=== PATIENT | male | born 1940 | race Hispanic/Latino ===

== ENCOUNTER 2016-11-26 18:20 | Inpatient (IN) | payer MEDICARE, OTHER ==
[2016-11-26 18:24] VITALS: BMI 24.0
--- NOTE | 2016-11-26 18:58 | ED PDOC ---
Arrival/HPI - General Chief Complaint: Weakness/Neurological Deficit Time Seen by Provider: 11/26/16 18:40 Historian: Patient, Other (RN who spoke with the patient's daughter) EM Caveat: Altered Mental Status - History of Present Illness Narrative History of Present Illness (Text): 11/26/16 18:56 Patient is confused with altered mental status and unable to give an accurate history. Triage nurse reports that the patient's sister dropped him off and reports an altered mental status for an unknown time frame. The patient is confused and unable to give an accurate history. He is foul-smelling and unkempt. There is some superficial abrasions on his left knee. He has an excoriated fungal infection in his left groin. It is unclear if he is possibly septic or has had a CVA. Time/Duration: Prior to Arrival Symptom Onset: Sudden Symptom Course: Worsening Activities at Onset: Rest Context: Home Past Medical History - Provider Review Nursing Documentation Reviewed: Yes - Infectious Disease Hx of Infectious Diseases: None - Tetanus Immunization Tetanus Immunization: Unknown - Cardiac Hx Cardiac Disorders: Yes (CAD) Hx Angina: Yes Hx Cardiac Arrhythmia: No Hx Circulatory Problems: No Hx Congestive Heart Failure: No Hx Heart Murmur: No Hx Heart Transplant: No Hx Hypertension: Yes Hx Internal Defibrillator: No Hx Mitral Valve Prolapse: No Hx Pacemaker: No Hx Peripheral Edema: No Hx Peripheral Vascular Disease: Yes Other/Comment: Open Heart Surgery 2012 - Pulmonary Hx Respiratory Disorders: Yes Hx Asthma: No Hx Bronchitis: No Hx Chronic Obstructive Pulmonary Disease (COPD): Yes Hx Emphysema: No Hx Pneumonia: No Hx Respiratory Aspiration: No Hx Respiratory Tract Infection: No Hx Sleep Apnea: No Hx Tuberculosis: No - Neurological Hx Neurological Disorder: Yes Hx Alzheimer's Disease: No HX Cerebrovascular Accident: No Hx Dementia: No Hx Dizziness: No Hx Meningitis: No Hx Migraine: No Hx Parkinson's Disease: Yes Hx Seizures: No Hx Transient Ischemic Attacks (TIA): No - HEENT Hx HEENT Disorder: No Hx Blind: No Hx Cataracts: No Hx Deafness: No Hx Difficulty Chewing: No Hx Epistaxis: No Hx Glaucoma: No Hx Macular Degeneration: No - Renal Hx Renal Disorder: No Hx Dialysis: No Hx Kidney Stones: No Hx Neurogenic Bladder: No Hx Pyelonephritis: No Hx Renal Cancer: No Hx Renal Failure: No - Endocrine/Metabolic Hx Endocrine Disorders: No Hx Adrenal Cancer: No Hx Diabetes Insipidus: No Hx Diabetes Mellitus Type 1: No Hx Diabetes Mellitus Type 2: No Hx Hyperthyroidism: No Hx Hypothyroidism: No Hx Systemic Lupus Erythematosus: No - Hematological/Oncological Hx Blood Disorders: No Hx AIDS: No Hx Anemia: No Hx Cancer: No Hx Chemotherapy: No Hx Cirrhosis: No Hx Hemophilia: No Hx Hepatitis A: No Hx Hepatitis B: No Hx Hepatitis C: No Hx Metastasis: No Hx Shingles: No Hx Sickle Cell Disease: No Hx Unexplained Bleeding: No - Integumentary Hx Dermatological Disorder: No Hx Basal Cell Carcinoma: No Hx Eczema: No Hx Melanoma: No Hx Psoriasis: No Hx Squamous Cell Carcinoma: No - Musculoskeletal/Rheumatological Hx Falls: Yes (Frequent falls) - Gastrointestinal Hx Gastrointestinal Disorders: No - Genitourinary/Gynecological Hx Genitourinary Disorders: No Hx Hematuria: No Hx Incontinence: No Hx Prostate Problems: No Hx Sexually Transmitted Diseases: No Hx Urinary Tract Infection: No - Psychiatric Hx Psychophysiologic Disorder: Yes Hx Anxiety: Yes Hx Substance Use: No - Surgical History Hx Cardiac Catheterization: Yes Hx Coronary Stent: No Hx Open Heart Surgery: Yes (2011) - Anesthesia Hx Anesthesia: Yes Hx Anesthesia Reactions: No Family/Social History - Physician Review Nursing Documentation Reviewed: Yes Family/Social History: No Known Family HX, Unknown Family HX Smoking Status: Light Smoker < 10 Cigarettes Daily Hx Alcohol Use: No Hx Substance Use: No Allergies/Home Meds Allergies/Adverse Reactions: Allergies No Known Allergies Allergy (Verified 11/26/16 18:24) Home Medications: Home Meds Medication Instructions Recorded Confirmed Alprazolam [Xanax] 1 mg PO DAILY 04/14/14 11/26/16 Carbidopa/Levodopa 1 tab PO TID 11/26/16 11/26/16 [Carbidopa-Levodopa 25-100 Tab] Metoprolol Succinate [Toprol XL] 25 mg PO DAILY 11/26/16 11/26/16 Review of Systems - Physician Review All systems were reviewed & negative as marked: Yes - Review of Systems Systems not reviewed;Unavailable: Altered Mental Status Physical Exam Vital Signs Reviewed: Yes Vital Signs Temp Pulse Resp BP Pulse Ox 11/26/16 20:58 99.3 F 65 20 177/95 H 98 11/26/16 18:30 97.4 F L 135 H 19 135/74 98 Temperature: Afebrile Blood Pressure: Normal Pulse: Tachycardic Respiratory Rate: Normal Appearance: Positive for: Comfortable, Ill-Appearing Pain Distress: None Mental Status: Positive for: Lethargic. No: other (oriented x2 only) - Systems Exam Head: Present: Atraumatic, Normocephalic Pupils: Present: PERRL Extroacular Muscles: Present: EOMI Conjunctiva: Present: Normal Ears: Present: NORMAL TM, Normal Canal. No: Erythema Mouth: Present: Dry, Other (poor dentition) Pharnyx: No: ERYTHEMA, EXUDATE, TONSILS ENLARGED Neck: Present: Normal Range of Motion Respiratory/Chest: Present: Clear to Auscultation, Good Air Exchange, Decreased Breath Sounds. No: Respiratory Distress, Accessory Muscle Use Cardiovascular: Present: Irregular Rhythm, Tachycardic Abdomen: Present: Normal Bowel Sounds. No: Tenderness, Distention, Peritoneal Signs, Rebound, Guarding Back: Present: Normal Inspection. No: CVA Tenderness, Midline Tenderness, Paraspinal Tenderness Upper Extremity: Present: Normal Inspection. No: Cyanosis, Edema Lower Extremity: Present: NORMAL PULSES, Other (left knee abrasion). No: Normal Inspection, Edema, CALF TENDERNESS, Tenderness, Swelling Neurological: Present: GCS=15, CN II-XII Intact, Speech Normal, Motor Func Grossly Intact Skin: Present: Warm, Dry, Rashes (left groin excoriated fungal rash, left knee abrasion), Normal Color Psychiatric: Present: Agitated Medical Decision Making ED Course and Treatment: 11/26/16 18:59 Impression: A 76 year old male with Altered Mental Status. Plan: -- EKG -- CT head -- chest xray -- Urinalysis -- labs -- Reassess and disposition Prior Visits: Notes and results from previous visits were reviewed. Patient last reported to the emergency department on 04/16/14 for evaluation of frequent falls with some bruising on face. Patient admitted to [facility] for elevated troponin and near syncope. Progress Notes: EKG: EKG shows normal sinus rhythm with a sinus arrhythmia rate approximately 90 and with an intraventricular conduction delay and no acute ST or T-wave changes CT head: FINDINGS: Brain: Moderate volume loss is seen in keeping with age. Moderate decrease in attenuation of the periventricular white matter likely related to small vessel ischemic change. The brain is otherwise unremarkable. Normal epperson-white matter differentiation is present, without acute hemorrhage, or mass. Ventricles: Unremarkable. No ventriculomegaly. Bones/joints: Unremarkable. No acute fracture. Soft tissues: Unremarkable. Sinuses: Unremarkable as visualized. No acute sinusitis. Mastoid air cells: Unremarkable as visualized. No mastoid effusion. IMPRESSION: Age-related atrophy and chronic white matter ischemic changes, with no evidence of an acute intracranial abnormality. Dictated and Authenticated by: Wai Pardo MD 11/26/2016 7:33 PM Eastern Time ([place] & [place]) 11/26/16 21:58 Discussed in detail with , who knows the patient well. - Lab Interpretations Lab Results: 11/26/16 19:00 11/26/16 19:00 Lab Results 11/26/16 20:45: Ammonia 13 11/26/16 20:25: Urine Opiates Screen Negative, Urine Methadone Screen Negative, Ur Barbiturates Screen Negative, Ur Phencyclidine Scrn Negative, Ur Amphetamines Screen Negative, U Benzodiazepines Scrn Positive H, U Oth Cocaine Metabols Negative, U Cannabinoids Screen Negative 11/26/16 20:25: Urine Color Yellow, Urine Appearance Sl cloudy, Urine pH 6.0, Ur Specific Vandiver 1.020, Urine Protein Trace H, Urine Glucose (UA) Negative, Urine Ketones Negative, Urine Blood Negative, Urine Nitrate Negative, Urine Bilirubin Negative, Urine Urobilinogen 1.0 H, Ur Leukocyte Esterase Negative, Urine RBC 0 - 2, Urine WBC 0 - 2, Ur Epithelial Cells 0 - 2, Urine Bacteria Many 11/26/16 19:13: pO2 42, VBG pH 7.35, VBG pCO2 58.0, VBG HCO3 32.0 H, VBG Total CO2 33.8 H, VBG O2 Sat (Calc) 82.5 H, VBG Base Excess 4.7 H, VBG Potassium 4.0, Glucose 118 H, Lactate 1.6, FiO2 21.0, Sodium 140.0, Chloride 106.0, Venous Blood Potassium 4.0 11/26/16 19:00: Salicylates < 1 L, Acetaminophen < 10.0 L 11/26/16 19:00: TSH 3rd Generation 1.82, Alcohol, Quantitative < 10 11/26/16 19:00: Sodium 140, Potassium 4.2, Chloride 101, Carbon Dioxide 28, Anion Gap 15, BUN 35 H, Creatinine 1.1, Est GFR ( Amer) > 60, Est GFR ( Non-Af Amer) > 60, Random Glucose 115 H, Calcium 9.8, Phosphorus 3.5, Magnesium 2.0, Total Bilirubin 2.3 H, AST 59, ALT 22, Alkaline Phosphatase 79, Lactate Dehydrogenase 724 H, Total Creatine Kinase 680 H, CK-MB (CK-2) 4.7 H, CK-MB (CK- 2) % Cancelled, Troponin I 0.02, Total Protein 7.9, Albumin 4.5, Globulin 3.4, Albumin/Globulin Ratio 1.3 11/26/16 19:00: PT 12.4 H, INR 1.15 H, APTT 29.9 11/26/16 19:00: WBC 9.8, RBC 5.53, Hgb 16.9, Hct 48.4, MCV 87.5, MCH 30.6, MCHC 34.9, RDW 13.9, Plt Count 126, MPV 11.9 H, Gran % 64.4, Lymph % (Auto) 20.7 L, Hamlin % (Auto) 10.7 H, Eos % (Auto) 3.9, Baso % (Auto) 0.3, Gran # 6.32, Lymph # 2.0, Hamlin # 1.1 H, Eos # 0.4, Baso # 0.03 I have reviewed the lab results: Yes - RAD Interpretation Radiology Orders: 11/26/16 18:50 HEAD W/O CONTRAST [CT] Stat 11/26/16 18:51 CHEST PORTABLE [RAD] Stat 11/26/16 21:51 BRAIN WITH CONTRAST [MRI] Stat - EKG Interpretation Interpreted by ED Physician: Yes Type: 12 lead EKG - Medication Orders Current Medication Orders: Carbidopa/Levodopa (Sinemet) 1 tab PO TID YARON Sodium Chloride (Sodium Chloride 0.9%) 500 mls @ 500 mls/hr IV ONCE ONE Stop: 11/26/16 22:08 Last Admin: 11/26/16 21:20 Dose: 500 mls/hr Metoprolol Succinate (Toprol Xl) 25 mg PO DAILY YARON - Scribe Statement The provider has reviewed the documentation as recorded by the Raffi Hernandez Provider Scribe Attestation: All medical record entries made by the Scribe were at my direction and personally dictated by me. I have reviewed the chart and agree that the record accurately reflects my personal performance of the history, physical exam, medical decision making, and the department course for this patient. I have also personally directed, reviewed, and agree with the discharge instructions and disposition. Disposition/Present on Arrival - Present on Arrival Any Indicators Present on Arrival: No History of DVT/PE: No History of Uncontrolled Diabetes: No Urinary Catheter: No History of Decub. Ulcer: No History Surgical Site Infection Following: None - Disposition Have Diagnosis and Disposition been Completed?: Yes Diagnosis: Altered mental status, Dehydration, Weakness, Rhabdomyolysis Disposition: HOSPITALIZED Disposition Time: 21:10 Patient Plan: Observation, Telemetry Patient Problems: Current Active Problems Problem Status Onset Altered mental status Acute Dehydration Acute Rhabdomyolysis Acute Weakness Acute Condition: FAIR Discharge Instructions (ExitCare): Weakness (ED) Referrals: Ted Jacob MD [Primary Care Provider] - Follow up with primary
[2016-11-26 19:17] LABS: ADD MANUAL DIFF? NO
[2016-11-26 19:19] LABS: VENOUS BLOOD GAS BASE EXCESS 4.7 mmol/L (0.0-2.0); VENOUS BLOOD PH 7.35 (7.32-7.43)
[2016-11-26 19:31] LABS: BASO # 0.03 K/mm3 (0.0-2.0); BASO % 0.3 % (0.0-3.0); EOS # 0.4 (0.0-0.7); EOS % 3.9 % (1.5-5.0); GRAN # 6.32 (1.4-6.5); GRAN % 64.4 % (50.0-68.0); HEMATOCRIT 48.4 % (42.0-52.0); LYMPH % 20.7 % (22.0-35.0); MEAN CELL VOLUME 87.5 fL (80.0-105.0); MEAN CORPUSCULAR HEMOGLOBIN 30.6 pg (25.0-35.0); MEAN CORPUSCULAR HGB CONC 34.9 g/dl (31.0-37.0); MEAN PLATELET VOLUME 11.9 fl (7.0-11.0); MONO # 1.1 (0.1-0.6); MONO % 10.7 % (1.0-6.0); PLATELET COUNT 126 10^3/uL (120.0-450.0); RED CELL DISTRIBUTION WIDTH 13.9 % (11.5-14.5); WHITE BLOOD COUNT 9.8 10^3/ul (4.5-11.0)
[2016-11-26 19:32] LABS: ALCOHOL SERUM < 10 mg/dL (0-10)
[2016-11-26 19:36] LABS: ALB/GLOB RATIO 1.3 (1.1-1.8); ALKALINE PHOSPHATASE 79 U/L (38-133); ALT/SGPT 22 U/L (7-56); AST/SGOT 59 U/L (15-59); BILIRUBIN,TOTAL 2.3 mg/dL (0.2-1.3); BLOOD UREA NITROGEN 35 mg/dL (7-21); CALCIUM 9.8 mg/dL (8.4-10.5); CARBON DIOXIDE 28 mmol/L (21-33); CHLORIDE 101 mmol/L (98-107); GFR AFRICAN-AMERICAN > 60; GLUCOSE,RANDOM 115 mg/dL (70-110); PHOSPHOROUS 3.5 mg/dL (2.5-4.5); POTASSIUM 4.2 mmol/L (3.6-5.0); SODIUM 140 mmol/L (132-148); TOTAL PROTEIN 7.9 g/dL (5.8-8.3)
[2016-11-26 19:47] LABS: TROPONIN I 0.02 ng/mL
[2016-11-26 19:53] LABS: INR 1.15 (0.93-1.08); PARTIAL THROMBOPLASTIN TIME 29.9 Seconds (23.7-30.8)
[2016-11-26 20:18] LABS: THYROID STIMULATING HORMONE 1.82 mIU/mL (0.46-4.68)
[2016-11-26 20:40] LABS: URINE BILIRUBIN NEGATIVE (NEGATIVE); URINE BLOOD NEGATIVE (NEGATIVE); URINE GLUCOSE (UA) NEGATIVE (NEGATIVE); URINE KETONE NEGATIVE (NEGATIVE); URINE LEUKOCYTE ESTERASE NEGATIVE Leu/uL (NEGATIVE); URINE PROTEIN TRACE mg/dL (<30 mg/dL)
[2016-11-26 20:49] LABS: URINE APPEARANCE SL CLOUDY (CLEAR); URINE COLOR YELLOW (YELLOW)
[2016-11-26 20:55] LABS: URINE BACTERIA MANY (NEG); URINE EPITHELIAL CELLS 0 - 2 /hpf (0-5); URINE RBC 0 - 2 /hpf (0-2); URINE WBC 0 - 2 /hpf (0-6)
[2016-11-26] MEDS ORDERED: Sodium Chloride 0.9% 500 ML IV ONE (21:09)
[2016-11-26 23:22] LABS: TROPONIN I 0.02 ng/mL
[2016-11-26] MEDS ORDERED: Metoprolol Succinate 50 mg XL Tab PO STA ×2 (23:47)
--- NOTE | 2016-11-27 05:21 | CP.PCM.PN ---
Subjective - Date & Time of Evaluation Date of Evaluation: 11/27/16 Time of Evaluation: 05:20 - Subjective Subjective: Patient was seen at bedside. Nurse called because patient was trying to get out of bed , was confused. BP was 190/94 , Little anxious. Takes xanax at home. Patient has no complaints. Medical record was reviewed. This 76 year old white male was admitted after falls, confusion. Has PMH of CAD,COPD,tobacco abuse, Parkinson's disease, multiple falls. Objective - Vital Signs/Intake and Output Vital Signs (last 24 hours): Temp Pulse Resp BP Pulse Ox 97.5 F L 61 20 160/92 H 95 11/27/16 01:52 11/27/16 01:52 11/27/16 01:52 11/27/16 01:52 11/27/16 01:52 - Medications Medications: Current Medications Carbidopa/Levodopa (Sinemet) 1 tab PO TID YARON Metoprolol Succinate (Toprol Xl) 25 mg PO DAILY YARON - Labs Labs: PT 12.4 Seconds (9.9-11.8) H 11/26/16 19:00 INR 1.15 (0.93-1.08) H 11/26/16 19:00 APTT 29.9 Seconds (23.7-30.8) 11/26/16 19:00 - Constitutional Appears: Well, No Acute Distress - Head Exam Head Exam: ATRAUMATIC, NORMAL INSPECTION, NORMOCEPHALIC - Eye Exam Eye Exam: Normal appearance - ENT Exam ENT Exam: Normal External Ear Exam - Neck Exam Neck Exam: Normal Inspection - Respiratory Exam Respiratory Exam: NORMAL BREATHING PATTERN - Cardiovascular Exam Cardiovascular Exam: absent: JVD - GI/Abdominal Exam GI & Abdominal Exam: absent: Distended - Rectal Exam Rectal Exam: Deferred - Extremities Exam Extremities Exam: Normal Inspection - Back Exam Back Exam: NORMAL INSPECTION - Neurological Exam Neurological Exam: Altered - Psychiatric Exam Psychiatric exam: Agitated - Skin Skin Exam: Normal Color Assessment and Plan - Assessment and Plan (Free Text) Assessment: A/P:Confusion. Elevated blood pressure reading. Dementia. Parkinson's disease. CAD COPD. Continue present management. Hydralzine 10 mg IV x 1.
--- NOTE | 2016-11-27 07:35 | CT ---
PROCEDURE: CT HEAD WITHOUT CONTRAST. HISTORY: ams COMPARISON: 04/14/2014 TECHNIQUE: Axial computed tomography images were obtained through the head/brain without intravenous contrast. Radiation dose: Total exam DLP = 677.45 mGy-cm. This CT exam was performed using one or more of the following dose reduction techniques: Automated exposure control, adjustment of the mA and/or kV according to patient size, and/or use of iterative reconstruction technique. FINDINGS: HEMORRHAGE: No intracranial hemorrhage. BRAIN: No mass effect or edema. Old right thalamic lacunar infarct new since prior examination. No evidence of acute infarct. Chronic white matter ischemic change involving the periventricular white matter as well as deep and subcortical white matter. VENTRICLES: Unremarkable. No hydrocephalus. CALVARIUM: Unremarkable. PARANASAL SINUSES: Mild chronic ethmoid sinusitis MASTOID AIR CELLS: Unremarkable as visualized. No inflammatory changes. OTHER FINDINGS: None. IMPRESSION: No intracranial mass, hemorrhage or evidence of acute infarct. Old right thalamic lacunar infarct. Chronic white matter ischemic change. Preliminary interpretation of this examination was reported by [facility] at 7:33 p.m. on 11/26/2016. There is concurrence of this report with the preliminary interpretation.
[2016-11-27 08:20] LABS: ALB/GLOB RATIO 1.3 (1.1-1.8); ALKALINE PHOSPHATASE 94 U/L (38-133); ALT/SGPT 46 U/L (7-56); AST/SGOT 51 U/L (15-59); BILIRUBIN,TOTAL 1.6 mg/dL (0.2-1.3); BLOOD UREA NITROGEN 30 mg/dL (7-21); CALCIUM 9.2 mg/dL (8.4-10.5); CARBON DIOXIDE 24 mmol/L (21-33); CHLORIDE 103 mmol/L (95-110); GFR AFRICAN-AMERICAN > 60; GLUCOSE,RANDOM 113 mg/dL (70-110); SODIUM 139 mmol/L (132-148); TOTAL PROTEIN 7.4 g/dL (5.8-8.3)
[2016-11-27] MEDS ORDERED: Sodium Chloride 0.9% 1,000 ML IV SCH (08:45)
--- NOTE | 2016-11-27 09:18 | RAD ---
HISTORY: ams COMPARISON: 04/14/2014 FINDINGS: LUNGS: No active pulmonary disease. PLEURA: No significant pleural effusion identified, no pneumothorax apparent. CARDIOVASCULAR: Normal. OSSEOUS STRUCTURES: Sternal wires VISUALIZED UPPER ABDOMEN: Normal. OTHER FINDINGS: None. IMPRESSION: No active disease.
[2016-11-27] MEDS: Sodium Chloride 0.9% 1,000 ML IV SCH (09:43)
[2016-11-27] MEDS: Metoprolol Succinate 50 mg XL Tab PO SCH (09:50)
[2016-11-27] MEDS ORDERED: Metoprolol Succinate 25 mg XL Tab PO SCH ×2 (10:00)
--- NOTE | 2016-11-27 16:02 | CP.PCM.PN ---
Subjective - Date & Time of Evaluation Date of Evaluation: 11/27/16 Time of Evaluation: 15:58 - Subjective Subjective: called by nurse pt is aggitated . pt is admitted for fall and confusion and is aggitated wants to get out of bed ,pt is abusive to the the staff. Objective - Vital Signs/Intake and Output Vital Signs (last 24 hours): Temp Pulse Resp BP Pulse Ox 97.7 F 89 20 125/72 98 11/27/16 11:44 11/27/16 11:44 11/27/16 11:44 11/27/16 11:44 11/27/16 05:32 Intake and Output: 11/27/16 11/27/16 06:59 18:59 Intake Total 120 Output Total 400 Balance -280 - Medications Medications: Current Medications Amlodipine Besylate (Norvasc) 5 mg PO DAILY [facility] Last Admin: 11/27/16 09:42 Dose: 5 mg Carbidopa/Levodopa (Sinemet) 1 tab PO TID [facility] Last Admin: 11/27/16 15:34 Dose: 1 tab Sodium Chloride (Sodium Chloride 0.9%) 1,000 mls @ 100 mls/hr IV .Q10H [facility] Last Admin: 11/27/16 09:43 Dose: 100 mls/hr Metoprolol Succinate (Toprol Xl) 50 mg PO BRK [facility] Last Admin: 11/27/16 09:50 Dose: 50 mg - Labs Labs: 11/27/16 00:38 PT 12.4 Seconds (9.9-11.8) H 11/26/16 19:00 INR 1.15 (0.93-1.08) H 11/26/16 19:00 APTT 29.9 Seconds (23.7-30.8) 11/26/16 19:00 - Constitutional Appears: No Acute Distress - Head Exam Head Exam: NORMOCEPHALIC - Eye Exam Eye Exam: PERRL Pupil Exam: PERRL - ENT Exam ENT Exam: Mucous Membranes Moist - Neck Exam Neck Exam: Full ROM - Respiratory Exam Respiratory Exam: NORMAL BREATHING PATTERN - Cardiovascular Exam Cardiovascular Exam: RRR, +S1, +S2 - Rectal Exam Rectal Exam: Deferred - Extremities Exam Extremities Exam: Full ROM - Neurological Exam Neurological Exam: Awake, CN II-XII Intact - Psychiatric Exam Psychiatric exam: Agitated - Skin Skin Exam: Dry, Warm Assessment and Plan - Assessment and Plan (Free Text) Assessment: aggitation .s/p fall. ct head negative. hx of parkinsonism. Plan: wrist and vest restrain.
--- NOTE | 2016-11-27 19:12 | CON ---
DATE: 11/27/2016 CHIEF COMPLAINT: Confusion. HISTORY OF HISTORY OF PRESENT ILLNESS: A 76-year-old man brought in for worsening confusion with pas t history of coronary artery disease, status post coronary bypass, hypertension, parkinsonism, on Sin emet 1 tab p.o. 25/100 one tab t.i.d., and has been reported by sister who dropped him off at the ER had intermittent episodes of confusion, unable to take care of himself, foul-smelling, unkept. He elliott s excoriations of fungal infection of the left groin. Currently, he is tremulous, he is agitated. H e is on 1:1 and under [place] vest and is agitated and confused. His CT head showed no acute intracran ial abnormality. He was taking Xanax at home, but unknown dose currently, did not bring in Xanax whi le he is in the hospital. He has elevated blood pressure, likely secondary to agitation and having u nderlying hypertensive urgency. Currently, he is on Sinemet. He is following simple commands, he is alert, oriented to person and place, not much of month or year. Recall after 5 minutes is 0/3. Poo r attention span, slow thought process. REVIEW OF SYSTEMS: A 14-point review of systems is negative except the HPI. ALLERGIES: No known drug allergies. PAST MEDICAL HISTORY: Coronary artery disease, status post stent, dyslipidemia, hypertension, mohinder sonism, and COPD. SOCIAL HISTORY: Smokes half pack of cigarettes a day. A smoker for the past 40 years. FAMILY HISTORY: Mother at 90. Father at 52, unaware of the causes. CURRENT MEDICATIONS: Reviewed via nurse's reconciliation sheet. PHYSICAL EXAMINATION: VITAL SIGNS: Temperature 98.1, pulse rate of 89, blood pressure is 125/72, respiratory rate 20, oxyg en saturation 98% on room air. GENERAL: The patient is sitting up in bed, confused, in no acute distress. HEENT: Atraumatic, normocephalic. PERRLA. Extraocular muscles intact. NECK: Supple, no JVD, no adenopathy noted. LUNGS: Clear to auscultation. No adventitious sounds. HEART: S1, S2, normal rate and rhythm. No murmurs, rubs, or gallops. ABDOMEN: Soft, nontender, nondistended. Bowel sounds are present. EXTREMITIES: No clubbing, no cyanosis. Peripheral pulses 2+ felt bilaterally. NEUROLOGIC: The patient is alert, oriented to person and place, not much of month or year. Recall af ter 5 minutes is 0/3. Slow attention span, slow thought process. Cranial nerves II through XII are i ntact. MOTOR: Moves all extremities equally. Slight increased tone throughout. Has some mild cogwheel rig idity at the wrists. Strength is 5/5 in both upper and lower extremities, moving all extremities equ ally. DTRs 2+ throughout. SENSORY: Light touch, proprioception, vibration is intact. COORDINATION: Idwmii-tj-iand intact. GAIT: Deferred for now. LABORATORY DATA: Sodium is 139, potassium 4, chloride 103, carbon dioxide 24, BUN of 30, creatinine 1.1, random glucose 113. ASSESSMENT AND PLAN: This is a 76-year-old man with history of parkinsonism, on Sinemet 1 tab p.o. t .i.d., history of coronary artery disease, status post coronary bypass, hypertension, dyslipidemia wh o has had multiple falls, his fall is secondary to poor gait secondary to parkinsonism and is on Xana x 1 mg p.o. daily for underlying anxiety, presents to the hospital with more confusion and multiple f alls. His multiple falls are likely secondary to poor coordination and gait from underlying parkinso nism and confusion, likely secondary to delirium from underlying dehydration and worsening parkinsoni sm at this time, as well as superimposed underlying worsening anxiety leading to hypertensive urgency . At this time, recommend: 1. PT, OT and likely subacute rehabilitation. 2. Hydrate the patient and monitor his electrolytes and correct accordingly. 3. Get an MRI of the brain without contrast to assess for any acute intracranial abnormality. 4. Seroquel 12.5 mg at bedtime for agitation. 5. Will give 0.5 mg Xanax p.o. b.i.d. for anxiety. At this time, continue with current present medical management. Avoid nighttime interruptions, frequ ently orient him through the day and avoid sedative medications. Thank you for this consult. Gene Ferraro MD cc: [phone] TT: 11/27/2016 19:11:16 Confirmation # [id number] Dictation # [id number] rn
--- NOTE | 2016-11-27 19:54 | HP ---
HISTORY OF PRESENT ILLNESS: A 76-year-old white male with history of CAD, history of chronic obstruc tive pulmonary disease, tobacco abuse, recent history of Parkinson disease, recent confusion and diso rientation, found by the family to be falling multiple times in the last several weeks. Also with ch krishna in mental status and confusion. The patient was brought to Emergency Room by the sister. He wa s found with disheveled face, smelling of urine, contusion and swelling of the left knee. The patien t is not oriented to place or time, but oriented to person only. He has a mild tremor of the hands. Also complaining of pain of the left wrist. PHYSICAL EXAMINATION: GENERAL: He is awake and alert. Seen with his son. HEART: Regular sinus rhythm. CHEST: Shows decreased breath sounds, but mild rhonchi bilaterally. Clear to auscultation and percus valentina. ABDOMEN: Benign. EXTREMITIES: Without cyanosis, clubbing or edema. There is definitely erythema and swelling and a c ontusion of the left knee. NEUROLOGIC: Grossly intact except for some resting tremor and some disorientation. IMPRESSION: Parkinson's disease, multiple falls, possible early dementia, rule out cerebrovascular a ccident, rule out infection, exacerbation of chronic obstructive pulmonary disease. Ted Jacob MD cc: [phone] TT: 11/27/2016 19:54:00 marci
[2016-11-27] MEDS ORDERED: Vancomycin 500mg in NS 500 MG/100 ML BAG IVPB SCH (22:00)
--- NOTE | 2016-11-27 23:09 | CARD ---
APPROVED REPORT EKG Measurement Heart [id number] CT [id number] <Conclusion> Sinus rhythm with frequent and consecutive premature ventricular complexes and fusion complexes Right bundle branch block Inferior infarct, age undetermined Abnormal ECG
[2016-11-28] MEDS: Sodium Chloride 0.9% 1,000 ML IV SCH ×2 (04:45→14:20)
[2016-11-28 06:25] LABS: ADD MANUAL DIFF? NO
[2016-11-28 06:35] LABS: BASO # 0.03 K/mm3 (0.0-2.0); BASO % 0.3 % (0.0-3.0); EOS # 0.4 (0.0-0.7); GRAN # 5.83 (1.4-6.5); GRAN % 59.1 % (50.0-68.0); HEMATOCRIT 42.8 % (42.0-52.0); LYMPH # 2.5 (1.2-3.4); LYMPH % 25.7 % (22.0-35.0); MEAN CELL VOLUME 87.3 fL (80.0-105.0); MEAN CORPUSCULAR HEMOGLOBIN 30.4 pg (25.0-35.0); MEAN CORPUSCULAR HGB CONC 34.8 g/dl (31.0-37.0); MONO # 1.1 (0.1-0.6); MONO % 10.9 % (1.0-6.0); PLATELET COUNT 109 10^3/uL (120.0-450.0); RED CELL DISTRIBUTION WIDTH 13.7 % (11.5-14.5); WHITE BLOOD COUNT 9.9 10^3/ul (4.5-11.0)
[2016-11-28 06:56] LABS: ALB/GLOB RATIO 1.3 (1.1-1.8); ALKALINE PHOSPHATASE 68 U/L (38-133); ALT/SGPT 29 U/L (7-56); AST/SGOT 45 U/L (15-59); BILIRUBIN,TOTAL 2.1 mg/dL (0.2-1.3); BLOOD UREA NITROGEN 24 mg/dL (7-21); CALCIUM 9.1 mg/dL (8.4-10.5); CARBON DIOXIDE 27 mmol/L (21-33); CHLORIDE 105 mmol/L (98-107); GFR AFRICAN-AMERICAN > 60; GLUCOSE,RANDOM 82 mg/dL (70-110); POTASSIUM 4.1 mmol/L (3.6-5.0); SODIUM 141 mmol/L (132-148); TOTAL PROTEIN 6.8 g/dL (5.8-8.3)
[2016-11-28] MEDS ORDERED: Vancomycin 1gm in NS 250ml 1 GM/250 ML BAG IVPB STA (08:12)
[2016-11-28] MEDS: Metoprolol Succinate 50 mg XL Tab PO SCH (10:36)
[2016-11-28] MEDS: Nystatin-Triamcinolone Cream(30 gm) TOP SCH ×2 (10:40→17:05)
--- NOTE | 2016-11-28 12:48 | CP.PCM.PN ---
Subjective - Date & Time of Evaluation Date of Evaluation: 01/28/17 Time of Evaluation: 11:00 - Subjective Subjective: [id number] [id number] : 1940 Loc: NO Room/Bed: 263-01 Age/Sex: 76 / M ADM Status: ADM IN ADM Date: DIS Date: Progress note: DATE: 11/28/2016 CHIEF COMPLAINT: F/U for Confusion. SUBJECTIVE: He has elevated blood pressure, likely secondary to agitation and having underlying hypertensive urgency. Currently, he is on Sinemet. He is following simple commands, he is alert, oriented to person and place, not much of month or year. Recall after 5 minutes is 0/3. Poor attention span, slow thought process. He got seroquel which helped him a little. I placed him on Xanax 0.5 mg po bid. REVIEW OF SYSTEMS: A 14-point review of systems is negative except the HPI. ALLERGIES: No known drug allergies. PAST MEDICAL HISTORY: Coronary artery disease, status post stent, dyslipidemia , hypertension, parkinsonism, and COPD. SOCIAL HISTORY: Smokes half pack of cigarettes a day. A smoker for the past 40 years. FAMILY HISTORY: Mother at 90. Father at 52, unaware of the causes. CURRENT MEDICATIONS: Reviewed via nurse's reconciliation sheet. PHYSICAL EXAMINATION: VITAL SIGNS: Reviewed. GENERAL: The patient is sitting up in bed, confused, in no acute distress. HEENT: Atraumatic, normocephalic. PERRLA. Extraocular muscles intact. NECK: Supple, no JVD, no adenopathy noted. LUNGS: Clear to auscultation. No adventitious sounds. HEART: S1, S2, normal rate and rhythm. No murmurs, rubs, or gallops. ABDOMEN: Soft, nontender, nondistended. Bowel sounds are present. EXTREMITIES: No clubbing, no cyanosis. Peripheral pulses 2+ felt bilaterally. NEUROLOGIC: The patient is alert, oriented to person and place, not much of month or year. Recall after 5 minutes is 0/3. Slow attention span, slow thought process. Cranial nerves II through XII are intact. MOTOR: Moves all extremities equally. Slight increased tone throughout. Has some mild cogwheel rigidity at the wrists. Strength is 5/5 in both upper and lower extremities, moving all extremities equally. DTRs 2+ throughout. SENSORY: Light touch, proprioception, vibration is intact. COORDINATION: [id number] intact. GAIT: Deferred for now. LABORATORY DATA: Reviewed. ASSESSMENT AND PLAN: This is a 76-year-old man with history of parkinsonism, on Sinemet 1 tab p.o. t.i.d., history of coronary artery disease, status post coronary bypass, hypertension, dyslipidemia who has had multiple falls, his fall is secondary to poor gait secondary to parkinsonism and is on Xanax 1 mg p.o. daily for underlying anxiety, presents to the hospital with more confusion and multiple falls. His multiple falls are likely secondary to poor coordination and gait from underlying parkinsonism and confusion, likely secondary to delirium from underlying dehydration and worsening parkinsonism at this time, as well as superimposed underlying worsening anxiety leading to hypertensive urgency. At this time, recommend: 1. PT, OT and likely subacute rehabilitation. 2. Hydrate the patient and monitor his electrolytes and correct accordingly. 3. Get an MRI of the brain without contrast to assess for any acute intracranial abnormality. 4. Seroquel 12.5 mg at bedtime for agitation. Could consider to increase to 25mg po qhs 5. Will give 0.5 mg Xanax p.o. b.i.d. for anxiety. At this time, continue with current present medical management. Avoid nighttime interruptions, frequently orient him through the day and avoid sedative medications. Thank you Gene Ferraro MD Objective - Vital Signs/Intake and Output Vital Signs (last 24 hours): Temp Pulse Resp BP Pulse Ox 98 F 107 H 20 138/84 96 11/28/16 12:00 11/28/16 12:00 11/28/16 12:00 11/28/16 12:00 11/28/16 06:00 Intake and Output: 11/28/16 11/28/16 06:59 18:59 Intake Total 120 Output Total 0 Balance 120 - Medications Medications: Current Medications Alprazolam (Xanax) 0.5 mg PO BID PRN; Protocol PRN Reason: Anxiety Amlodipine Besylate (Norvasc) 5 mg PO DAILY [facility] Last Admin: 11/28/16 10:36 Dose: 5 mg Carbidopa/Levodopa (Sinemet) 1 tab PO TID [facility] Last Admin: 11/28/16 10:37 Dose: 1 tab Sodium Chloride (Sodium Chloride 0.9%) 1,000 mls @ 100 mls/hr IV .Q10H [facility] Last Admin: 11/28/16 04:45 Dose: 100 mls/hr Lorazepam (Ativan) 1 mg IVP ONCE ONE PRN Reason: Protocol Stop: 11/28/16 14:01 Metoprolol Succinate (Toprol Xl) 50 mg PO BRK [facility] Last Admin: 11/28/16 10:36 Dose: 50 mg Nystatin/Triamcinolone Acetonide (Nystatin/Triamcinolone Cream) 0 ea TOP BID [facility] Last Admin: 11/28/16 10:40 Dose: 1 tcp Quetiapine Fumarate (Seroquel) 12.5 mg PO HS [facility] PRN Reason: Protocol Last Admin: 11/27/16 22:56 Dose: 12.5 mg - Labs Labs: 11/28/16 05:15 11/28/16 05:15 PT 12.4 Seconds (9.9-11.8) H 11/26/16 19:00 INR 1.15 (0.93-1.08) H 11/26/16 19:00 APTT 29.9 Seconds (23.7-30.8) 11/26/16 19:00
--- NOTE | 2016-11-28 20:35 | PN ---
DATE: 11/28/2016 This is a 76-year-old white male admitted to hospital with multiple falls, contusion of the knee, pos itive blood cultures, elevated BUN and creatinine, consistent with dehydration, elevated muscle enzym es consistent with mild rhabdomyolysis, change in mental status, confusion, history of Parkinson's di sease, multiple falls, possibility dementia, COPD, history of open heart surgery for CAD. LABORATORY DATA: The patient did have another blood culture, it turned out at this point, that is St aphylococcus epidermidis, most likely contaminant, only 1 bottle. The patient still has not had a re peat MRI. His laboratory data are improving. His mental status is still confused and disoriented, oriented only to person, not to place or time. Plan is for physical therapy and occupational therapy. Continue hydration. Follow BUN and creatinin e and muscle enzymes. Transfer to a subacute facility [facility]. Ted Jacob MD cc: [id number] TT: 11/28/2016 20:35:00 Confirmation # [id number] Dictation # [id number] soha
--- NOTE | 2016-11-28 21:35 | CP.PCM.CON ---
History of Present Illness - History of Present Illness History of Present Illness: 76 year old male with PMH of CAD, COPD, Parkinson's disease, history of significant smoking was brought in by family because he was noted to have multiple episodes of falls as well as being unkempt. There has been no note of fever, no convulsions, no head trauma, no loss of consciousness, no bladder or bowel incontinence. Full review of systems is difficult to obtain because the patient has some confusion. He is currently comfortable in bed, not in distress. As part of the work up, blood cx were taken which showed coagulase negative staph. Infectious Diseases consult is requested to further evaluate and manage. Review of Systems - Review of Systems Systems not reviewed;Unavailable: Other (confusion) Past Patient History - Infectious Disease Hx of Infectious Diseases: None - Tetanus Immunizations Tetanus Immunization: Unknown - Past Social History Smoking Status: Heavy Smoker > 10 Cigarettes Daily - CARDIAC Hx Cardiac Disorders: Yes Hx Angina: Yes Hx Hypercholesterolemia: Yes Hx Hypertension: Yes Hx Peripheral Vascular Disease: Yes - PULMONARY Hx Respiratory Disorders: Yes Hx Asthma: Yes - NEUROLOGICAL Hx Neurological Disorder: Yes Hx Dementia: Yes Hx Parkinson's Disease: Yes - HEENT Hx HEENT Problems: Yes (uses galsses) Hx Macular Degeneration: Yes - RENAL Hx Chronic Kidney Disease: Yes Hx Kidney Stones: Yes - ENDOCRINE/METABOLIC Hx Endocrine Disorders: No - HEMATOLOGICAL/ONCOLOGICAL Hx Blood Disorders: Yes - INTEGUMENTARY Hx Dermatological Problems: Yes Hx Psoriasis: Yes - MUSCULOSKELETAL/RHEUMATOLOGICAL Hx Falls: Yes - GASTROINTESTINAL Hx Gastrointestinal Disorders: No - GENITOURINARY/GYNECOLOGICAL Hx Genitourinary Disorders: Yes Hx Incontinence: Yes - PSYCHIATRIC Hx Substance Use: No - SURGICAL HISTORY Hx Surgeries: Yes Hx Cholecystectomy: Yes Hx Open Heart Surgery: Yes - ANESTHESIA Hx Anesthesia: Yes Hx Anesthesia Reactions: No Meds Allergies/Adverse Reactions: Allergies Allergy/AdvReac Type Severity Reaction Status Date / Time pineapple Allergy Unknown ITCHING Verified 11/27/16 00:42 - Medications Medications: Current Medications Alprazolam (Xanax) 0.5 mg PO BID PRN; Protocol PRN Reason: Anxiety Amlodipine Besylate (Norvasc) 5 mg PO DAILY [facility] Last Admin: 11/27/16 09:42 Dose: 5 mg Carbidopa/Levodopa (Sinemet) 1 tab PO TID [facility] Last Admin: 11/27/16 17:37 Dose: 1 tab Sodium Chloride (Sodium Chloride 0.9%) 1,000 mls @ 100 mls/hr IV .Q10H [facility] Last Admin: 11/27/16 09:43 Dose: 100 mls/hr Vancomycin HCl (Vancomycin 500mg In Ns) 500 mg in 100 mls @ 200 mls/hr IVPB Q12 [facility] PRN Reason: Protocol Last Admin: 11/27/16 22:55 Dose: 200 mls/hr Metoprolol Succinate (Toprol Xl) 50 mg PO BRK [facility] Last Admin: 11/27/16 09:50 Dose: 50 mg Quetiapine Fumarate (Seroquel) 12.5 mg PO HS [facility] PRN Reason: Protocol Last Admin: 11/27/16 22:56 Dose: 12.5 mg Physical Exam - Constitutional Appears: Non-toxic, No Acute Distress - Head Exam Head Exam: NORMAL INSPECTION - ENT Exam ENT Exam: Mucous Membranes Moist - Neck Exam Neck exam: Negative for: Lymphadenopathy, Meningismus - Respiratory Exam Respiratory Exam: Decreased Breath Sounds - Cardiovascular Exam Cardiovascular Exam: +S1, +S2 - GI/Abdominal Exam GI & Abdominal Exam: Soft. absent: Tenderness Results - Vital Signs Recent Vital Signs: Last Vital Signs Temp 97.7 F 11/27/16 11:44 Pulse 73 11/27/16 18:00 Resp 20 11/27/16 11:44 BP 125/72 11/27/16 11:44 Pulse Ox 98 11/27/16 05:32 - Labs Result Diagrams: 11/28/16 05:15 11/28/16 05:15 Labs: Laboratory Results - last 24 hr 11/27/16 11/27/16 11/27/16 00:38 09:00 09:00 ESR 6 Sodium 139 Potassium 4.0 Chloride 103 Carbon Dioxide 24 Anion Gap 16 BUN 30 H Creatinine 1.1 Est GFR ( Amer) > 60 Est GFR (Non-Af Amer) > 60 Random Glucose 113 H Calcium 9.2 Total Bilirubin 1.6 H AST 51 ALT 46 Alkaline Phosphatase 94 Total Creatine Kinase CK-MB (CK-2) CK-MB (CK-2) % Total Protein 7.4 Albumin 4.2 Globulin 3.2 Albumin/Globulin Ratio 1.3 Vitamin B12 498 TSH 3rd Generation RPR 11/27/16 11/27/16 11/27/16 09:00 09:00 22:42 ESR Sodium Potassium Chloride Carbon Dioxide Anion Gap BUN Creatinine Est GFR ( Amer) Est GFR (Non-Af Amer) Random Glucose Calcium Total Bilirubin AST ALT Alkaline Phosphatase Total Creatine Kinase 527 H CK-MB (CK-2) 3.7 H CK-MB (CK-2) % Cancelled Total Protein Albumin Globulin Albumin/Globulin Ratio Vitamin B12 TSH 3rd Generation 1.63 RPR Nonreactive Assessment & Plan - Assessment and Plan (Free Text) Plan: Assessment Coagulase negative staph in 2 of 4 bottles R/O contamination Worsening confusion, consider worsening PArkinsonism CAD COPD Parkinson's disease history of significant smoking Plan Patient given Vancomycin pending repeat blood cx Will monitor clinically Will follow up MRI brain results
--- NOTE | 2016-11-29 15:06 | PN ---
DATE: 11/29/2016 LOCATION: 263, bed 1. The patient was seen earlier this morning, 11/29/2016. SUBJECTIVE: The patient was seen to be comfortable in bed, not in distress. No fevers noted, no hea dache. Looks still confused. OBJECTIVE: VITAL SIGNS: The patient is afebrile, heart rate of 88, respiratory rate 20. HEAD AND NECK: Normocephalic, atraumatic. No meningismus noted. CHEST: Decreased breath sounds bilaterally. HEART: S1, S2 are normal. ABDOMEN: Soft, nontender, nondistended. LABORATORY DATA: Unfortunately, the computer systems are down and we are unable to view the labs. ASSESSMENT: This is a 76-year-old male with past medical history of coronary artery disease, chronic obstructive pulmonary disease, significant smoking history, Parkinson's disease, who is now presenti with worsening confusion, being worked up for possible worsening of parkinsonism. We have been ca lled for evaluation of coagulase-negative Staphylococcus in 1 of 2 sets. We need to rule out contami nation in this patient with no specific source of the coagulase-negative Staphylococcus. PLAN: We gave the patient vancomycin yesterday, pending the results of the repeat blood cultures leslye t were also taken from yesterday. We will continue to monitor this patient currently off antibiotics , and we will await the results of the brain MRI of the patient to further evaluate the reason for co nfusion of this patient. Juan Daniel Huffman M.D. cc: [id number] TT: 11/29/2016 14:05:25 Confirmation # [id number] Dictation # [id number]
--- NOTE | 2016-11-29 21:19 | PN ---
DATE: 11/29/2016 This is a 76-year-old white male admitted to the hospital with multiple falls, change in mental statu s, confusion, contusion of the left knee. Blood cultures were positive for Staph epidermidis lanei raymon. Other blood cultures were negative. The patient is afebrile. Vital signs are stable. He was taken off antibiotics by Dr. Huffman. He has done physical therapy and occupational therapy. He has severe Parkinson's and advanced dementia. T he patient is being evaluated for [facility] placement short-term rehabilitation. Vital sign s are stable. The patient's physical examination is unchanged. Ted Jacob MD cc: [id number] TT: 11/29/2016 21:18:18 Confirmation # [id number] Dictation # [id number] marci
[2016-11-29] MEDS ORDERED: Vancomycin 500mg in NS 500 MG/100 ML BAG IVPB SCH (22:00)
--- NOTE | 2016-11-30 01:16 | CP.PCM.PN ---
Subjective - Date & Time of Evaluation Date of Evaluation: 11/30/16 Time of Evaluation: 01:16 - Subjective Subjective: Patient was seen at bedside. Nurse Nicole called me because patient was climbing and he was little agressive , had facundo 2 days ago which was discontinued. Needed nicotine patch ordered. VSS 146/86 ,59 , 98.3*F This 76 year old white male was admitted after he was found confused following a fall. Has PMH of HTN,Parkinson's disease, dementia, COPD. Objective - Vital Signs/Intake and Output Vital Signs (last 24 hours): Temp Pulse Resp BP Pulse Ox 97 F L 66 18 154/81 H 96 11/28/16 18:00 11/29/16 22:00 11/28/16 18:00 11/28/16 18:00 11/28/16 06:00 - Medications Medications: Current Medications Alprazolam (Xanax) 0.5 mg PO BID PRN; Protocol PRN Reason: Anxiety Amlodipine Besylate (Norvasc) 5 mg PO DAILY [facility] Last Admin: 11/28/16 10:36 Dose: 5 mg Carbidopa/Levodopa (Sinemet) 1 tab PO TID [facility] Last Admin: 11/28/16 17:05 Dose: 1 tab Sodium Chloride (Sodium Chloride 0.9%) 1,000 mls @ 100 mls/hr IV .Q10H [facility] Last Admin: 11/28/16 14:20 Dose: 100 mls/hr Vancomycin HCl (Vancomycin 500mg In Ns) 500 mg in 100 mls @ 200 mls/hr IVPB Q12 [facility] PRN Reason: Protocol Last Admin: 11/29/16 22:31 Dose: 200 mls/hr Metoprolol Succinate (Toprol Xl) 50 mg PO BRK [facility] Last Admin: 11/28/16 10:36 Dose: 50 mg Nystatin/Triamcinolone Acetonide (Nystatin/Triamcinolone Cream) 0 ea TOP BID [facility] Last Admin: 11/28/16 17:05 Dose: 1 tcp Quetiapine Fumarate (Seroquel) 12.5 mg PO HS [facility] PRN Reason: Protocol Last Admin: 11/29/16 21:04 Dose: 12.5 mg - Labs Labs: 11/28/16 05:15 11/28/16 05:15 PT 12.4 Seconds (9.9-11.8) H 11/26/16 19:00 INR 1.15 (0.93-1.08) H 11/26/16 19:00 APTT 29.9 Seconds (23.7-30.8) 11/26/16 19:00 - Constitutional Appears: Well, No Acute Distress - Head Exam Head Exam: ATRAUMATIC, NORMAL INSPECTION, NORMOCEPHALIC - Eye Exam Eye Exam: Normal appearance - ENT Exam ENT Exam: Normal External Ear Exam - Neck Exam Neck Exam: Normal Inspection - Respiratory Exam Respiratory Exam: NORMAL BREATHING PATTERN - Cardiovascular Exam Cardiovascular Exam: absent: JVD - GI/Abdominal Exam GI & Abdominal Exam: absent: Distended - Rectal Exam Rectal Exam: Deferred - Extremities Exam Extremities Exam: Normal Inspection - Back Exam Back Exam: NORMAL INSPECTION - Neurological Exam Neurological Exam: Altered - Psychiatric Exam Psychiatric exam: Agitated - Skin Skin Exam: Normal Color Assessment and Plan - Assessment and Plan (Free Text) Assessment: A/P : Confusion. Tobacco withdrawal. Parkinson's disease. Dementia. COPd. Nicotine patch as ordered. Continue present management.
[2016-11-30] MEDS: Metoprolol Succinate 50 mg XL Tab PO SCH (08:19)
--- NOTE | 2016-11-30 08:22 | PN ---
DATE: 11/30/2016 SUBJECTIVE: The patient has no complaints of any chest pain. No shortness of breath, no headaches o r dizziness. PHYSICAL EXAMINATION: VITAL SIGNS: Temperature is 98.3, pulse of 68, blood pressure 146/86, respirations 19. GENERAL: The patient comfortable, in no acute distress. HEENT: Anicteric sclerae. Moist mucosa. NECK: No JVD or adenopathy. CARDIAC: S1/S2. No murmurs. No rubs. Regular. RESPIRATORY: Clear to auscultation bilaterally. No wheezes, rales, or rhonchi. Good air entry. ABDOMEN: Bowel sounds are positive, soft, nontender, and nondistended. EXTREMITIES: No edema. Has 1+ pulses. LABS: Creatinine is 1.1. ASSESSMENT: 1. Delirium. 2. Parkinson's. 3. Coronary artery disease/coronary artery bypass grafting. 4. Hypertension. 5. Fall. 6. Smoking. PLAN: The patient is currently comfortable. He has blood cultures that are negative, initially ther e is a coagulase negative staph. The patient is on Seroquel. He is going to continue with a combina tion carbidopa, levodopa for the Parkinson's. Patient on IV fluids. I will lower the rate of the IV fluids. The patient has an MRI that had been ordered. Physical therapy will also be ordered. The patient may need subacute rehabilitation. Mna Noble MD cc: [id number] TT: 11/30/2016 08:19:35 Confirmation # [id number] Dictation # [id number] soha
[2016-11-30] MEDS: Nystatin-Triamcinolone Cream(30 gm) TOP SCH ×2 (09:18→17:31)
--- NOTE | 2016-11-30 12:02 | CON ---
DATE: 11/30/2016 HISTORY OF PRESENT ILLNESS: Shortly, the patient is a 76-year-old male with long history o f Parkinson disease. The patient has multiple medical issues including change in mental status for w hat patient was admitted on the medical floor. The patient was found to have sepsis as well as coagu lase negative staph. The patient has episodes of confusion, delirium as well as agitation. That is why this documentation writer was involved into the patient's care. The patient was seen and examined today at the morning time. The patient was confused, did not know where he was. At the same time, the patient h as difficulty to concentrate and sustain conversation. The patient has a son who is sitting next to him and collateral information was obtained from the son. The patient gave permission. The patient' s son reported that patient is confused now and he is not at his baseline. At baseline of the patien t, the patient will be alert and oriented, will be able to participate in conversation and meaningful conversation is available. The patient also has episodes of confusion, but easily redirected. As p er report from the nursing staff, the patient had episodes of confusion and agitation overnight. Galdino epperson was called. That is why the patient is on waist Kari and wrist restraint. This documentation writer revie wed previous history. The patient was seen by Dr. Valdovinos in the past due to history of depression. Marky Ascencio was seeing him as a fashion consultant selling in 04/2014. The patient denied history of suicidal attempts . VITAL SIGNS: Reviewed, stable. Temperature is 98.3, pulse is 65, blood pressure 142/80, respiration s 20, oxygen saturation is 97. MEDICATIONS: Reviewed. The patient is on Xanax 0.5 mg twice a day as needed for anxiety, Norvasc 5 mg daily, Sinemet, metoprolol, Nicoderm, also Seroquel 12.5 mg at the nighttime started by Dr. Ferraro . This documentation writer will implement Seroquel ____ mg daily for confusion. LABORATORY DATA: Reviewed. Most recent was from 11/28. MENTAL STATUS EXAMINATION: The patient appears to be confused, intermittent eye contact. The patien t appears to be restless, trying to climb off the bed. Speech was underproductive and at times, hard to understand what the patient is talking about. Mood described as "I'm fine." Affect was reactive , but at times mood incongruent. The patient could smile inappropriately. Thought process is disorg anized. The patient appears to be confused. Thought content: The patient has episodes of confusion , difficult to stay focused, difficult to stay concentrated. The patient denied thoughts of killing himself and killing others, but during the nighttime, the patient has episodes of confusion and agita tion. Insight and judgment are limited at present moment. Impulses are not predictable. IMPRESSION: Most likely, the patient is in delirium stage due to sepsis. The patient also has histo ry of Parkinson's. The patient also has history of depression. Please see medical team notes for mo re detailed information about his medical issues. PLAN: This documentation writer will increase Seroquel to 12.5 mg twice a day at the morning time and at the night time. Based on presentation, the patient has history of Parkinson's and increasing of antipsychotic medication could worsen Parkinson's symptoms, but Seroquel is one of the medication which is recommen ded for delirium and Parkinson's patients. Continue current management. Continue current medication s. This documentation writer had impression, if patient's medical issues will be under control, the patient will start improving faster. Case discussed with the nursing staff as well as with the patient's son, Alan ellsworth, who is next to the patient. Meanwhile, continue current management. We will follow up and advi se accordingly. Lisa Cortes MD cc: [phone] TT: 11/30/2016 12:01:44 Confirmation # [id number] Dictation # [id number] tn
--- NOTE | 2016-11-30 20:20 | CP.PCM.PN ---
Subjective - Date & Time of Evaluation Date of Evaluation: 11/30/16 Time of Evaluation: 19:56 - Subjective Subjective: draft MORRIS Objective - Vital Signs/Intake and Output Vital Signs (last 24 hours): Temp Pulse Resp BP Pulse Ox 96.2 F L 67 19 121/83 97 11/30/16 17:54 11/30/16 17:54 11/30/16 17:54 11/30/16 17:54 11/30/16 05:40 - Medications Medications: Current Medications Alprazolam (Xanax) 0.5 mg PO BID PRN; Protocol PRN Reason: Anxiety Last Admin: 11/30/16 08:19 Dose: 0.5 mg Amlodipine Besylate (Norvasc) 5 mg PO DAILY [facility] Last Admin: 11/30/16 09:17 Dose: 5 mg Carbidopa/Levodopa (Sinemet) 1 tab PO TID [facility] Last Admin: 11/30/16 17:30 Dose: 1 tab Metoprolol Succinate (Toprol Xl) 50 mg PO BRK [facility] Last Admin: 11/30/16 08:19 Dose: 50 mg Nicotine (Nicoderm Cq) 1 patch TD DAILY [facility] Last Admin: 11/30/16 09:10 Dose: 1 patch Nystatin/Triamcinolone Acetonide (Nystatin/Triamcinolone Cream) 0 ea TOP BID [facility] Last Admin: 11/30/16 17:31 Dose: 1 tcp Quetiapine Fumarate (Seroquel) 12.5 mg PO HS [facility] PRN Reason: Protocol Last Admin: 11/29/16 21:04 Dose: 12.5 mg Quetiapine Fumarate (Seroquel) 12.5 mg PO DAILY [facility] PRN Reason: Protocol Last Admin: 11/30/16 09:55 Dose: 12.5 mg - Labs Labs: 11/28/16 05:15 11/28/16 05:15 PT 12.4 Seconds (9.9-11.8) H 11/26/16 19:00 INR 1.15 (0.93-1.08) H 11/26/16 19:00 APTT 29.9 Seconds (23.7-30.8) 11/26/16 19:00
--- NOTE | 2016-12-01 00:27 | CP.PCM.PN ---
Subjective - Date & Time of Evaluation Date of Evaluation: 12/01/16 Time of Evaluation: 00:25 - Subjective Subjective: Patient was seen for headache. Has mild frontal and occipital headache. Has no other complaints. Denies dizziness, nausea, weakeness , paraesthesia, sinus problems, tooth problems, eye ,ear symptoms, history of head injury. Medical record was reviewed. This 76 year old white male was admitted after found by family members , falling multiple times,confusion, disorientation. Has PMH of dementia,Parkinson's disease, multiple falls, CAD,COPD, tobacco use, Objective - Vital Signs/Intake and Output Vital Signs (last 24 hours): Temp Pulse Resp BP Pulse Ox 96.2 F L 67 19 121/83 97 11/30/16 17:54 11/30/16 17:54 11/30/16 17:54 11/30/16 17:54 11/30/16 05:40 Intake and Output: 11/30/16 12/01/16 18:59 06:59 Output Total 50 Balance -50 - Medications Medications: Current Medications Alprazolam (Xanax) 0.5 mg PO BID PRN; Protocol PRN Reason: Anxiety Last Admin: 11/30/16 08:19 Dose: 0.5 mg Amlodipine Besylate (Norvasc) 5 mg PO DAILY [facility] Last Admin: 11/30/16 09:17 Dose: 5 mg Carbidopa/Levodopa (Sinemet) 1 tab PO TID YARON Last Admin: 11/30/16 17:30 Dose: 1 tab Metoprolol Succinate (Toprol Xl) 50 mg PO BRK YARON Last Admin: 11/30/16 08:19 Dose: 50 mg Nicotine (Nicoderm Cq) 1 patch TD DAILY [facility] Last Admin: 11/30/16 09:10 Dose: 1 patch Nystatin/Triamcinolone Acetonide (Nystatin/Triamcinolone Cream) 0 ea TOP BID YARON Last Admin: 11/30/16 17:31 Dose: 1 tcp Quetiapine Fumarate (Seroquel) 12.5 mg PO HS [facility] PRN Reason: Protocol Last Admin: 11/30/16 22:31 Dose: 12.5 mg Quetiapine Fumarate (Seroquel) 12.5 mg PO DAILY YARON PRN Reason: Protocol Last Admin: 11/30/16 09:55 Dose: 12.5 mg - Labs Labs: 11/28/16 05:15 11/28/16 05:15 PT 12.4 Seconds (9.9-11.8) H 11/26/16 19:00 INR 1.15 (0.93-1.08) H 11/26/16 19:00 APTT 29.9 Seconds (23.7-30.8) 11/26/16 19:00 - Constitutional Appears: Well, No Acute Distress - Head Exam Head Exam: ATRAUMATIC, NORMAL INSPECTION, NORMOCEPHALIC - Eye Exam Eye Exam: Normal appearance - ENT Exam ENT Exam: Normal External Ear Exam - Neck Exam Neck Exam: Normal Inspection - Respiratory Exam Respiratory Exam: NORMAL BREATHING PATTERN - Cardiovascular Exam Cardiovascular Exam: absent: JVD - GI/Abdominal Exam GI & Abdominal Exam: absent: Distended - Rectal Exam Rectal Exam: Deferred - Extremities Exam Extremities Exam: Normal Inspection - Back Exam Back Exam: NORMAL INSPECTION - Neurological Exam Neurological Exam: Alert, CN II-XII Intact, Oriented x3 - Psychiatric Exam Psychiatric exam: Normal Affect, Normal Mood - Skin Skin Exam: Normal Color Assessment and Plan - Assessment and Plan (Free Text) Assessment: A/P:Headache. Dementia. Parkinson's disease. COPD. CAD. Tylenol 650 mg PO x 1. Later on during my shift, on 3N , nurse calls and asks to renew LANEY restraint order and order some sedation. He had received xanax already, not effective. LANEY restraint order was renewed.Ativan 0.5 mg IV ordered.
--- NOTE | 2016-12-01 10:00 | CON ---
DATE: 12/01/2016 HISTORY OF PRESENT ILLNESS: The patient is a 76-year-old male who is being followed by brian thompson for symptoms related to delirium. I reviewed Dr. Cortes's note as well as recent staff notes on the unit and met with patient at bedside. The patient has a recent history of confusion, ag itation overnight as well as code epperson during this hospitalization. Currently he is still quite diso riented, cannot participate in productive interview. I agree with Dr. Cortes's assessment that the patient is quite delirious. He is unable to tell me where his current location and his responses are quite illogical and not relevant to questioning. He also rambled incoherently. Even with redir ection, he is unable to answer accurately to inquiries about his orientation. For example, the patie nt first indicates that he is at [place] and then indicates "okay sure I am close to [place]". The p atient is also unaware of current month or year. When asked about his comfort level, he responds wit h "show me how to get here". He is a very poor historian, with confusion and he remains unpredictabl e. According to prior records, this is nowhere close to his baseline. VITAL SIGNS AND LABORATORIES: Reviewed. MEDICATIONS: Relevant psychiatric medications include Xanax 0.5 mg p.o. b.i.d., Seroquel 12.5 mg p.o . at bedtime and Seroquel 12.5 mg p.o. daily. IMPRESSION: Delirium, hyperactive, as well patient has history of Parkinson's as well as history of depression. RECOMMENDATIONS: We will continue with current treatment and plan and monitor the patient's mental s tatus every 2 days as well as tolerance to medication. Please feel free to request earlier intervent ion by psychiatry if there are any acute changes in patient's behavior. Please note that psychiatry does not treat delirium, however treats the behavioral consequences of delirium for which he is being prescribed Seroquel at this time. Medical team must follow patient regarding the delirium process a nd attempt to optimize his health in this regard, so that the associated consequences of behavior and mental status changes associated with delirium also improve. Lissa Deleon MD cc: [id number] TT: 12/01/2016 10:00:28 Confirmation # [id number] Dictation # [id number] jn
[2016-12-01] MEDS: Nystatin-Triamcinolone Cream(30 gm) TOP SCH ×2 (10:28→17:35)
[2016-12-01] MEDS: Metoprolol Succinate 50 mg XL Tab PO SCH (10:30)
--- NOTE | 2016-12-01 12:23 | MRI ---
PROCEDURE: MRI BRAIN WITHOUT CONTRAST HISTORY: ams COMPARISON: CT head 11/26/2016 TECHNIQUE: Multiplanar, multisequence MR images of the brain were obtained without intravenous contrast enhancement. FINDINGS: HEMORRHAGE: None DWI: Subacute right thalamic infarct. Diffusion restriction with corresponding low signal on ADC map. In retrospect, this corresponds to low attenuation seen in the right thalamus on CT examination of 11/26/2016. BRAIN PARENCHYMA: No mass effect or edema. Mild to moderate diffuse age-appropriate cerebral atrophy. Moderate periventricular white matter signal abnormality consistent with microvascular ischemic change. VENTRICLES: Unremarkable. No hydrocephalus. CRANIUM: Unremarkable. ORBITS: Grossly unremarkable. PARANASAL SINUSES/MASTOIDS: Minimal chronic right maxillary sinusitis. VASCULAR SYSTEM: Skull base flow voids intact. OTHER FINDINGS: None. IMPRESSION: Small subacute right thalamic infarct. Age related atrophy and chronic microvascular ischemic change. Findings were discussed with patient's nurse, Rita, by telephone, at 12:17 p.m. on 12/01/2016.
--- NOTE | 2016-12-01 12:45 | PN ---
DATE: 12/01/2016 SUBJECTIVE: The patient was not alert earlier this morning when he needed to be given Xanax. The pa maday has no complaints of any chest pain or shortness of breath. The patient's son is at the [facility]. PHYSICAL EXAMINATION: VITAL SIGNS: Temperature is 96.2, pulse is 67, blood pressure 121/83, respirations 19. GENERAL: The patient comfortable, in no acute distress. HEENT: Anicteric sclerae. Moist mucosa. NECK: No JVD or adenopathy. CARDIAC: S1/S2. No murmurs. No rubs. Regular. RESPIRATORY: Clear to auscultation bilaterally. No wheezes, rales, or rhonchi. Good air entry. ABDOMEN: Bowel sounds are positive, soft, nontender, and nondistended. EXTREMITIES: No edema. Has 1+ pulses. LABORATORY DATA: White count of 9.9, hemoglobin 14.9, creatinine is 1.1. MRI of the brain is pendi ng. ASSESSMENT: 1. Delirium, improving. 2. Parkinson's. 3. Coronary artery disease, status post coronary artery bypass graft. 4. Hypertension. 5. Fall. 6. Smoking. PLAN: The patient is on a nicotine patch. He is going to be on amlodipine for hypertension. He is going to be on Seroquel. He is going to continue with carbidopa, levodopa for Parkinson's. He is on Xanax. MRI has been taken and will await results. I did speak to the patient's son at the bedside to give him an update on the patient's diagnosis and plan of care. The patient is on Seroquel. Man Noble MD cc: [id number] TT: 12/01/2016 12:44:42 Confirmation # [id number] Dictation # [id number] soha
--- NOTE | 2016-12-01 16:13 | PN ---
DATE: 12/01/2016 CHIEF COMPLAINT: Follow up for confusion. SUBJECTIVE: The patient is seen and examined at bedside. The patient is still mildly confused, but is much more calmer since he is on Xanax and Seroquel. His MRI is finally done; it has been ordered since the and now today it has been done, which took 4 days. It showed a small subacute right t halamic infarct, which is small in nature, likely secondary from his hypertensive urgency from his un derlying agitation, which could be part of his confusion. PAST MEDICAL HISTORY: Coronary artery disease status post stent, dyslipidemia, hypertension, [place] onism, COPD. ALLERGIES: No known drug allergies. REVIEW OF SYSTEMS: A 14-point review of systems is negative except for the HPI. SOCIAL HISTORY: Smokes half a pack of cigarettes per day, is a smoker for the past years. FAMILY HISTORY: Mother at 90. Father and 52, unaware of the causes. CURRENT MEDICATIONS: Reviewed via nurses' reconciliation sheet. PHYSICAL EXAMINATION: VITAL SIGNS: Temperature 96.2, pulse rate 67, blood pressure of 136/80, respiratory rate of 19. GENERAL: The patient is lying in bed, in no acute distress. HEENT: Atraumatic, normocephalic. PERRLA. Extraocular muscles intact. NECK: Supple, no JVD, no adenopathy noted. LUNGS: Clear to auscultation. No adventitious sounds. HEART: S1, S2, normal rate and rhythm. No murmurs, rubs, or gallops. ABDOMEN: Soft, nontender, nondistended. Bowel sounds are present. EXTREMITIES: No clubbing, no cyanosis. Peripheral pulses 2+ felt bilaterally. NEUROLOGIC: The patient is alert, oriented to person and place, not much of month and year. Recall at 5 minutes is 0/3. Slow attention span, slow thought process. Cranial nerves II through XII are i ntact. MOTOR: Moves all extremities equally, slight increased tone throughout. Has mild cogwheel rigidity at the wrists. Strength is 5/5 in both upper and lower extremities. Moves all extremities equally a nd DTRs are 2+ throughout. SENSORY: Light touch, proprioception, vibration intact. COORDINATION: Segzyw-gr-dryj intact. GAIT: Is deferred for now. LABORATORY DATA: MRI of the brain shows some small subacute right thalamic infarct. ASSESSMENT AND PLAN: This is a 76-year-old man with a past medical history of parkinsonism on Sineme t 1 tablet p.o. t.i.d., history of coronary artery disease, status post coronary bypass; hypertension , dyslipidemia, had multiple falls. His falls are secondary to poor gait secondary to parkinsonism. He has a history of anxiety for which he is on Xanax 1 mg p.o. daily. He came in the hospital with confusion and multiple falls. His multiple falls are likely secondary to poor coordination and gait dysfunction from underlying parkinsonism. His confusion and delirium is from dehydration and hyperte nsive urgency causing a small subacute right thalamic infarct which aided in his delirium as well. A t this time, recommend: 1. Aspirin 81 mg p.o. daily. 2. Lipitor at least 20 mg p.o. daily for stroke prevention. 3. Continue with Seroquel 12.5 mg p.o. b.i.d. for agitation and follow up with psychiatry's recommen dations. 4. Continue with Xanax 0.5 mg p.o. b.i.d. for his anxiety and will likely recommend subacute rehabil itation. At this time avoid nighttime interruptions, frequently orientate him throughout the day and avoid any sedative medications. Thank you for this followup. Gene Ferraro MD cc: [id number] TT: 12/01/2016 16:13:03 Confirmation # [id number] Dictation # [id number] wilbur
[2016-12-02] MEDS: Metoprolol Succinate 50 mg XL Tab PO SCH (08:38)
--- NOTE | 2016-12-02 11:30 | PN ---
DATE: 12/02/2016 SUBJECTIVE: The patient has no complaints of any chest pain, no shortness of breath, no headaches, n o dizziness. PHYSICAL EXAMINATION: VITAL SIGNS: Temperature is 97.8, pulse of 60, blood pressure is 142/93, respirations 18. GENERAL: The patient comfortable, in no acute distress. HEENT: Anicteric sclerae. Moist mucosa. NECK: No JVD or adenopathy. CARDIAC: S1/S2. No murmurs. No rubs. Regular. RESPIRATORY: Clear to auscultation bilaterally. No wheezes, rales, or rhonchi. Good air entry. ABDOMEN: Bowel sounds are positive, soft, nontender, and nondistended. EXTREMITIES: No edema. Has 1+ pulses. LABORATORIES: White count of 9.9, hemoglobin 14.9. Creatinine is 1.1. MRI shows a small subacute right thalamic infarct. ASSESSMENT: 1. Right thalamic cerebrovascular accident. 2. Delirium, improving. 3. Parkinson's. 4. Coronary artery disease, status post coronary artery bypass graft. 5. Hypertension. 6. Fall. 7. Smoking. PLAN: The patient is currently comfortable. He is on a nicotine patch for his smoking. He is on Li pitor for his dyslipidemia from stroke. He is on Seroquel in the morning and hour of sleep. The dayron nelson's son would like to hold the morning dose of the Seroquel to see if he is not as sleepy as befor e. He is not in restraints at this point since yesterday. He is on a heart healthy diet. He should be able to go to a rehab facility tomorrow. I will repeat the patient's blood work. Man Noble MD cc: [id number] TT: 12/02/2016 11:30:03 Confirmation # [id number] Dictation # [id number] en
[2016-12-02] MEDS: Nystatin-Triamcinolone Cream(30 gm) TOP SCH ×2 (12:43→17:40)
[2016-12-02 18:01] VITALS: RESP 19
--- NOTE | 2016-12-02 19:20 | CP.PCM.PN ---
Subjective - Date & Time of Evaluation Date of Evaluation: 12/02/16 Time of Evaluation: 12:35 - Subjective Subjective: Comfortable in bed, afebrile. Objective - Vital Signs/Intake and Output Vital Signs (last 24 hours): Temp Pulse Resp BP Pulse Ox 97.9 F 54 L 19 131/85 95 12/02/16 17:59 12/02/16 17:59 12/02/16 17:59 12/02/16 17:59 12/02/16 17:59 Intake and Output: 12/02/16 12/03/16 18:59 06:59 Intake Total 540 Balance 540 - Medications Medications: Current Medications Alprazolam (Xanax) 0.5 mg PO BID PRN; Protocol PRN Reason: Anxiety Last Admin: 12/01/16 05:19 Dose: 0.5 mg Amlodipine Besylate (Norvasc) 5 mg PO DAILY [facility] Last Admin: 12/02/16 09:47 Dose: 5 mg Aspirin (Aspirin Chewable) 81 mg PO DAILY [facility] Last Admin: 12/02/16 09:47 Dose: 81 mg Atorvastatin Calcium (Lipitor) 20 mg PO HS [facility] Last Admin: 12/01/16 22:35 Dose: 20 mg Carbidopa/Levodopa (Sinemet) 1 tab PO TID YARON Last Admin: 12/02/16 17:40 Dose: 1 tab Metoprolol Succinate (Toprol Xl) 50 mg PO BRK [facility] Last Admin: 12/02/16 08:38 Dose: 50 mg Nicotine (Nicoderm Cq) 1 patch TD DAILY [facility] Last Admin: 12/02/16 09:47 Dose: 1 patch Nystatin/Triamcinolone Acetonide (Nystatin/Triamcinolone Cream) 0 ea TOP BID [facility] Last Admin: 12/02/16 17:40 Dose: 1 tcp Quetiapine Fumarate (Seroquel) 12.5 mg PO HS [facility] PRN Reason: Protocol Last Admin: 12/01/16 22:35 Dose: 12.5 mg Quetiapine Fumarate (Seroquel) 12.5 mg PO DAILY [facility] PRN Reason: Protocol Last Admin: 12/01/16 10:25 Dose: 12.5 mg - Labs Labs: 11/28/16 05:15 11/28/16 05:15 PT 12.4 Seconds (9.9-11.8) H 11/26/16 19:00 INR 1.15 (0.93-1.08) H 11/26/16 19:00 APTT 29.9 Seconds (23.7-30.8) 11/26/16 19:00 - Constitutional Appears: Non-toxic, No Acute Distress - Head Exam Head Exam: NORMAL INSPECTION - ENT Exam ENT Exam: Mucous Membranes Moist - Neck Exam Neck Exam: absent: Lymphadenopathy, Meningismus - Respiratory Exam Respiratory Exam: Decreased Breath Sounds - Cardiovascular Exam Cardiovascular Exam: +S1, +S2 - GI/Abdominal Exam GI & Abdominal Exam: Soft. absent: Tenderness Assessment and Plan - Assessment and Plan (Free Text) Plan: Assessment Coagulase negative staph in 2 of 4 bottles most likely contamination Worsening confusion, consider worsening PArkinsonism CAD COPD Parkinson's disease history of significant smoking Plan repeat blood cx are negative Will monitor clinically off antibiotics
[2016-12-03 07:37] LABS: HEMATOCRIT 44.6 % (42.0-52.0); MEAN CELL VOLUME 86.3 fL (80.0-105.0); MEAN CORPUSCULAR HEMOGLOBIN 30.4 pg (25.0-35.0); MEAN CORPUSCULAR HGB CONC 35.2 g/dl (31.0-37.0); MEAN PLATELET VOLUME 12.3 fl (7.0-11.0); RED CELL DISTRIBUTION WIDTH 13.4 % (11.5-14.5); WHITE BLOOD COUNT 8.8 10^3/ul (4.5-11.0)
[2016-12-03 07:50] VITALS: BP 143/88; PULSE 62; TEMP 97.6; O2SAT 96
[2016-12-03 07:59] LABS: ALB/GLOB RATIO 1.4 (1.1-1.8); ALKALINE PHOSPHATASE 86 U/L (38-133); ALT/SGPT 28 U/L (7-56); AST/SGOT 23 U/L (15-59); BILIRUBIN,TOTAL 1.1 mg/dL (0.2-1.3); BLOOD UREA NITROGEN 34 mg/dL (7-21); CALCIUM 9.4 mg/dL (8.4-10.5); CARBON DIOXIDE 26 mmol/L (21-33); CHLORIDE 105 mmol/L (98-107); GFR AFRICAN-AMERICAN > 60; GLUCOSE,RANDOM 101 mg/dL (70-110); POTASSIUM 3.9 mmol/L (3.6-5.0); SODIUM 139 mmol/L (132-148); TOTAL PROTEIN 6.7 g/dL (5.8-8.3)
--- NOTE | 2016-12-03 09:27 | PN ---
DATE: 12/03/2016 A 76-year-old white male admitted to the hospital after a fall and found to have a thalamic infarct o n MRI. The patient also was disoriented and confused. He has a history of Parkinson disease. He elliott s been doing better. He is off restraints. He is on Seroquel to control agitation and anxiety. He is on a small dose of Xanax also and he is on anti-Parkinson medications. The patient is starting ph ysical therapy and occupational therapy. He has been walking with a therapist. He has been sitting up in [facility]. He is more awake and alert and oriented x 3. He is seen at bedside with his son. The p krissy has been accepted to [facility]. He will be cleared to go to rehab as soon as a bed is availab le. VITAL SIGNS: Stable. The patient will continue therapy and continue his smoking patch. PHYSICAL EXAMINATION: Unchanged. The patient is more awake and oriented to place and person. Ted Jacob MD cc: [id number] TT: 12/03/2016 09:26:29 Confirmation # [id number] Dictation # [id number] en
[2016-12-03] MEDS: Nystatin-Triamcinolone Cream(30 gm) TOP SCH (10:04)
[2016-12-03] MEDS: Metoprolol Succinate 50 mg XL Tab PO SCH (10:06)
--- NOTE | 2016-12-03 16:13 | CP.PCM.PCO ---
Physician Communication Note - Physician Communication Note Physician Communication Note: pt was d/c
--- NOTE | 2016-12-05 11:24 | DS ---
Discharged home on 12/03/2016. A 76-year-old white male with history of Parkinson's disease, history of CAD, status post open heart surgery, admitted to the hospital with dementia, change in mental status and confusion. Was found to have a thalamic infarct and delirium. The patient did well. Seen in consultation by neurology and by psychiatry. The patient did well with Seroquel and became more awake and alert and oriented and a ble to come out of restraints. The patient was eventually transferred to subacute rehab at [facility] following his CVA. FINAL DISCHARGE DIAGNOSES: Thalamic infarct, Parkinson disease, delirium, change in mental status, c onfusion, coronary artery disease and tobacco abuse. Ted Jacbo MD cc: [id number] TT: 12/05/2016 11:24:07 sd
--- NOTE | 2016-12-12 08:56 | PQF SEPSIS ---
12/12/16 Dr. Jacob, Per slip injector and applicator, sepsis is documented once, in psychiatrist's consult. Was sepsis ruled in, ruled out, undetermined? If sepsis was ruled in, was this present on admission? Thank you. Clarification of your documentation is requested to better reflect the severity of illness and intensity of treatment of your patient. Indicators present [] Temp < 96.8 or > 100.4 [] WBC count > 12,000/mm3 or <000/mm3 or 10% immature neutrophils [] Heart Rate > 90 [] Respiratory Rate > 20 [] Fever or hypothermia [] Chills [] Positive blood cultures [] Hypotension [] Metabolic acidosis (Elevated lactate level, anion gap or reduced blood pH) [] Acute confusion /Altered Mental Status [] Shock [] Other: [] Location in the medical record that reflects the above clinical findings: [] Treatment Provided: [] PHYSICIAN'S RESPONSE Based on your medical judgment of the clinical indicators outlined above, are you treating this patient for a known or suspected: [] Sepsis / Septicemia Please specify organism if known [] [] SIRS (Systemic Inflammatory Response Syndrome) [] Severe Sepsis (Sepsis with Associated Organ Dysfunction) [] Fever of Unknown Origin [] Other, please indicate: [] [] If Unable to Determine, please check the box, sign and date. Present On Admission (POA) Indicator: [] Present at the time of admission [] Not present at the time of admission [] Clinically Undetermined In responding to this query, please exercise your independent professional judgment. The fact that a question is asked does not imply that any particular answer is desired or expected. Thank you for your clarification on this documentation. If you have any questions please call:[ ] * Thank you, [ ] informal waiter/waitress PAULO
== END 2016-12-03 14:31 | DRG 64 ==
LOC: ED 18:20 → ERH 21:49 → 2RNO 11-27 00:17 → OBSVTOIN 11-27 16:27 → 3RNO 11-30 21:30
PROVIDERS: ADMIT Internal Medicine; ATTEND Internal Medicine
DX: I63.9 Cerebral infarction, unspecified (principal); A41.9 Sepsis, unspecified organism; G20 Parkinson's disease; M62.82 Rhabdomyolysis; Z78.1 Physical restraint status; J44.1 Chronic obstructive pulmonary disease with (acute) exacerbation; F17.213 Nicotine dependence, cigarettes, with withdrawal; E86.0 Dehydration; F02.80 Dementia in other diseases classified elsewhere, unspecified severity, without behavioral disturbance, psychotic disturbance, mood disturbance, and anxiety; E78.00 Pure hypercholesterolemia, unspecified; E78.5 Hyperlipidemia, unspecified; F41.9 Anxiety disorder, unspecified; H35.30 Unspecified macular degeneration; I12.9 Hypertensive chronic kidney disease with stage 1 through stage 4 chronic kidney disease, or unspecified chronic kidney disease; N18.9 Chronic kidney disease, unspecified; I16.0 Hypertensive urgency; I25.10 Atherosclerotic heart disease of native coronary artery without angina pectoris; R41.0 Disorientation, unspecified; I73.9 Peripheral vascular disease, unspecified; J45.909 Unspecified asthma, uncomplicated; R29.6 Repeated falls; S80.02XA Contusion of left knee, initial encounter; S80.212A Abrasion, left knee, initial encounter; R45.1 Restlessness and agitation; Z79.82 Long term (current) use of aspirin; Z87.442 Personal history of urinary calculi; Z90.49 Acquired absence of other specified parts of digestive tract; Z95.1 Presence of aortocoronary bypass graft; Z95.5 Presence of coronary angioplasty implant and graft; I25.119 Atherosclerotic heart disease of native coronary artery with unspecified angina pectoris

== ENCOUNTER 2017-01-31 10:31 | Inpatient (IN) | payer MEDICARE, OTHER ==
--- NOTE | 2017-01-31 10:55 | ED PDOC ---
Arrival/HPI <Domingo Starks - Last Filed: 01/31/17 13:58> - General Historian: Patient - History of Present Illness Time/Duration: Other (10 days) Context: Home <Delia Castrejon - Last Filed: 01/31/17 14:46> - General Chief Complaint: Weakness/Neurological Deficit Time Seen by Provider: 01/31/17 10:34 - History of Present Illness Narrative History of Present Illness (Text): 01/31/17 10:55 This 76 yo male presents to this ED by BLS for evaluation of b/l lower extremities weakness, and unsteady gait x 10 days. According to triage note, patient's family has AMS, however patient is AAO x [address] Jacob (Delia Castrejon) Past Medical History - Provider Review Nursing Documentation Reviewed: Yes - Infectious Disease Hx of Infectious Diseases: None - Tetanus Immunization Tetanus Immunization: Unknown - Cardiac Hx Cardiac Disorders: Yes Hx Angina: Yes Hx Hypertension: Yes Hx Peripheral Vascular Disease: Yes - Pulmonary Hx Respiratory Disorders: Yes Hx Asthma: Yes - Neurological Hx Neurological Disorder: Yes Hx Dementia: Yes Hx Parkinson's Disease: Yes - HEENT Hx HEENT Disorder: Yes (uses galsses) Hx Macular Degeneration: Yes - Renal Hx Renal Disorder: Yes Hx Kidney Stones: Yes - Endocrine/Metabolic Hx Endocrine Disorders: No - Hematological/Oncological Hx Blood Disorders: Yes - Integumentary Hx Dermatological Disorder: Yes Hx Psoriasis: Yes - Musculoskeletal/Rheumatological Hx Musculoskeletal Disorders: Yes Hx Falls: Yes - Gastrointestinal Hx Gastrointestinal Disorders: No - Genitourinary/Gynecological Hx Genitourinary Disorders: Yes Hx Incontinence: Yes - Psychiatric Hx Psychophysiologic Disorder: Yes Hx Anxiety: Yes Hx Depression: Yes Hx Substance Use: No - Surgical History Hx Cholecystectomy: Yes Hx Open Heart Surgery: Yes - Anesthesia Hx Anesthesia: Yes Hx Anesthesia Reactions: No <Delia Castrejon P - Last Filed: 01/31/17 14:46> Family/Social History - Physician Review Nursing Documentation Reviewed: Yes Family/Social History: No Known Family HX Smoking Status: Heavy Smoker > 10 Cigarettes Daily Hx Alcohol Use: No Hx Substance Use: No <Delia Castrejon P - Last Filed: 01/31/17 14:46> Allergies/Home Meds <Domingo Starks - Last Filed: 01/31/17 13:58> <Castrejon,Kimberlynim P - Last Filed: 01/31/17 14:46> Allergies/Adverse Reactions: Allergies pineapple Allergy (Unknown, Verified 01/31/17 10:42) ITCHING Home Medications: Home Meds Medication Instructions Recorded Confirmed Metoprolol Succinate [Toprol XL] 25 mg PO DAILY 11/26/16 11/26/16 Review of Systems - Review of Systems Constitutional: Normal. absent: Fatigue, Weight Change, Fevers Eyes: Normal ENT: Normal Respiratory: Normal Cardiovascular: Normal Gastrointestinal: Normal Genitourinary Male: Normal Musculoskeletal: Normal Skin: Normal Neurological: Gait Changes, Other (generalized weakness) Endocrine: Normal Hemo/Lymphatic: Normal Psychiatric: Normal <Castrejon,Nahim P - Last Filed: 01/31/17 14:46> Physical Exam Temperature: Afebrile Blood Pressure: Normal Pulse: Regular Respiratory Rate: Normal Appearance: Positive for: Well-Appearing, Non-Toxic, Comfortable, Unkept Pain Distress: None Mental Status: Positive for: Alert and Oriented X 3 - Systems Exam Head: Present: Atraumatic, Normocephalic Pupils: Present: PERRL Extroacular Muscles: Present: EOMI Conjunctiva: Present: Normal Mouth: Present: Moist Mucous Membranes Neck: Present: Normal Range of Motion Respiratory/Chest: Present: Clear to Auscultation, Good Air Exchange. No: Respiratory Distress, Accessory Muscle Use Cardiovascular: Present: Regular Rate and Rhythm, Normal S1, S2. No: Murmurs Abdomen: Present: Normal Bowel Sounds. No: Tenderness, Distention, Peritoneal Signs Back: Present: Normal Inspection Upper Extremity: Present: Normal Inspection, Normal ROM, NORMAL PULSES, Neurovascularly Intact, Capillary Refill < 2s. No: Cyanosis, Edema Lower Extremity: Present: Normal Inspection, NORMAL PULSES, Normal ROM, Capillary Refill < 2 s. No: Edema, CALF TENDERNESS, Temperature Abnormalties Neurological: Present: GCS=15, CN II-XII Intact, Speech Normal Skin: Present: Warm, Dry, Rashes (b/l posterior elbow rash), Normal Color Psychiatric: Present: Alert, Oriented x 3, Normal Insight, Normal Concentration <Castrejon,Nahim P - Last Filed: 01/31/17 14:46> Vital Signs Temp Pulse Resp BP Pulse Ox 01/31/17 14:32 85 17 153/111 H 100 01/31/17 12:15 78 16 157/96 H 100 01/31/17 10:40 98.8 F 71 18 158/95 H 98 Medical Decision Making - EKG Interpretation Interpreted by ED Physician: Yes Type: 12 lead EKG <Domingo Starks - Last Filed: 01/31/17 13:58> Re-evaluation Time: 14:00 Reassessment Condition: Re-examined, Improving,but remains with symptoms <Delia Castrejon - Last Filed: 01/31/17 14:46> ED Course and Treatment: 01/31/17 13:58 I was available for consultation during PA evaluation. The chart was reviewed by me, and I agree with disposition. The documented history was done by the physician extruder operator. The documented physical exam was done by the physician extruder operator. The documented procedures were done by the physician extruder operator. (Domingo Starks) 01/31/17 14:[address] Jacob regarding abnormal labs, and reviewed patient symptoms. Dr. Jacob agrees with admission for CHF exacerbation. (Delia Castrejon) - Lab Interpretations Lab Results: 01/31/17 11:18 01/31/17 11:18 Lab Results 01/31/17 12:15: Urine Color Yellow, Urine Appearance Turbid, Urine pH 6.0, Ur Specific [place] 1.025, Urine Protein 100 H, Urine Glucose (UA) Negative, Urine Ketones 15 H, Urine Blood Large H, Urine Nitrate Negative, Urine Bilirubin Negative, Urine Urobilinogen 1.0 H, Ur Leukocyte Esterase Negative, Urine RBC 10 - 15, Urine WBC 0 - 2, Ur Epithelial Cells 0 - 2, Urine Bacteria Few 01/31/17 11:18: pO2 25 L, VBG pH 7.36, VBG pCO2 53.0, VBG HCO3 29.9 H, VBG Total CO2 31.5 H, VBG O2 Sat (Calc) 51.5, VBG Base Excess 2.9 H, VBG Potassium 4.5, Sodium 138.0, Chloride 102.0, Glucose 143 H, Lactate 2.0, FiO2 21.0, Venous Blood Potassium 4.5 01/31/17 11:18: Sodium 141, Chloride 100, Potassium 4.5, Carbon Dioxide 29, Anion Gap 17, BUN 40 H, Creatinine 1.1, Est GFR ( Amer) > 60, Est GFR ( Non-Af Amer) > 60, Random Glucose 141 H, Calcium 10.1, Total Bilirubin 2.4 H, AST 95 H, ALT 74 H, Alkaline Phosphatase 101, Lactate Dehydrogenase 644, Total Creatine Kinase 4159 H, CK-MB (CK-2) 20.7 H, CK-MB (CK-2) % 0.5 L, Troponin I 0.03 D, NT-Pro-B Natriuret Pep 1310 H, Total Protein 8.5 H, Albumin 4.8, Globulin 3.7, Albumin/Globulin Ratio 1.3 01/31/17 11:18: WBC 15.9 H D, RBC 5.32, Hgb 16.4, Hct 46.5, MCV 87.4, MCH 30.8, MCHC 35.3, RDW 13.5, Plt Count 146, MPV 11.7 H, Gran % 83.2 H, Lymph % (Auto) 9.2 L, [place] % (Auto) 7.4 H, Eos % (Auto) 0.1 L, Baso % (Auto) 0.1, Gran # 13.22 H, Lymph # 1.5, [place] # 1.2 H, Eos # 0.0, Baso # 0.02 - RAD Interpretation Narrative RAD Interpretations (Text): 01/31/17 14:00 CXR: NAD (CastrejonDelia P) Radiology Orders: 01/31/17 10:57 CHEST PORTABLE [RAD] Stat - EKG Interpretation EKG Interpretation (Text): 01/31/17 11:42 EKG interpreted by me: NSR @ [address] elevations. RBBB. PVCs. No change from 11/26/16 (Domingo Starks) - Medication Orders Current Medication Orders: Azithromycin (Zithromax 500mg In Ns) 500 mg in 250 mls @ 167 mls/hr IVPB STAT STA PRN Reason: Protocol Stop: 01/31/17 14:49 Discontinued Medications Furosemide (Lasix) 60 mg IVP STAT STA Stop: 01/31/17 13:20 Sodium Chloride (Sodium Chloride 0.9%) 500 mls @ 999 mls/hr IV .Q31M STA Stop: 01/31/17 13:01 Last Admin: 01/31/17 12:39 Dose: 999 mls/hr Ceftriaxone Sodium (Rocephin 1 Gram Ivpb) 1 gm in 100 mls @ 200 mls/hr IVPB STAT STA PRN Reason: Protocol Stop: 01/31/17 13:49 Disposition/Present on Arrival <Domingo Starks - Last Filed: 01/31/17 13:58> - Present on Arrival Any Indicators Present on Arrival: No History of DVT/PE: No History of Uncontrolled Diabetes: No Urinary Catheter: No History of Decub. Ulcer: No History Surgical Site Infection Following: None - Disposition Have Diagnosis and Disposition been Completed?: Yes Disposition Time: 14:05 Patient Plan: Admission <Delia Castrejon - Last Filed: 01/31/17 14:46> - Disposition Diagnosis: Acute exacerbation of CHF (congestive heart failure) Disposition: HOSPITALIZED Condition: STABLE
[2017-01-31 11:26] LABS: VENOUS BLOOD GAS BASE EXCESS 2.9 mmol/L (0.0-2.0); VENOUS BLOOD GAS PO2 25 mm/Hg (30-55); VENOUS BLOOD PH 7.36 (7.32-7.43)
[2017-01-31 11:36] LABS: ALB/GLOB RATIO 1.3 (1.1-1.8); ALBUMIN 4.8 g/dL (3.0-4.8); ALT/SGPT 74 U/L (7-56); AST/SGOT 95 U/L (15-59); BLOOD UREA NITROGEN 40 mg/dL (7-21); CALCIUM 10.1 mg/dL (8.4-10.5); GFR AFRICAN-AMERICAN > 60; GFR NON-AFRICAN AMERICAN > 60
[2017-01-31 11:46] LABS: BASO # 0.02 K/mm3 (0.0-2.0); BASO % 0.1 % (0.0-3.0); EOS % 0.1 % (1.5-5.0); GRAN # 13.22 (1.4-6.5); GRAN % 83.2 % (50.0-68.0); HEMOGLOBIN 16.4 gm/dL (14.0-18.0); LYMPH # 1.5 (1.2-3.4); LYMPH % 9.2 % (22.0-35.0); MEAN CELL VOLUME 87.4 fL (80.0-105.0); MEAN CORPUSCULAR HEMOGLOBIN 30.8 pg (25.0-35.0); MEAN CORPUSCULAR HGB CONC 35.3 g/dl (31.0-37.0); MEAN PLATELET VOLUME 11.7 fl (7.0-11.0); MONO # 1.2 (0.1-0.6); MONO % 7.4 % (1.0-6.0); PLATELET COUNT 146 10^3/uL (120.0-450.0); RBC 5.32 10^6/uL (3.5-6.1); RED CELL DISTRIBUTION WIDTH 13.5 % (11.5-14.5); WHITE BLOOD COUNT 15.9 10^3/ul (4.5-11.0)
[2017-01-31 12:06] LABS: B-TYPE NATRIURETIC PEPTIDE 1310 pg/mL (0-450); TROPONIN I 0.03 ng/mL
[2017-01-31 12:27] LABS: CK MB% 0.5 % (2.5-3.0); CK-MB 20.7 ng/mL (0.0-3.6)
[2017-01-31] MEDS ORDERED: Sodium Chloride 0.9% 500 ML IV STA (12:31)
--- NOTE | 2017-01-31 12:42 | CARD ---
APPROVED REPORT EKG Measurement Heart [id number] <Conclusion> Sinus rhythm with frequent premature ventricular complexes Right bundle branch block Abnormal ECG
[2017-01-31] MEDS ORDERED: cefTRIAXone 1 gm 1 GM/100 ML BAG IVPB STA (13:20)
[2017-01-31] MEDS ORDERED: Azithromycin 500MG/NS 250ml 500 MG/250 ML BAG IVPB STA (13:20)
--- NOTE | 2017-01-31 13:23 | RAD ---
HISTORY: cough COMPARISON: 11/26/2016 FINDINGS: LUNGS: No active pulmonary disease. PLEURA: No significant pleural effusion identified, no pneumothorax apparent. CARDIOVASCULAR: Normal. OSSEOUS STRUCTURES: Sternal wires VISUALIZED UPPER ABDOMEN: Normal. OTHER FINDINGS: None. IMPRESSION: No active disease.
[2017-01-31 13:36] LABS: URINE BILIRUBIN NEGATIVE (NEGATIVE); URINE BLOOD LARGE (NEGATIVE); URINE GLUCOSE (UA) NEGATIVE (NEGATIVE); URINE LEUKOCYTE ESTERASE NEGATIVE Leu/uL (NEGATIVE); URINE NITRATE NEGATIVE (NEGATIVE); URINE PROTEIN 100 mg/dL (<30 mg/dL)
[2017-01-31 13:47] LABS: URINE APPEARANCE TURBID (CLEAR); URINE COLOR YELLOW (YELLOW)
[2017-01-31 13:56] LABS: URINE EPITHELIAL CELLS 0 - 2 /hpf (0-5); URINE WBC 0 - 2 /hpf (0-6)
[2017-01-31 13:57] LABS: URINE BACTERIA FEW (NEG)
[2017-01-31 15:04] LABS: VENOUS BLOOD GAS BASE EXCESS 0.8 mmol/L (0.0-2.0); VENOUS BLOOD GAS PO2 25 mm/Hg (30-55); VENOUS BLOOD PH 7.32 (7.32-7.43)
[2017-01-31] MEDS ORDERED: Albuterol-Ipratrop 3 mg / 0.5 (3 ml) UD IH STA (18:43)
[2017-01-31 19:02] LABS: ARTERIAL BLOOD GAS HCO3 22.1 mmol/L (21-28); ARTERIAL BLOOD GAS HEMOGLOBIN 15.2 g/dL (11.7-17.4); ARTERIAL BLOOD GAS O2 CAPACITY 20.9 mL/dl (16-24); ARTERIAL BLOOD GAS O2 CONTENT 20.8 ML/dl (15-23); ARTERIAL BLOOD GAS O2 SAT 99.7 % (95-98); ARTERIAL BLOOD GAS PCO2 34 mm/Hg (35-45); ARTERIAL BLOOD GAS PH 7.42 (7.35-7.45); ARTERIAL BLOOD GAS TCO2 23.1 mmol.L (22-28)
[2017-01-31 19:14] VITALS: BMI 23.3
--- NOTE | 2017-01-31 19:14 | CP.PCM.PN ---
Subjective - Date & Time of Evaluation Date of Evaluation: 01/31/17 Time of Evaluation: 18:35 - Subjective Subjective: Patient seen stat at the request of his RN who stated patient was having his dinner when he started choking on his food.He coughed and brought up a lot of phlegm.Following that he was noted to be wheezing. Pt denies any c/o chest pain,however c/o some SOB. Pt was admitted for diagnoses of CHF. VS:142/94 RR20 HR68 T99(oral) O2 sat on 2L O2/min 98%. PMH:CAD(S/PCABG),HTN,Dementia,Parkinson's disease,PVD,Psoriasis,Falls,history of anxiety and depression,Smoker ,Psoriasis. Objective - Vital Signs/Intake and Output Vital Signs (last 24 hours): Temp Pulse Resp BP Pulse Ox 99.2 F 60 20 123/93 H 97 01/31/17 17:24 01/31/17 17:24 01/31/17 17:24 01/31/17 17:24 01/31/17 17:24 - Medications Medications: Current Medications Albuterol/Ipratropium (Duoneb 3 Mg/0.5 Mg (3 Ml) Ud) 3 ml IH [id number] YARON Albuterol/Ipratropium (Duoneb 3 Mg/0.5 Mg (3 Ml) Ud) 3 ml IH ONCE STA Stop: 01/31/17 18:44 Azithromycin 250 mg/ Sodium (Chloride) 250 mls @ 167 mls/hr IVPB DAILY YARON PRN Reason: Protocol Ceftriaxone Sodium (Rocephin 1 Gram Ivpb) 1 gm in 100 mls @ 100 mls/hr IVPB DAILY YARON PRN Reason: Protocol - Constitutional Appears: No Acute Distress - Head Exam Head Exam: ATRAUMATIC, NORMAL INSPECTION, NORMOCEPHALIC - Eye Exam Eye Exam: PERRL - ENT Exam ENT Exam: Mucous Membranes Moist - Neck Exam Neck Exam: Normal Inspection Additional comments: no stridor - Respiratory Exam Respiratory Exam: Decreased Breath Sounds, Wheezes (occasional scattered wheezes bilaterally) - Cardiovascular Exam Cardiovascular Exam: Bradycardia (HR is 48/min) Additional comments: Cardiac moniter shows second degree heart block. - GI/Abdominal Exam GI & Abdominal Exam: Soft, Normal Bowel Sounds. absent: Tenderness - Extremities Exam Extremities Exam: Normal Inspection. absent: Calf Tenderness - Neurological Exam Neurological Exam: Alert, Awake, Oriented x3 (Appears to be confused at times.) - Skin Skin Exam: Dry, Warm Assessment and Plan - Assessment and Plan (Free Text) Assessment: Episode of choking on food Second degree heart block Plan: Abg stat Duoneb Rx given stat Chest Xray portable and EKG ordered stat. (Ekg shows second degree AV block,Mobitz type 2,) Cardiac enzymes stat then Q8h x 2. Dr Jacob called .Discussed pt's problem and EKG findings with him.
[2017-01-31] MEDS ORDERED: Pneumococcal 23-Valent Vaccine IM ONE (19:15)
[2017-01-31] MEDS: Albuterol-Ipratrop 3 mg / 0.5 (3 ml) UD IH SCH (19:58)
[2017-01-31 21:02] LABS: TROPONIN I 0.03 ng/mL
[2017-01-31 21:26] LABS: CK MB% 0.2 % (2.5-3.0); CK-MB 9.8 ng/mL (0.0-3.6)
[2017-01-31] MEDS: Cefepime 1gm in NS 100ml 1 GM/100 ML BAG IVPB SCH (22:06)
[2017-02-01] MEDS: Albuterol-Ipratrop 3 mg / 0.5 (3 ml) UD IH SCH ×4 (01:17→19:34)
[2017-02-01 04:24] LABS: BASO # 0.03 K/mm3 (0.0-2.0); BASO % 0.2 % (0.0-3.0); EOS # 0.1 (0.0-0.7); EOS % 0.5 % (1.5-5.0); GRAN # 9.55 (1.4-6.5); GRAN % 71.6 % (50.0-68.0); HEMOGLOBIN 14.6 gm/dL (14.0-18.0); LYMPH # 2.3 (1.2-3.4); LYMPH % 17.5 % (22.0-35.0); MEAN CELL VOLUME 87.2 fL (80.0-105.0); MEAN CORPUSCULAR HEMOGLOBIN 30.2 pg (25.0-35.0); MEAN CORPUSCULAR HGB CONC 34.6 g/dl (31.0-37.0); MEAN PLATELET VOLUME 11.5 fl (7.0-11.0); MONO # 1.4 (0.1-0.6); MONO % 10.2 % (1.0-6.0); PLATELET COUNT 120 10^3/uL (120.0-450.0); RBC 4.84 10^6/uL (3.5-6.1); RED CELL DISTRIBUTION WIDTH 13.6 % (11.5-14.5); WHITE BLOOD COUNT 13.3 10^3/ul (4.5-11.0)
[2017-02-01 04:40] LABS: ALB/GLOB RATIO 1.3 (1.1-1.8); ALT/SGPT 68 U/L (7-56); AST/SGOT 106 U/L (15-59); BLOOD UREA NITROGEN 40 mg/dL (7-21); GFR AFRICAN-AMERICAN > 60; GFR NON-AFRICAN AMERICAN 54
[2017-02-01 04:51] LABS: TROPONIN I 0.03 ng/mL
[2017-02-01 05:13] LABS: CK MB% 0.2 % (2.5-3.0); CK-MB 5.6 ng/mL (0.0-3.6)
--- NOTE | 2017-02-01 07:29 | RAD ---
HISTORY: history of choking on food COMPARISON: 01/31/2017 at 11:02 a.m. FINDINGS: LUNGS: There is mild pulmonary venous congestion. No lobar pneumonia. PLEURA: No significant pleural effusion identified, no pneumothorax apparent. CARDIOVASCULAR: The heart is normal in size. Status post CABG. OSSEOUS STRUCTURES: No significant abnormalities. VISUALIZED UPPER ABDOMEN: Normal. OTHER FINDINGS: None. IMPRESSION: Mild pulmonary venous congestion. No lobar pneumonia.
[2017-02-01] MEDS ORDERED: Dextrose 5%/0.45% NS 1,000 ML IV SCH ×2 (09:15→10:30)
[2017-02-01] MEDS ORDERED: Azithromycin 250 MG in Sodium Chloride 0.9% 250 ML IVPB SCH (10:00)
[2017-02-01] MEDS ORDERED: cefTRIAXone 1 gm 1 GM/100 ML BAG IVPB SCH (10:00)
[2017-02-01] MEDS: Cefepime 1gm in NS 100ml 1 GM/100 ML BAG IVPB SCH (11:04)
--- NOTE | 2017-02-01 11:38 | CP.PCM.CON ---
History of Present Illness - History of Present Illness History of Present Illness: 76 year old male with PMH of Parkinsonism with dementia, CAD, COPD, history of significant smoking, peripheral vascular disease, HTN, history of asthma, history of kidney stones, history of anxiety and depression was brought in to [facility] (Formerly [facility]) because apparently the patient was having some unsteadiness in his gait and lower extremity weakness. Work up in the ED showed leukocytosis and Infectious Diseases consult is requested to further evaluate and manage. Full review of systems is difficult to obtain because of the patient 's dementia. Review of Systems - Review of Systems Systems not reviewed;Unavailable: Dementia Past Patient History - Infectious Disease Hx of Infectious Diseases: None - Tetanus Immunizations Tetanus Immunization: Unknown - Past Social History Smoking Status: Unknown If Ever Smoked - CARDIAC Hx Cardiac Disorders: Yes Hx Angina: Yes Hx Hypercholesterolemia: Yes Hx Hypertension: Yes Hx Peripheral Vascular Disease: Yes - PULMONARY Hx Respiratory Disorders: Yes Hx Asthma: Yes Hx Chronic Obstructive Pulmonary Disease (COPD): Yes - NEUROLOGICAL Hx Neurological Disorder: Yes Hx Dementia: Yes Hx Parkinson's Disease: Yes - HEENT Hx HEENT Problems: Yes (uses glasses) Hx Macular Degeneration: Yes - RENAL Hx Chronic Kidney Disease: Yes Hx Kidney Stones: Yes - ENDOCRINE/METABOLIC Hx Endocrine Disorders: No - HEMATOLOGICAL/ONCOLOGICAL Hx Blood Disorders: Yes - INTEGUMENTARY Hx Dermatological Problems: Yes Hx Psoriasis: Yes Other/Comment: left upper arm bruise, lle healing scabs, right arm bright red skin with mulrtiple dry patches of skin from elbow to wrist, old fading bruises to ble and both knees, bruise to left upper side of knee painful to touch, bottom of both feet red with dry skin, thick long toenails and fingernails, bright red skin to r elbow, left elbow dry patches of skin , red skin and 2 dry red scabs, buttocks slightly reddened, mid chest scar - MUSCULOSKELETAL/RHEUMATOLOGICAL Hx Falls: Yes (past) - GASTROINTESTINAL Hx Gall Bladder Disease: Yes (gallstones) - GENITOURINARY/GYNECOLOGICAL Hx Genitourinary Disorders: Yes Hx Incontinence: Yes - PSYCHIATRIC Hx Psychophysiologic Disorder: Yes Hx Anxiety: Yes Hx Depression: Yes - SURGICAL HISTORY Hx Cardiac Catheterization: Yes Hx Cholecystectomy: Yes (04/16/14) Hx Open Heart Surgery: Yes - ANESTHESIA Hx Anesthesia: Yes Hx Anesthesia Reactions: No Meds Allergies/Adverse Reactions: Allergies Allergy/AdvReac Type Severity Reaction Status Date / Time pineapple Allergy Unknown ITCHING Verified 01/31/17 10:42 - Medications Medications: Current Medications Albuterol/Ipratropium (Duoneb 3 Mg/0.5 Mg (3 Ml) Ud) 3 ml IH [id number] YARON Last Admin: 02/01/17 01:17 Dose: 3 ml Amlodipine Besylate (Norvasc) 5 mg PO DAILY YARON Aspirin (Aspirin Chewable) 81 mg PO DAILY YARON Carbidopa/Levodopa (Sinemet) 1 tab PO TID YARON Azithromycin 250 mg/ Sodium (Chloride) 250 mls @ 167 mls/hr IVPB DAILY YARON PRN Reason: Protocol Cefepime HCl (Maxipime 1gm) 1 gm in 100 mls @ 100 mls/hr IVPB Q12 YARON PRN Reason: Protocol Stop: 02/09/17 22:01 Last Admin: 01/31/17 22:06 Dose: 100 mls/hr Nicotine (Nicoderm Cq) 1 patch TD DAILY YARON Quetiapine Fumarate (Seroquel) 12.5 mg PO DAILY YARON PRN Reason: Protocol Physical Exam - Constitutional Appears: Non-toxic, No Acute Distress - Head Exam Head Exam: NORMAL INSPECTION - ENT Exam ENT Exam: Mucous Membranes Moist - Neck Exam Neck exam: Negative for: Meningismus - Respiratory Exam Respiratory Exam: Decreased Breath Sounds - Cardiovascular Exam Cardiovascular Exam: +S1, +S2 - GI/Abdominal Exam GI & Abdominal Exam: Soft. absent: Tenderness Results - Vital Signs Recent Vital Signs: Last Vital Signs Temp 98.2 F 02/01/17 05:57 Pulse 72 02/01/17 05:57 Resp 19 02/01/17 05:57 BP 138/68 02/01/17 05:57 Pulse Ox 98 02/01/17 05:57 - Labs Result Diagrams: 02/01/17 04:05 02/01/17 04:05 Labs: Laboratory Results - last 24 hr 01/31/17 01/31/17 01/31/17 14:59 18:57 20:37 WBC RBC Hgb Hct MCV MCH MCHC RDW Plt Count MPV Gran % Lymph % (Auto) [place] % (Auto) Eos % (Auto) Baso % (Auto) Gran # Lymph # [place] # Eos # Baso # pCO2 34 L pO2 25 L 109.0 H HCO3 22.1 ABG pH 7.42 ABG Total CO2 23.1 ABG O2 Saturation 99.7 H ABG O2 Content 20.8 ABG Base Excess -1.7 ABG Hemoglobin 15.2 ABG Carboxyhemoglobin 2.1 H POC ABG HHb (Measured) 0.3 ABG Methemoglobin 0.9 ABG O2 Capacity 20.9 VBG pH 7.32 VBG pCO2 55.0 VBG HCO3 28.3 H VBG Total CO2 30.0 H VBG O2 Sat (Calc) 49.0 VBG Base Excess 0.8 VBG Potassium 4.4 Hgb O2 Saturation 96.7 Sodium 138.0 Chloride 105.0 Glucose 96 Lactate 1.4 FiO2 21.0 28.0 Potassium Carbon Dioxide Anion Gap BUN Creatinine Est GFR ( Amer) Est GFR (Non-Af Amer) Random Glucose Calcium Total Bilirubin AST ALT Alkaline Phosphatase Lactate Dehydrogenase 587 Total Creatine Kinase 4140 H CK-MB (CK-2) 9.8 H CK-MB (CK-2) % 0.2 L Troponin I 0.03 Total Protein Albumin Globulin Albumin/Globulin Ratio Venous Blood Potassium 4.4 02/01/17 02/01/17 04:05 04:05 WBC 13.3 H RBC 4.84 Hgb 14.6 Hct 42.2 MCV 87.2 MCH 30.2 MCHC 34.6 RDW 13.6 Plt Count 120 MPV 11.5 H Gran % 71.6 H Lymph % (Auto) 17.5 L [place] % (Auto) 10.2 H Eos % (Auto) 0.5 L Baso % (Auto) 0.2 Gran # 9.55 H Lymph # 2.3 [place] # 1.4 H Eos # 0.1 Baso # 0.03 pCO2 pO2 HCO3 ABG pH ABG Total CO2 ABG O2 Saturation ABG O2 Content ABG Base Excess ABG Hemoglobin ABG Carboxyhemoglobin POC ABG HHb (Measured) ABG Methemoglobin ABG O2 Capacity VBG pH VBG pCO2 VBG HCO3 VBG Total CO2 VBG O2 Sat (Calc) VBG Base Excess VBG Potassium Hgb O2 Saturation Sodium 143 Chloride 103 Glucose Lactate FiO2 Potassium 3.7 Carbon Dioxide 29 Anion Gap 15 BUN 40 H Creatinine 1.3 Est GFR ( Amer) > 60 Est GFR (Non-Af Amer) 54 Random Glucose 116 H Calcium 9.0 Total Bilirubin 1.4 H AST 106 H ALT 68 H Alkaline Phosphatase 81 Lactate Dehydrogenase 511 Total Creatine Kinase 2575 H CK-MB (CK-2) 5.6 H CK-MB (CK-2) % 0.2 L Troponin I 0.03 Total Protein 7.2 Albumin 4.0 Globulin 3.2 Albumin/Globulin Ratio 1.3 Venous Blood Potassium Assessment & Plan - Assessment and Plan (Free Text) Plan: Assessment Leukocytosis, without evidence of infection currently, probably reactive lower extremity weakness, work up in progress Coagulase negative staph in 2 of 4 bottles most likely contamination Worsening confusion, consider worsening PArkinsonism CAD COPD Parkinson's disease history of significant smoking Plan blood cx and urine cx are negative; CXR does not show infiltrates; Procalcitonin is only 0.11; urinalysis does not show pyuria - will monitor clinically off antibiotics since he is at risk for nosocomial infections follow up work up for his extremity weakness will trend WBC count
[2017-02-01 12:17] LABS: CK-MB 4.2 ng/mL (0.0-3.6)
[2017-02-01 12:18] LABS: TROPONIN I < 0.01 ng/mL
--- NOTE | 2017-02-01 13:29 | CP.PCM.CON ---
History of Present Illness - History of Present Illness History of Present Illness: shortly patient is 76 year old male, reported h/o Parkinson's dementia (confusion is worsening), pt has multiple medical issues CAD< COPD, as well as LE weakness for what pt was brought into the hospital, psych consult was called for evaluation of confusion, restlessness. pt was seen and examined, discussed with RNs. as per RN pt has episodes of being restless, but no agitation/no aggression. pt presented to be restless, knows that he is in [facility], pt had difficulties to sustain attention and participate at the interview, pt seems to be responding to internal stimuli, pt also presented to be paranoid, guarded. Pt reported to feel depressed "at times", denied thoughts of harming self or others. this wrier was involved into this pt's care about a month ago, pt presented worse back then, octavio Dupree was called, pt was very confused, delirious, pt improved significantly on Seroquel 12.5mg bid. will resume it, pt was educated about that. Pt said "I like the medication for my Parkinson, I don't remember the name". 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 MSE: pt was alert, restless, concentration is poor, pt was confabulating, pt had intense eye contact, speech was low volume, underproductive, mood: "I feel depressed at times", affect was flat, thought process: circumstantial, thought content: pt appeared to be confused, internally preoccupied. I/J impaired, impulses controlled as of now, pt has h/o agitation, restraints. Impression: delirium on dementia h/o depression and anxiety multiple medical issues, Leukocytosis, lower extremity weakness CAD COPD CHF Plan seroquel 12.5mg amhs for psychosis/delirium PT evaluation ID f/u neurology f/u as needed will f/u and advise accordingly Past Patient History - Infectious Disease Hx of Infectious Diseases: None - Tetanus Immunizations Tetanus Immunization: Unknown - Past Social History Smoking Status: Unknown If Ever Smoked - CARDIAC Hx Cardiac Disorders: Yes Hx Angina: Yes Hx Hypercholesterolemia: Yes Hx Hypertension: Yes Hx Peripheral Vascular Disease: Yes - PULMONARY Hx Respiratory Disorders: Yes Hx Asthma: Yes Hx Chronic Obstructive Pulmonary Disease (COPD): Yes - NEUROLOGICAL Hx Neurological Disorder: Yes Hx Dementia: Yes Hx Parkinson's Disease: Yes - HEENT Hx HEENT Problems: Yes (uses glasses) Hx Macular Degeneration: Yes - RENAL Hx Chronic Kidney Disease: Yes Hx Kidney Stones: Yes - ENDOCRINE/METABOLIC Hx Endocrine Disorders: No - HEMATOLOGICAL/ONCOLOGICAL Hx Blood Disorders: Yes - INTEGUMENTARY Hx Dermatological Problems: Yes Hx Psoriasis: Yes Other/Comment: left upper arm bruise, lle healing scabs, right arm bright red skin with mulrtiple dry patches of skin from elbow to wrist, old fading bruises to ble and both knees, bruise to left upper side of knee painful to touch, bottom of both feet red with dry skin, thick long toenails and fingernails, bright red skin to r elbow, left elbow dry patches of skin , red skin and 2 dry red scabs, buttocks slightly reddened, mid chest scar - MUSCULOSKELETAL/RHEUMATOLOGICAL Hx Falls: Yes (past) - GASTROINTESTINAL Hx Gall Bladder Disease: Yes (gallstones) - GENITOURINARY/GYNECOLOGICAL Hx Genitourinary Disorders: Yes Hx Incontinence: Yes - PSYCHIATRIC Hx Psychophysiologic Disorder: Yes Hx Anxiety: Yes Hx Depression: Yes - SURGICAL HISTORY Hx Cardiac Catheterization: Yes Hx Cholecystectomy: Yes (04/16/14) Hx Open Heart Surgery: Yes - ANESTHESIA Hx Anesthesia: Yes Hx Anesthesia Reactions: No Meds Allergies/Adverse Reactions: Allergies Allergy/AdvReac Type Severity Reaction Status Date / Time pineapple Allergy Unknown ITCHING Verified 01/31/17 10:42 - Medications Medications: Current Medications Albuterol/Ipratropium (Duoneb 3 Mg/0.5 Mg (3 Ml) Ud) 3 ml IH [id number] [facility] Last Admin: 02/01/17 07:43 Dose: 3 ml Amlodipine Besylate (Norvasc) 2.5 mg PO DAILY [facility] Last Admin: 02/01/17 10:00 Dose: Not Given Aspirin (Aspirin Chewable) 81 mg PO DAILY [facility] Last Admin: 02/01/17 10:00 Dose: Not Given Carbidopa/Levodopa (Sinemet) 1 tab PO TID [facility] Last Admin: 02/01/17 10:00 Dose: Not Given Dextrose/Sodium Chloride (Dextrose 5%/0.45% Ns 1000 Ml) 1,000 mls @ 75 mls/hr IV .[id number] [facility] Last Admin: 02/01/17 11:06 Dose: 75 mls/hr Nicotine (Nicoderm Cq) 1 patch TD DAILY [facility] Last Admin: 02/01/17 11:04 Dose: 1 patch Quetiapine Fumarate (Seroquel) 12.5 mg PO DAILY [facility] PRN Reason: Protocol Last Admin: 02/01/17 10:00 Dose: Not Given Results - Vital Signs Recent Vital Signs: Last Vital Signs Temp 97.5 F L 02/01/17 11:53 Pulse 90 02/01/17 11:53 Resp 16 02/01/17 11:53 BP 128/84 02/01/17 11:53 Pulse Ox 98 02/01/17 05:57 - Labs Result Diagrams: 02/01/17 04:05 02/01/17 04:05 Labs: Laboratory Results - last 24 hr 01/31/17 01/31/17 01/31/17 14:59 18:57 20:37 WBC RBC Hgb Hct MCV MCH MCHC RDW Plt Count MPV Gran % Lymph % (Auto) [place] % (Auto) Eos % (Auto) Baso % (Auto) Gran # Lymph # [place] # Eos # Baso # pCO2 34 L pO2 25 L 109.0 H HCO3 22.1 ABG pH 7.42 ABG Total CO2 23.1 ABG O2 Saturation 99.7 H ABG O2 Content 20.8 ABG Base Excess -1.7 ABG Hemoglobin 15.2 ABG Carboxyhemoglobin 2.1 H POC ABG HHb (Measured) 0.3 ABG Methemoglobin 0.9 ABG O2 Capacity 20.9 VBG pH 7.32 VBG pCO2 55.0 VBG HCO3 28.3 H VBG Total CO2 30.0 H VBG O2 Sat (Calc) 49.0 VBG Base Excess 0.8 VBG Potassium 4.4 Hgb O2 Saturation 96.7 Sodium 138.0 Chloride 105.0 Glucose 96 Lactate 1.4 FiO2 21.0 28.0 Potassium Carbon Dioxide Anion Gap BUN Creatinine Est GFR ( Amer) Est GFR (Non-Af Amer) POC Glucose (mg/dL) Random Glucose Calcium Total Bilirubin AST ALT Alkaline Phosphatase Lactate Dehydrogenase 587 Total Creatine Kinase 4140 H CK-MB (CK-2) 9.8 H CK-MB (CK-2) % 0.2 L Troponin I 0.03 Total Protein Albumin Globulin Albumin/Globulin Ratio Venous Blood Potassium 4.4 02/01/17 02/01/17 02/01/17 04:05 04:05 07:31 WBC 13.3 H RBC 4.84 Hgb 14.6 Hct 42.2 MCV 87.2 MCH 30.2 MCHC 34.6 RDW 13.6 Plt Count 120 MPV 11.5 H Gran % 71.6 H Lymph % (Auto) 17.5 L [place] % (Auto) 10.2 H Eos % (Auto) 0.5 L Baso % (Auto) 0.2 Gran # 9.55 H Lymph # 2.3 [place] # 1.4 H Eos # 0.1 Baso # 0.03 pCO2 pO2 HCO3 ABG pH ABG Total CO2 ABG O2 Saturation ABG O2 Content ABG Base Excess ABG Hemoglobin ABG Carboxyhemoglobin POC ABG HHb (Measured) ABG Methemoglobin ABG O2 Capacity VBG pH VBG pCO2 VBG HCO3 VBG Total CO2 VBG O2 Sat (Calc) VBG Base Excess VBG Potassium Hgb O2 Saturation Sodium 143 Chloride 103 Glucose Lactate FiO2 Potassium 3.7 Carbon Dioxide 29 Anion Gap 15 BUN 40 H Creatinine 1.3 Est GFR ( Amer) > 60 Est GFR (Non-Af Amer) 54 POC Glucose (mg/dL) 112 H Random Glucose 116 H Calcium 9.0 Total Bilirubin 1.4 H AST 106 H ALT 68 H Alkaline Phosphatase 81 Lactate Dehydrogenase 511 Total Creatine Kinase 2575 H CK-MB (CK-2) 5.6 H CK-MB (CK-2) % 0.2 L Troponin I 0.03 Total Protein 7.2 Albumin 4.0 Globulin 3.2 Albumin/Globulin Ratio 1.3 Venous Blood Potassium 02/01/17 11:45 WBC RBC Hgb Hct MCV MCH MCHC RDW Plt Count MPV Gran % Lymph % (Auto) [place] % (Auto) Eos % (Auto) Baso % (Auto) Gran # Lymph # [place] # Eos # Baso # pCO2 pO2 HCO3 ABG pH ABG Total CO2 ABG O2 Saturation ABG O2 Content ABG Base Excess ABG Hemoglobin ABG Carboxyhemoglobin POC ABG HHb (Measured) ABG Methemoglobin ABG O2 Capacity VBG pH VBG pCO2 VBG HCO3 VBG Total CO2 VBG O2 Sat (Calc) VBG Base Excess VBG Potassium Hgb O2 Saturation Sodium Chloride Glucose Lactate FiO2 Potassium Carbon Dioxide Anion Gap BUN Creatinine Est GFR ( Amer) Est GFR (Non-Af Amer) POC Glucose (mg/dL) Random Glucose Calcium Total Bilirubin AST ALT Alkaline Phosphatase Lactate Dehydrogenase 523 Total Creatine Kinase 1528 H CK-MB (CK-2) 4.2 H CK-MB (CK-2) % Cancelled Troponin I < 0.01 D Total Protein Albumin Globulin Albumin/Globulin Ratio Venous Blood Potassium
--- NOTE | 2017-02-01 15:46 | CP.PCM.CON ---
<yKm Rosas - Last Filed: 02/01/17 15:36> History of Present Illness - History of Present Illness History of Present Illness: Seen and examined at the bedside, chart reviewed. Request for consult is for choking. HPI: This is a 76-year-old male with a past medical history of Parkinson's disease dementia came to the emergency room with complaint of bilateral lower extremity weaknessan altered mental status. The patient is a current day smoker. He had a chest x-ray done on admission and showed no pneumonia versus pulmonary vascular congestion. The patient apparently was being fed and was noted to be choking on his oral intake. The patient just had a swallowing evaluation and was noted to have difficulty mixing liquids and solids. Speech therapist the cyst to and the patient was able to tolerate it well with no symptoms of choking. She recommended regular with extra gravy. The patient is awake and alert he denies any nausea, vomiting, or abdominal pain. He denies any previous episodes of difficulty with swallowing. Never had endoscopy or colonoscopy. Past medical history: Hypertension, peripheral vascular disease, asthma, Parkinson's disease, depression, macular degeneration, renal stones, psoriasis, depression, angina Past surgical history: Cholecystectomy, open heart surgery Allergies: Pineapple Social history: Patient current smoker, denies EtOH or drugs Medications: Reviewed as per MAR Family history: Noncontributory this time ROS: Systems reviewed with positive finding see HPI Past Patient History - Infectious Disease Hx of Infectious Diseases: None - Tetanus Immunizations Tetanus Immunization: Unknown - Past Social History Smoking Status: Unknown If Ever Smoked - CARDIAC Hx Cardiac Disorders: Yes Hx Angina: Yes Hx Hypercholesterolemia: Yes Hx Hypertension: Yes Hx Peripheral Vascular Disease: Yes - PULMONARY Hx Respiratory Disorders: Yes Hx Asthma: Yes Hx Chronic Obstructive Pulmonary Disease (COPD): Yes - NEUROLOGICAL Hx Neurological Disorder: Yes Hx Dementia: Yes Hx Parkinson's Disease: Yes - HEENT Hx HEENT Problems: Yes (uses glasses) Hx Macular Degeneration: Yes - RENAL Hx Chronic Kidney Disease: Yes Hx Kidney Stones: Yes - ENDOCRINE/METABOLIC Hx Endocrine Disorders: No - HEMATOLOGICAL/ONCOLOGICAL Hx Blood Disorders: Yes - INTEGUMENTARY Hx Dermatological Problems: Yes Hx Psoriasis: Yes Other/Comment: left upper arm bruise, lle healing scabs, right arm bright red skin with mulrtiple dry patches of skin from elbow to wrist, old fading bruises to ble and both knees, bruise to left upper side of knee painful to touch, bottom of both feet red with dry skin, thick long toenails and fingernails, bright red skin to r elbow, left elbow dry patches of skin , red skin and 2 dry red scabs, buttocks slightly reddened, mid chest scar - MUSCULOSKELETAL/RHEUMATOLOGICAL Hx Falls: Yes (past) - GASTROINTESTINAL Hx Gall Bladder Disease: Yes (gallstones) - GENITOURINARY/GYNECOLOGICAL Hx Genitourinary Disorders: Yes Hx Incontinence: Yes - PSYCHIATRIC Hx Psychophysiologic Disorder: Yes Hx Anxiety: Yes Hx Depression: Yes - SURGICAL HISTORY Hx Cardiac Catheterization: Yes Hx Cholecystectomy: Yes (04/16/14) Hx Open Heart Surgery: Yes - ANESTHESIA Hx Anesthesia: Yes Hx Anesthesia Reactions: No Meds Allergies/Adverse Reactions: Allergies Allergy/AdvReac Type Severity Reaction Status Date / Time pineapple Allergy Unknown ITCHING Verified 01/31/17 10:42 - Medications Medications: Current Medications Albuterol/Ipratropium (Duoneb 3 Mg/0.5 Mg (3 Ml) Ud) 3 ml IH [id number] [facility] Last Admin: 02/01/17 13:27 Dose: 3 ml Amlodipine Besylate (Norvasc) 2.5 mg PO DAILY [facility] Last Admin: 02/01/17 10:00 Dose: Not Given Aspirin (Aspirin Chewable) 81 mg PO DAILY [facility] Last Admin: 02/01/17 10:00 Dose: Not Given Carbidopa/Levodopa (Sinemet) 1 tab PO TID [facility] Last Admin: 02/01/17 10:00 Dose: Not Given Dextrose/Sodium Chloride (Dextrose 5%/0.45% Ns 1000 Ml) 1,000 mls @ 75 mls/hr IV .[id number] [facility] Last Admin: 02/01/17 11:06 Dose: 75 mls/hr Nicotine (Nicoderm Cq) 1 patch TD DAILY [facility] Last Admin: 02/01/17 11:04 Dose: 1 patch Quetiapine Fumarate (Seroquel) 12.5 mg PO AMHS [facility] PRN Reason: Protocol Physical Exam - Constitutional Appears: No Acute Distress - Head Exam Head Exam: NORMAL INSPECTION - Eye Exam Eye Exam: Normal appearance. absent: Scleral icterus - ENT Exam ENT Exam: Mucous Membranes Moist - Neck Exam Neck exam: Positive for: Normal Inspection - Respiratory Exam Respiratory Exam: Decreased Breath Sounds, Rhonchi, NORMAL BREATHING PATTERN. absent: Wheezes, Respiratory Distress - Cardiovascular Exam Cardiovascular Exam: +S1, +S2 - GI/Abdominal Exam GI & Abdominal Exam: Normal Bowel Sounds, Soft. absent: Distended, Guarding, Rebound, Tenderness - Extremities Exam Extremities exam: Positive for: pedal pulses present. Negative for: calf tenderness, pedal edema - Neurological Exam Neurological exam: Alert, Oriented x3 - Skin Skin Exam: Dry, Warm Results - Vital Signs Recent Vital Signs: Last Vital Signs Temp 97.5 F L 02/01/17 11:53 Pulse 90 02/01/17 11:53 Resp 16 02/01/17 11:53 BP 128/84 02/01/17 11:53 Pulse Ox 98 02/01/17 05:57 - Labs Result Diagrams: 02/01/17 04:05 02/01/17 04:05 Labs: Laboratory Results - last 24 hr 01/31/17 01/31/17 01/31/17 14:59 18:57 20:37 WBC RBC Hgb Hct MCV MCH MCHC RDW Plt Count MPV Gran % Lymph % (Auto) [place] % (Auto) Eos % (Auto) Baso % (Auto) Gran # Lymph # [place] # Eos # Baso # pCO2 34 L pO2 25 L 109.0 H HCO3 22.1 ABG pH 7.42 ABG Total CO2 23.1 ABG O2 Saturation 99.7 H ABG O2 Content 20.8 ABG Base Excess -1.7 ABG Hemoglobin 15.2 ABG Carboxyhemoglobin 2.1 H POC ABG HHb (Measured) 0.3 ABG Methemoglobin 0.9 ABG O2 Capacity 20.9 VBG pH 7.32 VBG pCO2 55.0 VBG HCO3 28.3 H VBG Total CO2 30.0 H VBG O2 Sat (Calc) 49.0 VBG Base Excess 0.8 VBG Potassium 4.4 Hgb O2 Saturation 96.7 Sodium 138.0 Chloride 105.0 Glucose 96 Lactate 1.4 FiO2 21.0 28.0 Potassium Carbon Dioxide Anion Gap BUN Creatinine Est GFR ( Amer) Est GFR (Non-Af Amer) POC Glucose (mg/dL) Random Glucose Calcium Total Bilirubin AST ALT Alkaline Phosphatase Lactate Dehydrogenase 587 Total Creatine Kinase 4140 H CK-MB (CK-2) 9.8 H CK-MB (CK-2) % 0.2 L Troponin I 0.03 Total Protein Albumin Globulin Albumin/Globulin Ratio Venous Blood Potassium 4.4 02/01/17 02/01/17 02/01/17 04:05 04:05 07:31 WBC 13.3 H RBC 4.84 Hgb 14.6 Hct 42.2 MCV 87.2 MCH 30.2 MCHC 34.6 RDW 13.6 Plt Count 120 MPV 11.5 H Gran % 71.6 H Lymph % (Auto) 17.5 L [place] % (Auto) 10.2 H Eos % (Auto) 0.5 L Baso % (Auto) 0.2 Gran # 9.55 H Lymph # 2.3 [place] # 1.4 H Eos # 0.1 Baso # 0.03 pCO2 pO2 HCO3 ABG pH ABG Total CO2 ABG O2 Saturation ABG O2 Content ABG Base Excess ABG Hemoglobin ABG Carboxyhemoglobin POC ABG HHb (Measured) ABG Methemoglobin ABG O2 Capacity VBG pH VBG pCO2 VBG HCO3 VBG Total CO2 VBG O2 Sat (Calc) VBG Base Excess VBG Potassium Hgb O2 Saturation Sodium 143 Chloride 103 Glucose Lactate FiO2 Potassium 3.7 Carbon Dioxide 29 Anion Gap 15 BUN 40 H Creatinine 1.3 Est GFR ( Amer) > 60 Est GFR (Non-Af Amer) 54 POC Glucose (mg/dL) 112 H Random Glucose 116 H Calcium 9.0 Total Bilirubin 1.4 H AST 106 H ALT 68 H Alkaline Phosphatase 81 Lactate Dehydrogenase 511 Total Creatine Kinase 2575 H CK-MB (CK-2) 5.6 H CK-MB (CK-2) % 0.2 L Troponin I 0.03 Total Protein 7.2 Albumin 4.0 Globulin 3.2 Albumin/Globulin Ratio 1.3 Venous Blood Potassium 02/01/17 11:45 WBC RBC Hgb Hct MCV MCH MCHC RDW Plt Count MPV Gran % Lymph % (Auto) [place] % (Auto) Eos % (Auto) Baso % (Auto) Gran # Lymph # [place] # Eos # Baso # pCO2 pO2 HCO3 ABG pH ABG Total CO2 ABG O2 Saturation ABG O2 Content ABG Base Excess ABG Hemoglobin ABG Carboxyhemoglobin POC ABG HHb (Measured) ABG Methemoglobin ABG O2 Capacity VBG pH VBG pCO2 VBG HCO3 VBG Total CO2 VBG O2 Sat (Calc) VBG Base Excess VBG Potassium Hgb O2 Saturation Sodium Chloride Glucose Lactate FiO2 Potassium Carbon Dioxide Anion Gap BUN Creatinine Est GFR ( Amer) Est GFR (Non-Af Amer) POC Glucose (mg/dL) Random Glucose Calcium Total Bilirubin AST ALT Alkaline Phosphatase Lactate Dehydrogenase 523 Total Creatine Kinase 1528 H CK-MB (CK-2) 4.2 H CK-MB (CK-2) % Cancelled Troponin I < 0.01 D Total Protein Albumin Globulin Albumin/Globulin Ratio Venous Blood Potassium Assessment & Plan - Assessment and Plan (Free Text) Assessment: Assessment: Choking sensation History of Parkinson's disease Bilateral lower extremity weakness Leukocytosis Elevated BNP Hypertension History of angina PLAN: soft heart healthy diet ? esophagogram Sinamet on ASA aspiration precaution smoking cessation consider EGD if symtoms persits. Thank you for this consult and for allowing us to participate in your patient care, will make further recommendation based upon clinical course. Seen and discussed with Dr. Manrique. <Casimiro Cornelius V - Last Filed: 02/04/17 06:13> Meds - Medications Medications: Current Medications Albuterol/Ipratropium (Duoneb 3 Mg/0.5 Mg (3 Ml) Ud) 3 ml IH [id number] [facility] Last Admin: 02/01/17 19:34 Dose: 3 ml Amlodipine Besylate (Norvasc) 2.5 mg PO DAILY [facility] Last Admin: 02/01/17 14:36 Dose: 2.5 mg Aspirin (Aspirin Chewable) 81 mg PO DAILY [facility] Last Admin: 02/01/17 14:35 Dose: 81 mg Carbidopa/Levodopa (Sinemet) 1 tab PO TID [facility] Last Admin: 02/01/17 18:15 Dose: Not Given Nicotine (Nicoderm Cq) 1 patch TD DAILY [facility] Last Admin: 02/01/17 11:04 Dose: 1 patch Quetiapine Fumarate (Seroquel) 12.5 mg PO AMHS [facility] PRN Reason: Protocol Last Admin: 02/01/17 21:43 Dose: 12.5 mg Results - Vital Signs Recent Vital Signs: Last Vital Signs Temp 97.2 F L 02/01/17 17:35 Pulse 95 H 02/01/17 22:00 Resp 18 02/01/17 17:35 BP 137/95 H 02/01/17 19:30 Pulse Ox 98 02/01/17 05:57 - Labs Result Diagrams: 02/02/17 09:52 02/01/17 04:05 Labs: Laboratory Results - last 24 hr 02/01/17 02/01/17 02/01/17 04:05 04:05 07:31 WBC 13.3 H RBC 4.84 Hgb 14.6 Hct 42.2 MCV 87.2 MCH 30.2 MCHC 34.6 RDW 13.6 Plt Count 120 MPV 11.5 H Gran % 71.6 H Lymph % (Auto) 17.5 L [place] % (Auto) 10.2 H Eos % (Auto) 0.5 L Baso % (Auto) 0.2 Gran # 9.55 H Lymph # 2.3 [place] # 1.4 H Eos # 0.1 Baso # 0.03 Sodium 143 Potassium 3.7 Chloride 103 Carbon Dioxide 29 Anion Gap 15 BUN 40 H Creatinine 1.3 Est GFR ( Amer) > 60 Est GFR (Non-Af Amer) 54 POC Glucose (mg/dL) 112 H Random Glucose 116 H Calcium 9.0 Total Bilirubin 1.4 H AST 106 H ALT 68 H Alkaline Phosphatase 81 Lactate Dehydrogenase 511 Total Creatine Kinase 2575 H CK-MB (CK-2) 5.6 H CK-MB (CK-2) % 0.2 L Troponin I 0.03 Total Protein 7.2 Albumin 4.0 Globulin 3.2 Albumin/Globulin Ratio 1.3 02/01/17 11:45 WBC RBC Hgb Hct MCV MCH MCHC RDW Plt Count MPV Gran % Lymph % (Auto) [place] % (Auto) Eos % (Auto) Baso % (Auto) Gran # Lymph # [place] # Eos # Baso # Sodium Potassium Chloride Carbon Dioxide Anion Gap BUN Creatinine Est GFR ( Amer) Est GFR (Non-Af Amer) POC Glucose (mg/dL) Random Glucose Calcium Total Bilirubin AST ALT Alkaline Phosphatase Lactate Dehydrogenase 523 Total Creatine Kinase 1528 H CK-MB (CK-2) 4.2 H CK-MB (CK-2) % Cancelled Troponin I < 0.01 D Total Protein Albumin Globulin Albumin/Globulin Ratio Attending/Attestation - Attestation I have personally seen and examined this patient.: Yes I have fully participated in the care of the patient.: Yes I have reviewed all pertinent clinical information: Yes Notes (Text): this
--- NOTE | 2017-02-01 16:21 | CARD ---
APPROVED REPORT EKG Measurement Heart [id number] <Conclusion> Sinus Tachycardia with 2:1 AV conduction Possible Left atrial enlargement Right bundle branch block Inferior infarct, age undetermined Abnormal ECG
--- NOTE | 2017-02-01 21:33 | HP ---
SUBJECTIVE: A 76-year-old white male with a history of CAD, history of Parkinson's disease, status post multiple falls. The patient was at home yesterday when he had some falling occurring with some shortness of breath, was found to be choking by the family and friends, brought to the emergency room, was found to have an elevated white count of over 15,000 with a left shift, some pyuria and bacteria in the urine, was also found to be having this episode of choking and also was bradycardic on the floor. The patient had been on metoprolol, metoprolol was held, amlodipine was reduced to half. The patient is being evaluated by cardiology for a possible pacemaker. He was also started on antibiotics for urosepsis and will have a *------* evaluation. 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 HEENT: Atraumatic, normocephalic. HEART: Sinus bradycardia, but heart rate has improved off beta blockers up to 72. VITAL SIGNS: Blood pressure 138/68. *------* ABDOMEN: Benign. EXTREMITIES: Without cyanosis, clubbing or edema. NEUROLOGIC: The patient is awake, alert and oriented x3 with grossly intact neurological system. LABORATORY DATA: BUN and creatinine are slightly elevated at 40 and 1.3. White count is down from 15.9 to 13.3. Hemoglobin is stable. Potassium is stable. Chest shows some rhonchi at both bases. The patient has a long history of tobacco abuse and COPD. IMPRESSION: Multiple falls, urosepsis, bradyarrhythmia, chronic obstructive pulmonary disease and Parkinson's disease. Ted Jacob MD
[2017-02-02] MEDS: Albuterol-Ipratrop 3 mg / 0.5 (3 ml) UD IH SCH ×4 (01:20→20:05)
--- NOTE | 2017-02-02 06:08 | CP.PCM.PN ---
Subjective - Date & Time of Evaluation Date of Evaluation: 02/02/17 Time of Evaluation: 06:07 - Subjective Subjective: Nurse calls and tells that patient has bladder scan showing 622 cc of urine. Patient has discomfort ,can't pass urine. He says that he is not able to pass urine and wants drained. Has no other complaints now. Medical recorde was reviewed. This 76 year old white male was admitted with sob after a fall, leukocytosis, urosepsis,bradyarrhythmia. Has PMH of CAD. Parknson's disease, COPD, bradyarrhythmia.multiple falls. Objective - Vital Signs/Intake and Output Vital Signs (last 24 hours): Temp Pulse Resp BP Pulse Ox 98.4 F 74 20 134/89 97 02/01/17 23:35 02/02/17 05:13 02/01/17 23:35 02/01/17 23:35 02/01/17 23:35 Intake and Output: 02/01/17 02/02/17 18:59 06:59 Intake Total 200 Balance 200 - Medications Medications: Current Medications Albuterol/Ipratropium (Duoneb 3 Mg/0.5 Mg (3 Ml) Ud) 3 ml IH [id number] [facility] Last Admin: 02/02/17 01:20 Dose: Not Given Amlodipine Besylate (Norvasc) 2.5 mg PO DAILY [facility] Last Admin: 02/01/17 14:36 Dose: 2.5 mg Aspirin (Aspirin Chewable) 81 mg PO DAILY [facility] Last Admin: 02/01/17 14:35 Dose: 81 mg Carbidopa/Levodopa (Sinemet) 1 tab PO TID [facility] Last Admin: 02/01/17 18:15 Dose: Not Given Nicotine (Nicoderm Cq) 1 patch TD DAILY [facility] Last Admin: 02/01/17 11:04 Dose: 1 patch Quetiapine Fumarate (Seroquel) 12.5 mg PO AMHS [facility] PRN Reason: Protocol Last Admin: 02/01/17 21:43 Dose: 12.5 mg - Labs Labs: 02/01/17 04:05 02/01/17 04:05 - Constitutional Appears: Well, No Acute Distress - Head Exam Head Exam: ATRAUMATIC, NORMAL INSPECTION, NORMOCEPHALIC - Eye Exam Eye Exam: Normal appearance - ENT Exam ENT Exam: Normal External Ear Exam - Neck Exam Neck Exam: Normal Inspection - Respiratory Exam Respiratory Exam: NORMAL BREATHING PATTERN - Cardiovascular Exam Cardiovascular Exam: absent: JVD - GI/Abdominal Exam GI & Abdominal Exam: absent: Normal Bowel Sounds - Rectal Exam Rectal Exam: Deferred - Exam Exam: NORMAL INSPECTION. absent: Scrotal Swelling - Extremities Exam Extremities Exam: Normal Inspection - Back Exam Back Exam: NORMAL INSPECTION - Neurological Exam Neurological Exam: Awake (mild confusion) - Psychiatric Exam Psychiatric exam: Normal Mood - Skin Skin Exam: Normal Color Assessment and Plan - Assessment and Plan (Free Text) Assessment: Urinary retention. Parkinson's disease. CAD. COPD. Hx falls. Plan: Patel inserted .Drained 600 CC urine. Continue present management.
[2017-02-02 10:01] LABS: BASO # 0.02 K/mm3 (0.0-2.0); BASO % 0.2 % (0.0-3.0); EOS # 0.2 (0.0-0.7); EOS % 1.7 % (1.5-5.0); GRAN # 7.08 (1.4-6.5); GRAN % 79.1 % (50.0-68.0); HEMOGLOBIN 14.1 gm/dL (14.0-18.0); LYMPH # 1.1 (1.2-3.4); LYMPH % 12.3 % (22.0-35.0); MEAN CELL VOLUME 87.6 fL (80.0-105.0); MEAN CORPUSCULAR HEMOGLOBIN 30.3 pg (25.0-35.0); MEAN CORPUSCULAR HGB CONC 34.6 g/dl (31.0-37.0); MEAN PLATELET VOLUME 11.6 fl (7.0-11.0); MONO # 0.6 (0.1-0.6); MONO % 6.7 % (1.0-6.0); PLATELET COUNT 122 10^3/uL (120.0-450.0); RBC 4.66 10^6/uL (3.5-6.1); RED CELL DISTRIBUTION WIDTH 13.4 % (11.5-14.5)
--- NOTE | 2017-02-02 11:40 | PN ---
DATE: 02/02/2017 SUBJECTIVE: The patient is in bed, in no acute distress. He was seen earlier today in 276, bed 2. PHYSICAL EXAMINATION: VITAL SIGNS: Temperature is 98, blood pressure is 130/80, and respiratory rate of 16, HEENT: Examination of HEENT is unremarkable. NECK: Supple. CARDIOPULMONARY: Heart exam is normal S1 and S2. LUNGS: Decreased breath sounds. ABDOMEN: Soft and nontender. LABORATORY DATA: Examination reveals a white count of 13,000, hemoglobin of 14, and platelets of 120. Chemistry reveals a BUN of 40 and creatinine of 1.3. Urinalysis is noted. Microbiology reveals that the patient's blood cultures are negative and urine cultures are negative. ASSESSMENT AND PLAN: This 76-year-old male with Parkinson's disease, dementia, coronary artery disease, chronic obstructive lung disease, history of smoking, peripheral vascular disease, hypertension, asthma, history of kidney stones, anxiety, and depression, admitted with leukocytosis without any evidence of infection currently. Thus far, the blood cultures are negative, chest x-ray is negative, procalcitonin is negative and urinalysis is noted, the patient is off of antibiotics and we will check on this morning CBC. We will order a CBC for this morning and will make further recommendations. We will order a CBC with differential. Tunde Buitrago MD [id number]
--- NOTE | 2017-02-02 15:35 | PN ---
SUBJECTIVE: The patient is a 76-year-old white male admitted to the hospital with elevated white count, fever, sepsis, some change of mental status, confusion, history of Parkinson's disease, history of CVA in the past. PHYSICAL EXAMINATION: VITAL SIGNS: Stable. His temperature is 99 today, blood pressure 137/88. LUNGS: Chest is clear to auscultation and percussion. HEART: Regular sinus rhythm. Physical examination is unchanged. LABORATORY DATA: The BUN and creatinine are improved at 41.3. His white count is down to 9 from almost 16. The patient is on IV antibiotics. He is doing well. PLAN: Continue IV antibiotics, bronchodilators, start physical therapy and occupational therapy. Ted Jacob MD
--- NOTE | 2017-02-02 15:49 | CON ---
HISTORY OF PRESENT ILLNESS: The patient is a 76-year-old male with a history of Parkinson's dementia whom psychiatry is following for confusion and restlessness as well as paranoia. I reviewed Dr. Cortes's consultation as well as recent notes and I met with the patient at bedside. The patient is cooperative with questioning and does not appear to be overly paranoid or delusional and is aware that he has Parkinson's, which is responsible for his presentation. He denies that he is depressed and again he indicated he is tired. He also denies that he is suicidal or homicidal and he quite adamantly denies any hallucinations. His responses are consistent when these questions were repeated at bedside. Generally has been in control and can participate in interview and the responses are brief. He is able to sustain better attention today than what was recorded yesterday and he did not appear to be responding to internal stimuli today. The patient did receive dose of Seroquel 12.5 mg last night, which he responded well when he was under the care of Dr. Cortes approximately 1 month ago. He appears to be responding at least tenuously well again during this hospitalization. He is not aware of which hospital he is in, he believes he is at [facility], [place], but he is aware that it is January, but he could not give me the proper year. His affect is hesitant, fatigued. It is little constricted, but I do not detect hopelessness or atrophy at this point. As noted, the speech is underproductive and regarding his restlessness, he is calmer today and there were reports of agitation overnight. He is confused as noted by his orientation. He does not recall Dr. Rodgers's visit from yesterday. I reoriented the patient to current circumstances, location, month, and year and provided my identification he recalled this information when I visit with him tomorrow. Insight and judgement are considered to be improving consistent with improving delirium. LABORATORY DATA AND MEDICATIONS: Reviewed by this provider as well as vital signs. IMPRESSION: Delirium on dementia, history of depression and anxiety. PLAN: We will continue with Seroquel 12.5 mg at bedtime for psychosis and resolving delirium. We will follow up with the patient in the a.m. and monitor his tolerance to medication as well as response. Lissa Deleon MD
[2017-02-03] MEDS: Albuterol-Ipratrop 3 mg / 0.5 (3 ml) UD IH SCH ×5 (05:23→20:13)
--- NOTE | 2017-02-03 12:53 | PN ---
DATE: 02/03/2017 SUBJECTIVE: The patient is a 76-year-old white male. A 12-point review of systems are unremarkable. Patient is without complaints. PHYSICAL EXAMINATION: GENERAL: He is awake, alert, and oriented x3. VITAL SIGNS: Stable today. Patient has a temperature is 99.2, blood pressure 122/87. CHEST: Chest is clear to auscultation and percussion. HEART: Regular sinus rhythm. LABORATORY DATA: BUN and creatinine are 40 and 1.3. So far cultures of urine and blood are negative. He is on IV antibiotics. He has been hospitalized for multiple falls and also had rhabdomyolysis with elevated BUN and creatinine, elevated CPKs, and they are slowly coming down. Repeat is scheduled for tomorrow morning. Patient has been hydrated. IMPRESSION: He was seen by Dr. Gonzalez for Psych. He is taking Seroquel to sleep at night. He is improving steady, does have Parkinson's disease . He has a history of coronary artery disease and chronic obstructive pulmonary disease. He is a former smoker or he is attempting to quit smoking. PLAN: To continue hydration. Continue to recheck his CPK enzymes. Continue IV antibiotics and start his physical therapy and occupational therapy. Ted Jacob MD
--- NOTE | 2017-02-03 13:41 | PN ---
DATE: 02/03/2017 SUBJECTIVE: The patient is in bed, in no acute distress, was seen earlier. PHYSICAL EXAMINATION: VITAL SIGNS: Temperature is 99, blood pressure is 120/80 and respiratory rate of 20. HEENT: Unremarkable. NECK: Supple. LUNGS: Decreased breath sounds. HEART: Normal S1 and S2. ABDOMEN: Soft and nontender. No rebound or guarding. LABORATORY DATA: Reveal the patient's white count is 9000, hemoglobin of 14 and platelets of 122. BUN of 40, creatinine of 1.3. LFTs are noted. CK is 1528. Urinalysis is noted. Microbiology reveals the blood cultures are negative and urine cultures are negative. Review of orders reveal that the patient to be off of antibiotics. Dr. Jacob's note is reviewed. ASSESSMENT AND PLAN: He is a 76-year-old male with Parkinson's disease, dementia, coronary artery disease, chronic obstructive lung disease, history of smoking, peripheral vascular disease, hypertension, asthma, history of kidney stones, anxiety and depression, admitted with leukocytosis with no evidence of infection. All cultures are negative, x-ray is negative, procalcitonin is negative, urinalysis is noted, currently off of antibiotics, afebrile, the patient back to his baseline this morning, and we will follow the patient off of antibiotics. The patient is at risk for developing nosocomial infections. Tunde Buitrago MD
--- NOTE | 2017-02-03 14:05 | CON ---
DATE: 02/03/2017 HISTORY OF PRESENT ILLNESS: The patient is 76-year-old male with history of Parkinson's dementia whom psychiatrist following for confusion and restlessness as well as paranoia. I reviewed Dr. Cortes's consultation as well as recent notes and I met with the patient at bedside yesterday. At that time, he appeared to be quite disoriented and was not aware of his current location or year. Focus was inconsistent as was his attention. Today, he is demonstrating improvement in his orientation as he is aware of which hospital he is in as well as current month and year. improved as well as eye contact. He used to have some improved reactivity and he does recall me from yesterday's visit. Presently, he reports that he feels tired as he reported yesterday generally calm. He reports having an history of depression and indicates that "everyone feels depressed every now and then," however, does not feel currently depressed, but just "calm." He denies any hopelessness or suicidal thoughts and he wants to live. He denies any hallucinations and he does not appear to be responding to internal stimuli and generally he is responding to relevant questioning. Regarding Seroquel, he denies any side effects, however, it is difficult to discern considering he is taking other medications on the unit, but he does feel improved since this medication was initiated. He has been in control on the unit and there were no major issues overnight. Insight and judgement are improving consistent with improving delirium. Laboratory data, medications and vitals were reviewed by this provider. IMPRESSION: Delirium on dementia, currently improving delirium. History of depression and anxiety. PLAN: We will continue with Seroquel 12.5 mg a.m. and at bedtime for psychosis and resolving delirium. Psychiatry will continue to follow up with this patient and see him in 2 days; however, medical team may request earlier follow up if there are any acute changes in his system and will be to visit at bedside at that time. Lissa Deleon MD
--- NOTE | 2017-02-03 22:17 | CP.PCM.PN ---
Subjective - Date & Time of Evaluation Date of Evaluation: 02/03/17 Time of Evaluation: 22:17 - Subjective Subjective: Patient was seen because he is confused and agitated. Patient has been pulling out IV access. He is threatening me and 4 other nurses who are tending him now to send to prison. Medical record was reviewed. This 76 year old white male was admitted with sob after a fall, leukocytosis, urosepsis,bradyarrhythmia. PMH :CAD. COPD, bradyarrhythmia.multiple falls, Parkinson's disease. Objective - Vital Signs/Intake and Output Vital Signs (last 24 hours): Temp Pulse Resp BP Pulse Ox 97.9 F 83 20 140/91 H 96 02/03/17 17:12 02/03/17 17:12 02/03/17 17:12 02/03/17 17:12 02/03/17 06:00 Intake and Output: 02/03/17 02/04/17 18:59 06:59 Intake Total 540 Output Total 200 Balance 340 - Medications Medications: Current Medications Acetaminophen (Tylenol 325mg Tab) 650 mg PO Q6H PRN PRN Reason: Headache Last Admin: 02/03/17 09:55 Dose: 650 mg Albuterol/Ipratropium (Duoneb 3 Mg/0.5 Mg (3 Ml) Ud) 3 ml IH [id number] [facility] Last Admin: 02/03/17 18:26 Dose: 3 ml Amlodipine Besylate (Norvasc) 2.5 mg PO DAILY [facility] Last Admin: 02/03/17 09:49 Dose: 2.5 mg Aspirin (Aspirin Chewable) 81 mg PO DAILY [facility] [place] Last Admin: 02/03/17 09:48 Dose: 81 mg Carbidopa/Levodopa (Sinemet) 1 tab PO TID [facility] Last Admin: 02/03/17 18:25 Dose: 1 tab Nicotine (Nicoderm Cq) 1 patch TD DAILY [facility] Last Admin: 02/03/17 09:48 Dose: 1 patch Quetiapine Fumarate (Seroquel) 12.5 mg PO AMHS [facility] PRN Reason: Protocol Last Admin: 02/03/17 21:18 Dose: 12.5 mg - Labs Labs: 02/02/17 09:52 02/01/17 04:05 Microbiology Studies 01/31/17 11:18 Blood Culture - Preliminary Blood NO GROWTH AFTER 3 DAYS 01/31/17 11:18 Blood Culture - Preliminary Blood NO GROWTH AFTER 3 DAYS Micro Results 01/31/17 11:18 Blood Blood Culture - Preliminary NO GROWTH AFTER 3 DAYS 01/31/17 11:18 Blood Blood Culture - Preliminary NO GROWTH AFTER 3 DAYS 01/31/17 12:15 Urine Urine Culture - Final No Growth (<1,000 CFU/ML) Most Recent Lab Values WBC 9.0 10^3/ul (4.5-11.0) D 02/02/17 09:52 RBC 4.66 10^6/uL (3.5-6.1) 02/02/17 09:52 Hgb 14.1 gm/dL (14.0-18.0) 02/02/17 09:52 Hct 40.8 % (42.0-52.0) L 02/02/17 09:52 MCV 87.6 fL (80.0-105.0) 02/02/17 09:52 MCH 30.3 pg (25.0-35.0) 02/02/17 09:52 MCHC 34.6 g/dl (31.0-37.0) 02/02/17 09:52 RDW 13.4 % (11.5-14.5) 02/02/17 09:52 Plt Count 122 10^3/uL (120.0-450.0) 02/02/17 09:52 MPV 11.6 fl (7.0-11.0) H 02/02/17 09:52 Gran % 79.1 % (50.0-68.0) H 02/02/17 09:52 Lymph % (Auto) 12.3 % (22.0-35.0) L 02/02/17 09:52 [place] % (Auto) 6.7 % (1.0-6.0) H 02/02/17 09:52 Eos % (Auto) 1.7 % (1.5-5.0) 02/02/17 09:52 Baso % (Auto) 0.2 % (0.0-3.0) 02/02/17 09:52 Gran # 7.08 (1.4-6.5) H 02/02/17 09:52 Lymph # 1.1 (1.2-3.4) L 02/02/17 09:52 [place] # 0.6 (0.1-0.6) 02/02/17 09:52 Eos # 0.2 (0.0-0.7) 02/02/17 09:52 Baso # 0.02 K/mm3 (0.0-2.0) 02/02/17 09:52 pCO2 34 mm/Hg (35-45) L 01/31/17 18:57 pO2 109.0 mm/Hg (80-100) H 01/31/17 18:57 HCO3 22.1 mmol/L (21-28) 01/31/17 18:57 ABG pH 7.42 (7.35-7.45) 01/31/17 18:57 ABG Total CO2 23.1 mmol.L (22-28) 01/31/17 18:57 ABG O2 Saturation 99.7 % (95-98) H 01/31/17 18:57 ABG O2 Content 20.8 ML/dl (15-23) 01/31/17 18:57 ABG Base Excess -1.7 mmol/L (-2.0-3.0) 01/31/17 18:57 ABG Hemoglobin 15.2 g/dL (11.7-17.4) 01/31/17 18:57 ABG Carboxyhemoglobin 2.1 % (0.5-1.5) H 01/31/17 18:57 POC ABG HHb (Measured) 0.3 % (0-5) 01/31/17 18:57 ABG Methemoglobin 0.9 % (0.0-3.0) 01/31/17 18:57 ABG O2 Capacity 20.9 mL/dl (16-24) 01/31/17 18:57 VBG pH 7.32 (7.32-7.43) 01/31/17 14:59 VBG pCO2 55.0 (40-60) 01/31/17 14:59 VBG HCO3 28.3 mmol/l (21-28) H 01/31/17 14:59 VBG Total CO2 30.0 mmol.L (22-28) H 01/31/17 14:59 VBG O2 Sat (Calc) 49.0 % (40-65) 01/31/17 14:59 VBG Base Excess 0.8 mmol/L (0.0-2.0) 01/31/17 14:59 VBG Potassium 4.4 mmol/L (3.6-5.2) 01/31/17 14:59 Hgb O2 Saturation 96.7 % (95.0-98.0) 01/31/17 18:57 Sodium 138.0 mmol/L (132-148) 01/31/17 14:59 Chloride 105.0 mmol/L (98-107) 01/31/17 14:59 Glucose 96 mg/dl (75-110) 01/31/17 14:59 Lactate 1.4 mmol/L (0.7-2.1) 01/31/17 14:59 FiO2 28.0 % 01/31/17 18:57 Sodium 143 mmol/L (132-148) 02/01/17 04:05 Potassium 3.7 mmol/L (3.6-5.0) 02/01/17 04:05 Chloride 103 mmol/L (98-107) 02/01/17 04:05 Carbon Dioxide 29 mmol/L (21-33) 02/01/17 04:05 Anion Gap 15 (10-20) 02/01/17 04:05 BUN 40 mg/dL (7-21) H 02/01/17 04:05 Creatinine 1.3 mg/dL (0.5-1.4) 02/01/17 04:05 Est GFR ( Amer) > 60 02/01/17 04:05 Est GFR (Non-Af Amer) 54 02/01/17 04:05 POC Glucose (mg/dL) 112 mg/dL (65-110) H 02/01/17 07:31 Random Glucose 116 mg/dL (70-110) H 02/01/17 04:05 Calcium 9.0 mg/dL (8.4-10.5) 02/01/17 04:05 Total Bilirubin 1.4 mg/dL (0.2-1.3) H 02/01/17 04:05 AST 106 U/L (15-59) H 02/01/17 04:05 ALT 68 U/L (7-56) H 02/01/17 04:05 Alkaline Phosphatase 81 U/L (38-133) 02/01/17 04:05 Lactate Dehydrogenase 523 U/L (333-699) 02/01/17 11:45 Total Creatine Kinase 1528 U/L (35-230) H 02/01/17 11:45 CK-MB (CK-2) 4.2 ng/mL (0.0-3.6) H 02/01/17 11:45 CK-MB (CK-2) % 0.2 % (2.5-3.0) L 02/01/17 04:05 Troponin I < 0.01 ng/mL D 02/01/17 11:45 NT-Pro-B Natriuret Pep 1310 pg/mL (0-450) H 01/31/17 11:18 Total Protein 7.2 g/dL (5.8-8.3) 02/01/17 04:05 Albumin 4.0 g/dL (3.0-4.8) 02/01/17 04:05 Globulin 3.2 gm/dL 02/01/17 04:05 Albumin/Globulin Ratio 1.3 (1.1-1.8) 02/01/17 04:05 Procalcitonin 0.11 NG/ML (0.19-0.49) L 01/31/17 11:00 Venous Blood Potassium 4.4 mmol/L (3.6-5.2) 01/31/17 14:59 Urine Color Yellow (YELLOW) 01/31/17 12:15 Urine Appearance Turbid (CLEAR) 01/31/17 12:15 Urine pH 6.0 (4.7-8.0) 01/31/17 12:15 Ur Specific [place] 1.025 (1.005-1.035) 01/31/17 12:15 Urine Protein 100 mg/dL (<30 mg/dL) H 01/31/17 12:15 Urine Glucose (UA) Negative mg/dL (NEGATIVE) 01/31/17 12:15 Urine Ketones 15 mg/dL (NEGATIVE) H 01/31/17 12:15 Urine Blood Large (NEGATIVE) H 01/31/17 12:15 Urine Nitrate Negative (NEGATIVE) 01/31/17 12:15 Urine Bilirubin Negative (NEGATIVE) 01/31/17 12:15 Urine Urobilinogen 1.0 E.U./dL (<1 E.U./dL) H 01/31/17 12:15 Ur Leukocyte Esterase Negative Lina/uL (NEGATIVE) 01/31/17 12:15 Urine RBC 10 - 15 /hpf (0-2) 01/31/17 12:15 Urine WBC 0 - 2 /hpf (0-6) 01/31/17 12:15 Ur Epithelial Cells 0 - 2 /hpf (0-5) 01/31/17 12:15 Urine Bacteria Few (NEG) 01/31/17 12:15 - Constitutional Appears: Well, No Acute Distress - Head Exam Head Exam: ATRAUMATIC, NORMAL INSPECTION, NORMOCEPHALIC - Eye Exam Eye Exam: Normal appearance - ENT Exam ENT Exam: Normal External Ear Exam - Neck Exam Neck Exam: Normal Inspection - Respiratory Exam Respiratory Exam: NORMAL BREATHING PATTERN - Cardiovascular Exam Cardiovascular Exam: absent: JVD - GI/Abdominal Exam GI & Abdominal Exam: absent: Distended - Rectal Exam Rectal Exam: Deferred - Exam Additional comments: Deferred. - Extremities Exam Extremities Exam: Normal Inspection - Back Exam Back Exam: NORMAL INSPECTION - Neurological Exam Neurological Exam: Alert, Awake - Psychiatric Exam Psychiatric exam: Agitated - Skin Skin Exam: Normal Color Assessment and Plan - Assessment and Plan (Free Text) Assessment: Agitation. Confusion. Dementia. Hx CAD. UTI. COPD. Plan: LANEY vest/ Wrist restraints. Ativan 2 mg IV stat. Continue present management.
[2017-02-04] MEDS: Albuterol-Ipratrop 3 mg / 0.5 (3 ml) UD IH SCH ×4 (01:56→20:15)
--- NOTE | 2017-02-04 06:20 | CP.PCM.PN ---
Subjective - Date & Time of Evaluation Date of Evaluation: 02/02/17 - Subjective Subjective: Patient is tolerating the diet no problems. Speech therapy evaluation noticed regarding swallowing Objective - Vital Signs/Intake and Output Vital Signs (last 24 hours): Temp Pulse Resp BP Pulse Ox 98.5 F 92 H 20 126/86 98 02/02/17 17:12 02/02/17 18:00 02/02/17 17:12 02/02/17 17:12 02/02/17 06:00 Intake and Output: 02/02/17 02/03/17 18:59 06:59 Intake Total 1240 Output Total 500 Balance 740 - Medications Medications: Current Medications Acetaminophen (Tylenol 325mg Tab) 650 mg PO Q6H PRN PRN Reason: Headache Albuterol/Ipratropium (Duoneb 3 Mg/0.5 Mg (3 Ml) Ud) 3 ml IH [id number] [facility] Last Admin: 02/02/17 20:05 Dose: 3 ml Amlodipine Besylate (Norvasc) 2.5 mg PO DAILY [facility] Last Admin: 02/02/17 10:19 Dose: 2.5 mg Aspirin (Aspirin Chewable) 81 mg PO DAILY [facility] Last Admin: 02/02/17 10:17 Dose: 81 mg Carbidopa/Levodopa (Sinemet) 1 tab PO TID [facility] Last Admin: 02/02/17 17:41 Dose: 1 tab Nicotine (Nicoderm Cq) 1 patch TD DAILY [facility] Last Admin: 02/02/17 10:19 Dose: 1 patch Quetiapine Fumarate (Seroquel) 12.5 mg PO AMHS [facility] PRN Reason: Protocol Last Admin: 02/02/17 10:17 Dose: 12.5 mg - Labs Labs: 02/02/17 09:52 02/01/17 04:05 - Constitutional Appears: Non-toxic, No Acute Distress - Head Exam Head Exam: ATRAUMATIC, NORMOCEPHALIC - Eye Exam Eye Exam: EOMI, PERRL - ENT Exam ENT Exam: Mucous Membranes Moist, Normal External Ear Exam - Neck Exam Neck Exam: Full ROM. absent: Lymphadenopathy - Respiratory Exam Respiratory Exam: Clear to Ausculation Bilateral, NORMAL BREATHING PATTERN. absent: Rales, Rhonchi - Cardiovascular Exam Cardiovascular Exam: +S1, +S2. absent: JVD - GI/Abdominal Exam GI & Abdominal Exam: Soft. absent: Tenderness - Extremities Exam Extremities Exam: absent: Calf Tenderness, Pedal Edema - Neurological Exam Neurological Exam: Alert, Awake Assessment and Plan - Assessment and Plan (Free Text) Plan: i This 76-year-old patient with a history of dementia confusion admitted with shortness of breath with history of falls at home has mild leukocytosis while in the hospital has an episode of choking sensation. Patient did not have any further episodes of this choking sensation. Patient was evaluated by the speech therapist her notes were reviewed Presently tolerating the diet she said no problems with his swallowing does not want any tests We will continue to monitor him if any further episodes occur we will consider esophagogram Discussed with the nursing staff. Continue the present management
--- NOTE | 2017-02-04 06:22 | CP.PCM.PN ---
Subjective - Date & Time of Evaluation Date of Evaluation: 02/03/17 Time of Evaluation: 13:00 - Subjective Subjective: Tolerating the diet no difficulty in swallowing no abdominal pain Objective - Vital Signs/Intake and Output Vital Signs (last 24 hours): Temp Pulse Resp BP Pulse Ox 97.9 F 83 20 140/91 H 96 02/03/17 17:12 02/03/17 17:12 02/03/17 17:12 02/03/17 17:12 02/03/17 06:00 Intake and Output: 02/03/17 02/04/17 18:59 06:59 Intake Total 540 Output Total 200 Balance 340 - Medications Medications: Current Medications Acetaminophen (Tylenol 325mg Tab) 650 mg PO Q6H PRN PRN Reason: Headache Last Admin: 02/03/17 09:55 Dose: 650 mg Albuterol/Ipratropium (Duoneb 3 Mg/0.5 Mg (3 Ml) Ud) 3 ml IH [id number] [facility] Last Admin: 02/03/17 18:26 Dose: 3 ml Amlodipine Besylate (Norvasc) 2.5 mg PO DAILY [facility] Last Admin: 02/03/17 09:49 Dose: 2.5 mg Aspirin (Aspirin Chewable) 81 mg PO DAILY [facility] Last Admin: 02/03/17 09:48 Dose: 81 mg Carbidopa/Levodopa (Sinemet) 1 tab PO TID [facility] Last Admin: 02/03/17 18:25 Dose: 1 tab Nicotine (Nicoderm Cq) 1 patch TD DAILY [facility] Last Admin: 02/03/17 09:48 Dose: 1 patch Quetiapine Fumarate (Seroquel) 12.5 mg PO AMHS [facility] PRN Reason: Protocol Last Admin: 02/03/17 21:18 Dose: 12.5 mg - Labs Labs: 02/02/17 09:52 02/01/17 04:05 - Head Exam Head Exam: ATRAUMATIC, NORMOCEPHALIC - Eye Exam Eye Exam: EOMI, PERRL - Neck Exam Neck Exam: Full ROM. absent: Lymphadenopathy - Cardiovascular Exam Cardiovascular Exam: +S1, +S2. absent: JVD - GI/Abdominal Exam GI & Abdominal Exam: Soft, Normal Bowel Sounds. absent: Tenderness - Extremities Exam Extremities Exam: Full ROM. absent: Calf Tenderness - Neurological Exam Neurological Exam: Alert, Awake Assessment and Plan - Assessment and Plan (Free Text) Plan: Cristianeis 76-year-old patient with a history of dementia confusion admitted with shortness of breath with history of falls at home has mild leukocytosis while in the hospital has an episode of choking sensation. Patient did not have any further episodes of this choking sensation. Patient was evaluated by the speech therapist her notes were reviewed Presently tolerating the diet he said no problems with his swallowing does not want any tests We will continue to monitor him if any further episodes occur we will consider esophagogram Discussed with the nursing staff. Continue the present management
[2017-02-04 08:05] LABS: ALB/GLOB RATIO 1.2 (1.1-1.8); ALBUMIN 3.6 g/dL (3.0-4.8); ALT/SGPT 35 U/L (7-56); AST/SGOT 39 U/L (15-59); BLOOD UREA NITROGEN 23 mg/dL (7-21); CALCIUM 9.1 mg/dL (8.4-10.5); GFR AFRICAN-AMERICAN > 60; GFR NON-AFRICAN AMERICAN > 60
--- NOTE | 2017-02-04 10:30 | CP.PCM.PN ---
<Kym Rosas - Last Filed: 02/04/17 10:26> Subjective - Date & Time of Evaluation Date of Evaluation: 02/04/17 Time of Evaluation: 09:05 - Subjective Subjective: S&E, chart reviewed, sitting up in bed eating breakfast, tolerated Indonesian toast and egg, drinking coffee. Son at bedside. Patient tolerating oral intake, no further episodes of choking. Patient was agitated yesterday, he is on a facundo vest. Objective - Vital Signs/Intake and Output Vital Signs (last 24 hours): Temp Pulse Resp BP Pulse Ox 97.4 F L 77 20 119/78 100 02/04/17 06:00 02/04/17 06:00 02/04/17 06:00 02/04/17 09:37 02/04/17 06:00 Intake and Output: 02/04/17 02/04/17 06:59 18:59 Intake Total 840 Output Total 400 Balance 440 - Medications Medications: Current Medications Acetaminophen (Tylenol 325mg Tab) 650 mg PO Q6H PRN PRN Reason: Headache Last Admin: 02/03/17 09:55 Dose: 650 mg Albuterol/Ipratropium (Duoneb 3 Mg/0.5 Mg (3 Ml) Ud) 3 ml IH [id number] [facility] Last Admin: 02/04/17 08:28 Dose: Not Given Amlodipine Besylate (Norvasc) 2.5 mg PO DAILY [facility] Last Admin: 02/04/17 09:37 Dose: 2.5 mg Aspirin (Aspirin Chewable) 81 mg PO DAILY [facility] Last Admin: 02/04/17 09:05 Dose: 81 mg Carbidopa/Levodopa (Sinemet) 1 tab PO TID [facility] Last Admin: 02/04/17 09:06 Dose: 1 tab Nicotine (Nicoderm Cq) 1 patch TD DAILY [facility] Last Admin: 02/04/17 09:05 Dose: 1 patch Quetiapine Fumarate (Seroquel) 12.5 mg PO HS [facility] PRN Reason: Protocol - Labs Labs: 02/02/17 09:52 02/04/17 07:30 - Constitutional Appears: No Acute Distress - Head Exam Head Exam: NORMOCEPHALIC - Eye Exam Eye Exam: Normal appearance. absent: Scleral icterus - ENT Exam ENT Exam: Mucous Membranes Moist - Respiratory Exam Respiratory Exam: Decreased Breath Sounds, Clear to Ausculation Bilateral, NORMAL BREATHING PATTERN. absent: Wheezes, Respiratory Distress - Cardiovascular Exam Cardiovascular Exam: +S1, +S2 - GI/Abdominal Exam GI & Abdominal Exam: Soft, Normal Bowel Sounds. absent: Guarding, Tenderness, Organomegaly, Rebound - Extremities Exam Extremities Exam: absent: Calf Tenderness, Pedal Edema - Neurological Exam Neurological Exam: Alert, Altered (confused at times), Awake - Skin Skin Exam: Dry, Warm Assessment and Plan - Assessment and Plan (Free Text) Assessment: Assessment: s/p Choking sensation History of Parkinson's disease Bilateral lower extremity weakness Leukocytosis Elevated BNP Hypertension History of angina PLAN: soft heart healthy diet, extra gravy, s/p swallow eval on Sinamet on ASA aspiration precaution smoking cessation consider esophagogram if episode reoccurs, patient was refusing any testing, spoke to son at bedside Seen and discussed with Dr. Manrique. <Casimiro Cornelius V - Last Filed: 02/04/17 23:53> Objective - Vital Signs/Intake and Output Vital Signs (last 24 hours): Temp Pulse Resp BP Pulse Ox 98.4 F 79 20 159/96 H 100 02/04/17 20:08 02/04/17 22:00 02/04/17 20:08 02/04/17 20:08 02/04/17 06:00 Intake and Output: 02/04/17 02/05/17 18:59 06:59 Intake Total 1440 Output Total 600 Balance 840 - Medications Medications: Current Medications Acetaminophen (Tylenol 325mg Tab) 650 mg PO Q6H PRN PRN Reason: Headache Last Admin: 02/04/17 10:42 Dose: 650 mg Albuterol/Ipratropium (Duoneb 3 Mg/0.5 Mg (3 Ml) Ud) 3 ml IH [id number] [facility] Last Admin: 02/04/17 20:15 Dose: Not Given Amlodipine Besylate (Norvasc) 2.5 mg PO DAILY [facility] Last Admin: 02/04/17 09:37 Dose: 2.5 mg Aspirin (Aspirin Chewable) 81 mg PO DAILY [facility] Last Admin: 02/04/17 09:05 Dose: 81 mg Carbidopa/Levodopa (Sinemet) 1 tab PO TID [facility] Last Admin: 02/04/17 18:00 Dose: 1 tab Nicotine (Nicoderm Cq) 1 patch TD DAILY [facility] Last Admin: 02/04/17 09:05 Dose: 1 patch Quetiapine Fumarate (Seroquel) 12.5 mg PO HS [facility] PRN Reason: Protocol Last Admin: 02/04/17 22:15 Dose: 12.5 mg - Labs Labs: 02/02/17 09:52 02/04/17 07:30 Attending/Attestation - Attestation I have personally seen and examined this patient.: Yes I have fully participated in the care of the patient.: Yes I have reviewed all pertinent clinical information, including history, physical exam and plan: Yes Notes (Text): th
--- NOTE | 2017-02-04 11:06 | CP.PCM.PN ---
Subjective - Date & Time of Evaluation Date of Evaluation: 02/04/17 Time of Evaluation: 10:20 - Subjective Subjective: Comfortable, afebrile, not in distress. Objective - Vital Signs/Intake and Output Vital Signs (last 24 hours): Temp Pulse Resp BP Pulse Ox 97.4 F L 77 20 163/70 H 100 02/04/17 06:00 02/04/17 06:00 02/04/17 06:00 02/04/17 06:00 02/04/17 06:00 Intake and Output: 02/04/17 02/04/17 06:59 18:59 Intake Total 840 Output Total 400 Balance 440 - Medications Medications: Current Medications Acetaminophen (Tylenol 325mg Tab) 650 mg PO Q6H PRN PRN Reason: Headache Last Admin: 02/03/17 09:55 Dose: 650 mg Albuterol/Ipratropium (Duoneb 3 Mg/0.5 Mg (3 Ml) Ud) 3 ml IH [id number] [facility] Last Admin: 02/04/17 08:28 Dose: Not Given Amlodipine Besylate (Norvasc) 2.5 mg PO DAILY [facility] Last Admin: 02/03/17 09:49 Dose: 2.5 mg Aspirin (Aspirin Chewable) 81 mg PO DAILY [facility] Last Admin: 02/03/17 09:48 Dose: 81 mg Carbidopa/Levodopa (Sinemet) 1 tab PO TID [facility] Last Admin: 02/03/17 18:25 Dose: 1 tab Nicotine (Nicoderm Cq) 1 patch TD DAILY [facility] Last Admin: 02/03/17 09:48 Dose: 1 patch Quetiapine Fumarate (Seroquel) 12.5 mg PO AMHS [facility] PRN Reason: Protocol Last Admin: 02/03/17 21:18 Dose: 12.5 mg - Labs Labs: 02/02/17 09:52 02/04/17 07:30 - Constitutional Appears: Non-toxic, No Acute Distress - Head Exam Head Exam: NORMAL INSPECTION - ENT Exam ENT Exam: Mucous Membranes Moist - Neck Exam Neck Exam: absent: Lymphadenopathy, Meningismus - Respiratory Exam Respiratory Exam: Decreased Breath Sounds - Cardiovascular Exam Cardiovascular Exam: +S1, +S2 - GI/Abdominal Exam GI & Abdominal Exam: Soft. absent: Tenderness Assessment and Plan - Assessment and Plan (Free Text) Plan: Assessment S/P Leukocytosis, without evidence of infection currently, probably reactive lower extremity weakness, work up in progress Coagulase negative staph in 2 of 4 bottles most likely contamination Worsening confusion, consider worsening PArkinsonism CAD COPD Parkinson's disease history of significant smoking Plan continue to monitor clinically off antibiotics since he is at risk for hospital- acquired infections WBC count has normalized
--- NOTE | 2017-02-04 14:43 | PN ---
DATE: A 76-year-old white male became somewhat more disoriented last night and sleepy in the morning. We were switching his Seroquel to only at bedtime. He is on a Kari restraint. He is more oriented and alert this morning, seen at bedside with the son. His BUN and creatinine have come back to normal. His CPK enzymes had returned to normal. The patient is being evaluated for physical therapy and occupational therapy and possible return to for outpatient rehab. Vital signs are stable. The patient does have history of Parkinson's disease, recent stroke, COPD and CAD status post open heart surgery. Ted Jacob MD
[2017-02-05] MEDS: Albuterol-Ipratrop 3 mg / 0.5 (3 ml) UD IH SCH ×3 (01:47→13:22)
[2017-02-05 08:05] VITALS: O2SAT 95
--- NOTE | 2017-02-05 09:51 | CP.PCM.PN ---
Subjective - Date & Time of Evaluation Date of Evaluation: 02/05/17 Time of Evaluation: 08:10 - Subjective Subjective: S&E at bedside, chart reviewed. No acute overnight events. Continue to tolerated oral intake, no acute events reported overnight. Confused at times. Denies SOB, CP, N/V or abdominal pain. Objective - Vital Signs/Intake and Output Vital Signs (last 24 hours): Temp Pulse Resp BP Pulse Ox 98.1 F 90 18 146/96 H 95 02/05/17 06:00 02/05/17 06:00 02/05/17 06:00 02/05/17 09:40 02/05/17 06:00 Intake and Output: 02/05/17 02/05/17 06:59 18:59 Intake Total 330 Output Total 1000 Balance -670 - Medications Medications: Current Medications Acetaminophen (Tylenol 325mg Tab) 650 mg PO Q6H PRN PRN Reason: Headache Last Admin: 02/04/17 10:42 Dose: 650 mg Albuterol/Ipratropium (Duoneb 3 Mg/0.5 Mg (3 Ml) Ud) 3 ml IH [id number] [facility] Last Admin: 02/05/17 07:52 Dose: Not Given Amlodipine Besylate (Norvasc) 2.5 mg PO DAILY [facility] Last Admin: 02/05/17 09:40 Dose: 2.5 mg Aspirin (Aspirin Chewable) 81 mg PO DAILY [facility] Last Admin: 02/05/17 09:40 Dose: 81 mg Carbidopa/Levodopa (Sinemet) 1 tab PO TID [facility] Last Admin: 02/05/17 09:41 Dose: 1 tab Nicotine (Nicoderm Cq) 1 patch TD DAILY [facility] Last Admin: 02/05/17 09:40 Dose: 1 patch Quetiapine Fumarate (Seroquel) 12.5 mg PO HS [facility] PRN Reason: Protocol Last Admin: 02/04/17 22:15 Dose: 12.5 mg - Labs Labs: 02/02/17 09:52 02/04/17 07:30 - Constitutional Appears: No Acute Distress - Head Exam Head Exam: NORMAL INSPECTION - Eye Exam Eye Exam: Normal appearance. absent: Scleral icterus - ENT Exam ENT Exam: Mucous Membranes Moist - Neck Exam Neck Exam: absent: Normal Inspection - Respiratory Exam Respiratory Exam: NORMAL BREATHING PATTERN. absent: Respiratory Distress - Cardiovascular Exam Cardiovascular Exam: +S1, +S2 - GI/Abdominal Exam GI & Abdominal Exam: Soft, Normal Bowel Sounds. absent: Tenderness, Rebound - Extremities Exam Extremities Exam: Normal Capillary Refill. absent: Calf Tenderness, Pedal Edema - Neurological Exam Neurological Exam: Alert, Awake, Oriented x3 (periods of confusion) - Skin Skin Exam: Dry, Warm Assessment and Plan - Assessment and Plan (Free Text) Assessment: Assessment: s/p Choking sensation History of Parkinson's disease Bilateral lower extremity weakness Leukocytosis Elevated BNP Hypertension History of angina PLAN: soft heart healthy diet, extra gravy, s/p swallow eval on Sinamet on ASA aspiration precaution smoking cessation Patient does not want any testing,consider esophagogram if episode reoccurs, he currently doing well and tolerating oral intake, continue current plan. For DC back to rehab Seen and discussed with Dr. Manrique.
[2017-02-05] MEDS ORDERED: POLYETHYLENE GLYCOL 3350 17 GM/Dose PACKET PO ONE (10:16)
--- NOTE | 2017-02-05 13:38 | PN ---
A 76-year-old white male admitted to the hospital with rhabdomyolysis, renal insufficiency, change in mental status, confusion, falling, bradycardia. The patient has improved. PHYSICAL EXAMINATION VITAL SIGNS: Stable. His heart rate is up to 67. His blood pressure 146/83. He is afebrile. LABORATORY DATA: BUN and creatinine are normal. His CPK enzymes *------* returned normal. He is doing physical therapy and occupational therapy. His white count is back to normal. He is on IV antibiotics. He will be transferred to rehab as soon as the bed is available. No change in his progress. Physical *------* unchanged; still intermittently confused. Ted Jacob MD
--- NOTE | 2017-02-05 14:40 | PN ---
DATE: 02/05/2017 SUBJECTIVE: The patient is in bed, in no acute distress, nontoxic, no fevers. The patient seen earlier this morning in room 276, bed 2. PHYSICAL EXAMINATION: VITAL SIGNS: Temperature is 97, blood pressure is 140/90, respiratory rate of 18, heart rate of 98. HEENT: Unremarkable. NECK: Supple. LUNGS: Decreased breath sounds. HEART: Normal, S1 and S2. ABDOMEN: Soft and nontender. LABORATORY DATA: Reveals a white count of 9000, hemoglobin of 14, platelets of 122. Chemistries reveals a BUN of 23, creatinine of 0.9 and urinalysis is noted. Microbiology reveals the blood cultures no growth, urine cultures no growth. Review of orders reveals the patient to be off antibiotics. ASSESSMENT AND PLAN: This is a 76-year-old male with past medical history of chronic obstructive lung disease, coronary artery disease, Parkinson's disease, history of smoking and admitted with leukocytosis, weakness, coag negative staph and bacteremia most consistent with a contamination in a patient with deteriorating Parkinson's disease and currently off antibiotic, afebrile with [place] [id number] down [place] 9000 with no obvious source of infection. We will follow closely with you. Tunde Buitrago MD
--- NOTE | 2017-02-05 16:32 | CP.PCM.CON ---
History of Present Illness - History of Present Illness History of Present Illness: f/u note: shortly patient is 76 year old male, reported h/o Parkinson's dementia (confusion is worsening), pt has multiple medical issues CAD< COPD, as well as LE weakness for what pt was brought into the hospital, psych consult was called for evaluation of confusion, restlessness. pt was seen and examined, discussed with RNs. as per RN pt is confused at times , but no agitation/no aggression. patient was seen for follow-up today, patient said that he she remembers this lead technical writer, but one was asked who this lead technical writer is patient was not able to answer, patient confabulates. Patient does not know where he is, patient said that he is self-aware in his friend's house, seems to be confused, was smiling hesitantly. Patient does not have any signs of aggression, agitation, no signs of depression. MSE: pt was alert, was calm, cooperative, concentration is poor, pt was confabulating, pt had intense eye contact, speech was low volume, underproductive, mood: "I feel okay, but my waking was not that great", affect was more reactive, thought process: circumstantial, thought content: pt appeared to be confused, internally preoccupied. I/J impaired, impulses controlled as of now, pt has h/o agitation, restraints. Impression: delirium (improving) on dementia h/o depression and anxiety multiple medical issues, Leukocytosis, lower extremity weakness CAD COPD CHF Plan seroquel 12.5mg amhs for psychosis/delirium PT evaluation ID f/u neurology f/u as needed will f/u and advise accordingly Past Patient History - Infectious Disease Hx of Infectious Diseases: None - Tetanus Immunizations Tetanus Immunization: Unknown - Past Social History Smoking Status: Unknown If Ever Smoked - CARDIAC Hx Cardiac Disorders: Yes Hx Hypercholesterolemia: Yes Hx Hypertension: Yes - PULMONARY Hx Chronic Obstructive Pulmonary Disease (COPD): Yes - NEUROLOGICAL Hx Neurological Disorder: Yes Hx Dementia: Yes Hx Parkinson's Disease: Yes - HEENT Hx HEENT Problems: Yes (uses glasses) Hx Macular Degeneration: Yes - RENAL Hx Chronic Kidney Disease: Yes Hx Kidney Stones: Yes - ENDOCRINE/METABOLIC Hx Endocrine Disorders: No - HEMATOLOGICAL/ONCOLOGICAL Hx Blood Disorders: Yes - INTEGUMENTARY Hx Dermatological Problems: Yes Hx Psoriasis: Yes Other/Comment: left upper arm bruise, lle healing scabs, right arm bright red skin with mulrtiple dry patches of skin from elbow to wrist, old fading bruises to ble and both knees, bruise to left upper side of knee painful to touch, bottom of both feet red with dry skin, thick long toenails and fingernails, bright red skin to r elbow, left elbow dry patches of skin , red skin and 2 dry red scabs, buttocks slightly reddened, mid chest scar - MUSCULOSKELETAL/RHEUMATOLOGICAL Hx Falls: Yes (past) - GASTROINTESTINAL Hx Gall Bladder Disease: Yes (gallstones) - GENITOURINARY/GYNECOLOGICAL Hx Genitourinary Disorders: Yes Hx Incontinence: Yes - PSYCHIATRIC Hx Psychophysiologic Disorder: Yes Hx Anxiety: Yes Hx Depression: Yes - SURGICAL HISTORY Hx Cardiac Catheterization: Yes Hx Cholecystectomy: Yes (04/16/14) Hx Open Heart Surgery: Yes - ANESTHESIA Hx Anesthesia: Yes Hx Anesthesia Reactions: No Meds Home Medications: Home Medication List Medication Instructions Recorded Confirmed Type Aspirin [Aspirin Chewable] 81 mg PO DAILY 02/05/17 Rx Carbidopa/Levodopa 25/100 mg 1 tab PO TID tab 02/05/17 Rx [Sinemet] Nicotine 21 mg/24 hr [Nicoderm Cq] 1 patch TD DAILY patch 02/05/17 Rx QUEtiapine [Seroquel] 12.5 mg PO HS tab 02/05/17 Rx amLODIPine [Norvasc] 2.5 mg PO DAILY tab 02/05/17 Rx Allergies/Adverse Reactions: Allergies Allergy/AdvReac Type Severity Reaction Status Date / Time pineapple Allergy Unknown ITCHING Verified 01/31/17 10:42 - Medications Medications: Current Medications Acetaminophen (Tylenol 325mg Tab) 650 mg PO Q6H PRN PRN Reason: Headache Last Admin: 02/04/17 10:42 Dose: 650 mg Albuterol/Ipratropium (Duoneb 3 Mg/0.5 Mg (3 Ml) Ud) 3 ml IH [id number] [facility] Last Admin: 02/05/17 13:22 Dose: Not Given Amlodipine Besylate (Norvasc) 2.5 mg PO DAILY [facility] Last Admin: 02/05/17 09:40 Dose: 2.5 mg Aspirin (Aspirin Chewable) 81 mg PO DAILY [facility] Last Admin: 02/05/17 09:40 Dose: 81 mg Carbidopa/Levodopa (Sinemet) 1 tab PO TID [facility] Last Admin: 02/05/17 13:40 Dose: 1 tab Docusate Sodium (Colace) 100 mg PO TID [facility] Last Admin: 02/05/17 13:41 Dose: 100 mg Nicotine (Nicoderm Cq) 1 patch TD DAILY [facility] Last Admin: 02/05/17 09:40 Dose: 1 patch Quetiapine Fumarate (Seroquel) 12.5 mg PO [facility] PRN Reason: Protocol Last Admin: 02/04/17 22:15 Dose: 12.5 mg Results - Vital Signs Recent Vital Signs: Last Vital Signs Temp 97.7 F 02/05/17 12:00 Pulse 110 H 02/05/17 13:58 Resp 20 02/05/17 12:00 BP 135/93 H 02/05/17 12:00 Pulse Ox 95 02/05/17 06:00 - Labs Result Diagrams: 02/02/17 09:52 02/04/17 07:30
[2017-02-05 16:57] VITALS: BP 144/99; PULSE 81; RESP 19; TEMP 98.3
--- NOTE | 2017-02-06 08:41 | CP.PCM.PCO ---
Physician Communication Note - Physician Communication Note Physician Communication Note: pt was d/c
--- NOTE | 2017-02-06 12:23 | PQF CHF ---
02/06/17 Dr. Jacob, CHF is documented on ED notes, progress note of 01/31, and consults of 02/01 and . Please indicate type and severity, as listed below. Thank you. Clarification of your documentation is requested to better reflect the severity of illness and intensity of treatment of your patient. Indicators present [] Diagnosis of CHF and/or history of CHF [] BNP > 200 [] Imaging Finding of Pulmonary Edema /Pleural Effusions [] Fluid/Volume Overload [] Pitting edema [] Ejection Fraction < 40% (Indicative of Systolic Heart Failure) [] Ejection Fraction > 40% (Indicative of Diastolic Heart Failure) [] Dyspnea / Orthopenea / Paroxysmal Nocturnal Dyspnea [] Other: Location in the medical record that reflects the above clinical findings: [] Treatment Provided: [] PHYSICIAN'S RESPONSE Based on your medical judgment of the clinical indicators outlined above, are you treating this patient for a known or suspected: [] Acute CHF [] Systolic [] Diastolic [] Combined [] Chronic CHF [] Systolic [] Diastolic [] Combined [] Acute on Chronic CHF []Systolic [] Diastolic [] Combined [] CHF due hypertension [] Acute systolic []Chronic systolic [] Acute/ chronic systolic [] Other, please indicate: [] [x] If Unable to Determine, please check the box, sign and date. Present On Admission (POA) Indicator: [] Present at the time of admission [] Not present at the time of admission [x] Clinically Undetermined In responding to this query, please exercise your independent professional judgment. The fact that a question is asked does not imply that any particular answer is desired or expected. Thank you for your clarification on this documentation. If you have any questions please call:[ ] * Thank you, [ ] copy chaser PAULO
--- NOTE | 2017-02-07 07:11 | DS ---
HISTORY OF PRESENT ILLNESS: A 76-year-old white male with history of Parkinson's disease, recent CVA. He is admitted to the hospital with fever, elevated white count, sepsis, confusion, change in mental status. The patient improved slowly over the next several days, started physical therapy and speech therapy admission, course of IV antibiotics, and eventually was able to be transferred to rehab facility. The patient did have rhabdomyolysis while in the hospital. BUN and creatinine returned to normal and his CPK returned to normal. FINAL DISCHARGE DIAGNOSES: Sepsis, rhabdomyolysis, acute renal failure, Parkinson's disease, and recent cerebrovascular accident. Ted Jacob MD
== END 2017-02-05 18:47 | DRG 558 ==
LOC: ED 10:31 → ERH 14:12 → 2RSO 16:07
PROVIDERS: ADMIT Internal Medicine; ATTEND Internal Medicine
DX: M62.82 Rhabdomyolysis (principal); G31.83 Neurocognitive disorder with Lewy bodies; I13.0 Hypertensive heart and chronic kidney disease with heart failure and stage 1 through stage 4 chronic kidney disease, or unspecified chronic kidney disease; I50.9 Heart failure, unspecified; R00.1 Bradycardia, unspecified; I44.1 Atrioventricular block, second degree; S40.022A Contusion of left upper arm, initial encounter; D72.829 Elevated white blood cell count, unspecified; W19.XXXA Unspecified fall, initial encounter; N18.9 Chronic kidney disease, unspecified; F02.80 Dementia in other diseases classified elsewhere, unspecified severity, without behavioral disturbance, psychotic disturbance, mood disturbance, and anxiety; J44.9 Chronic obstructive pulmonary disease, unspecified; E78.00 Pure hypercholesterolemia, unspecified; F17.200 Nicotine dependence, unspecified, uncomplicated; F22 Delusional disorders; H35.30 Unspecified macular degeneration; I73.9 Peripheral vascular disease, unspecified; R29.6 Repeated falls; Z86.73 Personal history of transient ischemic attack (TIA), and cerebral infarction without residual deficits; Z87.442 Personal history of urinary calculi; Z90.49 Acquired absence of other specified parts of digestive tract; Z91.81 History of falling; L40.9 Psoriasis, unspecified; R32 Unspecified urinary incontinence; F41.9 Anxiety disorder, unspecified; F32.89 Other specified depressive episodes; Z91.018 Allergy to other foods; I25.119 Atherosclerotic heart disease of native coronary artery with unspecified angina pectoris; R09.89 Other specified symptoms and signs involving the circulatory and respiratory systems; R41.0 Disorientation, unspecified; Z78.1 Physical restraint status; Z53.20 Procedure and treatment not carried out because of patient's decision for unspecified reasons

== ENCOUNTER 2017-08-14 15:44 | Inpatient (IN) | payer MEDICARE, BC ==
[2017-08-14 16:05] VITALS: BMI 23.5
[2017-08-14 16:30] LABS: BASO # 0.02 K/mm3 (0.0-2.0); BASO % 0.2 % (0.0-3.0); EOS # 0.3 (0.0-0.7); GRAN # 6.09 (1.4-6.5); GRAN % 64.5 % (50.0-68.0); HEMOGLOBIN 15.1 g/dL (14.0-18.0); LYMPH # 2.2 (1.2-3.4); LYMPH % 22.9 % (22.0-35.0); MEAN CELL VOLUME 91.1 fl (80.0-105.0); MEAN CORPUSCULAR HEMOGLOBIN 29.9 pg (25.0-35.0); MEAN CORPUSCULAR HGB CONC 32.8 g/dl (31.0-37.0); MEAN PLATELET VOLUME 12.6 fl (7.0-11.0); MONO # 0.9 (0.1-0.6); MONO % 9.4 % (1.0-6.0); RBC 5.05 10^6/uL (3.5-6.1); RED CELL DISTRIBUTION WIDTH 14.9 % (11.5-14.5); WHITE BLOOD COUNT 9.4 10^3/ul (4.5-11.0)
[2017-08-14 16:38] LABS: INR 1.2 (0.93-1.08); PARTIAL THROMBOPLASTIN TIME 36.6 Seconds (25.1-36.5); PROTHROMBIN TIME 13.7 SECONDS (9.4-12.5)
--- NOTE | 2017-08-14 16:50 | ED PDOC ---
Arrival/HPI - General Chief Complaint: Palpitations Time Seen by Provider: 08/14/17 16:02 Historian: Patient - History of Present Illness Narrative History of Present Illness (Text): 08/14/17 16:50 A 76 year old male, whose past medical history includes hypertension, hyperlipidemia, CABG (in [place]), and Parkinsons, presents to the emergency department for evaluation of bradycardia. Patient's history provided by patient' s son. Son reports patient had shortness of breath and unsteady gait three days ago. Patient saw Neurologist and PMD today, had an EKG done at PMD office, who advised patient to come to the emergency department. No history of CHF. Denies any chest pain, shortness of breath or any other complaints at this time. PMD: Dr. Jacob Surveyor Hydrographic: None Symptom Onset: Sudden Symptom Course: Unchanged Activities at Onset: Rest Context: Home Past Medical History - Provider Review Nursing Documentation Reviewed: Yes - Infectious Disease Hx of Infectious Diseases: None - Tetanus Immunization Tetanus Immunization: Unknown - Cardiac Hx Congestive Heart Failure: Yes - Pulmonary Hx Chronic Obstructive Pulmonary Disease (COPD): Yes - Neurological Hx Neurological Disorder: Yes Hx Dementia: Yes Hx Parkinson's Disease: Yes - HEENT Hx HEENT Disorder: Yes (uses glasses) Hx Macular Degeneration: Yes - Renal Hx Renal Failure: Yes - Endocrine/Metabolic Hx Endocrine Disorders: No - Hematological/Oncological Hx Blood Disorders: Yes - Integumentary Hx Dermatological Disorder: Yes Hx Psoriasis: Yes Other/Comment: left upper arm bruise, lle healing scabs, right arm bright red skin with mulrtiple dry patches of skin from elbow to wrist, old fading bruises to ble and both knees, bruise to left upper side of knee painful to touch, bottom of both feet red with dry skin, thick long toenails and fingernails, bright red skin to r elbow, left elbow dry patches of skin , red skin and 2 dry red scabs, buttocks slightly reddened, mid chest scar - Musculoskeletal/Rheumatological Hx Unsteady Gait: Yes - Gastrointestinal Hx Gall Bladder Disease: Yes (gallstones) - Genitourinary/Gynecological Hx Genitourinary Disorders: Yes Hx Incontinence: Yes - Psychiatric Hx Psychophysiologic Disorder: Yes Hx Anxiety: Yes Hx Depression: Yes Hx Substance Use: No - Surgical History Hx Cardiac Catheterization: Yes Hx Cholecystectomy: Yes (04/16/14) Hx Open Heart Surgery: Yes - Anesthesia Hx Anesthesia: Yes Hx Anesthesia Reactions: No Family/Social History - Physician Review Nursing Documentation Reviewed: Yes Family/Social History: No Known Family HX Smoking Status: Unknown If Ever Smoked Hx Alcohol Use: No Hx Substance Use: No Allergies/Home Meds Allergies/Adverse Reactions: Allergies pineapple Allergy (Unknown, Verified 08/14/17 16:50) ITCHING Home Medications: Home Meds Medication Instructions Recorded Confirmed Xanax 0.25 mg PO PRN PRN 01/31/17 08/14/17 Review of Systems - Physician Review All systems were reviewed & negative as marked: Yes - Review of Systems Respiratory: absent: SOB Cardiovascular: absent: Chest Pain Physical Exam - Physical Exam Narrative Physical Exam (Text): 08/14/17 16:49 Constitutional: No acute distress. Head: Normocephalic. Atraumatic. Eyes: PERRL. ENT: Moist mucous membranes. Neck: Supple. Cardiovascular: bradycardia Chest: No tenderness. Respiratory: Clear to auscultation bilaterally. GI: Soft. Nontender. Nondistended. Back: No CVA tenderness. Musculoskeletal: No tenderness or swelling of extremities. Skin: No rash. Neurologic: Alert, no focal deficit. Vital Signs Reviewed: Yes Vital Signs Temp Pulse Pulse Resp BP Pulse Ox 08/14/17 19:25 56 L 18 178/89 H 100 08/14/17 17:45 25 L 18 146/88 100 08/14/17 15:45 98 F 30 L 30 L 18 162/88 H 98 Medical Decision Making ED Course and Treatment: 08/14/17 16:10 Impression: A 76 year old male with bradycardia. NO shortness of breath, chest pain or any complaints. Plan: -- EKG -- chest xray -- labs -- Reassess and disposition Prior Visits: Notes and results from previous visits were reviewed. Patient was last seen in the emergency department on 01/31/17 for evaluation of b/l lower extremities weakness and unsteady gait. Progress Notes: EKG: Ordered, reviewed, and independently interpreted the EKG. Rate : 27 BPM Rhythm : sinus bradycardia Interpretation : 3rd degree heart block, ventricular rate 27, T wave inversions v1-v4, no ST elevations, QRS 128 ms, right bundle branch block 08/14/17 17:11 Chest xray: Creator : Kanu Pulido MD IMPRESSION: No active disease. No significant interval change compared to the prior examination(s). Dr. Rodriguez recommends consultation with Dr. Cedillo for pacemaker placement. Dr. Cedillo recommends patient to ICU on pacer pads and pacemaker to be placed in AM. Dr. Jacob accepts patient to his service. - Lab Interpretations Lab Results: 08/14/17 16:12 08/14/17 16:12 Lab Results 08/14/17 16:12: Sodium 146, Potassium 4.3, Chloride 108 H, Carbon Dioxide 26, Anion Gap 16, BUN 36 H, Creatinine 1.1, Est GFR ( Amer) > 60, Est GFR ( Non-Af Amer) > 60, Random Glucose 83, Calcium 10.0, Total Bilirubin 1.0, AST 30 , ALT 24, Alkaline Phosphatase 80, Total Creatine Kinase 92, Troponin I 0.04 D , Total Protein 7.8, Albumin 4.7, Globulin 3.1, Albumin/Globulin Ratio 1.5 08/14/17 16:12: PT 13.7 H, INR 1.20 H, APTT 36.6 H 08/14/17 16:12: WBC 9.4, RBC 5.05, Hgb 15.1, Hct 46.0, MCV 91.1, MCH 29.9, MCHC 32.8, RDW 14.9 H, Plt Count 140, MPV 12.6 H, Gran % 64.5, Lymph % (Auto) 22.9, [place] % (Auto) 9.4 H, Eos % (Auto) 3.0, Baso % (Auto) 0.2, Gran # 6.09, Lymph # ( Auto) 2.2, [place] # (Auto) 0.9 H, Eos # (Auto) 0.3, Baso # (Auto) 0.02 I have reviewed the lab results: Yes - RAD Interpretation Radiology Orders: 08/14/17 16:19 CHEST PORTABLE [RAD] Stat - EKG Interpretation Interpreted by ED Physician: Yes Type: 12 lead EKG - Medication Orders Current Medication Orders: Famotidine (Pepcid) 40 mg IVP BID YARON Hydralazine HCl (Apresoline) 10 mg IVP Q6H PRN PRN Reason: for SBP>170 - Scribe Statement The provider has reviewed the documentation as recorded by the Raffi Hernandez Provider Scribe Attestation: All medical record entries made by the Felipeibomar were at my direction and personally dictated by me. I have reviewed the chart and agree that the record accurately reflects my personal performance of the history, physical exam, medical decision making, and the department course for this patient. I have also personally directed, reviewed, and agree with the discharge instructions and disposition. Disposition/Present on Arrival - Present on Arrival Any Indicators Present on Arrival: No History of DVT/PE: No History of Uncontrolled Diabetes: No Urinary Catheter: No History Surgical Site Infection Following: None - Disposition Have Diagnosis and Disposition been Completed?: Yes Diagnosis: Third degree heart block Disposition: HOSPITALIZED Disposition Time: 18:00 Patient Plan: Admission, ICU Patient Problems: Current Active Problems Problem Status Onset Third degree heart block Acute Condition: SERIOUS
[2017-08-14 16:54] LABS: ALB/GLOB RATIO 1.5 (1.1-1.8); ALBUMIN 4.7 g/dL (3.0-4.8); ALT/SGPT 24 U/L (7-56); AST/SGOT 30 U/L (17-59); BLOOD UREA NITROGEN 36 mg/dL (7-21); GFR AFRICAN-AMERICAN > 60; GFR NON-AFRICAN AMERICAN > 60
[2017-08-14 17:05] LABS: TROPONIN I 0.04 ng/mL
--- NOTE | 2017-08-14 17:09 | RAD ---
HISTORY: 3rd degree block` COMPARISON: 01/31/2017 FINDINGS: LUNGS: No active pulmonary disease. PLEURA: No significant pleural effusion identified, no pneumothorax apparent. CARDIOVASCULAR: Cardiomegaly. No evidence of acute, significant cardiovascular disease. Incidental Finding(s): Postoperative changes related to sternotomy. OSSEOUS STRUCTURES: No significant abnormalities. VISUALIZED UPPER ABDOMEN: Normal. OTHER FINDINGS: None. IMPRESSION: No active disease. No significant interval change compared to the prior examination(s).
--- NOTE | 2017-08-14 18:58 | CP.PCM.CON ---
History of Present Illness - History of Present Illness History of Present Illness: ICU Consult Note HPI: Patient is 76yo male with PMhx of CAD s/p CABG, Parkinsons disease, HTN, HLD, CVA with no residual weakness, sent in from PMDs office for abnormal EKG. Pt went to PMDs office complaining of SOB for 2 days, without fever, chills, cough, chest pain, palpitations, MORRIS, dizziness. No other constitutional symptoms. Pt found to be in complete heart block in the ER, asymptomatic. Plan for PPM tomorrow AM with cardiology. PMhx as above PSHx as above Allergies NKDA Meds as per EMR FHx NC Review of Systems - Review of Systems Review of Systems: as per HPI Past Patient History - Infectious Disease Hx of Infectious Diseases: None - Tetanus Immunizations Tetanus Immunization: Unknown - Past Social History Smoking Status: Unknown If Ever Smoked - CARDIAC Hx Congestive Heart Failure: Yes - PULMONARY Hx Chronic Obstructive Pulmonary Disease (COPD): Yes - NEUROLOGICAL Hx Neurological Disorder: Yes Hx Dementia: Yes Hx Parkinson's Disease: Yes - HEENT Hx HEENT Problems: Yes (uses glasses) Hx Macular Degeneration: Yes - RENAL Hx Renal Failure: Yes - ENDOCRINE/METABOLIC Hx Endocrine Disorders: No - HEMATOLOGICAL/ONCOLOGICAL Hx Blood Disorders: Yes - INTEGUMENTARY Hx Dermatological Problems: Yes Hx Psoriasis: Yes Other/Comment: left upper arm bruise, lle healing scabs, right arm bright red skin with mulrtiple dry patches of skin from elbow to wrist, old fading bruises to ble and both knees, bruise to left upper side of knee painful to touch, bottom of both feet red with dry skin, thick long toenails and fingernails, bright red skin to r elbow, left elbow dry patches of skin , red skin and 2 dry red scabs, buttocks slightly reddened, mid chest scar - MUSCULOSKELETAL/RHEUMATOLOGICAL Hx Unsteady Gait: Yes - GASTROINTESTINAL Hx Gall Bladder Disease: Yes (gallstones) - GENITOURINARY/GYNECOLOGICAL Hx Genitourinary Disorders: Yes Hx Incontinence: Yes - PSYCHIATRIC Hx Psychophysiologic Disorder: Yes Hx Anxiety: Yes Hx Depression: Yes Hx Substance Use: No - SURGICAL HISTORY Hx Cardiac Catheterization: Yes Hx Cholecystectomy: Yes (04/16/14) Hx Open Heart Surgery: Yes - ANESTHESIA Hx Anesthesia: Yes Hx Anesthesia Reactions: No Meds Allergies/Adverse Reactions: Allergies Allergy/AdvReac Type Severity Reaction Status Date / Time pineapple Allergy Unknown ITCHING Verified 08/14/17 16:50 Physical Exam - Constitutional Appears: Non-toxic, No Acute Distress - Eye Exam Eye Exam: EOMI, Normal appearance - ENT Exam ENT Exam: Mucous Membranes Moist - Respiratory Exam Respiratory Exam: Clear to Auscultation Bilateral, NORMAL BREATHING PATTERN - Cardiovascular Exam Cardiovascular Exam: Bradycardia, +S1, +S2 - GI/Abdominal Exam GI & Abdominal Exam: Normal Bowel Sounds, Soft - Extremities Exam Extremities exam: Positive for: normal inspection - Neurological Exam Neurological exam: Normal Gait, Oriented x3 - Skin Skin Exam: Normal Color, Warm Results - Vital Signs Recent Vital Signs: Last Vital Signs Temp 98 F 08/14/17 15:45 Pulse 25 L 08/14/17 17:45 Resp 18 08/14/17 17:45 BP 146/88 08/14/17 17:45 Pulse Ox 100 08/14/17 17:45 - Labs Result Diagrams: 08/14/17 16:12 08/14/17 16:12 Labs: Laboratory Results - last 24 hr 08/14/17 08/14/17 08/14/17 16:12 16:12 16:12 WBC 9.4 RBC 5.05 Hgb 15.1 Hct 46.0 MCV 91.1 MCH 29.9 MCHC 32.8 RDW 14.9 H Plt Count 140 MPV 12.6 H Gran % 64.5 Lymph % (Auto) 22.9 [place] % (Auto) 9.4 H Eos % (Auto) 3.0 Baso % (Auto) 0.2 Gran # 6.09 Lymph # (Auto) 2.2 [place] # (Auto) 0.9 H Eos # (Auto) 0.3 Baso # (Auto) 0.02 PT 13.7 H INR 1.20 H APTT 36.6 H Sodium 146 Potassium 4.3 Chloride 108 H Carbon Dioxide 26 Anion Gap 16 BUN 36 H Creatinine 1.1 Est GFR ( Amer) > 60 Est GFR (Non-Af Amer) > 60 Random Glucose 83 Calcium 10.0 Total Bilirubin 1.0 AST 30 ALT 24 Alkaline Phosphatase 80 Total Creatine Kinase 92 Troponin I 0.04 D Total Protein 7.8 Albumin 4.7 Globulin 3.1 Albumin/Globulin Ratio 1.5 Assessment & Plan - Assessment and Plan (Free Text) Assessment: 76yo male a/w bradycardia, heart block. Recommend: - supp o2 as needed - richard culture - check procal - follow up cardiology - check TSH - Pacer pads - Atropine at bedside - NPO - IVF - PPM in AM as per cardiology - NPO after midnight - GI ppx - DVT ppx Monitor in CCU
[2017-08-14] MEDS: Albuterol-Ipratrop 3 mg / 0.5 (3 ml) UD IH PRN (23:21)
--- NOTE | 2017-08-15 03:31 | CON ---
DATE: CONSULT SERVICE: Cardiology. CONSULTING PHYSICIAN: Elier Cedillo MD REASON FOR CONSULTATION: Complete heart block, coronary artery disease, CABG, and evaluation for pacemaker. BRIEF CLINICAL HISTORY: This is a 76-year-old male with past medical history significant for CAD, status post CABG, Parkinson's disease, hypertension, hyperlipidemia, CVA with no residual weakness who was recently in the hospital, heart rate was slow, metoprolol was discontinued. The patient is not feeling good, feeling very weak, lethargic so son brought him here. The patient is found to be having complete heart block, blood pressure is in the 190. Dr. Rodrigeuz is in Cardiology who called for evaluation for pacemaker. The patient denies any dizziness, denies any syncope, or denies any feeling of nausea or vomiting or headache or dizziness. PAST MEDICAL HISTORY: Significant for coronary artery disease, CABG, Parkinson's disease, history of CVA, history of coronary artery bypass surgery in 2011. SOCIAL HISTORY: Denies any smoking. Denies any history of alcohol abuse. CURRENT MEDICATIONS: The patient is taking Xanax, carbidopa, aspirin, and amlodipine. As per son, the patient's heart rate is slow, so metoprolol was discontinued. ALLERGIES: P[place]APP[place]. REVIEW OF SYSTEMS: As per HPI. PHYSICAL EXAMINATION: VITAL SIGNS: Temperature afebrile, heart rate 30, blood pressure 190/80, heart rate is now 46. On admitting, the heart rate was 30. HEENT: PERRLA. Extraocular muscles intact. NECK: Supple. No carotid bruits. No thyromegaly. CHEST: Clear to auscultation. HEART: S1 and S2 regular. ABDOMEN: Soft. EXTREMITIES: Clubbing and cyanosis negative. SKIN: Scars noted consistent with coronary artery bypass surgery. DIAGNOSTIC DATA: EKG shows complete heart block, 3:1 conduction, heart rate in 30. Now heart rate has been 56. LABORATORY DATA: Blood workup as follows: WBC 9.5, hemoglobin 15, hematocrit 46.0, and platelet count 140,000. Coagulation profile, INR 1.2. Chemistry shows sodium 146, potassium 4.2, chloride 108, carbon dioxide 26, anion gap 16, BUN 36, and creatinine 1.1. IMPRESSION: Complete heart block, coronary artery disease, coronary artery bypass graft, Parkinson's disease, hypertension, and hyperlipidemia. RECOMMENDATIONS: We will hold subcu heparin. Keep n.p.o. Risks, benefits, and alternatives discussed with the patient and the patient's son, and we will proceed for a pacemaker tomorrow. We will keep n.p.o. We will transfer care tomorrow to Dr. Rodriguez's office after the pacemaker. We will get lipid profile, TSH, hemoglobin A1c in the morning. Thank you for providing us the opportunity in taking care of Adriana Delatorre. Elier Cedillo MD cc: Maureen Bruno M.D.
[2017-08-15 06:20] LABS: BASO # 0.02 K/mm3 (0.0-2.0); BASO % 0.2 % (0.0-3.0); EOS # 0.2 (0.0-0.7); EOS % 2.2 % (1.5-5.0); GRAN # 5.92 (1.4-6.5); GRAN % 67.5 % (50.0-68.0); HEMOGLOBIN 13.7 g/dL (14.0-18.0); LYMPH # 2.1 (1.2-3.4); LYMPH % 23.3 % (22.0-35.0); MEAN CELL VOLUME 89.6 fl (80.0-105.0); MEAN CORPUSCULAR HEMOGLOBIN 29.1 pg (25.0-35.0); MEAN CORPUSCULAR HGB CONC 32.5 g/dl (31.0-37.0); MEAN PLATELET VOLUME 12.6 fl (7.0-11.0); MONO # 0.6 (0.1-0.6); MONO % 6.8 % (1.0-6.0); RBC 4.7 10^6/uL (3.5-6.1); RED CELL DISTRIBUTION WIDTH 14.7 % (11.5-14.5); WHITE BLOOD COUNT 8.8 10^3/ul (4.5-11.0)
--- NOTE | 2017-08-15 07:24 | CP.CCUPN ---
CCU Subjective - Physician Review Subjective (Free Text): 08/15/17 08:06 Patient seen and examined at bedside. Nursing reported overnight patient HR was 20-30s at times and patient was confused and trying to get out of bed. As per son, patient becomes confused when at the hospital. This AM he was AO x 1 to self. He was in no acute distress and denied any acute complaints of pain. Patient has been NPO overnight and is for permanent pacemaker placement this morning with Dr. Cedillo. Critical Care Time Spent (in minutes): 45 CCU Objective - Vital Signs / Intake & Output Vital Signs (Last 4 hours): Vital Signs Pulse Resp BP 08/15/17 04:00 72 20 08/15/17 03:59 68 23 08/15/17 03:58 98 H 24 08/15/17 03:57 73 22 08/15/17 03:56 99 H 19 08/15/17 03:55 59 L 17 08/15/17 03:54 72 13 08/15/17 03:53 68 16 08/15/17 03:52 65 17 08/15/17 03:51 56 L 12 08/15/17 03:50 87 14 08/15/17 03:49 47 L 12 08/15/17 03:48 78 26 H 08/15/17 03:47 66 23 08/15/17 03:46 72 08/15/17 03:45 88 15 08/15/17 03:44 69 14 08/15/17 03:43 74 17 08/15/17 03:42 84 23 08/15/17 03:41 80 10 L 08/15/17 03:40 58 L 23 08/15/17 03:39 64 21 08/15/17 03:38 59 L 20 08/15/17 03:37 45 L 30 H 08/15/17 03:36 72 08/15/17 03:35 86 24 151/84 H 08/15/17 03:34 45 L 08/15/17 03:33 70 17 08/15/17 03:32 48 L 24 08/15/17 03:31 79 12 08/15/17 03:30 42 L 15 08/15/17 03:28 69 08/15/17 03:27 68 18 08/15/17 03:26 43 L Intake and Output (Last 8hrs): Intake & Output 08/14/17 08/15/17 08/15/17 22:59 06:59 14:59 Other: Voiding Method Incontinent - Physical Exam Head: Positive for: Atraumatic, Normocephalic Pupils: Positive for: PERRL Extroacular Muscles: Positive for: EOMI Conjunctiva: Positive for: Normal Mouth: Positive for: Moist Mucous Membranes Nose (External): Positive for: Atraumatic Neck: Positive for: Normal Range of Motion Respiratory/Chest: Positive for: Clear to Auscultation, Good Air Exchange. Negative for: Respiratory Distress, Accessory Muscle Use, Wheezes, Rales, Rhonchi Cardiovascular: Positive for: Normal S1, S2, Bradycardic. Negative for: Murmurs Abdomen: Positive for: Normal Bowel Sounds. Negative for: Tenderness, Distention Upper Extremity: Positive for: Normal Inspection. Negative for: Cyanosis, Edema Lower Extremity: Positive for: Normal Inspection. Negative for: Edema Neurological: Positive for: Speech Normal Skin: Positive for: Warm, Dry, Normal Color. Negative for: Rashes Psychiatric: Positive for: Alert. Negative for: Oriented x 3 - Medications Active Medications: Active Medications Generic Name Dose Route Start Last Admin Trade Name Freq PRN Reason Stop Dose Admin Albuterol/Ipratropium 3 ml 08/14/17 22:42 08/14/17 23:21 Duoneb 3 Mg/0.5 Mg (3 Ml) Ud IH 3 ml Q2H PRN Administration Shortness of Breath Famotidine 40 mg 08/15/17 10:00 Pepcid IVP BID YARON Hydralazine HCl 10 mg 08/14/17 21:42 08/14/17 21:45 Apresoline IVP 10 mg Q4H PRN Administration for SBP>170 - Patient Studies Lab Studies: Lab Studies 08/15/17 08/15/17 08/15/17 Range/Units 05:50 05:50 01:10 WBC 8.8 (4.5-11.0) 10^3/ul RBC 4.70 (3.5-6.1) 10^6/uL Hgb 13.7 L (14.0-18.0) g/dL Hct 42.1 (42.0-52.0) % MCV 89.6 (80.0-105.0) fl MCH 29.1 (25.0-35.0) pg MCHC 32.5 (31.0-37.0) g/dl RDW 14.7 H (11.5-14.5) % Plt Count 123 (120.0-450.0) 10^3/uL MPV 12.6 H (7.0-11.0) fl Gran % 67.5 (50.0-68.0) % Lymph % (Auto) 23.3 (22.0-35.0) % [place] % (Auto) 6.8 H (1.0-6.0) % Eos % (Auto) 2.2 (1.5-5.0) % Baso % (Auto) 0.2 (0.0-3.0) % Gran # 5.92 (1.4-6.5) Lymph # (Auto) 2.1 (1.2-3.4) [place] # (Auto) 0.6 (0.1-0.6) Eos # (Auto) 0.2 (0.0-0.7) Baso # (Auto) 0.02 (0.0-2.0) K/mm3 APTT 32.3 (25.1-36.5) Seconds Troponin I 0.05 D ng/mL Blood Type Antibody Screen BBK History Checked 08/15/17 Range/Units 01:10 WBC (4.5-11.0) 10^3/ul RBC (3.5-6.1) 10^6/uL Hgb (14.0-18.0) g/dL Hct (42.0-52.0) % MCV (80.0-105.0) fl MCH (25.0-35.0) pg MCHC (31.0-37.0) g/dl RDW (11.5-14.5) % Plt Count (120.0-450.0) 10^3/uL MPV (7.0-11.0) fl Gran % (50.0-68.0) % Lymph % (Auto) (22.0-35.0) % [place] % (Auto) (1.0-6.0) % Eos % (Auto) (1.5-5.0) % Baso % (Auto) (0.0-3.0) % Gran # (1.4-6.5) Lymph # (Auto) (1.2-3.4) [place] # (Auto) (0.1-0.6) Eos # (Auto) (0.0-0.7) Baso # (Auto) (0.0-2.0) K/mm3 APTT (25.1-36.5) Seconds Troponin I ng/mL Blood Type O POSITIVE Antibody Screen Negative BBK History Checked No verified bt Laboratory Results - last 24 hr 08/15/17 08/15/17 08/15/17 01:10 01:10 05:50 WBC RBC Hgb Hct MCV MCH MCHC RDW Plt Count MPV Gran % Lymph % (Auto) [place] % (Auto) Eos % (Auto) Baso % (Auto) Gran # Lymph # (Auto) [place] # (Auto) Eos # (Auto) Baso # (Auto) APTT 32.3 Troponin I 0.05 D Blood Type O POSITIVE Antibody Screen Negative BBK History Checked No verified bt 08/15/17 05:50 WBC 8.8 RBC 4.70 Hgb 13.7 L Hct 42.1 MCV 89.6 MCH 29.1 MCHC 32.5 RDW 14.7 H Plt Count 123 MPV 12.6 H Gran % 67.5 Lymph % (Auto) 23.3 [place] % (Auto) 6.8 H Eos % (Auto) 2.2 Baso % (Auto) 0.2 Gran # 5.92 Lymph # (Auto) 2.1 [place] # (Auto) 0.6 Eos # (Auto) 0.2 Baso # (Auto) 0.02 APTT Troponin I Blood Type Antibody Screen BBK History Checked Review of Systems - Review of Systems Systems not reviewed;Unavailable: Altered Mental Status (AO x 1) Critical Care Progress Note - Nutrition Nutrition: Nutrition Category Date Time Status NPO Diet [DIET] Diets 08/15/17 Breakfast Ordered Assessment/Plan - Assessment and Plan (Free Text) Assessment: 76yo male PMHx CAD s/p CABG, Parkinsons disease, HTN, HLD, CVA with no residual weakness, sent in from PMDs office for abnormal EKG. Found to be bradycardic with complete heart block. Plan: Neuro -Patient has hx of Parkinson's Disease -No acute issues CV -EKG in ED showed complete heart block with HR 27bpm -Patient for permanent pacemaker placement this AM -Hydralazine 10mg ivp q4 prn SBP > 170mmHg -Torponin negative x 3 -Lipid panel WNL -TSH WNL -Atropine at bedside -Pacer pads in place -Dr. Cedillo cardiology on board Pulm -no acute issues -supp O2 as needed -Duoneb 3ml inh q2 prn SOB GI -NPO for procedure -no acute issues Heme -H&H stable -no acute issues Nephro -monitor BUN:Cr -no acute issues Endo -f/u HgbA1c -no acute issues GI ppx: Pepcid 20mg ivp bid DVT ppx: SCD Diet: NPO for procedure Discussed with Dr. Kiersten Sigala PGY2
[2017-08-15 07:26] LABS: ALB/GLOB RATIO 1.4 (1.1-1.8); ALBUMIN 3.9 g/dL (3.0-4.8); ALT/SGPT 38 U/L (7-56); AST/SGOT 24 U/L (17-59); BLOOD UREA NITROGEN 33 mg/dL (7-21); CALCIUM 9.9 mg/dL (8.4-10.5); GFR AFRICAN-AMERICAN > 60; GFR NON-AFRICAN AMERICAN > 60; HDL CHOLESTEROL 30 mg/dL (29-60); MAGNESIUM 2.1 mg/dL (1.7-2.2)
[2017-08-15 07:33] LABS: LDL CHOLESTEROL 91 mg/dL (0-129)
[2017-08-15 08:11] LABS: TROPONIN I 0.05 ng/mL
--- NOTE | 2017-08-15 08:59 | HP ---
HISTORY OF PRESENT ILLNESS: A 76-year-old white male with history of CAD, status post open heart surgery. The patient also has a history of hypertension, COPD, tobacco abuse. The patient was not feeling well. He was brought in by his son to my office and was found to have a pulse less than 40 and irregular heart rate. On EKG, he was found to have third-degree heart block and was directed to the emergency room for admission. PHYSICAL EXAMINATION: GENERAL: Shows a poorly-developed, thin white male, disheveled, unkempt with dry scaly skin. CHEST: Shows decreased breath sounds bilaterally. HEART: Severe bradycardia and irregular heart rate.. EXTREMITIES: No cyanosis, clubbing or edema. ABDOMEN: Benign, thin. NEUROLOGIC: The patient is somewhat confused and disoriented. Does have a history of mild dementia and memory loss. IMPRESSION: History of coronary artery disease, chronic obstructive pulmonary disease, tobacco abuse, new onset of complete heart block. Admission to Intensive Care Unit for possible pacemaker. Ted Jacob MD
[2017-08-15] MEDS ORDERED: Lidocaine 2% Inj (20ml) ONE (11:36)
[2017-08-15] MEDS ORDERED: Midazolam 2 MG/2 ML VIAL ONE (11:36)
[2017-08-15] MEDS ORDERED: Iodixanol 320 MG/ML 100 ML BOTTLE IV ONE (11:37)
[2017-08-15] MEDS ORDERED: HEPARIN SODIUM/NS 0 ML IV ONE (11:37)
[2017-08-15] MEDS ORDERED: DiphenhydrAMINE 50 mg/ml Inj ONE (13:11)
[2017-08-15] MEDS ORDERED: Flumazenil 0.1 mg/ml Inj (5ml) IVP ONE (13:21)
[2017-08-15] MEDS ORDERED: Naloxone 0.4 mg/ml Inj (Adult) ONE ×2 (13:22→13:29)
--- NOTE | 2017-08-15 14:34 | CT ---
PROCEDURE: CT HEAD WITHOUT CONTRAST. HISTORY: r/o stroke COMPARISON: None available. TECHNIQUE: Axial computed tomography images were obtained through the head/brain without intravenous contrast. Radiation dose: Total exam DLP = 857.46 mGy-cm. This CT exam was performed using one or more of the following dose reduction techniques: Automated exposure control, adjustment of the mA and/or kV according to patient size, and/or use of iterative reconstruction technique. FINDINGS: HEMORRHAGE: Very small focal hyperdensity in the right basal ganglia/ thalamus representing interval change from 11/26/2016 this may represent a small acute hemorrhage. No other intracranial hemorrhage is appreciated elsewhere. BRAIN: No intracranial mass. Mild to moderate diffuse cerebral atrophy consistent with patient age. Old right thalamic lacunar infarct. Old right lentiform nucleus lacune. Moderate patchy periventricular white matter lucency as well as patchy and confluent deep and subcortical white matter lucency consistent with age-related microvascular ischemic change. No evidence of acute vascular territorial infarct. VENTRICLES: Unremarkable. No hydrocephalus. CALVARIUM: Unremarkable. PARANASAL SINUSES: Mild chronic pansinusitis. MASTOID AIR CELLS: Unremarkable as visualized. No inflammatory changes. OTHER FINDINGS: None. IMPRESSION: Small focal hyperdensity in the right basal ganglia/ thalamus, new since 11/26/2016. This is presumed to represent acute hemorrhage. Old right thalamic and basal ganglia lacunar infarcts. No evidence of acute vascular territorial infarct. Atrophy and chronic white matter ischemic change. Findings were discussed by telephone with Dr. Donald at 2:21 p.m. p.m. on 08/15/2017.
--- NOTE | 2017-08-15 14:35 | CARD ---
APPROVED REPORT HISTORY The Patient is a 76 year-old male with a history of PROCEDURES Insertion Single Chamber Ventricle Pacemaker INDICATIONS Complete heart block CONSCIOUS SEDATION AGENTS Versed Fentanyl IMPLANTED DEVICES Medtronic 5076-58 cm 5076-58 cm...... ventricular lead Pulse generator... SAMANTHA XT SR MRI safe ... Medtronic OPERATIVE NOTE The patient was brought to the Cardiac Catheterization Laboratory in a fasting state and was prepped and draped in a sterile manner. The left subclavian region was infiltrated with 2% Lidocaine, subcutaneous anesthesia. A transverse incision was made in the left subclavicular area. The subcutaneous pocket was formed via blunt dissection, Percutaneous venous access was achieved and an introducer sheath was inserted into the Lt Subclavian vein. Through the introducer sheath, the ventricular lead wire was postitioned in the right ventricular apex utilizing fluoroscopic guidance. The ventricular was advanced over the wire under fluoroscopic guidance and positioned in the right ventricle. Capturing and sensing thresholds were verified. THE VENTRICULAR ELECTRODE PARAMETERS R WAVE CHB could not be obtained THRESHOLD0.5 RESISTANCE 699 The ventricular lead was then secured using 0 silk. The subcutaneous pocket was irrigated with Betadine. The ventricular lead was attached to the appropriate receptacle on the pulse generator and set screws firmly tightened to insure adequate contact and stability. The lead and pulse generator were placed into the subcutaneous pocket. Sharp and sponge counts were confirmed to be correct. At this time the pocket was closed subcutaneously with a vicryl 2.0 and the skin was closed with a Vicryl 4.0 .The operative site was dressed in sterile fashion. The patient tolerated the procedure well and was transferred to the floor in stable condition. COMPLICATIONS while introducing V lead Pt had CHB and no Ventriculr respose and seizure type activity, so started pacing from lead., but pt had AMS post tictal. versed and fenntanly were reversed with ramizacon and narcaine ( total img of versed and 50 mcg of fentanyl and 50 mg of benadryl was give for procedure and conscious sedation), FS..70, one amp of D50 given , but pt remained AMS and no focal neurological sign/deficit noted,. Code stroke protocol called and pt is being sent for CT Head.Spoke to neurologist, Dr. Berman. CONCLUSION Successful implantation Of VVIR PPM, MRI safe Active lead.Arrangement has been made to F/u with Dr. Rodriguez. CC; Drs. Mejia / Roma
--- NOTE | 2017-08-15 14:41 | CP.PCM.PN ---
<Kaushik Walden - Last Filed: 08/15/17 15:13> Subjective - Date & Time of Evaluation Date of Evaluation: 08/15/17 Time of Evaluation: 13:30 - Subjective Subjective: Kaushik Walden PGY1 CODE STROKE Note CODE STROKE was called at 1332 in the lab asst, and [employer] EDUCATION TEACHER team responded STAT. On arrival, the patient was noted to be on the bed in the lab asst with Dr. Cedillo. Patient was undergoing placement of a single chamber ventricle pacemaker due to complete heart block. Per Dr. Cedillo's note, while introducing a lead, the patient had seizure type activity and became altered post-ictal. Patient had received Benadryl, Versed and Fentanyl which were reversed with Ramizacon and Narcan. FS was 70, so 1amp D50 was given but patient's mental state did not change. At that time, the code stroke was called. Dr. Berman was contacted by Dr. Cedillo. Patient was transferred to CT suite and head CT was done. Radiology and Neurology went ahead and also ordered a CT Angio of Head and Neck. Patient was then transferred to the ICU for further monitoring. NIHSS was unobtainable due to patient being uncooperative. Per nursing staff, the patient's speech is not normal and there is intermittent jerky movements. No bladder/bowel incontinence, tongue biting or foaming at the mouth were noted. Objective - Vital Signs/Intake and Output Vital Signs (last 24 hours): Temp Pulse Resp BP Pulse Ox 98.1 F 70 18 137/47 L 100 08/15/17 08:22 08/15/17 11:40 08/15/17 11:40 08/15/17 11:01 08/15/17 02:00 - Medications Medications: Current Medications Albuterol/Ipratropium (Duoneb 3 Mg/0.5 Mg (3 Ml) Ud) 3 ml IH Q2H PRN PRN Reason: Shortness of Breath Last Admin: 08/14/17 23:21 Dose: 3 ml Famotidine (Pepcid) 20 mg IVP BID YARON Last Admin: 08/15/17 10:38 Dose: 20 mg Hydralazine HCl (Apresoline) 10 mg IVP Q4H PRN PRN Reason: for SBP>170 Last Admin: 08/15/17 10:37 Dose: 10 mg - Labs Labs: 08/15/17 05:50 08/15/17 05:50 PT 13.7 SECONDS (9.4-12.5) H 08/14/17 16:12 INR 1.20 (0.93-1.08) H 08/14/17 16:12 APTT 32.3 Seconds (25.1-36.5) 08/15/17 05:50 - Constitutional Appears: Non-toxic, No Acute Distress, Confused - Head Exam Head Exam: ATRAUMATIC - Eye Exam Eye Exam: Normal appearance, PERRL - ENT Exam ENT Exam: Mucous Membranes Moist - Neck Exam Neck Exam: Normal Inspection - Respiratory Exam Respiratory Exam: NORMAL BREATHING PATTERN. absent: Rhonchi, Wheezes - Cardiovascular Exam Cardiovascular Exam: RRR, +S1, +S2 - Extremities Exam Extremities Exam: Normal Inspection - Neurological Exam Neurological Exam: Altered. absent: Oriented x3 Additional comments: unable to follow simple commands could not assess NIHSS due to patient uncooperativity Assessment and Plan - Assessment and Plan (Free Text) Assessment: 76yo M with past medical history includeing hypertension, hyperlipidemia, CABG ( in [place]), and Parkinson's disease who presented for evaluation of bradycardia. Patient is a patient of Dr. Jacob. EKG in ED was noted to be 3rd degree heart block. Patient was admitted to ICU and was undergoing procedure for pacemaker placement with Dr. Cedillo. CODE STROKE was called for AMS. Plan: CODE STROKE - CT Head showed small focal hyperdensity in R basal ganglia/thalamus, new since 11/26/16; presumed to be acute hemorrhage. Chronic R thalamic and basal ganglia lacunar infarcts. - CTA Head/Neck was ordered by neurologist telephone lines repairer, pending official read - ASA was not given due to formal reading by radiologist indicating presumed acute hemorrhage - Patient transferred to ICU for further monitoring - Dr. Jacob was contacted twice and messages were left with his answering service regarding the condition of the patient - neuro checks - seizure ppx - further management per ICU team <Missael Hernández - Last Filed: 08/15/17 16:21> Objective - Vital Signs/Intake and Output Vital Signs (last 24 hours): Temp Pulse Resp BP Pulse Ox 98.1 F 60 20 172/58 H 98 08/15/17 08:22 08/15/17 16:00 08/15/17 15:50 08/15/17 16:00 08/15/17 16:00 - Medications Medications: Current Medications Albuterol/Ipratropium (Duoneb 3 Mg/0.5 Mg (3 Ml) Ud) 3 ml IH Q2H PRN PRN Reason: Shortness of Breath Last Admin: 08/14/17 23:21 Dose: 3 ml Famotidine (Pepcid) 20 mg IVP BID YARON Last Admin: 08/15/17 10:38 Dose: 20 mg Hydralazine HCl (Apresoline) 10 mg IVP Q4H PRN PRN Reason: for SBP>170 Last Admin: 08/15/17 10:37 Dose: 10 mg Nicardipine HCl (Cardene Iv Premix) 20 mg in 200 mls @ 50 mls/hr IV .Q4H PRN; Protocol; 5 MG/HR PRN Reason: TITRATE PER MD ORDER Last Admin: 08/15/17 15:24 Dose: 5 mg/hr, 50 mls/hr Lorazepam (Ativan) 2 mg IVP Q4H PRN PRN Reason: Agitation/seizures Last Admin: 08/15/17 15:25 Dose: 2 mg - Labs Labs: 08/15/17 05:50 08/15/17 05:50 PT 13.7 SECONDS (9.4-12.5) H 08/14/17 16:12 INR 1.20 (0.93-1.08) H 08/14/17 16:12 APTT 32.3 Seconds (25.1-36.5) 08/15/17 05:50 Attending/Attestation - Attestation I have personally seen and examined this patient.: Yes I have fully participated in the care of the patient.: Yes I have reviewed all pertinent clinical information, including history, physical exam and plan: Yes
[2017-08-15] MEDS: Nicardipine 20 MG/200 ML 20 MG/200 ML BAG IV PRN ×3 (15:24→23:26)
--- NOTE | 2017-08-15 15:40 | CT ---
PROCEDURE: CT Angiography of the neck with contrast HISTORY: R/o Clot, CVA COMPARISON: None available. TECHNIQUE: Contiguous axial images of the neck were obtained from the level of the skull-base to the superior mediastinum in the arteriographic phase of enhancement. Coronal and sagittal reformats or also generated. IV contrast dose: 150 cc of Omni 350 Radiation Dose - DLP: 445 mGy-cm This CT exam was performed using one or more of the following dose reduction techniques: Automated exposure control, adjustment of the mA and/or kV according to patient size, and/or use of iterative reconstruction technique. FINDINGS: RIGHT CAROTID ARTERIES: Common Carotid Artery: Normal. Carotid Bifurcation: Normal. Internal Carotid Artery:Calcified plaque with no significant stenosis External Carotid Artery (proximal branches): Normal. LEFT CAROTID ARTERIES: Common Carotid Artery: Normal. Carotid Bifurcation: Normal. Internal Carotid Artery:Calcified plaque with no significant stenosis External Carotid Artery (proximal branches): Normal. VERTEBRAL ARTERIES: Right Vertebral Artery: Normal. Left Vertebral Artery: Normal. OTHER FINDINGS: None. IMPRESSION: Calcified plaque in the internal carotids without significant stenosis PROCEDURE: CT Angiography of the Brain. HISTORY: R/o Clot, CVA COMPARISON: None available. TECHNIQUE: CT angiography of the intracranial arteries was performed. Coronal and sagittal maximum intensity projection reformated images were generated. This CT exam was performed using one or more of the following dose reduction techniques: Automated exposure control, adjustment of the mA and/or kV according to patient size, and/or use of iterative reconstruction technique. FINDINGS: INTERNAL CEREBRAL ARTERIES: Unremarkable. The skull base, petrous, cavernous and supraclinoid segments are bilaterally widely patent. ANTERIOR CEREBRAL ARTERIES: Unremarkable. A1 and A2 segments are widely patent. Smaller distal branches unremarkable, as visualized. MIDDLE CEREBRAL ARTERIES: Unremarkable. M1 and M2 segments are widely patent. Perisylvian branches grossly symmetric. POSTERIOR CIRCULATION: Basilar Artery: Unremarkable. Distal Vertebral Arteries: Unremarkable. Posterior Cerebral Arteries: Unremarkable. Posterior Inferior Cerebellar Arteries: Unremarkable. ANEURYSM/ VASCULAR MALFORMATIONS: None. OTHER FINDINGS: None. IMPRESSION: Unremarkable CT Angiography of the Brain.
--- NOTE | 2017-08-15 15:59 | RAD ---
HISTORY: Post Pacemaker COMPARISON: 08/14/2017 FINDINGS: LUNGS: Vascular and interstitial congestion PLEURA: No significant pleural effusion identified, no pneumothorax apparent. CARDIOVASCULAR: Mild cardiomegaly. There is a new single lead pacemaker. OSSEOUS STRUCTURES: No significant abnormalities. VISUALIZED UPPER ABDOMEN: Normal. OTHER FINDINGS: None. IMPRESSION: New left-sided pacemaker. No evidence of pneumothorax
--- NOTE | 2017-08-15 16:20 | PN ---
DATE: 08/15/2017 SUBJECTIVE: A 76-year-old white male seen in the ICU after having complete heart block, third-degree heart block. The patient has an external pacemaker, will be fitted for a pacemaker today by Dr. Cedillo. PHYSICAL EXAMINATION: VITAL SIGNS: Stable. Heart rate is at 65 with the external pacemaker, blood pressure is slightly elevated at 173/74. CHEST: Clear to auscultation and percussion. The patient does have some rhonchi and rales. He is on hydralazine for control of blood pressure. LABORATORY DATA: Otherwise unremarkable. Potassium was 4.4. The patient was on no chronotropic medications because of heart failure. He does have history of CAD, status post open heart surgery. PLAN: To do an implantable pacemaker today and continue blood pressure control and encourage tobacco abstinence. Ted Jacob MD
--- NOTE | 2017-08-15 16:21 | CARD ---
APPROVED REPORT EKG Measurement Heart [id number] NE P53 [id number] <Conclusion> Complete heart Block with AV dissociation Junctonal Escape rhythm Incomplete right bundle branch block ST & T wave abnormality, consider inferior ischemia ST & T wave abnormality, consider anterior ischemia Abnormal ECG
--- NOTE | 2017-08-15 18:00 | CARD ---
APPROVED REPORT EKG Measurement Heart [id number] <Conclusion> Electronic ventricular pacemaker
[2017-08-15] MEDS ORDERED: ceFAZolin 1 gm in NS 1 GM/100 ML BAG IVPB SCH (18:15)
--- NOTE | 2017-08-15 18:37 | PN ---
DATE: 08/15/2017 REASON FOR DICTATION: The patient was advised for trestle mainternance laborer for permanent pacemaker. As soon as the incision was done and pacemaker lead was floated into the right ventricle, the patient went into complete heart block and starting seizing. So, ventricular lead was connected, started pacing. Though it was very brief, after that, patient had change in mental status. Prior to that, patient had 1 mg of Versed and 50 of fentanyl was given, and very combative and moving all the limbs. So 50 mg of Benadryl was given just prior to that, but patient had change in mental status, so quickly pacemaker was completed. A code stroke was called and the patient was sent for code stroke protocol. On-call neurologist is Dr. Berman. I spoke to Dr. Berman on telephone number [phone]. Also, fingerstick was found to be 70, so 1 amp of D50 was given. Dr. Berman suggested to get a CT angio as well. If the CAT scan is negative for bleed, we will do the CT angio and monitor the patient closely. While the patient was leaving the trestle mainternance laborer, was moving all 4 extremities. No facial droop or no focal neurological deficit noted, possibly the post ictal, but we will follow closely. Cannot rule out stroke at this time. We will follow this. Elier Cedillo MD
--- NOTE | 2017-08-15 19:12 | CP.PCM.CON ---
History of Present Illness - History of Present Illness History of Present Illness: Mr. Wright is a 76-year-old man with a past medical history of Parkinsons disease, dementia, hypertension, long-term smoking, who developed heart block and required pacemaker placement earlier today. He developed speech difficulty , agitation, was witnessed having generalized shaking and subsequent fatigue/ somnolence. He then became agitated and required ativan for sedation. He was given 1 mg of Ativan and 50 mg of Fentanyl during the procedure. A code stroke was called when he developed speech difficulty and he was taken for CT scan which showed a small right basal ganglia area of possible hemorrhage. He had multiple previous infarcts throughout the basal ganglia on both sides as well as some cortical regions with significant hydrocephalus ex vacuo. CTA of the head/neck did not show any large vessel occlusion. Review of Systems - Review of Systems Systems not reviewed;Unavailable: Altered Mental Status Past Patient History - Infectious Disease Hx of Infectious Diseases: None - Tetanus Immunizations Tetanus Immunization: Unknown - Past Social History Smoking Status: Unknown If Ever Smoked - CARDIAC Hx Congestive Heart Failure: Yes - PULMONARY Hx Chronic Obstructive Pulmonary Disease (COPD): Yes - NEUROLOGICAL Hx Neurological Disorder: Yes Hx Dementia: Yes Hx Parkinson's Disease: Yes - HEENT Hx HEENT Problems: Yes (uses glasses) Hx Macular Degeneration: Yes - RENAL Hx Renal Failure: Yes - ENDOCRINE/METABOLIC Hx Endocrine Disorders: No - HEMATOLOGICAL/ONCOLOGICAL Hx Blood Disorders: Yes - INTEGUMENTARY Hx Dermatological Problems: Yes Hx Psoriasis: Yes Other/Comment: left upper arm bruise, lle healing scabs, right arm bright red skin with mulrtiple dry patches of skin from elbow to wrist, old fading bruises to ble and both knees, bruise to left upper side of knee painful to touch, bottom of both feet red with dry skin, thick long toenails and fingernails, bright red skin to r elbow, left elbow dry patches of skin , red skin and 2 dry red scabs, buttocks slightly reddened, mid chest scar - MUSCULOSKELETAL/RHEUMATOLOGICAL Hx Unsteady Gait: Yes - GASTROINTESTINAL Hx Gall Bladder Disease: Yes (gallstones) - GENITOURINARY/GYNECOLOGICAL Hx Genitourinary Disorders: Yes Hx Incontinence: Yes - PSYCHIATRIC Hx Psychophysiologic Disorder: Yes Hx Anxiety: Yes Hx Depression: Yes Hx Substance Use: No - SURGICAL HISTORY Hx Surgeries: Yes - ANESTHESIA Hx Anesthesia Reactions: No Hx Malignant Hyperthermia: No Meds Allergies/Adverse Reactions: Allergies Allergy/AdvReac Type Severity Reaction Status Date / Time pineapple Allergy Unknown ITCHING Verified 08/14/17 16:50 - Medications Medications: Current Medications Albuterol/Ipratropium (Duoneb 3 Mg/0.5 Mg (3 Ml) Ud) 3 ml IH Q2H PRN PRN Reason: Shortness of Breath Last Admin: 08/14/17 23:21 Dose: 3 ml Famotidine (Pepcid) 20 mg IVP BID YARON Last Admin: 08/15/17 18:02 Dose: 20 mg Hydralazine HCl (Apresoline) 10 mg IVP Q4H PRN PRN Reason: for SBP>170 Last Admin: 08/15/17 10:37 Dose: 10 mg Nicardipine HCl (Cardene Iv Premix) 20 mg in 200 mls @ 50 mls/hr IV .Q4H PRN; Protocol; 5 MG/HR PRN Reason: TITRATE PER MD ORDER Last Admin: 08/15/17 15:24 Dose: 5 mg/hr, 50 mls/hr Cefazolin Sodium (Ancef 1gm In Ns) 1 gm in 100 mls @ 200 mls/hr IVPB Q8 YARON Lorazepam (Ativan) 2 mg IVP Q4H PRN PRN Reason: Agitation/seizures Last Admin: 08/15/17 15:25 Dose: 2 mg Physical Exam - Neurological Exam Additional comments: Moves all extremities spontaneously, right upper extremity tremor noted, somnolent post-ativan. Did not follow any commands or offer any speech. Results - Vital Signs Recent Vital Signs: Last Vital Signs Temp 97.5 F L 08/15/17 16:07 Pulse 60 08/15/17 18:00 Resp 20 08/15/17 15:50 BP 172/58 H 08/15/17 16:00 Pulse Ox 98 08/15/17 16:00 - Labs Result Diagrams: 08/15/17 05:50 08/15/17 05:50 Labs: Laboratory Results - last 24 hr 08/15/17 08/15/17 08/15/17 01:10 01:10 05:45 WBC RBC Hgb Hct MCV MCH MCHC RDW Plt Count MPV Gran % Lymph % (Auto) [place] % (Auto) Eos % (Auto) Baso % (Auto) Gran # Lymph # (Auto) [place] # (Auto) Eos # (Auto) Baso # (Auto) APTT Sodium Potassium Chloride Carbon Dioxide Anion Gap BUN Creatinine Est GFR ( Amer) Est GFR (Non-Af Amer) Random Glucose Hemoglobin A1c Calcium Phosphorus Magnesium Total Bilirubin AST ALT Alkaline Phosphatase Troponin I 0.05 D Total Protein Albumin Globulin Albumin/Globulin Ratio Triglycerides Cholesterol LDL Cholesterol Direct HDL Cholesterol TSH 3rd Generation Blood Type O POSITIVE Blood Type Confirm O POSITIVE Antibody Screen Negative BBK History Checked No verified bt 08/15/17 08/15/17 08/15/17 05:50 05:50 05:50 WBC 8.8 RBC 4.70 Hgb 13.7 L Hct 42.1 MCV 89.6 MCH 29.1 MCHC 32.5 RDW 14.7 H Plt Count 123 MPV 12.6 H Gran % 67.5 Lymph % (Auto) 23.3 [place] % (Auto) 6.8 H Eos % (Auto) 2.2 Baso % (Auto) 0.2 Gran # 5.92 Lymph # (Auto) 2.1 [place] # (Auto) 0.6 Eos # (Auto) 0.2 Baso # (Auto) 0.02 APTT 32.3 Sodium 144 Potassium 4.4 Chloride 111 H Carbon Dioxide 21 Anion Gap 16 BUN 33 H Creatinine 1.0 Est GFR ( Amer) > 60 Est GFR (Non-Af Amer) > 60 Random Glucose 93 Hemoglobin A1c Calcium 9.9 Phosphorus 3.0 Magnesium 2.1 Total Bilirubin 1.3 AST 24 ALT 38 Alkaline Phosphatase 70 Troponin I 0.05 Total Protein 6.5 Albumin 3.9 Globulin 2.7 Albumin/Globulin Ratio 1.4 Triglycerides 87 Cholesterol 138 LDL Cholesterol Direct 91 HDL Cholesterol 30 TSH 3rd Generation Blood Type Blood Type Confirm Antibody Screen BBK History Checked 08/15/17 08/15/17 05:50 05:50 WBC RBC Hgb Hct MCV MCH MCHC RDW Plt Count MPV Gran % Lymph % (Auto) [place] % (Auto) Eos % (Auto) Baso % (Auto) Gran # Lymph # (Auto) [place] # (Auto) Eos # (Auto) Baso # (Auto) APTT Sodium Potassium Chloride Carbon Dioxide Anion Gap BUN Creatinine Est GFR ( Amer) Est GFR (Non-Af Amer) Random Glucose Hemoglobin A1c 5.6 Calcium Phosphorus Magnesium Total Bilirubin AST ALT Alkaline Phosphatase Troponin I Total Protein Albumin Globulin Albumin/Globulin Ratio Triglycerides Cholesterol LDL Cholesterol Direct HDL Cholesterol TSH 3rd Generation 1.88 Blood Type Blood Type Confirm Antibody Screen BBK History Checked Assessment & Plan (1) Altered mental status Assessment and Plan: The patient has baseline Parkinson's dementia as well as multiple prior strokes (likely vascular dementia), and developed heartblock with hypoperfusion, was given ativan and Fentanyl and likely developed an element of acute toxic encephalopathy. I recommend the followin. ICU and close observation with Q2 neuro-checks 2. Avoid benzos and anti-psychotics 3. Start depakote 500 mg Q12 4. Continue Sinemet 100/25 TID 5. EEG 6. PT/OT eval 7. Social worked consult 8. DVT Px 9. Case management consult Thank you. Status: Acute Priority: High
[2017-08-15 20:09] LABS: URINE BILIRUBIN NEGATIVE (NEGATIVE); URINE BLOOD MODERATE (NEGATIVE); URINE GLUCOSE (UA) NEGATIVE (NEGATIVE); URINE LEUKOCYTE ESTERASE NEGATIVE Leu/uL (NEGATIVE); URINE NITRATE NEGATIVE (NEGATIVE); URINE PROTEIN 30 mg/dL (<30 mg/dL); URINE UROBILINOGEN 0.2 E.U./dL (<1 E.U./dL)
[2017-08-15 20:10] LABS: URINE APPEARANCE CLEAR (CLEAR); URINE COLOR YELLOW (YELLOW)
[2017-08-15 20:24] LABS: URINE WBC NEGATIVE /hpf (0-6)
[2017-08-15 20:25] LABS: URINE BACTERIA NEG (NEG); URINE EPITHELIAL CELLS 0 - 2 /hpf (0-5)
[2017-08-15] MEDS: ceFAZolin 1 gm in NS 1 GM/100 ML BAG IVPB SCH (22:15)
[2017-08-15] MEDS: Valproate 500 MG in Sodium Chloride 0.9% 100 ML IVPB SCH (22:15)
[2017-08-16] MEDS: Nicardipine 20 MG/200 ML 20 MG/200 ML BAG IV PRN ×2 (03:34→06:54)
[2017-08-16] MEDS: ceFAZolin 1 gm in NS 1 GM/100 ML BAG IVPB SCH ×2 (06:03→14:00)
[2017-08-16 06:48] LABS: BASO # 0.01 K/mm3 (0.0-2.0); BASO % 0.1 % (0.0-3.0); EOS % 0.1 % (1.5-5.0); GRAN # 14.21 (1.4-6.5); GRAN % 89.3 % (50.0-68.0); HEMOGLOBIN 15.4 g/dL (14.0-18.0); LYMPH # 0.8 (1.2-3.4); LYMPH % 5.2 % (22.0-35.0); MEAN CORPUSCULAR HEMOGLOBIN 29.7 pg (25.0-35.0); MEAN CORPUSCULAR HGB CONC 33.3 g/dl (31.0-37.0); MEAN PLATELET VOLUME 12.3 fl (7.0-11.0); MONO # 0.8 (0.1-0.6); MONO % 5.3 % (1.0-6.0); RBC 5.19 10^6/uL (3.5-6.1); RED CELL DISTRIBUTION WIDTH 14.8 % (11.5-14.5); WHITE BLOOD COUNT 15.9 10^3/ul (4.5-11.0)
--- NOTE | 2017-08-16 06:57 | CP.PCM.PN ---
Subjective - Date & Time of Evaluation Date of Evaluation: 08/16/17 Time of Evaluation: 06:53 - Subjective Subjective: Mr. Wright was seen and examined at the bedside in ICU. He is lethargic, responsive to tactile stimuli, fight to close his eyes with during assessment. He moves his upper extremities spontaneously but with tremors. He has bilateral hand mitten for patient safety. He is not able to follow simple commands. He had a PPM inserted yesterday with his left arm on a sling. . Overnight, he has the episode of jerky movements but not sustained. Objective - Vital Signs/Intake and Output Vital Signs (last 24 hours): Temp Pulse Resp BP Pulse Ox 97.5 F L 60 20 172/58 H 98 08/15/17 16:07 08/15/17 18:00 08/15/17 15:50 08/15/17 16:00 08/15/17 16:00 Intake and Output: 08/15/17 08/16/17 18:59 06:59 Intake Total 200 600 Output Total 700 Balance -500 600 - Medications Medications: Current Medications Albuterol/Ipratropium (Duoneb 3 Mg/0.5 Mg (3 Ml) Ud) 3 ml IH Q2H PRN PRN Reason: Shortness of Breath Last Admin: 08/14/17 23:21 Dose: 3 ml Carbidopa/Levodopa (Sinemet) 1 tab PO TID YARON Famotidine (Pepcid) 20 mg IVP BID [facility] Last Admin: 08/15/17 18:02 Dose: 20 mg Hydralazine HCl (Apresoline) 10 mg IVP Q4H PRN PRN Reason: for SBP>170 Last Admin: 08/15/17 10:37 Dose: 10 mg Nicardipine HCl (Cardene Iv Premix) 20 mg in 200 mls @ 50 mls/hr IV .Q4H PRN; Protocol; 5 MG/HR PRN Reason: TITRATE PER MD ORDER Last Admin: 08/16/17 03:34 Dose: 6 mg/hr, 60 mls/hr Cefazolin Sodium (Ancef 1gm In Ns) 1 gm in 100 mls @ 200 mls/hr IVPB Q8 YARON Last Admin: 08/16/17 06:03 Dose: 200 mls/hr Valproate Sodium 500 mg/ (Sodium Chloride) 105 mls @ 100 mls/hr IVPB Q12 YARON Last Admin: 08/15/17 22:15 Dose: 100 mls/hr Lorazepam (Ativan) 2 mg IVP Q4H PRN PRN Reason: Agitation/seizures Last Admin: 08/15/17 15:25 Dose: 2 mg - Labs Labs: 08/15/17 05:50 08/15/17 05:50 PT 13.7 SECONDS (9.4-12.5) H 08/14/17 16:12 INR 1.20 (0.93-1.08) H 08/14/17 16:12 APTT 32.3 Seconds (25.1-36.5) 08/15/17 05:50 - Constitutional Appears: No Acute Distress - Head Exam Head Exam: NORMAL INSPECTION - Eye Exam Pupil Exam: PERRL - Neurological Exam Neuro motor strength exam: Left Upper Extremity: 2/1, Right Upper Extremity: 2/1 , Left Lower Extremity: 3, Right Lower Extremity: 3 Additional comments: He is lethargic but response to tactile stimuli Assessment and Plan (1) Altered mental status Assessment & Plan: Case discussed with Dr. Berman, continue all current medical regimen. Recommend no benzodiazepines or anti psychotic, repeat CT of the head without contrast, EEG, and neuro check Q 2. Status: Acute
[2017-08-16 07:05] LABS: ALB/GLOB RATIO 1.4 (1.1-1.8); ALBUMIN 4.3 g/dL (3.0-4.8); CALCIUM 9.8 mg/dL (8.4-10.5)
--- NOTE | 2017-08-16 07:13 | CP.CCUPN ---
<Virginia Sigala - Last Filed: 08/16/17 10:51> CCU Subjective - Physician Review Subjective (Free Text): 08/16/17 10:51 Patient seen and examined at bedside. Nursing reports no acute events overnight. Patient is AO x 1. Earlier this morning at 7am patient was lethargic but on repeat examination with attending and son at bedside, patient was sitting up in bed and answering questions. Denied any acute pain. Patient is more confused than baseline as per son.Passed bedside swallow eval. Mittens in place. Complete ROS unobtainable. Critical Care Time Spent (in minutes): 45 CCU Objective - Vital Signs / Intake & Output Intake and Output (Last 8hrs): Intake & Output 08/15/17 08/16/17 08/16/17 22:59 06:59 14:59 Intake Total 400 1530 Output Total 700 1000 Balance -300 530 Intake: IV 400 1530 Left Antecubital 200 930 Output: Urine 700 1000 Straight 700 Urethral (Patel) 1000 Other: # Bowel Movements 1 - Physical Exam Head: Positive for: Atraumatic, Normocephalic Pupils: Positive for: PERRL Extroacular Muscles: Positive for: EOMI Conjunctiva: Positive for: Normal Mouth: Positive for: Moist Mucous Membranes Nose (External): Positive for: Atraumatic Neck: Positive for: Normal Range of Motion Respiratory/Chest: Positive for: Clear to Auscultation, Good Air Exchange. Negative for: Respiratory Distress, Accessory Muscle Use, Wheezes, Rales, Rhonchi Cardiovascular: Positive for: Regular Rate and Rhythm, Normal S1, S2, Other ( Pacemaker in place on Left upper chest wall- c/d/i; small hematoma present). Negative for: Murmurs Abdomen: Positive for: Normal Bowel Sounds. Negative for: Tenderness, Distention Upper Extremity: Positive for: Normal Inspection. Negative for: Cyanosis, Edema Lower Extremity: Positive for: Normal Inspection. Negative for: Edema Neurological: Positive for: Speech Normal Skin: Positive for: Warm, Dry, Normal Color. Negative for: Rashes Psychiatric: Positive for: Alert. Negative for: Oriented x 3 - Medications Active Medications: Active Medications Generic Name Dose Route Start Last Admin Trade Name Freq PRN Reason Stop Dose Admin Albuterol/Ipratropium 3 ml 08/14/17 22:42 08/14/17 23:21 Duoneb 3 Mg/0.5 Mg (3 Ml) Ud IH 3 ml Q2H PRN Administration Shortness of Breath Carbidopa/Levodopa 1 tab 08/16/17 10:00 Sinemet PO TID YARON Famotidine 20 mg 08/15/17 10:00 08/15/17 18:02 Pepcid IVP 20 mg BID YARON Administration Hydralazine HCl 10 mg 08/14/17 21:42 08/15/17 10:37 Apresoline IVP 10 mg Q4H PRN Administration for SBP>170 Nicardipine HCl 20 mg in 200 mls @ 50 mls/hr 08/15/17 15:09 08/16/17 06:54 Cardene Iv Premix IV 5 mg/hr .Q4H PRN 50 mls/hr TITRATE PER MD ORDER Administration Protocol 5 MG/HR Cefazolin Sodium 1 gm in 100 mls @ 200 mls/hr 08/15/17 18:15 08/16/17 06:03 Ancef 1gm In Ns IVPB 200 mls/hr Q8 YARON Administration Valproate Sodium 500 mg/ 105 mls @ 100 mls/hr 08/15/17 22:00 08/15/17 22:15 Sodium Chloride IVPB 100 mls/hr Q12 YARON Administration Lorazepam 2 mg 08/15/17 14:56 08/15/17 15:25 Ativan IVP 2 mg Q4H PRN Administration Agitation/seizures - Patient Studies Lab Studies: Lab Studies 08/16/17 08/15/17 08/15/17 Range/Units 05:50 15:30 05:50 Sodium 142 (132-148) mmol/L Potassium 4.7 (3.6-5.0) mmol/L Chloride 108 H (98-107) mmol/L Carbon Dioxide 20 L (21-33) mmol/L Anion Gap 18 (10-20) BUN 36 H (7-21) mg/dL Creatinine 2.3 H (0.8-1.5) mg/dl Est GFR ( Amer) 34 Est GFR (Non-Af Amer) 28 Random Glucose 211 H (70-110) mg/dL Hemoglobin A1c (4.2-6.5) % Calcium 9.8 (8.4-10.5) mg/dL Phosphorus 2.5 (2.5-4.5) mg/dL Magnesium 2.0 (1.7-2.2) mg/dL Total Bilirubin 1.8 H (0.2-1.3) mg/dL AST 31 (17-59) U/L ALT 30 (7-56) U/L Alkaline Phosphatase 81 (38-126) U/L Troponin I ng/mL Total Protein 7.4 (5.8-8.3) g/dL Albumin 4.3 (3.0-4.8) g/dL Globulin 3.1 gm/dL Albumin/Globulin Ratio 1.4 (1.1-1.8) Triglycerides (35-160) mg/dL Cholesterol (130-200) mg/dL LDL Cholesterol Direct (0-129) mg/dL HDL Cholesterol (29-60) mg/dL TSH 3rd Generation 1.88 (0.46-4.68) mIU/mL Urine Color Yellow (YELLOW) Urine Appearance Clear (CLEAR) Urine pH 6.0 (4.7-8.0) Ur Specific Mora 1.015 (1.005-1.035) Urine Protein 30 H (<30 mg/dL) mg/dL Urine Glucose (UA) Negative (NEGATIVE) mg/dL Urine Ketones Negative (NEGATIVE) mg/dL Urine Blood Moderate H (NEGATIVE) Urine Nitrate Negative (NEGATIVE) Urine Bilirubin Negative (NEGATIVE) Urine Urobilinogen 0.2 (<1 E.U./dL) E.U./dL Ur Leukocyte Esterase Negative (NEGATIVE) Lina/uL Urine RBC 10 - 15 (0-2) /hpf Urine WBC Negative (0-6) /hpf Ur Epithelial Cells 0 - 2 (0-5) /hpf Urine Bacteria Neg (NEG) Blood Type Confirm 08/15/17 08/15/17 08/15/17 Range/Units 05:50 05:50 05:45 Sodium 144 (132-148) mmol/L Potassium 4.4 (3.6-5.0) mmol/L Chloride 111 H (98-107) mmol/L Carbon Dioxide 21 (21-33) mmol/L Anion Gap 16 (10-20) BUN 33 H (7-21) mg/dL Creatinine 1.0 (0.8-1.5) mg/dl Est GFR ( Amer) > 60 Est GFR (Non-Af Amer) > 60 Random Glucose 93 (70-110) mg/dL Hemoglobin A1c 5.6 (4.2-6.5) % Calcium 9.9 (8.4-10.5) mg/dL Phosphorus 3.0 (2.5-4.5) mg/dL Magnesium 2.1 (1.7-2.2) mg/dL Total Bilirubin 1.3 (0.2-1.3) mg/dL AST 24 (17-59) U/L ALT 38 (7-56) U/L Alkaline Phosphatase 70 (38-126) U/L Troponin I 0.05 ng/mL Total Protein 6.5 (5.8-8.3) g/dL Albumin 3.9 (3.0-4.8) g/dL Globulin 2.7 gm/dL Albumin/Globulin Ratio 1.4 (1.1-1.8) Triglycerides 87 (35-160) mg/dL Cholesterol 138 (130-200) mg/dL LDL Cholesterol Direct 91 (0-129) mg/dL HDL Cholesterol 30 (29-60) mg/dL TSH 3rd Generation (0.46-4.68) mIU/mL Urine Color (YELLOW) Urine Appearance (CLEAR) Urine pH (4.7-8.0) Ur Specific Mora (1.005-1.035) Urine Protein (<30 mg/dL) mg/dL Urine Glucose (UA) (NEGATIVE) mg/dL Urine Ketones (NEGATIVE) mg/dL Urine Blood (NEGATIVE) Urine Nitrate (NEGATIVE) Urine Bilirubin (NEGATIVE) Urine Urobilinogen (<1 E.U./dL) E.U./dL Ur Leukocyte Esterase (NEGATIVE) Lina/uL Urine RBC (0-2) /hpf Urine WBC (0-6) /hpf Ur Epithelial Cells (0-5) /hpf Urine Bacteria (NEG) Blood Type Confirm O POSITIVE Laboratory Results - last 24 hr 08/15/17 08/15/17 08/15/17 05:45 05:50 05:50 Sodium 144 Potassium 4.4 Chloride 111 H Carbon Dioxide 21 Anion Gap 16 BUN 33 H Creatinine 1.0 Est GFR ( Amer) > 60 Est GFR (Non-Af Amer) > 60 Random Glucose 93 Hemoglobin A1c 5.6 Calcium 9.9 Phosphorus 3.0 Magnesium 2.1 Total Bilirubin 1.3 AST 24 ALT 38 Alkaline Phosphatase 70 Troponin I 0.05 Total Protein 6.5 Albumin 3.9 Globulin 2.7 Albumin/Globulin Ratio 1.4 Triglycerides 87 Cholesterol 138 LDL Cholesterol Direct 91 HDL Cholesterol 30 TSH 3rd Generation Urine Color Urine Appearance Urine pH Ur Specific Mora Urine Protein Urine Glucose (UA) Urine Ketones Urine Blood Urine Nitrate Urine Bilirubin Urine Urobilinogen Ur Leukocyte Esterase Urine RBC Urine WBC Ur Epithelial Cells Urine Bacteria Blood Type Confirm O POSITIVE 08/15/17 08/15/17 08/16/17 05:50 15:30 05:50 Sodium 142 Potassium 4.7 Chloride 108 H Carbon Dioxide 20 L Anion Gap 18 BUN 36 H Creatinine 2.3 H Est GFR ( Amer) 34 Est GFR (Non-Af Amer) 28 Random Glucose 211 H Hemoglobin A1c Calcium 9.8 Phosphorus 2.5 Magnesium 2.0 Total Bilirubin 1.8 H AST 31 ALT 30 Alkaline Phosphatase 81 Troponin I Total Protein 7.4 Albumin 4.3 Globulin 3.1 Albumin/Globulin Ratio 1.4 Triglycerides Cholesterol LDL Cholesterol Direct HDL Cholesterol TSH 3rd Generation 1.88 Urine Color Yellow Urine Appearance Clear Urine pH 6.0 Ur Specific Mora 1.015 Urine Protein 30 H Urine Glucose (UA) Negative Urine Ketones Negative Urine Blood Moderate H Urine Nitrate Negative Urine Bilirubin Negative Urine Urobilinogen 0.2 Ur Leukocyte Esterase Negative Urine RBC 10 - 15 Urine WBC Negative Ur Epithelial Cells 0 - 2 Urine Bacteria Neg Blood Type Confirm EKG/Cardiology Studies: Cardiology / EKG Studies 08/15/17 14:07 ELECTROCARDIOGRAM Stat Comment: Reason For Exam: S/p PPM PERFORMING PHYSICIAN/PROVIDER:: Elier Cedillo Review of Systems - Review of Systems Systems not reviewed;Unavailable: Altered Mental Status Critical Care Progress Note - Nutrition Nutrition: Nutrition Category Date Time Status NPO Diet [DIET] Diets 08/15/17 Breakfast Ordered Assessment/Plan - Assessment and Plan (Free Text) Assessment: 76yo male PMHx CAD s/p CABG, Parkinsons disease, HTN, HLD, CVA with no residual weakness, sent in from PMDs office for abnormal EKG. Found to be bradycardic with complete heart block. POD#1 pacemaker placement. Plan: Neuro -patient is AO x 1 -repeat head CT this AM: 4mm focus of hemorrhage in the R thalamus adjacent to a chronic lacunar infarct. This is stable in appearacne. -EEG was done this AM- will f/u -head CT 08/15: small focus hyperdensity in R basal ganglia/thalamus- presumed to represent acute hemorrhage. Old R thalamic and basal ganglia lacunar infarcts. no evidence of acute vascular territorial infarct. Atrophy and chronic white matter ischemic changes. -CTA unremarkable -Patient has hx of Parkinson's Disease -Sinemet 1tab po tid -Valproate 500mg ivpb q12 -As per neuro patient to have no benzo or antipsychotic medications -Neurocheck q2 CV -POD#1 permanent pacemaker placement -Cardene gtt d/c this AM -Hydralazine PRN -Clonidine 0.1mg po x 1 -Torponin negative x 3 -Lipid panel WNL -TSH WNL -Dr. Cedillo cardiology on board- patient to f/u with Dr. Michael Holcomb -no acute issues -supp O2 as needed -Duoneb 3ml inh q2 prn SOB GI -Pepcid 20mg ivp bid -NPO pending official swallow eval -no acute issues Heme -H&H stable -no acute issues Nephro -Cr 2.3 up from 1.0 -f/u renal U/S -NS @ 75cc/hr -Dr Luque consulted Endo -HgbA1c: 5.6 -no acute issues GI ppx: Pepcid 20mg ivp bid DVT ppx: SCD Diet: NPO pending official swallow eval Discussed with Dr. Kiersten Sigala PGY2 <Jn Burch - Last Filed: 08/16/17 16:51> CCU Objective - Vital Signs / Intake & Output Intake and Output (Last 8hrs): Intake & Output 08/16/17 08/16/17 08/16/17 06:59 14:59 22:59 Intake Total 1530 Output Total 1000 Balance 530 Intake: IV 1530 Left Antecubital 930 Output: Urine 1000 Urethral (Patel) 1000 Other: # Bowel Movements 1 - Medications Active Medications: Active Medications Generic Name Dose Route Start Last Admin Trade Name Freq PRN Reason Stop Dose Admin Albuterol/Ipratropium 3 ml 08/14/17 22:42 08/14/17 23:21 Duoneb 3 Mg/0.5 Mg (3 Ml) Ud IH 3 ml Q2H PRN Administration Shortness of Breath Carbidopa/Levodopa 1 tab 08/16/17 10:00 08/16/17 14:04 Sinemet PO 1 tab TID YARON Administration Famotidine 20 mg 08/17/17 10:00 Pepcid IVP DAILY YARON Hydralazine HCl 10 mg 08/14/17 21:42 08/15/17 10:37 Apresoline IVP 10 mg Q4H PRN Administration for SBP>170 Valproate Sodium 500 mg/ 105 mls @ 100 mls/hr 08/15/17 22:00 08/16/17 11:03 Sodium Chloride IVPB 100 mls/hr Q12 YARON Administration Sodium Chloride 1,000 mls @ 75 mls/hr 08/16/17 10:45 08/16/17 14:03 Sodium Chloride 0.9% IV 75 mls/hr .[id number] YARON Administration Cefazolin Sodium 1 gm in 100 mls @ 200 mls/hr 08/16/17 22:00 Ancef 1gm In Ns IVPB 08/20/17 18:16 Q12 YARON Lorazepam 2 mg 08/15/17 14:56 08/15/17 15:25 Ativan IVP 2 mg Q4H PRN Administration Agitation/seizures - Patient Studies Lab Studies: Microbiology Studies 08/14/17 21:23 MRSA Culture (Admit) - Final Naris MRSA NOT DETECTED Lab Studies 08/16/17 08/16/17 08/15/17 Range/Units 05:50 05:50 15:30 WBC 15.9 H D (4.5-11.0) 10^3/ul RBC 5.19 (3.5-6.1) 10^6/uL Hgb 15.4 (14.0-18.0) g/dL Hct 46.2 (42.0-52.0) % MCV 89.0 (80.0-105.0) fl MCH 29.7 (25.0-35.0) pg MCHC 33.3 (31.0-37.0) g/dl RDW 14.8 H (11.5-14.5) % Plt Count 134 (120.0-450.0) 10^3/uL MPV 12.3 H (7.0-11.0) fl Gran % 89.3 H (50.0-68.0) % Lymph % (Auto) 5.2 L (22.0-35.0) % Bryan % (Auto) 5.3 (1.0-6.0) % Eos % (Auto) 0.1 L (1.5-5.0) % Baso % (Auto) 0.1 (0.0-3.0) % Gran # 14.21 H (1.4-6.5) Lymph # (Auto) 0.8 L (1.2-3.4) Bryan # (Auto) 0.8 H (0.1-0.6) Eos # (Auto) 0.0 (0.0-0.7) Baso # (Auto) 0.01 (0.0-2.0) K/mm3 Sodium 142 (132-148) mmol/L Potassium 4.7 (3.6-5.0) mmol/L Chloride 108 H (98-107) mmol/L Carbon Dioxide 20 L (21-33) mmol/L Anion Gap 18 (10-20) BUN 36 H (7-21) mg/dL Creatinine 2.3 H (0.8-1.5) mg/dl Est GFR ( Amer) 34 Est GFR (Non-Af Amer) 28 Random Glucose 211 H (70-110) mg/dL Calcium 9.8 (8.4-10.5) mg/dL Phosphorus 2.5 (2.5-4.5) mg/dL Magnesium 2.0 (1.7-2.2) mg/dL Total Bilirubin 1.8 H (0.2-1.3) mg/dL AST 31 (17-59) U/L ALT 30 (7-56) U/L Alkaline Phosphatase 81 (38-126) U/L Total Protein 7.4 (5.8-8.3) g/dL Albumin 4.3 (3.0-4.8) g/dL Globulin 3.1 gm/dL Albumin/Globulin Ratio 1.4 (1.1-1.8) Urine Color Yellow (YELLOW) Urine Appearance Clear (CLEAR) Urine pH 6.0 (4.7-8.0) Ur Specific Mora 1.015 (1.005-1.035) Urine Protein 30 H (<30 mg/dL) mg/dL Urine Glucose (UA) Negative (NEGATIVE) mg/dL Urine Ketones Negative (NEGATIVE) mg/dL Urine Blood Moderate H (NEGATIVE) Urine Nitrate Negative (NEGATIVE) Urine Bilirubin Negative (NEGATIVE) Urine Urobilinogen 0.2 (<1 E.U./dL) E.U./dL Ur Leukocyte Esterase Negative (NEGATIVE) Lina/uL Urine RBC 10 - 15 (0-2) /hpf Urine WBC Negative (0-6) /hpf Ur Epithelial Cells 0 - 2 (0-5) /hpf Urine Bacteria Neg (NEG) Laboratory Results - last 24 hr 08/15/17 08/16/17 08/16/17 15:30 05:50 05:50 WBC 15.9 H D RBC 5.19 Hgb 15.4 Hct 46.2 MCV 89.0 MCH 29.7 MCHC 33.3 RDW 14.8 H Plt Count 134 MPV 12.3 H Gran % 89.3 H Lymph % (Auto) 5.2 L Bryan % (Auto) 5.3 Eos % (Auto) 0.1 L Baso % (Auto) 0.1 Gran # 14.21 H Lymph # (Auto) 0.8 L Bryan # (Auto) 0.8 H Eos # (Auto) 0.0 Baso # (Auto) 0.01 Sodium 142 Potassium 4.7 Chloride 108 H Carbon Dioxide 20 L Anion Gap 18 BUN 36 H Creatinine 2.3 H Est GFR ( Amer) 34 Est GFR (Non-Af Amer) 28 Random Glucose 211 H Calcium 9.8 Phosphorus 2.5 Magnesium 2.0 Total Bilirubin 1.8 H AST 31 ALT 30 Alkaline Phosphatase 81 Total Protein 7.4 Albumin 4.3 Globulin 3.1 Albumin/Globulin Ratio 1.4 Urine Color Yellow Urine Appearance Clear Urine pH 6.0 Ur Specific Mora 1.015 Urine Protein 30 H Urine Glucose (UA) Negative Urine Ketones Negative Urine Blood Moderate H Urine Nitrate Negative Urine Bilirubin Negative Urine Urobilinogen 0.2 Ur Leukocyte Esterase Negative Urine RBC 10 - 15 Urine WBC Negative Ur Epithelial Cells 0 - 2 Urine Bacteria Neg Critical Care Progress Note - Nutrition Nutrition: Nutrition Category Date Time Status Liquid Diet [DIET] Diets 08/16/17 Dinner Ordered Attending/Attestation - Attestation I have personally seen and examined this patient.: Yes I have fully participated in the care of the patient.: Yes I have reviewed all pertinent clinical information: Yes Notes (Text): 08/16/17 16:44 76 yo male with complete AVB s/p PPM with cheondoism of hemodynamic stability, was found to have small stable IPH, complicated by ICU delirium, without significant neurological deficit. Initially on cardene drip to maintain BPs 140- 160, now weaned off and BP 140-150-->On hydralazine PRN. Initial concern for seziures, required few doses of Ativan PRN, however today's EEG-->no seziures. Patient is alert and awake, but short span or attention and fluctuating mental status (delirium?). Would recommend avoid benzos and opiates, if cleared by neuro, antipsychotic for agitation (may lower threshold for seziures, however EEG is neg and no clinical seziures overnight), optimize sleep and circadian rhythms, frequent re-orientation, transfer to telemetry: spoke with Dr. Cedillo, Cecil and Cullen-->all agreed. ccm time 50 min
[2017-08-16] MEDS: Valproate 500 MG in Sodium Chloride 0.9% 100 ML IVPB SCH ×2 (11:03→21:34)
--- NOTE | 2017-08-16 11:08 | CT ---
PROCEDURE: CT HEAD WITHOUT CONTRAST. HISTORY: follow up with hemorrhagic stroke COMPARISON: CT of the head 11/26/2016 and 08/15/2017 TECHNIQUE: Axial computed tomography images were obtained through the head/brain without intravenous contrast. Radiation dose: Total exam DLP = 790 mGy-cm. This CT exam was performed using one or more of the following dose reduction techniques: Automated exposure control, adjustment of the mA and/or kV according to patient size, and/or use of iterative reconstruction technique. FINDINGS: HEMORRHAGE: There is a 4 mm focus of hemorrhage in the right thalamus adjacent to a chronic lacunar infarct. This is stable in appearance BRAIN: No mass effect or edema. Severe chronic microvascular changes. Chronic right lacunar infarct VENTRICLES: Unremarkable. No hydrocephalus. CALVARIUM: Unremarkable. PARANASAL SINUSES: Unremarkable as visualized. No significant inflammatory changes. MASTOID AIR CELLS: Unremarkable as visualized. No inflammatory changes. OTHER FINDINGS: None. IMPRESSION: There is a 4 mm focus of hemorrhage in the right thalamus adjacent to a chronic lacunar infarct. This is stable in appearance
--- NOTE | 2017-08-16 11:32 | RAD ---
HISTORY: R/O pneumothorax, S/p PPM COMPARISON: 08/15/2017 FINDINGS: LUNGS: Improved vascular and interstitial congestion PLEURA: No significant pleural effusion identified, no pneumothorax apparent. CARDIOVASCULAR: Moderate cardiomegaly OSSEOUS STRUCTURES: No significant abnormalities. VISUALIZED UPPER ABDOMEN: Normal. OTHER FINDINGS: None. IMPRESSION: Improved vascular and interstitial congestion
--- NOTE | 2017-08-16 12:48 | PCM.EEG ---
Electroencephalogram Report - Electroencephalogram Report Procedure Date: 08/16/17 Interpretation: Indication: Possible seizure. Medications were reviewed. Technical: This is a digitally recorded electroencephalogram. The international 10-20 electrode placement system is used for scalp electrode placement. Eighteen channels of scalp EEG are recorded Another channel was used for for ECG. The data are stored digitally and reviewed in reformatted montages for optimal display. Background: Small amount of beta activities are seen. Diffuse Abnormality: No well formed alpha activity was seen. Mixed diffuse theta and delta activity was seen. Impression: This EEG is abnormal. Diffuse slowing is seen, suggestive of a diffuse abnormality of the brain. Clinical correlation is needed.
[2017-08-16] MEDS: Sodium Chloride 0.9% 1,000 ML IV SCH (14:03)
--- NOTE | 2017-08-16 14:26 | PN ---
DATE: SUBJECTIVE: A 76-year-old white male admitted to the hospital with complete heart block. The patient was taken to the by Dr. Cedillo for implantation of pacemaker. The patient also has a history of dementia, multiple CVAs, past history of CAD, open heart surgery, hypertension, COPD. The patient postoperatively was found to have change in mental status neurological examination, was sent for a CAT scan, was found to have a basal ganglia bleed. There were multiple other strokes of older nature noted. The patient was seen by Dr. Berman for neurology. The patient was started on Depakote for seizure prevention. He is on strict n.p.o. He is on hydralazine IV, also had an elevated white count and was started on Ancef postoperatively. Continues on blood pressure control and GI prophylaxis for GI bleeding. The patient will be followed up with a repeat CAT scan. The patient was seen in the bed today. He is awake. He is oriented to person only, but the time or place. He does have some weakness in the left upper and left lower extremity, Babinskis are upgoing bilaterally. Cranial nerves II-XII are intact. Heart examination, is sinus rhythm with pacemaker rhythm in the 65 range. Blood pressure is stable. IMPRESSION: A 76-year-old white male with multiple cerebrovascular accidents, chronic obstructive pulmonary disease, coronary artery disease, Parkinson disease, dementia, recent complete heart block, pacemaker, recent hemorrhagic bleed in the basal ganglia. The patient has been in intensive care unit. Condition is critical. Ted Jacob MD
--- NOTE | 2017-08-16 15:35 | US ---
PROCEDURE: Ultrasound of the Kidneys HISTORY: worsening creatinine COMPARISON: Abdominal ultrasound performed 04/14/14 TECHNIQUE: Sonogram of the kidneys. FINDINGS: RIGHT KIDNEY: Measures: 10.0 x 4.0 x 5.2 cm. No obstructing calculus, hydronephrosis, or renal cyst identified. LEFT KIDNEY: Measures: 10.6 x 5.7 x 5.5 cm. Mild fullness of the left renal pelvis. No obstructing calculus or renal cyst identified. OTHER FINDINGS: None. IMPRESSION: Mild fullness of the left renal pelvis. No obstructing calculus identified bilaterally.
--- NOTE | 2017-08-17 00:07 | CON ---
DATE: 08/16/2017 REASON FOR CONSULTATION: Acute kidney injury. HISTORY OF PRESENTING ILLNESS: A 76-year-old male, previously unknown to me, was admitted on 08/14/2017. He was brought to the emergency room because of bradycardia. The patient was having shortness of breath and unsteadiness of gait for 3 days prior to presentation. He was seen by his neurologist as outpatient. He was subsequently seen by his PMD and was directed to the emergency room because of bradycardia. In the emergency room, the patient was found to be in complete heart block. He was found to be asymptomatic. He was admitted to the ICU for management. Plan was to place permanent pacemaker. The patient underwent a pacemaker placement yesterday. Subsequently, the patient had difficulty speaking, he was somnolent, he was lethargic. He had altered mental status. Code stroke was called. The patient had a CTA of his head and neck to rule out clot. He received 150 mL of dye. Impression was unremarkable CT angiography of the brain. The patient is still lethargic. He is aphasic currently. He is sitting in the ICU in a chair. Family members are at bedside. Consultation is requested because of acute kidney injury. His creatinine was 1.0 on 08/15/2017 and today's creatinine is 2.3. PAST MEDICAL AND SURGICAL HISTORY: Parkinson's disease, dementia, hypertension, complete heart block, permanent pacemaker placement, multiple CVAs throughout the basal ganglia, hypertension. FAMILY HISTORY: Noncontributory. SOCIAL HISTORY: Smoking. No alcohol use, no IV drug abuse. ALLERGIES: P[place]APP[place]. MEDICATIONS AT HOME: Had been carbidopa, aspirin, amlodipine. REVIEW OF SYSTEMS: Unavailable as the patient is unable to cooperate with systems review. PHYSICAL EXAMINATION: GENERAL: Elderly male sitting in chair in the ICU. VITAL SIGNS: Blood pressure 141/64, heart rate 60, respiratory rate 20, temperature 97.5. HEENT: Normocephalic, atraumatic, positive pallor. NECK: Supple, no JVD. LUNGS: Bilateral equal air entry, bilateral poor expansion, bilateral poor air entry. CARDIAC: S1 and S2, paced rhythm, no murmur, no rub. ABDOMEN: Obese, distended, soft, nontender, bowel sounds present. EXTREMITIES: 1+ pitting edema of the lower extremities. INTAKE AND OUTPUT: 1930/1700. LABORATORY DATA: WBC 15.9, hemoglobin 15.4, hematocrit 46, platelets 134. Sodium 142, potassium 4.7, chloride 108, CO2 of 20, BUN 36, creatinine 2.3, glucose 211, calcium 9.8, phosphorus 2.5, magnesium 2.0, total bili 1.8, AST 31, ALT 30, albumin 4.3. Urinalysis: Yellow, clear, pH 6.0, specific gravity 1015, protein 30, glucose negative, blood moderate, leukocyte esterase negative. CURRENT MEDICATIONS: Ancef 1 g q. 8, Apresoline 10 mg IV q. 4 p.r.n. Ativan, DuoNeb, Pepcid, carbidopa, normal saline at 75, valproic acid 500 q. 12, nicardipine drip discontinued, Catapres 0.1 given this morning. ASSESSMENT AND PLAN: 1. Acute kidney injury, in the setting of complete heart block, renal hypoperfusion, with superimposed contrast exposure. 2. Complete heart block 3. Acute encephalopathy. 4. Acute cerebrovascular accident? 5. Parkinson's disease. 6. Underlying chronic kidney disease stage II? PLAN: 1. The patient received 150 mL of dye, this may be contributing to his acute kidney injury. 2. Repeat urinalysis to see if his specific gravity corroborates with dye-induced ATN. 3. Continue IV fluids. 4. Avoid nephrotoxins. 5. Avoid hypotension. 6. Monitor urine output closely. 7. Monitor daily labs. 8. Case discussed with the ICU residents. 9. Case discussed with family members at bedside. More than 35 minutes spent in the care of this critically ill patient. Rox Luque MD
[2017-08-17] MEDS: Sodium Chloride 0.9% 1,000 ML IV SCH (05:36)
[2017-08-17 06:09] LABS: HEMOGLOBIN 15.9 g/dL (14.0-18.0); MEAN CELL VOLUME 90.3 fl (80.0-105.0); MEAN CORPUSCULAR HEMOGLOBIN 30.2 pg (25.0-35.0); MEAN CORPUSCULAR HGB CONC 33.5 g/dl (31.0-37.0); MEAN PLATELET VOLUME 12.1 fl (7.0-11.0); RBC 5.26 10^6/uL (3.5-6.1); RED CELL DISTRIBUTION WIDTH 14.7 % (11.5-14.5); WHITE BLOOD COUNT 13.9 10^3/ul (4.5-11.0)
[2017-08-17 06:11] LABS: ALB/GLOB RATIO 1.3 (1.1-1.8); ALBUMIN 3.7 g/dL (3.0-4.8); ALT/SGPT 30 U/L (7-56); AST/SGOT 26 U/L (17-59); BLOOD UREA NITROGEN 29 mg/dL (7-21); CALCIUM 9.3 mg/dL (8.4-10.5); GFR AFRICAN-AMERICAN > 60; GFR NON-AFRICAN AMERICAN 54
[2017-08-17] MEDS: Valproate 500 MG in Sodium Chloride 0.9% 100 ML IVPB SCH ×2 (09:06→22:17)
[2017-08-17] MEDS: ceFAZolin 1 gm in NS 1 GM/100 ML BAG IVPB SCH ×3 (09:08→23:00)
--- NOTE | 2017-08-17 14:40 | PN ---
DATE: SUBJECTIVE: A 76-year-old white male, admitted to the hospital with complete heart block, status post pacemaker, status post small thalamic bleed, COPD, hypertension, CAD. The patient is still in the ICU, awaiting transfer to telemetry. The patient is stable. His strength is increased in the left and right upper and lower extremities. He is awake and alert today. His speech is fluent. He is having no problems with drooling or not swallowing his secretions. He did have a swallow evaluation, which recommended normal liquids; however, the patient is able to swallow his secretions. We will increase him to a dysphagia diet. Continue blood pressure control. Heart rate is stable with his pacemaker. BUN and creatinine have improved to 29 and 1.3. He did have a renal ultrasound, which shows normal sized kidneys but some fullness. He possibly had some contrast-induced nephropathy, also some hypoperfusion, otherwise things are stable. The patient will be transferred as soon as the bed is available. PHYSICAL EXAMINATION: VITAL SIGNS: Blood pressure is 176/92. HEART: Pacemaker rhythm, sinus rhythm. CHEST: Decreased breath sound bilaterally. EXTREMITIES: No cyanosis, clubbing, or edema. Ted Jacob MD
[2017-08-17] MEDS: Sodium Chloride 0.45% 1,000 ML IV SCH (15:00)
--- NOTE | 2017-08-17 18:48 | PN ---
DATE: 08/17/2017 SUBJECTIVE: The patient is seen sitting in chair. He is awake. He is alert. He is still lethargic. Not really following commands. PHYSICAL EXAMINATION: GENERAL: Elderly male, sitting in chair in the ICU. VITAL SIGNS: Blood pressure 176/92, heart rate 60, respiratory rate 14, temperature 98.5. HEENT: Normocephalic, atraumatic, positive pallor. NECK: Supple, no JVD. LUNGS: Bilateral equal air entry, bilateral equal expansion, basilar rales right greater than left. CARDIAC: S1 and S2, regular rate and rhythm, no murmur, no rub. ABDOMEN: Soft, nondistended, nontender, bowel sounds present. EXTREMITIES: No lower extremity edema, positive weakness on the left side. INTAKE AND OUTPUT: 1020/1000. LABORATORY DATA: WBC 13.9, hemoglobin 15.9, hematocrit 47, platelets 107. Sodium 146, potassium 4.3, chloride 109, CO2 of 25, BUN 29, creatinine 1.3, glucose 76, calcium 9.3, phosphorus 3.5, magnesium 2.0, total bili 1.6, AST 26, ALT 30, albumin 3.7. Renal ultrasound, right kidney 10 cm, no hydro; left kidney 10.6 cm, mild fullness of the left renal pelvis. EEG showed diffuse slowing. CURRENT MEDICATIONS: Ancef 1 g q. 12, Apresoline p.r.n., Ativan 2 mg, DuoNeb, Pepcid, carbidopa/levodopa, sodium chloride at 75, valproic acid. ASSESSMENT: 1. Acute kidney injury, resolving, largely hemodynamically mediated plus many acute tubular necrosis in the setting of contrast exposure. 2. Status post complete heart block, causing renal hypoperfusion. 3. Acute metabolic encephalopathy, slowly resolving. 4. Parkinson disease. 5. Suspect underlying chronic kidney disease stage II. 6. Hypernatremia. 7. Leukocytosis. PLAN: 1. Change IV fluids to half normal saline. 2. Avoid hypotension. 3. Avoid nephrotoxins. 4. Dose all antibiotics for creatinine clearance about 50 mL per minute. 5. . Rox Luque MD [facility] # [id number]
--- NOTE | 2017-08-18 06:54 | CP.PCM.PN ---
Subjective - Date & Time of Evaluation Date of Evaluation: 08/18/17 Time of Evaluation: 06:48 - Subjective Subjective: Mr. Wright was seen and examined at the bedside in ICU. He is alert, awake with episode of confusion. He is able to verbalize place, but not time and person. He is able to follow some commands such as raising his right upper extremity, unable to raise left due to s/sp PPM placement, strength test . He also had episode last night of being restless, redirected accordingly. He has bilateral lower extremities SCD's. EEG showed abnormal with slowing down of brain activity , but no seizure.There was no untoward events overnight. Objective - Vital Signs/Intake and Output Vital Signs (last 24 hours): Temp Pulse Resp BP Pulse Ox 98.1 F 60 12 150/77 100 08/18/17 04:00 08/18/17 04:00 08/18/17 04:00 08/18/17 04:00 08/18/17 04:00 Intake and Output: 08/17/17 08/18/17 18:59 06:59 Intake Total 1320 Output Total 750 Balance 570 - Medications Medications: Current Medications Albuterol/Ipratropium (Duoneb 3 Mg/0.5 Mg (3 Ml) Ud) 3 ml IH Q2H PRN PRN Reason: Shortness of Breath Last Admin: 08/14/17 23:21 Dose: 3 ml Carbidopa/Levodopa (Sinemet) 1 tab PO TID [facility] Last Admin: 08/17/17 17:47 Dose: 1 tab Famotidine (Pepcid) 20 mg IVP DAILY [facility] Last Admin: 08/17/17 09:11 Dose: 20 mg Hydralazine HCl (Apresoline) 10 mg IVP Q4H PRN PRN Reason: for SBP>170 Last Admin: 08/17/17 20:22 Dose: 10 mg Valproate Sodium 500 mg/ (Sodium Chloride) 105 mls @ 100 mls/hr IVPB Q12 [facility] Last Admin: 08/17/17 22:17 Dose: 100 mls/hr Cefazolin Sodium (Ancef 1gm In Ns) 1 gm in 100 mls @ 200 mls/hr IVPB Q12 [facility] Stop: 08/20/17 18:16 Last Admin: 08/17/17 23:00 Dose: 200 mls/hr Sodium Chloride (Sodium Chloride 0.45%) 1,000 mls @ 60 mls/hr IV .[id number] YARON Last Admin: 08/17/17 15:00 Dose: 60 mls/hr Lorazepam (Ativan) 2 mg IVP Q4H PRN PRN Reason: Agitation/seizures Last Admin: 08/15/17 15:25 Dose: 2 mg - Labs Labs: 08/17/17 05:30 08/17/17 05:30 PT 13.7 SECONDS (9.4-12.5) H 08/14/17 16:12 INR 1.20 (0.93-1.08) H 08/14/17 16:12 APTT 32.3 Seconds (25.1-36.5) 08/15/17 05:50 - Constitutional Appears: No Acute Distress - Head Exam Head Exam: NORMAL INSPECTION - Neurological Exam Neurological Exam: Alert, Awake Neuro motor strength exam: Left Upper Extremity: 3, Right Upper Extremity: 5, Left Lower Extremity: 5, Right Lower Extremity: 5 Additional comments: He is able to state the place, but not time and person, He is able to foloow some commands. Sensation remains intact. Assessment and Plan (1) Altered mental status Assessment & Plan: Case discussed with Dr. Berman, continue all current medical regimen. Recommend repeat CT of the head without contrast to evaluate the hemorrhage seen in the previous CT of the head. Status: Acute
[2017-08-18] MEDS: Sodium Chloride 0.45% 1,000 ML IV SCH ×2 (07:23→10:17)
--- NOTE | 2017-08-18 09:19 | CT ---
PROCEDURE: CT HEAD WITHOUT CONTRAST. HISTORY: follow up of hemorrhage COMPARISON: CT 08/16/2017 TECHNIQUE: Axial computed tomography images were obtained through the head/brain without intravenous contrast. Radiation dose: Total exam DLP = 703 mGy-cm. This CT exam was performed using one or more of the following dose reduction techniques: Automated exposure control, adjustment of the mA and/or kV according to patient size, and/or use of iterative reconstruction technique. FINDINGS: HEMORRHAGE: There is no change in the appearance of the small 4 mm hemorrhage in the right thalamus adjacent to a chronic lacunar infarct. BRAIN: No mass effect or edema. Chronic microvascular changes are seen as well as atrophy. VENTRICLES: Unremarkable. No hydrocephalus. CALVARIUM: Unremarkable. PARANASAL SINUSES: Unremarkable as visualized. No significant inflammatory changes. MASTOID AIR CELLS: Unremarkable as visualized. No inflammatory changes. OTHER FINDINGS: None. IMPRESSION: There is no change in the appearance of the small 4 mm hemorrhage in the right thalamus adjacent to a chronic lacunar infarct.
[2017-08-18] MEDS: Valproate 500 MG in Sodium Chloride 0.9% 100 ML IVPB SCH ×2 (10:13→22:15)
[2017-08-18] MEDS: ceFAZolin 1 gm in NS 1 GM/100 ML BAG IVPB SCH ×2 (10:13→21:45)
[2017-08-18] MEDS: Albuterol-Ipratrop 3 mg / 0.5 (3 ml) UD IH PRN (20:00)
--- NOTE | 2017-08-19 03:35 | PN ---
DATE: 08/18/2017 SUBJECTIVE: The patient is seen lying in bed. He is awake, he is alert. He appears to be in mild respiratory distress. PHYSICAL EXAMINATION: VITAL SIGNS: Blood pressure 145/84, heart rate 60, respiratory rate 17, temperature 97.5. HEENT: Normocephalic, atraumatic, positive pallor. NECK: Supple, no JVD. LUNGS: Bilateral equal expansion, bilateral rhonchi. CARDIAC: S1 and S2, regular rate and rhythm, no murmur, no rub. ABDOMEN: Obese, distended, soft, nontender, bowel sounds present. EXTREMITIES: No lower extremity edema. INTAKE AND OUTPUT: 2180/1950. LABORATORY DATA: No new labs today. CURRENT MEDICATIONS: Ancef 1 g q.12, Apresoline p.r.n., Ativan, DuoNeb, Pepcid, Sinemet, half-normal saline at 50, valproic acid 500 q.12. ASSESSMENT AND PLAN: 1. Acute kidney injury, hemodynamically mediated. Resolving. 2. Acute encephalopathy, resolving. 3. Parkinson's disease. 4. Hypertension. PLAN: 1. Avoid nephrotoxins. 2. Avoid hypotension. 3. Continue IV fluids for one more day. 4. Continue neurology followup. Rox Luque MD
[2017-08-19] MEDS: Sodium Chloride 0.45% 1,000 ML IV SCH (06:00)
[2017-08-19 06:27] LABS: HEMOGLOBIN 15.4 g/dL (14.0-18.0); MEAN CELL VOLUME 87.3 fl (80.0-105.0); MEAN CORPUSCULAR HEMOGLOBIN 29.7 pg (25.0-35.0); MEAN PLATELET VOLUME 11.5 fl (7.0-11.0); RBC 5.19 10^6/uL (3.5-6.1); RED CELL DISTRIBUTION WIDTH 13.9 % (11.5-14.5); WHITE BLOOD COUNT 11.1 10^3/ul (4.5-11.0)
[2017-08-19 07:13] LABS: ALB/GLOB RATIO 1.3 (1.1-1.8); ALBUMIN 3.7 g/dL (3.0-4.8); ALT/SGPT 19 U/L (7-56); AST/SGOT 27 U/L (17-59); BLOOD UREA NITROGEN 24 mg/dL (7-21); CALCIUM 9.4 mg/dL (8.4-10.5); GFR AFRICAN-AMERICAN > 60; GFR NON-AFRICAN AMERICAN > 60
--- NOTE | 2017-08-19 08:40 | PN ---
DATE: 08/16/2017 TYPE OF DICTATION: Brief note ____ yesterday. The patient underwent pacemaker and then patient had altered mental status patient had a seizure type of activity. A stat CAT scan was done, suspicious small intracerebral bleed. Neurology consult was called, and CT angio was done. Discussed with Dr. Eduardo Berman, neurologist. The patient had multiple CVA in the past, history of Parkinson disease, dementia, multiple prior strokes, according to may be a hypoperfusion stage and fentanyl, develop altered mental status, leading to toxic encephalopathy. Postoperatively, the patient moving 4 limbs. Now the patient is in ICU, was sedated, was on earlier anti-seizure medication. I spoke to the son and explained the condition. Transferred care to Dr. Rodriguez's for further recommendation from cardiology point of view and Dr. Rodriguez. The pacemaker site looks okay. Chest x-ray did not show any pneumothorax. Chest x-ray repeat this morning also showed no evidence of pneumothorax and we will transfer care from cardiac point of view to Dr. Rodriguez. Elier Cedillo MD
[2017-08-19] MEDS: ceFAZolin 1 gm in NS 1 GM/100 ML BAG IVPB SCH ×2 (10:36→22:34)
[2017-08-19] MEDS: Valproate 500 MG in Sodium Chloride 0.9% 100 ML IVPB SCH ×2 (10:37→22:34)
--- NOTE | 2017-08-19 22:13 | PN ---
DATE: 08/19/2017 SUBJECTIVE: Patient is seen lying in bed. He is awake, he is alert, he is comfortable. He does not appear to be in any kind of distress. PHYSICAL EXAMINATION: VITAL SIGNS: Blood pressure 167/82, heart rate 62, respiratory rate 17, temperature 98.2. HEENT: Normocephalic, atraumatic. NECK: Supple, no JVD. LUNGS: Bilateral equal air entry, no rales. CARDIAC: S1 and S2, regular rate and rhythm, no murmur, no rub. ABDOMEN: Soft, nondistended, nontender, bowel sounds present. EXTREMITIES: No lower extremity edema. INTAKE AND OUTPUT: 2120/1800. LABORATORY DATA: WBC 11, hemoglobin 15, hematocrit 45, platelets 94. Sodium 141, potassium 3.9, chloride 105, CO2 of 24, BUN 24, creatinine 0.9, glucose 90, calcium 9.4, phosphorus 3.0, magnesium 2.0, albumin 3.7. CURRENT MEDICATIONS: Ancef 1 g q.12, Apresoline, Ativan, DuoNeb, Pepcid, carbidopa, half-normal saline at 60, valproic acid. ASSESSMENT: 1. Acute kidney injury, resolved, hemodynamically mediated in the setting of hypotension. 2. Parkinson's disease. 3. History of hypertension. 4. Acute encephalopathy, resolving. PLAN: 1. Discontinue IV fluids. 2. Avoid nephrotoxins. 3. Continue Parkinson's medications. 4. Patient is stable from the renal standpoint. Rox Luque MD
[2017-08-20 06:38] VITALS: O2SAT 97
[2017-08-20 07:17] LABS: HEMOGLOBIN 15.5 g/dL (14.0-18.0); MEAN CELL VOLUME 87.1 fl (80.0-105.0); MEAN CORPUSCULAR HGB CONC 33.3 g/dl (31.0-37.0); MEAN PLATELET VOLUME 12.1 fl (7.0-11.0); RBC 5.34 10^6/uL (3.5-6.1); RED CELL DISTRIBUTION WIDTH 13.8 % (11.5-14.5); WHITE BLOOD COUNT 9.6 10^3/ul (4.5-11.0)
[2017-08-20 08:03] LABS: ALB/GLOB RATIO 1.3 (1.1-1.8); ALBUMIN 3.6 g/dL (3.0-4.8); ALT/SGPT 16 U/L (7-56); AST/SGOT 30 U/L (17-59); BLOOD UREA NITROGEN 23 mg/dL (7-21); CALCIUM 9.5 mg/dL (8.4-10.5); GFR AFRICAN-AMERICAN > 60; GFR NON-AFRICAN AMERICAN > 60; MAGNESIUM 2.2 mg/dL (1.7-2.2)
--- NOTE | 2017-08-20 08:16 | PN ---
DATE: 08/19/2017 SUBJECTIVE: A 76-year-old white male status post complete heart block, status post pacemaker, status post CVA. The patient does have some residual weakness of the left lower extremity and left upper extremity. The patient will need extensive physical therapy and occupational therapy. The patient is still in the ICU with plan to transfer to telemetry and look for subacute rehabilitation. Ted Jacob MD
[2017-08-20] MEDS: Sodium Chloride 0.45% 1,000 ML IV SCH (09:15)
[2017-08-20] MEDS: ceFAZolin 1 gm in NS 1 GM/100 ML BAG IVPB SCH (09:32)
--- NOTE | 2017-08-20 09:38 | PN ---
DATE: SUBJECTIVE: A 76-year-old white male, status post complete heart block, pacemaker insertion, status post thalamic bleed with residual left lower and left upper extremity weakness. The patient is transferred from ICU to the floor. PHYSICAL EXAMINATION GENERAL: He is doing well. VITAL SIGNS: Stable. Blood pressure 153/90. He is afebrile. Heart rate of 58 with pacemaker rhythm. LABORATORY DATA: Unremarkable. The patient will start physical therapy and occupational therapy and continue follow up with Cardiology. Ted Jacob MD
[2017-08-20] MEDS: Valproate 500 MG in Sodium Chloride 0.9% 100 ML IVPB SCH (12:07)
[2017-08-20 12:26] VITALS: BP 164/106; PULSE 60; RESP 18; TEMP 98.4
[2017-08-20] MEDS ORDERED: Cephalexin Susp 250 MG/5 ML PO SCH (14:00)
[2017-08-20] MEDS ORDERED: Divalproex 500 mg DR(BID formulation) PO SCH (18:00)
--- NOTE | 2017-08-20 19:13 | PN ---
DATE: SUBJECTIVE: The patient is currently seen lying supine in bed. He is going to be transferred back to his outpatient facility later this afternoon. He remains off IV fluid hydration. MEDICATIONS: Medication list reviewed. The patient is currently on Ativan, Depakote, DuoNeb, oral Keflex, Pepcid and Sinemet. OBJECTIVE: INTAKE AND OUTPUT. Intake 1780, output 1200. VITAL SIGNS: Blood pressure ranging from 153 to 164 systolic, diastolics ranging from 90 to 106. Respiratory rate is 18, with a pulse of 60. Temperature 98.4. HEENT: Exam shows him to be normocephalic, atraumatic. Conjunctivae are pink. Sclerae are nonicteric. NECK: Supple. No neck vein distention. CHEST: Clear to auscultation and percussion. No rales or rhonchi or wheezing. CARDIOVASCULAR: Shows a regular rate and rhythm without audible murmurs, rubs or gallops. ABDOMEN: Soft. Nondistended. Bowel sounds normal. No rebound, guarding or masses. EXTREMITIES: Showed no cyanosis, clubbing or edema. LABORATORY DATA AND IMAGING STUDIES: CBC, white blood cell count today down to 9.6, hemoglobin 15.5, platelet count is 92,000. Chemistry showed normal electrolytes. BUN is down to 23 from a high of 36. Creatinine is 1.0, down from 2.3. Calcium, phosphorus and magnesium are normal. Liver enzymes are normal. Albumin is 3.6. Microbiology, no cultures available for comment. ASSESSMENT: 1. Acute renal insufficiency, resolved. The patient is back to baseline levels with a creatinine of 1.0. 2. History of Parkinson's disease. The patient will continue present medication. 3. Hypertension. The patient's systolic and diastolic blood pressures have trended higher. I will place the patient back on amlodipine at a higher dose, 5 mg a day. 4. History of acute encephalopathy, essentially resolved. PLAN: 1. Agree with tentative discharge back to his outpatient facility. 2. I will start the patient on Norvasc 5 mg a day, first dose to be given prior to leaving the hospital. 3. Continue current medication for Parkinson's. 4. Explained to the patient that his renal parameters have returned back to normal. The patient should remain well hydrated in the outpatient setting. Mikal Brock MD
--- NOTE | 2017-08-21 15:27 | DS ---
SUMMARY: The patient is a 76-year-old white male with a history of CAD, COPD, status post open-heart surgery. The patient was seen in the office and was found to have complete heart block, was admitted to the ICU at [facility]. The patient was seen in consultation by Dr. Rodriguez and Dr. Cedillo. The patient was taken to the lab[facility] placing and had a pacemaker inserted by Dr. Cedillo. The patient also postop developed a small thalamic hemorrhagic bleed resulting in some left upper and left lower weakness. The patient was kept in the Intensive Care Unit until he was eventually transferred to the floor. Started some physical therapy and occupational therapy, had swallowing evaluation, which was passed minimally, tolerated his diet without aspirating and was eventually able to start physical therapy and will be transferred to Care for continued rehabilitation. FINAL DISCHARGE DIAGNOSES: Complete third-degree heart block, acute thalamic hemorrhagic infarct, coronary artery disease, and chronic obstructive pulmonary disease. Ted Jacob MD
== END 2017-08-20 16:35 | DRG 242 ==
LOC: ED 15:44 → ERH 18:23 → CCU 19:44 → 3RSO 08-19 18:33
PROVIDERS: ADMIT Internal Medicine; ATTEND Internal Medicine
PROC: 0JH604Z Insertion of Pacemaker, Single Chamber into Chest Subcutaneous Tissue and Fascia, Open Approach (ICD-10-PCS; principal; 2017-08-15)
PROC: 02HK3JZ Insertion of Pacemaker Lead into Right Ventricle, Percutaneous Approach (ICD-10-PCS; 2017-08-15)
DX: I44.2 Atrioventricular block, complete (principal); N17.0 Acute kidney failure with tubular necrosis; I62.9 Nontraumatic intracranial hemorrhage, unspecified; G92 Toxic encephalopathy; I50.9 Heart failure, unspecified; I11.0 Hypertensive heart disease with heart failure; I97.821 Postprocedural cerebrovascular infarction following other surgery; E87.0 Hyperosmolality and hypernatremia; J44.9 Chronic obstructive pulmonary disease, unspecified; I25.10 Atherosclerotic heart disease of native coronary artery without angina pectoris; E78.5 Hyperlipidemia, unspecified; G20 Parkinson's disease; F02.80 Dementia in other diseases classified elsewhere, unspecified severity, without behavioral disturbance, psychotic disturbance, mood disturbance, and anxiety; F01.50 Vascular dementia, unspecified severity, without behavioral disturbance, psychotic disturbance, mood disturbance, and anxiety; I12.9 Hypertensive chronic kidney disease with stage 1 through stage 4 chronic kidney disease, or unspecified chronic kidney disease; N18.2 Chronic kidney disease, stage 2 (mild); Y83.8 Other surgical procedures as the cause of abnormal reaction of the patient, or of later complication, without mention of misadventure at the time of the procedure; Z72.0 Tobacco use; Z95.1 Presence of aortocoronary bypass graft; R56.9 Unspecified convulsions

== ENCOUNTER 2017-08-27 22:15 | Inpatient (IN) | payer MEDICARE, BC ==
[2017-08-27 22:15] VITALS: BMI 23.5
--- NOTE | 2017-08-27 22:38 | ED PDOC ---
Arrival/HPI - General Chief Complaint: Abnormal Labs Time Seen by Provider: 08/27/17 22:29 Historian: [facility] - History of Present Illness Narrative History of Present Illness (Text): 08/27/17 23:02 Juan Ramon Wright is a 76 year old male, whose past medical history includes CHF, hypertension, hyperlipidemia, CABG, and Parkinson's, brought [facility] the [facility] work today. Patient is non communicative. Limited HPI and ROS due to patients dementia and non- communicative state. Time/Duration: Other (today) Symptom Onset: Sudden Symptom Course: Unchanged Activities at Onset: Light Context: Home ([facility]) Past Medical History - Provider Review Nursing Documentation Reviewed: Yes - Infectious Disease Hx of Infectious Diseases: None - Tetanus Immunization Tetanus Immunization: Unknown - Cardiac Hx Cardiac Disorders: Yes - Pulmonary Hx Chronic Obstructive Pulmonary Disease (COPD): Yes - Neurological HX Cerebrovascular Accident: Yes (TIA) - HEENT Hx HEENT Disorder: Yes (uses glasses) Hx Macular Degeneration: Yes - Renal Hx Renal Failure: Yes - Endocrine/Metabolic Hx Endocrine Disorders: No - Hematological/Oncological Hx Blood Disorders: Yes - Integumentary Hx Dermatological Disorder: Yes Hx Psoriasis: Yes Other/Comment: left upper arm bruise, lle healing scabs, right arm bright red skin with mulrtiple dry patches of skin from elbow to wrist, old fading bruises to ble and both knees, bruise to left upper side of knee painful to touch, bottom of both feet red with dry skin, thick long toenails and fingernails, bright red skin to r elbow, left elbow dry patches of skin , red skin and 2 dry red scabs, buttocks slightly reddened, mid chest scar - Musculoskeletal/Rheumatological Hx Unsteady Gait: Yes - Gastrointestinal Hx Gall Bladder Disease: Yes (gallstones) - Genitourinary/Gynecological Hx Genitourinary Disorders: Yes Hx Incontinence: Yes - Psychiatric Hx Psychophysiologic Disorder: Yes Hx Anxiety: Yes Hx Depression: Yes Hx Substance Use: No - Surgical History Hx Cardiac Catheterization: Yes Hx Cholecystectomy: Yes (04/16/14) Hx Open Heart Surgery: Yes - Anesthesia Hx Anesthesia Reactions: No Hx Malignant Hyperthermia: No Family/Social History - Physician Review Nursing Documentation Reviewed: Yes Family/Social History: Hypertension Smoking Status: Unknown If Ever Smoked Hx Alcohol Use: No Hx Substance Use: No Allergies/Home Meds Allergies/Adverse Reactions: Allergies pineapple Allergy (Unknown, Verified 08/27/17 22:40) ITCHING Home Medications: Home Meds Medication Instructions Recorded Confirmed Xanax 0.25 mg PO PRN PRN 01/31/17 08/14/17 Review of Systems - Review of Systems Systems not reviewed;Unavailable: Dementia (Non-communcative) Physical Exam Vital Signs Reviewed: Yes Vital Signs Temp Pulse Resp BP Pulse Ox 08/28/17 12:27 97.9 F 62 18 145/97 H 100 08/28/17 07:56 97.4 F L 64 18 124/89 98 08/28/17 05:09 97.6 F 62 14 133/94 H 98 08/28/17 02:09 60 18 138/88 99 08/27/17 22:42 97.7 F 67 18 137/86 98 Temperature: Afebrile Blood Pressure: Normal Pulse: Regular Respiratory Rate: Normal Appearance: Positive for: Well-Appearing, Non-Toxic, Comfortable Pain Distress: None Mental Status: Positive for: Lethargic (Lethargic appearing, non-communicative) - Systems Exam Head: Present: Atraumatic, Normocephalic Pupils: Present: PERRL Extroacular Muscles: Present: EOMI Conjunctiva: Present: Normal Ears: Present: Normal, NORMAL TM, Normal Canal. No: Erythema, TM Bulging, TM Perf Mouth: Present: Dry Pharnyx: Present: Normal. No: ERYTHEMA, EXUDATE, TONSILS ENLARGED, Peritonsilar Swelling, Uvular Deviation, Muffled/Hoarse Voice, Strider, Soft Palate/Uvular Edema Nose (External): Present: Atraumatic Nose (Internal): Present: Normal Inspection Neck: Present: Normal Range of Motion. No: Meningeal Signs, MIDLINE TENDERNESS , Paraspinal Tenderness Respiratory/Chest: Present: Clear to Auscultation, Good Air Exchange. No: Respiratory Distress, Accessory Muscle Use Cardiovascular: Present: Regular Rate and Rhythm, Normal S1, S2. No: Murmurs Abdomen: Present: Normal Bowel Sounds. No: Tenderness, Distention, Peritoneal Signs Back: Present: Normal Inspection. No: CVA Tenderness, Midline Tenderness, Paraspinal Tenderness Upper Extremity: Present: Normal Inspection. No: Cyanosis, Edema Lower Extremity: Present: Normal Inspection. No: Edema Neurological: No: Speech Normal (Non-communicative) Skin: Present: Warm, Dry, Normal Color. No: Rashes Psychiatric: Present: Lethargic, Other (non-communicative) Medical Decision Making ED Course and Treatment: 08/27/17 22:40 Impression: 76 year old male brought in [facility] due to abnormal labs. Plan: -- EKG -- CXR -- Labs, cardiac enzymes -- Reassess and disposition Prior Visits: Notes and results from previous visits were reviewed. Patient was last seen in the emergency department on 07/27/2017 for palpitations and was admitted to the ICU. Progress Notes: 08/27/17 23:04 CXR reviewed, shows no acute processes. 08/28/17 02:02 EKG reviewed, 100% paced rhythm at 60 bpm. will 08/28/17 04:44 Case discussed with SCALPER OPERATOR Eduardo, covering for Dr. Jacob, who is aware and agrees with plan. Pt will be admitted to Telemetry for dehydration, hypernatremia, leukocytosis, and SIRS. - Lab Interpretations Lab Results: 08/27/17 23:29 08/27/17 23:29 Lab Results 08/28/17 02:30: pO2 25 L, VBG pH 7.39, VBG pCO2 46.0, VBG HCO3 27.8, VBG Total CO2 29.2 H, VBG O2 Sat (Calc) 51.9, VBG Base Excess 2.2 H, VBG Potassium 4.0, Glucose 171 H, Lactate 1.7, FiO2 21.0, Sodium 151.0 H, Chloride 111.0 H, Venous Blood Potassium 4.0 08/28/17 02:18: Urine Color Yellow, Urine Appearance Sl cloudy, Urine pH 6.0, Ur Specific [place] 1.025, Urine Protein 100 H, Urine Glucose (UA) Negative, Urine Ketones Negative, Urine Blood Small H, Urine Nitrate Negative, Urine Bilirubin Negative, Urine Urobilinogen 0.2, Ur Leukocyte Esterase Negative, Urine RBC 2 - 5, Urine WBC 0 - 2, Ur Epithelial Cells 0 - 2, Urine Bacteria Few 08/27/17 23:29: WBC 23.5 H D, RBC 5.81, Hgb 17.6 D, Hct 52.8 H, MCV 90.9 D, MCH 30.3, MCHC 33.3, RDW 14.6 H, Plt Count 120, MPV 12.6 H 08/27/17 23:29: Sodium 155 H, Potassium 4.2, Chloride 109 H, Carbon Dioxide 27, Anion Gap 23 H, BUN 130 H*, Creatinine 4.6 H, Est GFR ( Amer) 15, Est GFR (Non-Af Amer) 13, Random Glucose 170 H, Calcium 9.7, Total Bilirubin 0.8, AST 81 H D, ALT 23, Alkaline Phosphatase 90, Lactate Dehydrogenase 965 H, Total Creatine Kinase 613 H, CK-MB (CK-2) 4.9 H, CK-MB (CK-2) % Cancelled, Troponin I 0.08 D, Total Protein 7.9, Albumin 4.2, Globulin 3.8, Albumin/Globulin Ratio 1.1 08/27/17 23:29: PT 20.7 H, INR 1.79 H, APTT 28.6 I have reviewed the lab results: Yes - RAD Interpretation Radiology Orders: 08/27/17 22:41 CHEST PORTABLE [RAD] Stat Art Installer: ED Physician - EKG Interpretation Interpreted by ED Physician: Yes Type: 12 lead EKG - Medication Orders Current Medication Orders: Dextrose/Sodium Chloride (Dextrose 5%/0.45% Ns 1000 Ml) 1,000 mls @ 150 mls/hr IV .Q6H40M YARON Last Admin: 08/28/17 15:18 Dose: 150 mls/hr eMAR Start Stop Document 08/28/17 15:18 DC (Rec: 08/28/17 15:18 DC [id number]) Intravenous Solution Start Date 08/28/17 Start Time 15:18 Meropenem 500 mg/ Sodium (Chloride) 50 mls @ 100 mls/hr IVPB Q12 YARON PRN Reason: Protocol Stop: 09/06/17 22:01 Discontinued Medications Ceftriaxone Sodium (Rocephin 1 Gram Ivpb) 1 gm in 100 mls @ 200 mls/hr IV ONCE STA PRN Reason: Protocol Stop: 08/28/17 02:07 Last Admin: 08/28/17 02:14 Dose: 200 mls/hr eMAR Start Stop Document 08/28/17 02:14 [email or web address] (Rec: 08/28/17 02:14 [email or web address] [id number]) Intravenous Solution Start Date 08/28/17 Start Time 02:14 End Date 08/28/17 Sodium Chloride (Sodium Chloride 0.45%) 1,000 mls @ 150 mls/hr IV .Q6H40M YARON Last Admin: 08/28/17 08:30 Dose: 150 mls/hr eMAR Start Stop Document 08/28/17 08:30 DC (Rec: 08/28/17 08:31 DC [id number]) Intravenous Solution Start Date 08/28/17 Start Time 08:31 Pneumococcal Polyvalent Vaccine (Pneumovax 23 Vaccine) 0.5 ml IM .ONCE ONE Stop: 08/28/17 18:31 - Scribe Statement The provider has reviewed the documentation as recorded by the Scribomar Cobb, training under Yolanda Johnson All medical record entries made by the Scribe were at my direction and personally dictated by me. I have reviewed the chart and agree that the record accurately reflects my personal performance of the history, physical exam, medical decision making, and the department course for this patient. I have also personally directed, reviewed, and agree with the discharge instructions and disposition. Disposition/Present on Arrival - Present on Arrival Any Indicators Present on Arrival: No History of DVT/PE: No History of Uncontrolled Diabetes: No Urinary Catheter: No History of Decub. Ulcer: No History Surgical Site Infection Following: None - Disposition Have Diagnosis and Disposition been Completed?: Yes Diagnosis: Dehydration, Hypernatremia, Leukocytosis, SIRS (systemic inflammatory response syndrome), Renal failure Disposition: HOSPITALIZED Disposition Time: 04:33 Patient Plan: Admission Patient Problems: Current Active Problems Problem Status Onset Dehydration Acute Hypernatremia Acute Leukocytosis Acute Renal failure Acute SIRS (systemic inflammatory response syndrome) Acute Condition: STABLE
[2017-08-28 00:06] LABS: HEMOGLOBIN 17.6 g/dL (14.0-18.0); MEAN CELL VOLUME 90.9 fl (80.0-105.0); MEAN CORPUSCULAR HEMOGLOBIN 30.3 pg (25.0-35.0); MEAN CORPUSCULAR HGB CONC 33.3 g/dl (31.0-37.0); MEAN PLATELET VOLUME 12.6 fl (7.0-11.0); RBC 5.81 10^6/uL (3.5-6.1); RED CELL DISTRIBUTION WIDTH 14.6 % (11.5-14.5); WHITE BLOOD COUNT 23.5 10^3/ul (4.5-11.0)
[2017-08-28 00:13] LABS: INR 1.79 (0.93-1.08); PARTIAL THROMBOPLASTIN TIME 28.6 Seconds (25.1-36.5); PROTHROMBIN TIME 20.7 SECONDS (9.4-12.5)
[2017-08-28 00:27] LABS: TROPONIN I 0.08 ng/mL
[2017-08-28 00:37] LABS: ALB/GLOB RATIO 1.1 (1.1-1.8); ALBUMIN 4.2 g/dL (3.0-4.8); CALCIUM 9.7 mg/dL (8.4-10.5)
[2017-08-28] MEDS ORDERED: cefTRIAXone 1 gm 1 GM/100 ML BAG IV STA (01:38)
[2017-08-28 01:41] LABS: CK-MB 4.9 ng/mL (0.0-3.6)
[2017-08-28] MEDS: Sodium Chloride 0.45% 1,000 ML IV SCH ×2 (02:14→08:30)
[2017-08-28 02:37] LABS: VENOUS BLOOD GAS BASE EXCESS 2.2 mmol/L (0.0-2.0); VENOUS BLOOD GAS PO2 25 mm/Hg (30-55); VENOUS BLOOD PH 7.39 (7.32-7.43)
[2017-08-28 02:50] LABS: URINE BILIRUBIN NEGATIVE (NEGATIVE); URINE BLOOD SMALL (NEGATIVE); URINE GLUCOSE (UA) NEGATIVE (NEGATIVE); URINE LEUKOCYTE ESTERASE NEGATIVE Leu/uL (NEGATIVE); URINE NITRATE NEGATIVE (NEGATIVE); URINE PROTEIN 100 mg/dL (<30 mg/dL); URINE UROBILINOGEN 0.2 E.U./dL (<1 E.U./dL)
[2017-08-28 02:55] LABS: URINE APPEARANCE SL CLOUDY (CLEAR); URINE COLOR YELLOW (YELLOW)
[2017-08-28 03:07] LABS: URINE EPITHELIAL CELLS 0 - 2 /hpf (0-5); URINE WBC 0 - 2 /hpf (0-6)
[2017-08-28 03:08] LABS: URINE BACTERIA FEW (NEG)
--- NOTE | 2017-08-28 08:54 | RAD ---
HISTORY: medical clearance COMPARISON: Portable chest 08/16/2017. FINDINGS: Interval sternotomy wires are identified as well as unipolar permanent cardiac pacemaker. Degeneration at the left pectoralis region superolaterally with a solitary lead identified extending by subclavian approach terminating in the region of the heart. A midline right PICC is identified inserted terminating in the region of the right axilla. LUNGS: No active pulmonary disease. Interval clearing of a right base noted medially. PLEURA: No significant pleural effusion identified, no pneumothorax apparent. CARDIOVASCULAR: Normal. OSSEOUS STRUCTURES: No significant abnormalities. VISUALIZED UPPER ABDOMEN: Normal. OTHER FINDINGS: None. IMPRESSION: Status post median sternotomy with unipolar permanent cardiac pacemaker now identified in position as described above. Midline right PICC identified as described above as well. No acute infiltrate pleural effusion or pneumothorax are identified, with interval clearing of the right base noted medially.
--- NOTE | 2017-08-28 09:48 | CARD ---
APPROVED REPORT EKG Measurement Heart [id number] P60 [id number] <Conclusion> Electronic ventricular pacemaker: 100 % V. Paced.
[2017-08-28 10:14] LABS: BASO # 0.01 K/mm3 (0.0-2.0); BASO % 0.1 % (0.0-3.0); EOS % 0.2 % (1.5-5.0); GRAN # 16.27 (1.4-6.5); HEMOGLOBIN 15.5 g/dL (14.0-18.0); LYMPH # 1.6 (1.2-3.4); LYMPH % 8.1 % (22.0-35.0); MEAN CELL VOLUME 91.2 fl (80.0-105.0); MEAN CORPUSCULAR HEMOGLOBIN 29.6 pg (25.0-35.0); MEAN CORPUSCULAR HGB CONC 32.5 g/dl (31.0-37.0); MEAN PLATELET VOLUME 13.1 fl (7.0-11.0); MONO # 1.9 (0.1-0.6); MONO % 9.6 % (1.0-6.0); RBC 5.23 10^6/uL (3.5-6.1); RED CELL DISTRIBUTION WIDTH 14.5 % (11.5-14.5); WHITE BLOOD COUNT 19.8 10^3/ul (4.5-11.0)
[2017-08-28 11:28] LABS: ALBUMIN 3.7 g/dL (3.0-4.8); CALCIUM 9.1 mg/dL (8.4-10.5)
[2017-08-28] MEDS: Dextrose 5%/0.45% NS 1,000 ML IV SCH ×2 (15:18→21:33)
[2017-08-28] MEDS ORDERED: Pneumococcal 23-Valent Vaccine IM ONE (18:30)
[2017-08-28] MEDS ORDERED: Influenza Vaccine 60 mcg/0.5 mL SYR (4YR UP) IM ONE (18:30)
--- NOTE | 2017-08-28 20:46 | HP ---
DATE OF EXAM: HISTORY OF PRESENT ILLNESS: This is a 76-year-old male, who was recently discharged from [facility] after having a pacemaker for third degree heart block. Patient also had a small thalamic bleed. Patient has history of COPD, CAD. He was transferred to care. While there, patient had poor appetite, poor oral intake. A recent lab found him to be in acute renal failure with a creatinine of 3.9 and BUN of over 100 and then elevated sodium. Patient was transferred back to the ER at [facility]. He is in a semi-comatose state, possibly uremic coma with some myoclonic twitching. He is on pacemaker rhythm. His chest is clear. Extremities are without cyanosis, clubbing, or edema. He does have some bruises on the hands and upper extremities. He is minimally arousable. He is being hydrated. Case was discussed with the son as far as possible dialysis because of his advanced age and medical comorbidity situation. This will be discussed with the family as far as having this patient a DNR or continue with possible dialysis and Dr. Brock is on consultation. Plan is to repeat labs. Continue to hydrate the patient. Patient also was admitted with a white count of 22,500. Patient's family denies any recent history of diarrhea. He had been on antibiotics for a postoperative prophylaxis for his pacemaker. At this point, he has a BUN of 130, creatinine of 4.6, potassium of 4.2, sodium of 135. Hemoglobin and hematocrit are elevated at 17.6 and 52.8, white count was 23,500. Temperature, patient is afebrile. Stool for C. difficile to be obtained. Hydrations continued. Patient will be monitored carefully over the next 12 hours and we will discuss with Dr. Brock possible dialysis if agreeable to family. Ted Jacob MD
[2017-08-28] MEDS ORDERED: Meropenem 500 MG in Sodium Chloride 0.9% 50 ML IVPB SCH (22:00)
--- NOTE | 2017-08-29 00:24 | CON ---
DATE: 08/28/2017 REASON FOR CONSULTATION: Severe hypernatremia, acute kidney injury, dehydration, leukocytosis. HISTORY OF PRESENTING ILLNESS: A 76-year-old male, previously known to me from recent admission to the hospital when he was admitted and found to have complete heart block, the patient had a pacemaker placed, he had acute kidney injury during that admission. He was sent to rehab. Brought back because of abnormal labs. Decreased p.o. intake. There is no information that the patient was having any nausea, vomiting or diarrhea. Currently, the patient is seen in the emergency room. He is awake, lethargic, appears very cachectic. His sodium was found to be 155, BUN of 132, creatinine of 4.6. Also, his WBC count was found to be 19.8. PAST MEDICAL AND SURGICAL HISTORY: Parkinson's disease, dementia, hypertension, complete heart block, permanent pacemaker placement, multiple CVAs, left-sided paresis, hypertension. FAMILY HISTORY: Noncontributory. SOCIAL HISTORY: Active smoking, no alcohol use, no IV drug abuse. ALLERGIES: PINEAPPLE. MEDICATIONS: [facility] med list shows amlodipine 2.5 mg, Pepcid 20, Depakote 500 b.i.d., Keflex, carbidopa, aspirin. REVIEW OF SYSTEMS: Limited since the patient is unable to cooperate. PHYSICAL EXAMINATION: GENERAL: Elderly male, thinly build, cachectic-appearing, lying in bed. VITAL SIGNS: Blood pressure 145/97, heart rate 62, respiratory rate 18, temperature 97.9. HEENT: Normocephalic, atraumatic. NECK: Supple, no JVD. LUNGS: Bilateral equal air entry, bilateral equal expansion, no rales, permanent pacemaker over the left side of the chest with ecchymosis of the skin. CARDIAC: S1 and S2, regular rate and rhythm, no murmur, no rub. ABDOMEN: Soft, scaphoid, nontender, bowel sounds present. EXTREMITIES: No lower extremity edema. LABORATORY DATA: WBC is 19.8, hemoglobin 15.5, hematocrit 47.7, platelets 119. Sodium 155, potassium 4.2, chloride 114, CO2 of 25, BUN 132, creatinine 3.8, glucose 141, calcium 9.1, total bili 0.9, AST 77, ALT 31, albumin 3.7. Urinalysis: Yellow, cloudy, pH 6.0, specific gravity 1.025, protein 100, blood small, leukocyte esterase negative. CURRENT MEDICATIONS: Half-normal saline at 150, Rocephin 1 g given. ASSESSMENT: 1. Acute kidney injury, largely prerenal azotemia, suspect. 2. Hypernatremia, dehydration. 3. Leukocytosis, etiology unclear at this time. 4. History of hypertension. 5. History of dementia. 6. Parkinson's disease. 7. History of complete heart block, recent pacemaker placement. PLAN: 1. Panculture. 2. Agree with empiric antibiotics. 3. Hypotonic fluids, change to D5 half-normal saline at 150. 4. Monitor urine output closely. 5. Expect renal function to revert to baseline, creatinine was 1.0 on 08/20/2017. Thank you for the courtesy of this consultation. We will follow this patient closely with you. Rox Luque MD
[2017-08-29] MEDS: Dextrose 5%/0.45% NS 1,000 ML IV SCH ×2 (04:52→08:45)
--- NOTE | 2017-08-29 05:36 | CON ---
DATE: 08/28/2017 The patient is seen earlier this morning in the emergency room. CHIEF COMPLAINT: Weakness for several days and it is written in the emergency room chart that the patient has labs for chief complaint. HISTORY OF PRESENT ILLNESS: This is a 76-year-old male, who was seen earlier this morning in the emergency room with past medical history of congestive heart failure, hypertension, hyperlipidemia,coronary artery disease, Parkinson disease, brought to the emergency room from the snf because he had labs and the patient is non-communicative and because of dementia. According to the emergency room chart, the patient also has COPD, history of gallstones, depression and anxiety, history of coronary artery bypass graft and cholecystectomy and cardiac cath, was admitted and found to have leukocytosis and Infectious Disease consultation requested. REVIEW OF SYSTEMS: Reviewed. The patient had no fevers documented and there is mild shortness of breath reported and there has been no abdominal pain, diarrhea and mild cough reported. No dysuria or frequency. Again, the patient is a poor historian. PAST MEDICAL HISTORY: Significant for coronary artery disease, congestive heart failure, hypertension, hyperlipidemia, chronic obstructive lung disease, dementia, gallstones and Parkinson's, depression and anxiety. PAST SURGICAL HISTORY: Significant for coronary bypass graft, cholecystectomy, and cardiac catheterization. ALLERGIES: THE PATIENT IS ALLERGIC TO PINEAPPLE. MEDICATIONS AT HOME: At the snf included amlodipine, famotidine and carbidopa/levodopa, aspirin. PHYSICAL EXAMINATION: VITAL SIGNS: The patient's temperature is 97, blood pressure is 140/90, respiratory rate of 18, heart rate of 64. HEENT: Unremarkable. NECK: Supple. LUNGS: Have decreased breath sounds. HEART: Normal S1 and S2. ABDOMEN: Soft and nontender. No rebound or guarding. LABORATORY DATA: Reveals a white count of 23,500, hemoglobin of 17, platelets of 120. Coagulation is noted and chemistries reveal a BUN of 130, creatinine of 0.6, LDH is 965, CK is 613. Urinalysis is 0 to 2 wbc's. The patient had a chest x-ray, which reveals the patient to have no active disease and the patient also had an EKG, which revealed 486 QTc and ventricular pacemaker 100% ventricular paced. ASSESSMENT AND PLAN: This is a 76-year-old male, snf patient, with history of coronary artery disease, dementia, hypertension, hyperlipidemia, Parkinson's, gallstones, chronic obstructive lung disease, anxiety, depression, admitted with diagnosis of dehydration and the patient was found to have leukocytosis of 23,000 with negative urinalysis, negative chest x-ray and the patient was found to have a creatinine of 4.6, the creatinine has changed from last week which was 1.0 to 4.6 with acute kidney injury on this admission and leukocytosis. The patient does have a pacemaker and there is BUN of 130, LDH of 965 and source of the leukocytosis is not entirely clear. Blood cultures have been ordered and urine cultures have been ordered and I will order a CAT scan of the abdomen and pelvis to find the source of the leukocytosis. Because of the renal function, we will order only p.o. contrast. We will order also meropenem adjusted for renal disease of 500 mg IV q.12 and we will make further recommendation once cultures and imaging . This patient has leukocytosis of 23,000, acute kidney injury. We will check on the CT of the abdomen and pelvis and pancultures, blood and urine cultures and negative chest x-ray, negative urinalysis and we will make further recommendations. Overall prognosis poor. Tunde Buitrago MD
[2017-08-29] MEDS ORDERED: Barium Sulfate Susp 2.1% w/v, 2.0% w/w 450 mL Bottle PO ONE (06:37)
[2017-08-29 06:53] LABS: ALBUMIN 2.7 g/dL (3.0-4.8); CALCIUM 8.2 mg/dL (8.4-10.5)
[2017-08-29 07:12] LABS: BASO # 0.01 K/mm3 (0.0-2.0); BASO % 0.1 % (0.0-3.0); EOS # 0.2 (0.0-0.7); EOS % 1.6 % (1.5-5.0); GRAN # 11.11 (1.4-6.5); LYMPH # 1.2 (1.2-3.4); LYMPH % 8.5 % (22.0-35.0); MEAN CELL VOLUME 91.8 fl (80.0-105.0); MEAN CORPUSCULAR HEMOGLOBIN 28.7 pg (25.0-35.0); MEAN CORPUSCULAR HGB CONC 31.3 g/dl (31.0-37.0); MONO # 1.1 (0.1-0.6); MONO % 7.8 % (1.0-6.0); RBC 4.49 10^6/uL (3.5-6.1); RED CELL DISTRIBUTION WIDTH 14.3 % (11.5-14.5); WHITE BLOOD COUNT 13.5 10^3/ul (4.5-11.0)
[2017-08-29 07:20] LABS: HEMOGLOBIN 12.9 g/dL (14.0-18.0)
[2017-08-29] MEDS: Meropenem 500 MG in Sodium Chloride 0.9% 100 ML IVPB SCH ×2 (09:48→21:28)
--- NOTE | 2017-08-29 10:11 | PN ---
DATE: SUBJECTIVE: A 76-year-old white male, transferred back from [facility]. The patient has a recent history of a third-degree heart block with a thalamic small bleed. The patient came back severely dehydrated and hypernatremic, in acute renal failure. The patient was hydrated. His BUN has dropped from 140 down to 100. Creatinine has dropped from 3.8 to 2.2. His sodium is still elevated at 154. Potassium is 3.2. He did have a 25,000 white count on admission, he is down to 13,500. Blood sugar is 257. The patient is more awake and alert, tolerating diet. PHYSICAL EXAMINATION: VITAL SIGNS: Stable. The patient is afebrile today. GENERAL: He denies any diarrhea. The patient is thin, weakened. He just had some dementia and history of Parkinson's disease. CHEST: Clear to auscultation. HEART: Examination reveals sinus rhythm, but pacemaker rhythm. EXTREMITIES: Without cyanosis, clubbing or edema. IMPRESSION: Acute renal failure, hypernatremia, dehydration, leukocytosis, recent history of cerebrovascular accident and pacemaker for heart block. Ted Jacob MD
--- NOTE | 2017-08-29 11:47 | CT ---
PROCEDURE: CT Abdomen and Pelvis with contrast HISTORY: wbc 23k COMPARISON: No prior abdomen and pelvis CT examination available for comparison TECHNIQUE: Helical CT of the abdomen and pelvis was performed following oral contrast administration. Intravenous contrast was not administered as per referring physician request. Contrast dose: None Radiation dose: Total exam DLP = 250.50 mGy-cm. This CT exam was performed using one or more of the following dose reduction techniques: Automated exposure control, adjustment of the mA and/or kV according to patient size, and/or use of iterative reconstruction technique. FINDINGS: LOWER THORAX: Mild cardiomegaly is noted with pacemaker leads identified at the right heart. No pleural or pericardial effusion identified. LIVER: Unremarkable. No gross lesion or ductal dilatation. GALLBLADDER AND BILE DUCTS: Prior cholecystectomy evident. PANCREAS: Unremarkable. No gross lesion or ductal dilatation. SPLEEN: Unremarkable. ADRENALS: Unremarkable. No mass. KIDNEYS AND URETERS: A 6.5 mm intrarenal calculus identified at the lower pole left kidney with a similar calcification at the right renal hilum. The right-sided calcification may represent a vascular calcification on intrarenal calculus is not excluded at the right. No definite hydronephrosis bilaterally. Trace perinephric streaky changes are nonspecific. VASCULATURE: A fusiform aneurysm of the infrarenal abdominal aorta is identified measuring 5.2 x 5.2 x 9.0 cm (transverse by anteroposterior by superoinferior dimensions). No periaortic reaction related. BOWEL: There is no bowel obstruction appreciated grossly. Retained fecal material obscures the large bowel somewhat. The distal sigmoid colon is collapsed with a wall thickness difficult to evaluate here. Wall thickness is otherwise unremarkable. Occasional left colonic diverticula are appreciated. APPENDIX: Normal appendix. PERITONEUM: Unremarkable. No free fluid. No free air. LYMPH NODES: Unremarkable. No enlarged lymph nodes. BLADDER: Urinary bladder is partially decompressed by Patel catheter the wall the urinary bladder appears somewhat thickened and an element of cystitis is difficult to exclude. Trace gas seen within the lumen of the bladder status post Patel deployment. REPRODUCTIVE: Prostate gland is enlarged. BONES: No acute fracture. OTHER FINDINGS: None. IMPRESSION: 1. No bowel obstruction, mesenteric edema or free intraperitoneal gas identified. The lack of intravenous contrast limits interpretation. 2. 6.5 mm nonobstructing, intrarenal calculus lower pole left kidney. Likely vascular calcification at the right renal hilar region. Bilateral streaky perinephric changes are mild, nonspecific. 3. Thickening of the urinary bladder is appreciated but nonspecific with a Patel catheter present, partially decompressing the bladder. An element of cystitis is difficult to completely exclude. 4. Prior cholecystectomy. 5. Infrequent left colonic diverticular. A collapsed segment of distal sigmoid is appreciated limiting the evaluation the mural thickness. No pericolic reactive changes seen throughout. 6. A larger infrarenal abdominal aortic aneurysm is 5.2 cm greatest transverse dimension as per above. Lack of intravenous contrast limits its evaluation.
--- NOTE | 2017-08-29 19:08 | PN ---
DATE: 08/29/2017 SUBJECTIVE: Patient is seen lying in bed. He is awake, he is alert, he is still lethargic and confused. PHYSICAL EXAMINATION: GENERAL: A thinly-built, elderly male lying in bed. VITAL SIGNS: Blood pressure 158/93, heart rate 61, respiratory rate 18, temperature 98.3. HEENT: Normocephalic, atraumatic, positive pallor. NECK: Supple, no JVD. LUNGS: Bilateral equal air entry, no rales. CARDIAC: S1, S2. Regular rate and rhythm. No murmur, no rub. ABDOMEN: Soft, nontender, nondistended, bowel sounds present. EXTREMITIES: No lower extremity edema. INTAKE AND OUTPUT: 2090/3375. LABORATORY DATA: WBC 13.5, hemoglobin 12.9, hematocrit 41, platelets 94. Sodium 154, potassium 3.2, chloride 117, CO2 of 26, BUN 100, creatinine 2.2, glucose 257, calcium 8.2. AST 55, ALT 32, albumin 2.7, corrected calcium is 9.0. CT of the abdomen and pelvis, no bowel obstruction, nonobstructing calculus in the left lower pole, infrarenal abdominal aortic aneurysm, 5.2 cm. CURRENT MEDICATIONS: Meropenem 500 q.12, D5 half-normal saline at 150. ASSESSMENT: 1. Acute kidney injury, largely prerenal azotemia. 2. Severe hypernatremia, also secondary to dehydration. 3. Hypokalemia. 4. Hypertension. 5. Parkinson's. 6. Dementia. 7. Recent complete heart block, syncope, placement of pacemaker. PLAN: 1. Change IV fluids to D5W with 10 mEq of KCL at 100. 2. Continue empiric antibiotics. 3. Followup cultures. 4. Restart amlodipine 2.5 mg daily. Rox Luque MD
--- NOTE | 2017-08-30 03:45 | PN ---
DATE: SUBJECTIVE: The patient was seen earlier this morning, in 378 bed 2. No fevers, no chills. PHYSICAL EXAMINATION: VITAL SIGNS: Temperature of 98, blood pressure is 150/90, respiratory rate of 18. HEENT: Unremarkable. NECK: Supple. LUNGS: Have decreased breath sounds. HEART: Normal S1 and S2. ABDOMEN: Soft, nontender. LABORATORY DATA: Reveals a white count of 13,500, hemoglobin of 12, and BUN of 100, creatinine of 2.2. Urinalysis is noted. Microbiology reveals the blood cultures are no growth. Urine cultures are no growth. CAT scan of the abdomen and pelvis reveals no bowel obstruction, mesenteric edema or free intraperitoneal gas, and Dr. Jacob's note is reviewed. ASSESSMENT AND PLAN: This is a 76-year-old male, [facility] patient with a history of coronary artery disease, dementia, hypertension, hyperlipidemia, Parkinson's disease, gallstones, chronic obstructive lung disease, anxiety, depression, admitted for dehydration, found to have leukocytosis and negative urinalysis, negative chest x-ray and acute kidney injury with creatinine of 4.6. Currently on meropenem. Negative blood cultures, negative urine cultures, unremarkable CAT scan of the abdomen, and negative chest x-ray. On meropenem day #2, with improvement in white count from 23,000 down to 13,000. Dr. Jacob's progress note is reviewed. The patient does have a pacemaker, we will check on final blood cultures, continue meropenem, and follow WBC. Renal function is improved, now creatinine is down to 2.2. We will follow with you. Tunde Buitrago MD
[2017-08-30 09:31] LABS: BASO # 0.01 K/mm3 (0.0-2.0); BASO % 0.1 % (0.0-3.0); EOS # 0.4 (0.0-0.7); EOS % 2.9 % (1.5-5.0); GRAN # 11.76 (1.4-6.5); GRAN % 78.1 % (50.0-68.0); HEMOGLOBIN 13.4 g/dL (14.0-18.0); LYMPH # 1.4 (1.2-3.4); LYMPH % 9.5 % (22.0-35.0); MEAN CELL VOLUME 89.6 fl (80.0-105.0); MEAN CORPUSCULAR HEMOGLOBIN 29.5 pg (25.0-35.0); MEAN CORPUSCULAR HGB CONC 32.9 g/dl (31.0-37.0); MEAN PLATELET VOLUME 12.6 fl (7.0-11.0); MONO # 1.4 (0.1-0.6); MONO % 9.4 % (1.0-6.0); RBC 4.54 10^6/uL (3.5-6.1); RED CELL DISTRIBUTION WIDTH 13.7 % (11.5-14.5); WHITE BLOOD COUNT 15.1 10^3/ul (4.5-11.0)
[2017-08-30 09:52] LABS: ALBUMIN 2.8 g/dL (3.0-4.8); ALT/SGPT 71 U/L (7-56); AST/SGOT 102 U/L (17-59); BLOOD UREA NITROGEN 49 mg/dL (7-21); CALCIUM 8.2 mg/dL (8.4-10.5); GFR AFRICAN-AMERICAN > 60; GFR NON-AFRICAN AMERICAN 54
[2017-08-30] MEDS: Meropenem 500 MG in Sodium Chloride 0.9% 100 ML IVPB SCH (09:57)
--- NOTE | 2017-08-30 10:08 | PN ---
DATE: SUBJECTIVE: The patient, Juan Ramon Wright, more awake and alert 76-year-old white male admitted to the hospital with acute renal failure. The patient is currently still hypernatremic with a sodium of 154. BUN and creatinine of 100/2.2. Blood pressure 141/81. The patient is afebrile. Vital signs are stable. We are awaiting for a stool for C. diff. White count was 25,000 on admission, it is 13,500. We will repeat labs. Continue hydration and treating for possible sepsis. Ted Jacob MD
--- NOTE | 2017-08-30 17:01 | PN ---
DATE: 08/30/2017 SUBJECTIVE: The patient is seen lying in bed. He is awake. He is alert. Family member is at bedside. He does not appear to be in any kind of distress. PHYSICAL EXAMINATION: VITAL SIGNS: Blood pressure 153/80, heart rate 62, respiratory rate 18, temperature 98. HEENT: Normocephalic, atraumatic. NECK: Supple, no JVD. LUNGS: Bilateral equal air entry, no rales. CARDIAC: S1 and S2, regular rate and rhythm, no murmur, no rub. ABDOMEN: Obese, distended, soft, nontender, bowel sounds present. EXTREMITIES: No lower extremity edema. INTAKE AND OUTPUT: Intake not charted, output 1125. LABORATORY DATA: WBC 15, hemoglobin 13, hematocrit 40, platelets 95. Sodium 146, potassium 3.7, chloride 110, CO2 of 28, BUN 49, creatinine 1.3, glucose 110, calcium 8.2, AST 102, ALT 71, albumin 2.8. CURRENT MEDICATIONS: Meropenem 500 q. 12, amlodipine 2.5, D5W with 10 mEq of KCL at 100. P.o. vancomycin 250 q. 6. ASSESSMENT: 1. Acute kidney injury, resolving. Creatinine has come down from 4.6 to 0.3. 2. Hypernatremia/dehydration, resolving. Sodium is 146 today. 3. Hypokalemia, improved. Potassium is up from 3.2 to 3.7. 4. Sepsis, ? source. Continue antibiotics. 5. Parkinson's disease. PLAN: 1. Continue IV fluids with potassium for now. 2. Continue antibiotics as per ID recommendations. 3. Restart Parkinson's meds? Rox Luque MD
[2017-08-30] MEDS: Vancomycin 25 MG/ML PO SCH ×2 (18:37→23:44)
--- NOTE | 2017-08-30 21:50 | PN ---
DATE: 08/30/2017 SUBJECTIVE: Patient is seen earlier today in 378. No fevers and no chills. No nausea or vomiting. OBJECTIVE: VITAL SIGNS: Temperature is 98, blood pressure is 120/70, respiratory rate of 16. HEENT: Unremarkable. NECK: Supple. LUNGS: Have decreased breath sounds. CARDIAC: Normal S1, S2. ABDOMEN: Soft, nontender. LABORATORY EXAMINATION: Reveals the patient has a white count of 15,000, hemoglobin of 13, and 95 platelets. BUN of 49, creatinine is 1.3. Urinalysis is noted. Microbiology revealed the patient's C. diff antigen is positive. Toxin is negative. Dr. Luque's progress note is reviewed and Dr. Jacob's progress note from today is reviewed. Review of microbiology reveals the blood and urine cultures negative, and again the stool C. diff is positive. REVIEW OF ORDERS: Reveals the patient is on p.o. vancomycin. Patient had a CAT scan of the abdomen and pelvis, which is reported to be unremarkable. ASSESSMENT AND PLAN: This is a 76-year-old male, correction patient with history of coronary artery disease, dementia, hypertension, hyperlipidemia, Parkinson's disease, gallstone, chronic obstructive lung disease, anxiety, depression, found to have leukocytosis, negative urinalysis, negative chest x-ray with acute kidney injury, which appears to be improving, now with pseudomembranous colitis. We will discontinue the meropenem and continue vancomycin 250 mg q.6 hours, today is day number 2 of 14 days. Follow the WBC scan, WBC count. Patient did have a white count, which was normal on 08/20/2017, only approximately a week ago of 9.6. Tunde Buitrago MD
[2017-08-31] MEDS: Vancomycin 25 MG/ML PO SCH ×3 (06:42→17:37)
--- NOTE | 2017-08-31 11:18 | PN ---
DATE: 08/31/2017 SUBJECTIVE: The patient is seen lying in bed. He is awake. He is alert. PHYSICAL EXAMINATION GENERAL: Thinly built elderly male lying in bed. VITAL SIGNS: Blood pressure 154/96, heart rate 59, respiratory rate 20, temperature 98.9, T-max is 99.5. HEENT: Normocephalic, atraumatic. Positive pallor. NECK: Supple. No JVD. LUNGS: Bilateral equal entry, bilateral equal expansion. CARDIAC: S1, S2. Regular rate and rhythm. No murmurs, no rubs. ABDOMEN: Soft, nondistended, nontender. Bowel sounds present. EXTREMITIES: No lower extremity edema. INTAKE AND OUTPUT: 1320/1315. LABORATORY DATA: No new labs. CURRENT MEDICATIONS: Amlodipine 2.5 mg, D5W at 10 mEq, KCl at 100 mEq, vancomycin 250 mg p.o. q. 6h., meropenem discontinued. ASSESSMENT AND PLAN 1. Hypernatremia, severe dehydration. 2. Acute kidney injury, largely prerenal azotemia. 3. Hypokalemia. 4. Parkinson's disease/dementia. 5. Complete heart block, status post permanent pacemaker. PLAN 1. Continue IV fluids. 2. Check daily labs, 3. Continue low-dose amlodipine. 4. ____ (?) re-culture Rox Luque MD
[2017-08-31 11:48] LABS: BASO # 0.01 K/mm3 (0.0-2.0); BASO % 0.1 % (0.0-3.0); EOS # 0.3 (0.0-0.7); EOS % 1.5 % (1.5-5.0); GRAN # 15.3 (1.4-6.5); GRAN % 83.9 % (50.0-68.0); HEMOGLOBIN 14.7 g/dL (14.0-18.0); LYMPH # 1.4 (1.2-3.4); LYMPH % 7.9 % (22.0-35.0); MEAN CELL VOLUME 86.3 fl (80.0-105.0); MEAN CORPUSCULAR HEMOGLOBIN 29.6 pg (25.0-35.0); MEAN CORPUSCULAR HGB CONC 34.3 g/dl (31.0-37.0); MEAN PLATELET VOLUME 12.9 fl (7.0-11.0); MONO # 1.2 (0.1-0.6); MONO % 6.6 % (1.0-6.0); RBC 4.97 10^6/uL (3.5-6.1); RED CELL DISTRIBUTION WIDTH 13.4 % (11.5-14.5); WHITE BLOOD COUNT 18.2 10^3/ul (4.5-11.0)
[2017-08-31 12:18] LABS: BLOOD UREA NITROGEN 26 mg/dL (7-21); CALCIUM 8.2 mg/dL (8.4-10.5); GFR AFRICAN-AMERICAN > 60; GFR NON-AFRICAN AMERICAN > 60; MAGNESIUM 1.7 mg/dL (1.7-2.2)
--- NOTE | 2017-08-31 12:19 | PN ---
DATE: SUBJECTIVE: A 76-year-old white male admitted to the hospital with severe dehydration, hypernatremia, and acute renal insufficiency. The patient was found to have C. diff positive. He has a recent history of third-degree heart block, pacemaker, thalamic infarct. Plan is to continue hydration, treatment of C. diff enterocolitis with hydration and close monitoring of his renal function, which has improved dramatically down to 49 and 1.3. Ted Jacob MD
[2017-09-01] MEDS: Vancomycin 25 MG/ML PO SCH ×4 (01:16→17:33)
--- NOTE | 2017-09-01 02:01 | PN ---
DATE: 08/31/2017 SUBJECTIVE: The patient is seen bed, in no acute distress, nontoxic. PHYSICAL EXAMINATION: VITAL SIGNS: Temperature is 97, blood pressure is 159/89, respiratory rate of 18, heart rate of 60. HEENT: Unremarkable. NECK: Supple. LUNGS: Decreased breath sounds. HEART: Normal S1 and S2. ABDOMEN: Soft, nontender. LABORATORY DATA: Reveals the patient's white count is 18,200, hemoglobin is 14, platelets of 81. BUN of 26, creatinine of 1.1. Urinalysis is noted. Blood cultures are negative. Urine cultures are negative. C. diff antigen is positive. Dr. Jacob's note was reviewed. ASSESSMENT AND PLAN: This is [id number] male, [facility] and he is found to have pseudomembranous colitis with leukocytosis, severe dehydration, acute kidney injury, on p.o. vancomycin day #3 of 14 days. The patient's white count is up at 18,200 today. Renal function is resolved, from creatinine 4.6 is down to 1.1. Review of orders reveal the patient to be on p.o. vancomycin, day #3 of 14 days. We will follow closely with you. Tunde Buitrago MD
--- NOTE | 2017-09-01 11:47 | PN ---
DATE: SUBJECTIVE: Patient is a 76-year-old white male with dehydration, acute renal insufficiency, found to have C. diff positive. Patient is afebrile. [place] [address]. He has a BUN and creatinine of 27 and 1.1 today, down from as high as 130 and 4.7, markedly improved on hydration. Vital signs are stable. Patient is to continue vancomycin. He also has a recent history of acute third degree heart block status post pacemaker status post thalamic bleed. Ted Jacob MD
[2017-09-01 15:30] VITALS: RESP 18
--- NOTE | 2017-09-01 22:15 | PN ---
DATE: 09/01/2017 SUBJECTIVE: The patient is in bed in no acute distress, nontoxic. PHYSICAL EXAMINATION: VITAL SIGNS: Temperature is 98, blood pressure is 160/80, respiratory rate of 18, heart rate of 60. HEENT: Unremarkable. NECK: Supple. LUNGS: Decreased breath sounds. HEART: Normal S1, S2. ABDOMEN: Soft, nontender. LABORATORY EXAMINATION: Reveals a stool for C. diff antigen is positive. The blood cultures are negative and review of orders reveals the patient is on p.o. vancomycin and Dr. Jacob's note from today is reviewed. ASSESSMENT AND PLAN: A 76-year-old male was seen earlier today in [facility], bed 2, [facility] patient, was found to have Pseudomembranous colitis with leukocytosis, severe dehydration, acute kidney injury, today is day #4 of 14 days of vancomycin, and we will continue to follow the WBC count and his renal function. The patient had recent history of acute third-degree post heart block status post pacemaker, status post thalamic bleed. The patient with coronary artery disease, congestive heart failure, hypertension, hyperlipidemia, chronic obstructive lung disease, dementia, gallstones, Parkinson's, depression and anxiety. We will follow the WBCs, last one at 18,000 Tunde Buitrago MD cc:
[2017-09-02] MEDS: Vancomycin 25 MG/ML PO SCH ×3 (00:07→12:44)
[2017-09-02 07:32] VITALS: O2SAT 97
[2017-09-02 10:33] LABS: BASO # 0.01 K/mm3 (0.0-2.0); BASO % 0.1 % (0.0-3.0); EOS # 0.3 (0.0-0.7); EOS % 2.2 % (1.5-5.0); GRAN # 11.33 (1.4-6.5); GRAN % 81.3 % (50.0-68.0); HEMOGLOBIN 13.5 g/dL (14.0-18.0); LYMPH # 1.6 (1.2-3.4); LYMPH % 11.6 % (22.0-35.0); MEAN CELL VOLUME 84.6 fl (80.0-105.0); MEAN CORPUSCULAR HEMOGLOBIN 29.2 pg (25.0-35.0); MEAN CORPUSCULAR HGB CONC 34.5 g/dl (31.0-37.0); MEAN PLATELET VOLUME 11.8 fl (7.0-11.0); MONO # 0.7 (0.1-0.6); MONO % 4.8 % (1.0-6.0); RBC 4.62 10^6/uL (3.5-6.1); RED CELL DISTRIBUTION WIDTH 13.3 % (11.5-14.5); WHITE BLOOD COUNT 13.9 10^3/ul (4.5-11.0)
[2017-09-02 10:44] LABS: ALB/GLOB RATIO 1.1 (1.1-1.8); ALBUMIN 2.8 g/dL (3.0-4.8); ALT/SGPT 76 U/L (7-56); AST/SGOT 56 U/L (17-59); BLOOD UREA NITROGEN 22 mg/dL (7-21); CALCIUM 8.5 mg/dL (8.4-10.5); GFR AFRICAN-AMERICAN > 60; GFR NON-AFRICAN AMERICAN > 60; MAGNESIUM 1.6 mg/dL (1.7-2.2)
[2017-09-02] MEDS ORDERED: Magnesium Oxide 400 mg Tab UD PO SCH (11:00)
[2017-09-02] MEDS ORDERED: Potassium Chloride 20 mEq ER Tab PO SCH (11:00)
--- NOTE | 2017-09-02 11:56 | PN ---
DATE: SUBJECTIVE: This is a 76-year-old white male admitted to the hospital with acute renal failure and dehydration. The patient has been rehydrated and was found to have C. diff positive. White count initially had been 25,000, which reduced. BUN and creatinine is down to 26 and 1.1 from 130 and 4.6. Patient is still lethargic and disoriented. He has history of dementia, history of Parkinson, history of status post third-degree heart block with pacemaker and thalamic infarct. PLAN: To continue p.o. vancomycin. Repeat his labs and transfer back to rehab [facility]. Ted Jacob MD
[2017-09-02 12:56] VITALS: BP 113/78; PULSE 78; TEMP 99.7
--- NOTE | 2017-09-02 15:25 | CP.PCM.PN ---
Subjective - Date & Time of Evaluation Date of Evaluation: 09/02/17 Time of Evaluation: 11:30 - Subjective Subjective: Diarrhea is improving, no fevers. Objective - Vital Signs/Intake and Output Vital Signs (last 24 hours): Temp Pulse Resp BP Pulse Ox 97.8 F 68 18 137/87 97 09/02/17 06:00 09/02/17 06:00 09/02/17 06:00 09/01/17 22:13 09/02/17 06:00 Intake and Output: 09/02/17 09/02/17 06:59 18:59 Intake Total 240 Output Total 701 Balance -461 - Medications Medications: Current Medications Amlodipine Besylate (Norvasc) 2.5 mg PO DAILY [facility] Last Admin: 09/01/17 10:08 Dose: 2.5 mg Magnesium Oxide (Mag-Ox) 400 mg PO DAILY [facility] Potassium Chloride (K-Dur 20 Meq Er Tab) 20 meq PO BRK YARON Vancomycin HCl (Vancocin 25 Mg/Ml (Oral Use)) 250 mg PO Q6 [facility] PRN Reason: Protocol Last Admin: 09/02/17 06:35 Dose: 250 mg - Labs Labs: 09/02/17 10:20 09/02/17 10:20 PT 20.7 SECONDS (9.4-12.5) H 08/27/17 23:29 INR 1.79 (0.93-1.08) H 08/27/17 23:29 APTT 28.6 Seconds (25.1-36.5) 08/27/17 23:29 - Constitutional Appears: Chronically Ill - Head Exam Head Exam: NORMAL INSPECTION - Respiratory Exam Respiratory Exam: Decreased Breath Sounds - Cardiovascular Exam Cardiovascular Exam: +S1, +S2 - GI/Abdominal Exam GI & Abdominal Exam: Soft. absent: Tenderness Assessment and Plan - Assessment and Plan (Free Text) Plan: Assessment C. diff. colitis S/P thalamic bleed CAD COPD Parkinson's disease history of significant smoking Plan continuePO Vancomycin day 5 to complete 14 days of therapy
--- NOTE | 2017-09-02 22:15 | PN ---
DATE: SUBJECTIVE: The patient is currently seen lying supine in bed, IV fluids have been discontinued. The patient's BUN is down to 26 with a creatinine of 1.1 back to baseline levels. MEDICATIONS: Medication is reviewed. The patient is on Norvasc and oral vancomycin. OBJECTIVE: INTAKE/OUTPUT: Intake is 1800, output is 350 mL. VITAL SIGNS: Blood pressure is 137/87, temperature is 97.8, respiratory rate is 18 with a pulse of 68, oxygen saturation is 97%. HEENT: Shows him to be normocephalic, atraumatic. Conjunctivae are pink. Sclerae are nonicteric. NECK: Supple. No neck vein distention. CHEST: Clear to auscultation and percussion. No rales, no rhonchi or wheezing. CARDIOVASCULAR: Regular rate and rhythm without murmurs, rubs or gallops. ABDOMEN: Soft. Bowel sounds normal. No rebound, no guarding, no masses. : Positive Patel catheter, EXTREMITIES: Show no lower extremity cyanosis, clubbing or edema. LABORATORY DATA AND IMAGING: Labs today, CBC white blood count 13.0, hemoglobin of 13.5, platelet count is 134,000. Chemistries show sodium 141, potassium slightly low at 3.4, chloride 104, CO2 of 29, anion gap is 12, BUN is down to 22 with a creatinine of 1.0, glucose is 123. Calcium is 8.5, magnesium level is borderline low at 1.6. Mild elevation of his ALT. Albumin is low at 2.8. Urine are unremarkable except for 2+ protein in the urine. Microbiology, blood cultures are negative at 5 days. Urine cultures were negative. Stools are positive for C. diff. ASSESSMENT AND PLAN: 1. Status post hypernatremia with acute renal failure in the setting of severe volume depletion. 2. Borderline to mild hypokalemia and hypomagnesemia, these will be supplemented today. 3. History of Parkinson disease and dementia, currently stable. 4. Status post heart block with permanent pacemaker, this appears to be stable. 5. Pseudomembranous colitis, the patient will complete a course of oral vancomycin therapy, diarrhea appears to have improved. 6. Hypertension, continue the patient on calcium channel theodore therapy. 7. Complete heart block status post permanent pacemaker placement. PLAN: 1. Discussed with the patient and the family member. The patient needs to remain well hydrated. This would avoid any further episodes of acute renal failure and hypernatremia. In light of the pseudomembranous colitis, I have encouraged the patient to drink fluids. 2. Continue calcium channel theodore therapy for hypertension. 3. Supplement magnesium and potassium as noted above. 4. Continue to follow labs on a regular basis. 5. The patient's family member states that he will likely return to [facility] for rehab plus discharge from the hospital. Mikal Brock MD
--- NOTE | 2017-09-05 03:57 | DS ---
SUMMARY: A 76-year-old white male, discharged home on 09/02/2017. The patient was admitted from the shelter in acute renal failure and dehydration. He was found to have C. diff positive, 20,000 to 25,000 white count. The patient was aggressively rehydrated, and reversed from a BUN and creatinine of approximately 130 and 4.6 down to 25 and 1.2. The patient eventually started some physical therapy and occupational therapy, and was treated for C. diff enterocolitis, and was transferred back to [facility] for rehabilitation. FINAL DISCHARGE DIAGNOSES: 1. Acute renal failure. 2. Severe dehydration. 3. Pseudomembranous enterocolitis. 4. Recent history of pacemaker for third-degree heart block and a recent thalamic infarct. 5. The patient also has Parkinson's and dementia. Ted Jacob MD
== END 2017-09-02 16:15 | DRG 682 ==
LOC: ED 22:15 → ERH 08-28 04:25 → 3RSO 08-28 14:08 → ERH 08-28 14:10 → 3RSO 08-28 15:42
PROVIDERS: ADMIT Internal Medicine; ATTEND Internal Medicine
DX: N17.9 Acute kidney failure, unspecified (principal); R40.20 Unspecified coma; A04.72 Enterocolitis due to Clostridium difficile, not specified as recurrent; E87.0 Hyperosmolality and hypernatremia; R64 Cachexia; I44.2 Atrioventricular block, complete; I11.0 Hypertensive heart disease with heart failure; I50.9 Heart failure, unspecified; E83.42 Hypomagnesemia; F02.80 Dementia in other diseases classified elsewhere, unspecified severity, without behavioral disturbance, psychotic disturbance, mood disturbance, and anxiety; G20 Parkinson's disease; E86.9 Volume depletion, unspecified; E87.6 Hypokalemia; L40.9 Psoriasis, unspecified; E86.0 Dehydration; J44.9 Chronic obstructive pulmonary disease, unspecified; I25.10 Atherosclerotic heart disease of native coronary artery without angina pectoris; F32.9 Major depressive disorder, single episode, unspecified; H35.30 Unspecified macular degeneration; F41.9 Anxiety disorder, unspecified; Z95.0 Presence of cardiac pacemaker; Z86.73 Personal history of transient ischemic attack (TIA), and cerebral infarction without residual deficits; Z68.23 Body mass index [BMI] 23.0-23.9, adult; Z95.1 Presence of aortocoronary bypass graft

== ENCOUNTER 2017-11-18 17:43 | Inpatient (IN) | payer MEDICARE, BC ==
[2017-11-18 18:15] VITALS: BMI 18.9
--- NOTE | 2017-11-18 18:56 | ED PDOC ---
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 Patient denies any abdominal, back or penile pain. No fever, chills or bodyaches. PMD: Dr. Jacob Past Medical History - Provider Review Nursing Documentation Reviewed: Yes - Infectious Disease Hx of Infectious Diseases: None - Tetanus Immunization Tetanus Immunization: Unknown - Cardiac Hx Cardiac Disorders: Yes - Pulmonary Hx Chronic Obstructive Pulmonary Disease (COPD): Yes - Neurological HX Cerebrovascular Accident: Yes (TIA) - HEENT Hx HEENT Disorder: Yes (uses glasses) Hx Macular Degeneration: Yes - Renal Hx Renal Failure: Yes - Endocrine/Metabolic Hx Endocrine Disorders: No - Hematological/Oncological Hx Blood Disorders: Yes - Integumentary Hx Dermatological Disorder: Yes Hx Psoriasis: Yes Other/Comment: left upper arm bruise, lle healing scabs, right arm bright red skin with mulrtiple dry patches of skin from elbow to wrist, old fading bruises to ble and both knees, bruise to left upper side of knee painful to touch, bottom of both feet red with dry skin, thick long toenails and fingernails, bright red skin to r elbow, left elbow dry patches of skin , red skin and 2 dry red scabs, buttocks slightly reddened, mid chest scar - Musculoskeletal/Rheumatological Hx Unsteady Gait: Yes - Gastrointestinal Hx Gall Bladder Disease: Yes (gallstones) - Genitourinary/Gynecological Hx Genitourinary Disorders: Yes Hx Incontinence: Yes - Psychiatric Hx Psychophysiologic Disorder: Yes Hx Anxiety: Yes Hx Depression: Yes Hx Substance Use: No - Surgical History Hx Cardiac Catheterization: Yes Hx Cholecystectomy: Yes (04/16/14) Hx Open Heart Surgery: Yes - Anesthesia Hx Anesthesia: Yes Hx Anesthesia Reactions: No Hx Malignant Hyperthermia: No Family/Social History - Physician Review Nursing Documentation Reviewed: Yes Family/Social History: No Known Family HX Smoking Status: Unknown If Ever Smoked Hx Alcohol Use: No Hx Substance Use: No Allergies/Home Meds Allergies/Adverse Reactions: Allergies pineapple Allergy (Unknown, Verified 11/18/17 19:07) ITCHING Home Medications: Home Meds Medication Instructions Recorded Confirmed Xanax 0.25 mg PO PRN PRN 01/31/17 11/18/17 Acetaminophen [Tylenol 325mg tab] 325 mg PO Q4 PRN 11/18/17 11/18/17 Albuterol/Ipratropium [Duoneb 3 3 ml PO Q6 PRN 11/18/17 11/18/17 mg/0.5 mg (3 ml) UD] Furosemide [Lasix] 40 mg IVP DAILY 11/18/17 11/18/17 Loperamide [Imodium] 2 mg PO Q6 PRN 11/18/17 11/18/17 Mag Oxide/D3/Turmeric Rt Xt 400 mg PO DAILY 11/18/17 11/18/17 [Magnesium-Vit D3-Turmeric Tab] Magnesium Hydroxide [Milk Of 30 ml PO HS 11/18/17 11/18/17 Magnesia] hydrALAZINE [Apresoline] 10 mg PO DAILY 11/18/17 11/18/17 Review of Systems - Physician Review All systems were reviewed & negative as marked: Yes - Review of Systems Constitutional: absent: Fevers, Night Sweats Cardiovascular: absent: Chest Pain Gastrointestinal: absent: Abdominal Pain, Diarrhea, Nausea, Vomiting Genitourinary Male: Hematuria Musculoskeletal: absent: Back Pain, Neck Pain Physical Exam Vital Signs Reviewed: Yes Vital Signs Temp Pulse Resp BP Pulse Ox 11/18/17 21:45 98.2 F 87 16 155/76 H 99 11/18/17 20:00 74 16 150/77 99 11/18/17 17:44 98.2 F 60 18 160/96 H 100 Temperature: Afebrile Blood Pressure: Hypertensive Pulse: Regular Respiratory Rate: Normal Appearance: Positive for: Well-Appearing Pain Distress: None Mental Status: Positive for: Confused (baseline dementia) - Systems Exam Head: Present: Atraumatic, Normocephalic Pupils: Present: PERRL Extroacular Muscles: Present: EOMI Conjunctiva: Present: Normal Mouth: Present: Moist Mucous Membranes Neck: Present: Normal Range of Motion Respiratory/Chest: Present: Clear to Auscultation, Good Air Exchange. No: Respiratory Distress, Accessory Muscle Use Cardiovascular: Present: Regular Rate and Rhythm, Normal S1, S2. No: Murmurs Abdomen: Present: Other (scaly red rash to upper suprapubic region). No: Tenderness, Distention, Peritoneal Signs Genitourinary Male: No: Penile Discharge, Testicle Tenderness, Penile Swelling, Other (no penile bleeding) Back: Present: Normal Inspection Upper Extremity: Present: Normal Inspection. No: Cyanosis, Edema Lower Extremity: Present: Normal Inspection. No: Edema Neurological: Present: GCS=15, CN II-XII Intact, Speech Normal Skin: Present: Warm, Dry, Normal Color. No: Rashes Psychiatric: Present: Alert, Oriented x 3 Medical Decision Making ED Course and Treatment: 11/18/17 18:44 Impression: 77 year old male with hematuria. Differential Diagnosis included but are not limited to: Acute renal failure vs UTI Plan: -- Urine Culture -- Labs -- Urinalysis -- Reassess and disposition Progress Notes: 11/18/17 22:01 Creatinine level higher compared to previous. Will hydrate patient and consult renal. Skin rash in his genital area is most likely fungal vs contact dermatitis which needs to be addressed on admission. Case discussed with Dr. Jacob's nurse practitioner, who will admit patient under his service. Consult placed with Dr. Luque/Ana Maria who saw patient on last admission. Consult placed with Urology Dr. Contreras as well for hematuria. Patient is comfortable. He and his familly were explained admission. - Lab Interpretations Lab Results: 11/18/17 19:20 11/18/17 19:20 Lab Results 11/18/17 19:20: Sodium 146, Potassium 5.1 H, Chloride 106, Carbon Dioxide 24, Anion Gap 21 H, BUN 71 H, Creatinine 3.5 H, Est GFR ( Amer) 21, Est GFR ( Non-Af Amer) 17, Random Glucose 134 H, Calcium 9.2 11/18/17 19:20: WBC 9.7 D, RBC 3.56, Hgb 10.5 L D, Hct 32.0 L, MCV 89.9 D, MCH 29.5, MCHC 32.8, RDW 14.7 H, Plt Count 172, MPV 11.4 H, Gran % 73.9 H, Lymph % (Auto) 12.6 L, [place] % (Auto) 10.5 H, Eos % (Auto) 2.8, Baso % (Auto) 0.2 , Gran # 7.16 H, Lymph # (Auto) 1.2, [place] # (Auto) 1.0 H, Eos # (Auto) 0.3, Baso # (Auto) 0.02 - Medication Orders Current Medication Orders: Albuterol/Ipratropium (Duoneb 3 Mg/0.5 Mg (3 Ml) Ud) 3 ml INH Q6 PRN PRN Reason: Shortness of Breath Alprazolam (Xanax) 0.25 mg PO PRN PRN PRN Reason: Anxiety Stop: 11/25/17 21:22 Amlodipine Besylate (Norvasc) 2.5 mg PO DAILY YARON Carbidopa/Levodopa (Sinemet) 1 tab PO TID YARON Hydralazine HCl (Apresoline) 10 mg PO DAILY YARON Sodium Chloride (Sodium Chloride 0.9%) 500 mls @ 100 mls/hr IV .Q5H YARON Last Admin: 11/18/17 20:17 Dose: 100 mls/hr eMAR Start Stop Document 11/18/17 20:17 MS (Rec: 11/18/17 20:17 MS [id number]) Intravenous Solution Start Date 11/18/17 Start Time 20:17 Discontinued Medications Sodium Polystyrene Sulfonate (Kayexalate Susp) 15 gm PO STAT STA Stop: 11/18/17 19:54 Last Admin: 11/18/17 21:00 Dose: 15 gm - Scribe Statement The provider has reviewed the documentation as recorded by the Rafif De Guzman Provider Scribe Attestation: All medical record entries made by the Raffi were at my direction and personally dictated by me. I have reviewed the chart and agree that the record accurately reflects my personal performance of the history, physical exam, medical decision making, and the department course for this patient. I have also personally directed, reviewed, and agree with the discharge instructions and disposition. Disposition/Present on Arrival - Present on Arrival Any Indicators Present on Arrival: No History of DVT/PE: No History of Uncontrolled Diabetes: No Urinary Catheter: No History of Decub. Ulcer: No History Surgical Site Infection Following: None - Disposition Have Diagnosis and Disposition been Completed?: Yes Diagnosis: Renal failure, Fungal infection of skin, Hematuria Disposition: HOSPITALIZED Disposition Time: 20:00 Patient Plan: Admission Condition: FAIR
[2017-11-18 19:40] LABS: BASO # 0.02 K/mm3 (0.0-2.0); BASO % 0.2 % (0.0-3.0); EOS # 0.3 (0.0-0.7); EOS % 2.8 % (1.5-5.0); GRAN # 7.16 (1.4-6.5); GRAN % 73.9 % (50.0-68.0); HEMOGLOBIN 10.5 g/dL (14.0-18.0); LYMPH # 1.2 (1.2-3.4); LYMPH % 12.6 % (22.0-35.0); MEAN CELL VOLUME 89.9 fl (80.0-105.0); MEAN CORPUSCULAR HEMOGLOBIN 29.5 pg (25.0-35.0); MEAN CORPUSCULAR HGB CONC 32.8 g/dl (31.0-37.0); MEAN PLATELET VOLUME 11.4 fl (7.0-11.0); MONO % 10.5 % (1.0-6.0); RBC 3.56 10^6/uL (3.5-6.1); RED CELL DISTRIBUTION WIDTH 14.7 % (11.5-14.5); WHITE BLOOD COUNT 9.7 10^3/ul (4.5-11.0)
[2017-11-18 19:47] LABS: CALCIUM 9.2 mg/dL (8.4-10.5)
[2017-11-18] MEDS ORDERED: Sod Polystyrene Sulf 15 gm/60 ml Susp PO STA (19:53)
[2017-11-18] MEDS ORDERED: Sodium Chloride 0.9% 500 ML IV SCH (20:00)
[2017-11-18] MEDS ORDERED: XANAX 0.25 MG PO PRN (21:07)
[2017-11-18] MEDS ORDERED: Albuterol-Ipratrop 3 mg / 0.5 (3 ml) UD INH PRN (21:07)
--- NOTE | 2017-11-19 09:55 | HP ---
HISTORY OF PRESENT ILLNESS: A 77-year-old white male, history of CVA, history of Parkinson's, history of CAD, tobacco abuse. The patient was admitted from custodial after having change in mental status, more confusion, hematuria, feeling foul-smelling urine. The patient was admitted to the hospital. He is afebrile. White count is 9.7. His Patel catheter was pulled out. He was admitted with a BUN and creatinine of 71 and 3.5, a bicarb of 24, blood sugar of 134, potassium of 5.1, hemoglobin of 10.5. The patient was admitted, hydrated, put on antibiotics. The swallowing evaluation is in the process. Ultrasound of the kidneys are ordered. PHYSICAL EXAMINATION: GENERAL: Shows a well-developed, thin white male with dementia, confusion, disorientation, resting tremor. CHEST: Shows decreased breath sounds bilaterally. HEART: Reveals sinus rhythm. ABDOMEN: Benign. EXTREMITIES: Without cyanosis, clubbing or edema. IMPRESSION: A 77-year-old white male with dementia, Parkinson's disease, chronic obstructive pulmonary disease, coronary artery disease and presenting with renal insufficiency, possible urinary tract infection, possible obstructive uropathy. Ted Jacob MD
[2017-11-19] MEDS ORDERED: Tmp-Smz 800 mg-160 mg DS Tab PO SCH (10:00)
--- NOTE | 2017-11-19 11:29 | US ---
PROCEDURE: Ultrasound of the Kidneys HISTORY: cri COMPARISON: None available. TECHNIQUE: Sonogram of the kidneys. FINDINGS: RIGHT KIDNEY: Measures: 10.15 x 5.62 x 5.09 cm. Normal in size, contour and echogenicity. There is moderate to severe hydronephrosis there is an 8 mm stone in the lower pole LEFT KIDNEY: Measures: 11.4 x 6.24 x 4.89 cm. Normal in size, contour and echogenicity. Moderate to severe hydronephrosis OTHER FINDINGS: None. IMPRESSION: Moderate to severe bilateral hydronephrosis.
[2017-11-19 11:59] LABS: BASO # 0.01 K/mm3 (0.0-2.0); BASO % 0.1 % (0.0-3.0); EOS # 0.3 (0.0-0.7); EOS % 3.3 % (1.5-5.0); GRAN # 5.67 (1.4-6.5); GRAN % 66.9 % (50.0-68.0); HEMOGLOBIN 10.1 g/dL (14.0-18.0); LYMPH # 1.9 (1.2-3.4); LYMPH % 22.4 % (22.0-35.0); MEAN CELL VOLUME 90.4 fl (80.0-105.0); MEAN CORPUSCULAR HEMOGLOBIN 29.5 pg (25.0-35.0); MEAN CORPUSCULAR HGB CONC 32.7 g/dl (31.0-37.0); MEAN PLATELET VOLUME 11.5 fl (7.0-11.0); MONO # 0.6 (0.1-0.6); MONO % 7.3 % (1.0-6.0); RBC 3.42 10^6/uL (3.5-6.1); RED CELL DISTRIBUTION WIDTH 14.7 % (11.5-14.5); WHITE BLOOD COUNT 8.5 10^3/ul (4.5-11.0)
[2017-11-19] MEDS ORDERED: Sodium Chloride 0.9% 500 ML IV SCH (12:05)
[2017-11-19 12:09] LABS: IRON 68 ug/dL (45-180)
[2017-11-19 12:18] LABS: % IRON SATURATION 24 % (20-55); TOTAL IRON BINDING CAPACITY 283 ug/dL (261-462)
[2017-11-19 12:27] LABS: ALB/GLOB RATIO 1.3 (1.1-1.8); ALBUMIN 3.8 g/dL (3.0-4.8)
[2017-11-19 12:29] LABS: FREE T4 1.15 ng/dL (0.78-2.19)
--- NOTE | 2017-11-19 12:45 | RAD ---
HISTORY: wheezing COMPARISON: 08/27/2017 FINDINGS: LUNGS: No active pulmonary disease. PLEURA: No significant pleural effusion identified, no pneumothorax apparent. CARDIOVASCULAR: Normal. OSSEOUS STRUCTURES: Sternal wires VISUALIZED UPPER ABDOMEN: Normal. OTHER FINDINGS: Single lead pacemaker IMPRESSION: No active disease.
[2017-11-19] MEDS: Sodium Chloride 0.45% 1,000 ML IV SCH (14:27)
--- NOTE | 2017-11-19 15:44 | CT ---
PROCEDURE: CT Abdomen and Pelvis without intravenous contrast HISTORY: hydronephrosis COMPARISON: 08/29/2017 TECHNIQUE: Without contrast.. Contrast Dose: Radiation dose: Total exam DLP = Total exam DLP = 437 mGy-cm. This CT exam was performed using one or more of the following dose reduction techniques: Automated exposure control, adjustment of the mA and/or kV according to patient size, and/or use of iterative reconstruction technique. FINDINGS: LOWER THORAX: Unremarkable. LIVER: Unremarkable. No gross lesion or ductal dilatation. GALLBLADDER AND BILE DUCTS: Unremarkable. PANCREAS: Unremarkable. No gross lesion or ductal dilatation. SPLEEN: Unremarkable. ADRENALS: Unremarkable. No mass. KIDNEYS AND URETERS: There is severe bilateral hydronephrosis. There is also distention of the bladder. Nonobstructing stones are seen in both kidneys. VASCULATURE: There is a 5.3 cm infrarenal abdominal aortic aneurysm. BOWEL: Unremarkable. No obstruction. No gross mural thickening. APPENDIX: Unremarkable. Normal appendix. PERITONEUM: Unremarkable. No free fluid. No free air. LYMPH NODES: Unremarkable. No enlarged lymph nodes. BLADDER: There is severe distention of the bladder REPRODUCTIVE: Unremarkable. BONES: No acute fracture. OTHER FINDINGS: None. IMPRESSION: Severe bilateral hydronephrosis. Severe distention of the urinary bladder. 5.3 cm infrarenal abdominal aortic aneurysm unchanged
[2017-11-19 16:55] LABS: PH,URINE 6.5 (4.7-8.0); URINE BILIRUBIN NEGATIVE (NEGATIVE); URINE BLOOD LARGE (NEGATIVE); URINE GLUCOSE (UA) NEGATIVE (NEGATIVE); URINE LEUKOCYTE ESTERASE SMALL Leu/uL (NEGATIVE); URINE PROTEIN TRACE mg/dL (<30 mg/dL); URINE UROBILINOGEN 0.2 E.U./dL (<1 E.U./dL)
[2017-11-19 17:08] LABS: URINE APPEARANCE CLEAR (CLEAR); URINE RBC TNTC /hpf (0-2)
[2017-11-19 17:08] LABS: FOLATE 13.5 ng/mL
--- NOTE | 2017-11-19 20:22 | CON ---
DATE: 11/19/[address] Ted Jacob. REFERRING MD: Dr. Ted Jacob. REASON FOR CONSULTATION: Evaluation of the patient known to us from previous hospitalizations, who presents with acute renal failure in the setting of bilateral hydronephrosis and a right sided kidney stone. 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 History of hypertension, history of COPD with cigarette smoking, history of anemia, recent history of pseudomembranous colitis. The patient presented to the hospital with a complaint of gross hematuria. Evaluation in the emergency room showed a BUN of 71 and a creatinine of 3.5. These are significantly above his baseline levels. His BUN upon discharge back in August was 22. His creatinine upon discharge in 08/2017, was 1. The patient is noted to be mildly hyperkalemic with a K of 5.1. The patient is admitted to the hospital for evaluation of acute renal failure. Admitting renal ultrasound showed bilateral moderate to severe hydronephrosis with a lower pole 8 mm kidney stone. evaluation is pending. We are asked to evaluate the patient for his elevated BUN and creatinine. Urinalysis and urine cultures are pending. PAST MEDICAL HISTORY: Significant for previous admissions with acute renal failure secondary to volume depletion with hypernatremia. History of Parkinson disease with dementia. Past history of a right-sided CVA with perhaps mild left-sided weakness. History of coronary artery disease status post complete heart block with permanent pacemaker placement. History of pseudomembranous colitis. History of hypertension. History of cigarette smoking with COPD. History of anemia. MEDICATIONS AT HOME: Include that of p.r.n. Tylenol, Multi-Vites, Lasix, Norvasc, Sinemet, Imodium p.r.n., hydralazine p.r.n., albuterol, milk of magnesia, and Xanax. ALLERGIES: THE PATIENT IS ALLERGIC TO PINEAPP[place]. MEDICATIONS PRESENTLY IN HOSPITAL: Include that of hydralazine, Bactrim double strength tab twice a day, albuterol, Norvasc, Sinemet, normal saline 40 mL an hour, and Xanax. SOCIAL HISTORY: Positive history of cigarette smoking. The patient states that he smokes less and not on a daily basis, but continues to smoke. No history of alcohol use. FAMILY HISTORY: Unknown to the patient. REVIEW OF SYSTEMS: The patient is a bit confused, so review of systems is difficult, but best I could, his only complaints are that of what noted above in the history of present illness. GENERAL: The patient states appetite and weight have been stable. ENT: Denies any hearing or visual problems. PULMONARY: Admits to some mild shortness of breath. Perhaps secondary to COPD. CARDIAC: No apparent difficulty with his permanent pacemaker. No palpitations. No chest pain. GI: No nausea, vomiting, diarrhea. No abdominal pain. : Apparent history of kidney stones. Of note, ultrasound done 3 months ago was unremarkable. ENDO: No history of diabetes. MUSCULOSKELETAL: Intermittent musculoskeletal complaints. NEURO: History of Parkinson disease, history of a right-sided CVA, perhaps TIA. HEME/ONC: History of mild anemia. No history of malignancy. PSYCHIATRIC: History is negative. PHYSICAL EXAMINATION: GENERAL: The patient is currently seen in 5R. He is eating lunch. He is sitting up in bed. He appears to be in no acute distress. IV fluids are infusing. VITAL SIGNS: Blood pressure ranging from 150 to 163 systolic, diastolics ranging from 68 to 81. Heart rate is 60. Temperature 97.5, respiratory rate is 18. Pulse ox 98%. HEENT: Show him to be normocephalic, atraumatic. Conjunctivae are pink. Sclerae are nonicteric. Pupils equal and reactive to light and accommodation. Extraocular muscles are intact. Posterior pharynx is normal. NECK: Supple. No neck vein distention. No thyromegaly. No lymphadenopathy. No bruits. CHEST: Clear to auscultation and percussion with no rales, rhonchi, or wheezing. CARDIOVASCULAR: Shows regular S1, S2. Positive permanent pacemaker. No S3. No S4. No audible murmurs. No rubs. ABDOMEN: Soft. Bowel sounds normal. No suprapubic tenderness. No masses. No rebound or guarding. BACK: No CVAT. No spinal tenderness. The patient does not have a Patel catheter in place. EXTREMITIES: Show no lower extremity cyanosis, clubbing, or edema. Distal lower extremity pulses are reduced at 1 to 2+ bilaterally. NEURO: Shows him to be alert, but mildly confused. No gross focal motor or sensory deficits are noted except with perhaps mild weakness of his left lower extremity. LABORATORY DATA AND IMAGING: Renal ultrasound on admission, right kidney shows moderate to severe hydronephrosis with an 8 mm stone in the lower pole. Left kidney shows moderate to severe hydronephrosis. No stones noted. Of note, renal ultrasound done in August showed no hydronephrosis. Labs: CBC: White blood cell count is 8.5, down from 9.7 on admission; hemoglobin 10.1, stable; platelet count is 146,000. Chemistries: On admission, BUN 71 with hydration 64, creatinine 3.5 with hydration 3.3. Calcium was 5.1 on admission, 4.3 today. Sodium is 148, chloride is 108. CO2 level stable at 27. Iron saturations are 24%. Calcium 9. Glucose 98. Magnesium level of 2.1. Liver enzymes are normal. Thyroid function tests are incomplete, but what is back is normal. Free T4 level was 1.15. Albumin is 3.8. Urinalysis pending. Urine cultures are pending. ASSESSMENT: 1. Acute renal failure in a patient with a baseline BUN in the low 20s and creatinine of 1. This is in the setting of moderate to severe bilateral hydronephrosis perhaps related to kidney stones. It is also quite possible the patient has a urinary tract infection. He presented with hematuria post removal of perhaps Patel catheter. Unclear how much urine the patient is making at present time. Unclear whether or not he still has hematuria. Urinalysis and urine C and S are pending. The patient has empirically been started on Bactrim therapy in light of his advanced chronic kidney disease. I will decrease the Bactrim to one time a day. Pending isolation of organism and sensitivities perhaps switch to another medication as Bactrim can elevate his creatinine level by blocking creatinine secretion. 2. History of bilateral hydronephrosis, seen on ultrasound done yesterday. The patient appears to have a right 8 mm lower pole kidney stone. Unclear whether or not he has stones that are blocking the UP junction. evaluation is in progress. He will be seen by Dr. Contreras later today. 3. Status post mild hyperkalemia. This has resolved. 4. Mild anemia. Iron saturations are okay. Anemia likely secondary to his underlying chronic medical situation. 5. Hypertension. The patient is being maintained on calcium channel theodore therapy. Systolic blood pressures are mildly elevated. P.r.n. increase Norvasc to 5 mg a day from 2.5 mg. 6. History of Parkinson disease. The patient will continue on current medication. 7. History of dementia, appears to be stable. The patient has a baseline level of confusion. 8. History of coronary artery disease, status post heart block with permanent pacemaker. This appears to be stable. 9. Past history of pseudomembranous colitis. Presently, no diarrhea. 10. History of a transient ishemic attacks/possible mild right-sided cerebrovascular accident with mild left-sided weakness. This appears to be stable. 11. History of chronic obstructive pulmonary disease secondary to continued use of cigarettes, but none recently. The patient will continue inhalation therapy. PLAN: 1. Continue IV fluid hydration. I will switch the patient over to hypotonic IV fluids in light of his sodium level of 148. I will increase hydration to 75 mL an hour from the present rate of 40 mL an hour. 2. I will decrease Bactrim to one double-strength tablet a day in light of his history of kidney disease. Once isolation and sensitivities are known, perhaps switch to an agent that will not elevate his creatinine. Bactrim can inhibit creatinine secretion in the renal tubular cells. 3. Continue daily labs and accurate I's and O's. 4. Check phosphorus level and p.r.n. start binder therapy. 5. For any hemoglobin less than 10, perhaps Aranesp with oral iron supplementation. 6. Continue medications for Parkinson disease. 7. Continue to adjust blood pressure medications accordingly. For now, we will increase Norvasc to 5 mg a day. The patient may have his dose of hydralazine increased also. 8. Monitor for any diarrhea in light of his history of pseudomembranous colitis. 9. We will continue to monitor the patient closely during hospitalization. 10. Most importantly, awaiting evaluation for relief of his bilateral obstructive uropathy. Thank you for letting me partake and share in the care of your patient. Mikal Brock MD
--- NOTE | 2017-11-19 22:45 | PCM.URO ---
Urology Progress Note - Objective Lab Studies: Reviewed (possible cysto) Lab Results Last 24 Hours: Laboratory Results - last 24 hr 11/19/17 11/19/17 11/19/17 11:30 11:50 11:50 WBC 8.5 RBC 3.42 L Hgb 10.1 L Hct 30.9 L MCV 90.4 MCH 29.5 MCHC 32.7 RDW 14.7 H Plt Count 146 MPV 11.5 H Gran % 66.9 Lymph % (Auto) 22.4 [place] % (Auto) 7.3 H Eos % (Auto) 3.3 Baso % (Auto) 0.1 Gran # 5.67 Lymph # (Auto) 1.9 [place] # (Auto) 0.6 Eos # (Auto) 0.3 Baso # (Auto) 0.01 Sodium 148 Potassium 4.3 Chloride 108 H Carbon Dioxide 27 Anion Gap 17 BUN 64 H Creatinine 3.3 H Est GFR ( Amer) 22 Est GFR (Non-Af Amer) 18 Random Glucose 98 Hemoglobin A1c Calcium 9.0 Magnesium 2.1 Iron TIBC % Saturation Ferritin 314.0 Total Bilirubin 0.4 AST 44 ALT 29 Alkaline Phosphatase 68 NT-Pro-B Natriuret Pep 4550 H Total Protein 6.8 Albumin 3.8 Globulin 3.0 Albumin/Globulin Ratio 1.3 Vitamin B12 645 Folate 13.5 Free T4 TSH 3rd Generation Urine Color Urine Appearance Urine pH Ur Specific [place] Urine Protein Urine Glucose (UA) Urine Ketones Urine Blood Urine Nitrate Urine Bilirubin Urine Urobilinogen Ur Leukocyte Esterase Urine RBC Urine WBC Ur Epithelial Cells 11/19/17 11/19/17 11/19/17 11:50 11:50 11:50 WBC RBC Hgb Hct MCV MCH MCHC RDW Plt Count MPV Gran % Lymph % (Auto) [place] % (Auto) Eos % (Auto) Baso % (Auto) Gran # Lymph # (Auto) [place] # (Auto) Eos # (Auto) Baso # (Auto) Sodium Potassium Chloride Carbon Dioxide Anion Gap BUN Creatinine Est GFR ( Amer) Est GFR (Non-Af Amer) Random Glucose Hemoglobin A1c 5.0 Calcium Magnesium Iron 68 TIBC 283 % Saturation 24 Ferritin Total Bilirubin AST ALT Alkaline Phosphatase NT-Pro-B Natriuret Pep Total Protein Albumin Globulin Albumin/Globulin Ratio Vitamin B12 Folate Free T4 1.15 TSH 3rd Generation 1.83 Urine Color Urine Appearance Urine pH Ur Specific [place] Urine Protein Urine Glucose (UA) Urine Ketones Urine Blood Urine Nitrate Urine Bilirubin Urine Urobilinogen Ur Leukocyte Esterase Urine RBC Urine WBC Ur Epithelial Cells 11/19/17 16:16 WBC RBC Hgb Hct MCV MCH MCHC RDW Plt Count MPV Gran % Lymph % (Auto) [place] % (Auto) Eos % (Auto) Baso % (Auto) Gran # Lymph # (Auto) [place] # (Auto) Eos # (Auto) Baso # (Auto) Sodium Potassium Chloride Carbon Dioxide Anion Gap BUN Creatinine Est GFR ( Amer) Est GFR (Non-Af Amer) Random Glucose Hemoglobin A1c Calcium Magnesium Iron TIBC % Saturation Ferritin Total Bilirubin AST ALT Alkaline Phosphatase NT-Pro-B Natriuret Pep Total Protein Albumin Globulin Albumin/Globulin Ratio Vitamin B12 Folate Free T4 TSH 3rd Generation Urine Color yellow Urine Appearance Clear Urine pH 6.5 Ur Specific [place] 1.010 Urine Protein Trace H Urine Glucose (UA) Negative Urine Ketones Negative Urine Blood Large H Urine Nitrate Negative Urine Bilirubin Negative Urine Urobilinogen 0.2 Ur Leukocyte Esterase Small H Urine RBC Tntc Urine WBC 5 - 10 Ur Epithelial Cells 10 - 12 Intake & Output: Intake & Output 11/19/17 11/19/17 11/20/17 06:59 18:59 06:59 Intake Total 580 360 Output Total 350 1999 Balance 230 -1640 Intake: Oral 580 360 Output: Urine 350 1999 Urethral (Patel) 350 1999 Other: Voiding Method Diaper # Bowel Movements 0 1 Vital Signs: Vital Signs - 24 hr 11/18/17 11/19/17 11/19/17 23:18 00:00 09:48 Temperature 97.5 F L Pulse Rate 61 60 Respiratory 20 18 Rate Blood Pressure 169/81 H 163/68 H O2 Sat by Pulse 98 Oximetry 11/19/17 11/19/17 11/19/17 09:51 14:00 22:34 Temperature 98.1 F 97.2 F L Pulse Rate 62 60 Respiratory 18 20 Rate Blood Pressure 163/68 H 153/93 H 161/97 H O2 Sat by Pulse 99 97 Oximetry
[2017-11-20 07:06] LABS: HEMOGLOBIN 11.3 g/dL (14.0-18.0); MEAN CELL VOLUME 89.1 fl (80.0-105.0); MEAN CORPUSCULAR HEMOGLOBIN 29.2 pg (25.0-35.0); MEAN CORPUSCULAR HGB CONC 32.8 g/dl (31.0-37.0); MEAN PLATELET VOLUME 11.7 fl (7.0-11.0); RBC 3.87 10^6/uL (3.5-6.1); RED CELL DISTRIBUTION WIDTH 14.3 % (11.5-14.5); WHITE BLOOD COUNT 11.4 10^3/ul (4.5-11.0)
[2017-11-20 07:34] LABS: CALCIUM 8.9 mg/dL (8.4-10.5)
[2017-11-20] MEDS: Tmp-Smz 800 mg-160 mg DS Tab PO SCH (10:38)
[2017-11-20] MEDS ORDERED: cefTRIAXone (Rocephin) 1 gm Inj ONE (15:37)
[2017-11-20] MEDS ORDERED: Ketamine 10 mg/ml Inj (20 ml) ONE ×2 (15:54→16:12)
[2017-11-20] MEDS ORDERED: Esmolol 100 mg/10ml Inj IV ONE (15:56)
[2017-11-20] MEDS ORDERED: Midazolam 2 MG/2 ML VIAL ONE (15:56)
[2017-11-20] MEDS ORDERED: Lidocaine 2% Jelly (Uro-Jet) ONE (16:32)
[2017-11-20] MEDS ORDERED: HYDROmorphone 0.5 mg/0.5 ml ISec IVP PRN (16:40)
[2017-11-20] MEDS ORDERED: Sodium Chloride 0.9% 1,000 ML IV SCH (16:45)
--- NOTE | 2017-11-20 17:01 | PN ---
DATE: 11/20/2017 SUBJECTIVE: The patient is seen lying in bed. He is arousable, somewhat lethargic. He is currently not on any IV fluids. He reports he ate. He seems slow to mentate. PHYSICAL EXAMINATION: GENERAL: Elderly male lying in bed. VITAL SIGNS: Blood pressure 161/96, heart rate 88, respiratory rate 20, temperature 98. HEENT: Normocephalic, atraumatic. NECK: Supple, no JVD. LUNGS: Bilateral equal air entry, no rales. CARDIAC: S1 and S2, regular rate and rhythm, no murmur, no rub. ABDOMEN: Soft, nondistended, nontender, bowel sounds present. EXTREMITIES: No lower extremity edema. INTAKE AND OUTPUT: 1480/3050. LABORATORY DATA: WBC 11, hemoglobin 11, hematocrit 34, platelets 166. Sodium 147, potassium 4.4, chloride 107, CO2 of 27, BUN 55, creatinine 3.1, glucose 96, calcium 8.9, phosphorus 5.1, magnesium 2. Urinalysis: Yellow, clear, pH 6.5, specific gravity 1.01, protein trace, blood large, leukocyte esterase small. Urine culture, no growth. Renal ultrasound: Right kidney 10 cm, left kidney 11.4 cm, normal size, [id number] hydronephrosis bilaterally. CT of the abdomen and pelvis: Severe bilateral hydronephrosis, nonobstructing stones in both kidneys. CURRENT MEDICATIONS: Apresoline 10 mg daily, Bactrim DS daily, DuoNeb, amlodipine 5, Sinemet, half-normal saline at 75 currently not being given, and Xanax. ASSESSMENT: 1. Acute kidney injury, largely obstructive uropathy, the patient has bilateral hydronephrosis. 2. Some component of prerenal azotemia. 3. Parkinson disease. 4. Resolved hyperkalemia. 5. Mild anemia. 6. Uncontrolled hypertension. 7. Dementia. 8. Coronary artery disease. 9. History of transient ischemic attacks. 10. Chronic obstructive pulmonary disease. PLAN: 1. Restart IV fluids, half-normal saline at 75 mL/hour. 2. Change hydralazine to 10 mg three times a day. 3. Push p.o. fluids. 4. Urology followup for cystoscopy. 5. Continue Sinemet. 6. Monitor urine output closely. 7. Monitor daily labs. Rox Luque MD [facility] # [id number]
--- NOTE | 2017-11-21 10:01 | CARD ---
APPROVED REPORT EXAM: Two-dimensional and M-mode echocardiogram with Doppler and color Doppler. Other Information Quality : PoorRhythm : INDICATION Congestive Heart Failure 2D DIMENSIONS Left Atrium (2D)3.4 (1.6-4.0cm) Aortic Valve AoV Peak Oucmujyn213.0cm/Navin Peak GR.9mmHgLVOT Peak Nzwxhupi42.6cm/s LVOT VTI14.10cm Mitral Valve E/A ratio0.0 TDI E/Lateral E'0.0E/Medial E'0.0 LEFT VENTRICLE The left ventricle is normal size. There is normal left ventricular wall thickness. Limited study. The apex appears akinetic. Septal motion is abnormal. RIGHT VENTRICLE The right ventricle is normal size. There is a pacemaker lead in the right ventricle. ATRIA The left atrium size is normal. The right atrium size is normal. The interatrial septum is intact with no evidence for an atrial septal defect. AORTIC VALVE The aortic valve is mildly to moderately calcified. MITRAL VALVE The mitral valve is moderately thickened but opens well. Mitral annular calcification is mild to moderate. Mitral regurgitation is mild. TRICUSPID VALVE The tricuspid valve is not well visualized. PULMONIC VALVE The pulmonic valve is not well visualized. GREAT VESSELS The aortic root is normal in size. PERICARDIAL EFFUSION There is no pericardial effusion. <Conclusion> This is a very limited study. The left ventricle is normal size. There is normal left ventricular wall thickness. Limited study. The apex appears akinetic. Septal motion is abnormal. The overall EF is - 35 - 40 %. The aortic valve is mildly to moderately calcified. Aortic sclerosis. Mitral regurgitation is mild.
[2017-11-21] MEDS: Tmp-Smz 800 mg-160 mg DS Tab PO SCH (10:15)
[2017-11-21] MEDS: Sodium Chloride 0.45% 1,000 ML IV SCH ×2 (10:18→17:39)
--- NOTE | 2017-11-21 14:06 | PN ---
DATE: 11/21/2017 SUBJECTIVE: A 77-year-old white male admitted with acute renal failure on chronic renal insufficiency. Patient was seen and had a cysto by Dr. Contreras yesterday. He did have lot of fresh blood and clotting in his bladder. There was a possibility of possible bladder outlet obstruction. He did also have an 8 mm stone in the ureter. Initially his BUN and creatinine was 71 and 3.5, is down to 55 and 3.1. Potassium is stable. Laboratory data are unremarkable. Hemoglobin is 11.3, white count is 11,400. He is on p.o. antibiotics for control of bladder infection. He will have a trial of voiding and close followup for recurrent bilateral hydronephrosis. PHYSICAL EXAMINATION: GENERAL: Shows a well developed but demented male in no apparent distress. HEART: Regular sinus rhythm. CHEST: Clear to auscultation and percussion. ABDOMEN: Benign. EXTREMITIES: No cyanosis, clubbing or edema. IMPRESSION: Obstructive uropathy with acute renal failure on chronic renal insufficiency, coronary artery disease, history of Parkinson's, history of in the past and dementia. Ted Jacob MD
[2017-11-22 07:26] LABS: HEMOGLOBIN 10.7 g/dL (14.0-18.0); MEAN CELL VOLUME 87.2 fl (80.0-105.0); MEAN CORPUSCULAR HEMOGLOBIN 29.7 pg (25.0-35.0); MEAN CORPUSCULAR HGB CONC 34.1 g/dl (31.0-37.0); MEAN PLATELET VOLUME 11.3 fl (7.0-11.0); RBC 3.6 10^6/uL (3.5-6.1); WHITE BLOOD COUNT 9.6 10^3/ul (4.5-11.0)
[2017-11-22 07:41] LABS: ALB/GLOB RATIO 1.3 (1.1-1.8); ALBUMIN 3.7 g/dL (3.0-4.8)
--- NOTE | 2017-11-22 08:31 | PCM.URO ---
Urology Progress Note - Objective Lab Studies: Reviewed (gu : urine is looking more clear, cr is 2.7 improved but not yet normal gu plans : will order ultrasound and follow along would not remove catheter yet full notes to be dictated) Lab Results Last 24 Hours: Laboratory Results - last 24 hr 11/22/17 11/22/17 11/22/17 07:00 07:00 07:00 WBC 9.6 RBC 3.60 Hgb 10.7 L Hct 31.4 L MCV 87.2 MCH 29.7 MCHC 34.1 RDW 14.0 Plt Count 156 MPV 11.3 H Sodium 145 Potassium 4.5 Chloride 106 Carbon Dioxide 27 Anion Gap 17 BUN 40 H Creatinine 2.7 H Est GFR ( Amer) 28 Est GFR (Non-Af Amer) 23 Random Glucose 93 Calcium 9.0 Phosphorus 3.8 Magnesium 1.7 Total Bilirubin 0.6 AST 25 ALT 12 Alkaline Phosphatase 65 Total Protein 6.6 Albumin 3.7 Globulin 2.9 Albumin/Globulin Ratio 1.3 Intake & Output: Intake & Output 11/21/17 11/22/17 11/22/17 18:59 06:59 18:59 Intake Total 360 0 Output Total 896 205 8511 Balance -540 -600 -1550 Intake: Oral 360 0 Output: Urine 234 435 3193 Urethral (Patel) 534 236 9739 Other: # Bowel Movements 0 0 Vital Signs: Vital Signs - 24 hr 11/21/17 11/21/17 11/21/17 10:15 10:16 14:00 Temperature 98 F Pulse Rate 61 61 61 Respiratory 20 Rate Blood Pressure 150/77 150/77 147/84 O2 Sat by Pulse 100 Oximetry 11/21/17 11/21/17 11/22/17 14:32 17:37 07:00 Temperature 98.2 F Pulse Rate 61 64 691 H Respiratory 20 Rate Blood Pressure 142/81 152/84 H 129/92 H O2 Sat by Pulse 99 Oximetry
[2017-11-22] MEDS: Tmp-Smz 800 mg-160 mg DS Tab PO SCH (10:03)
[2017-11-22] MEDS: Sodium Chloride 0.45% 1,000 ML IV SCH (10:04)
--- NOTE | 2017-11-22 11:38 | US ---
PROCEDURE: HISTORY: follow up / is there still hydronephrosis COMPARISON: 11/19/2017 TECHNIQUE: FINDINGS: The right and left kidney measure 9.7 and 10.7 centimeters respectively. There is no significant change in moderate bilateral hydronephrosis. An 8 millimeter calculus is noted in the lower pole of the right kidney. There is a roughly 5 millimeter calculus in the interpolar region of the left kidney. IMPRESSION: No change in bilateral hydronephrosis.
--- NOTE | 2017-11-22 15:21 | PN ---
DATE: 11/22/2017 SUBJECTIVE: The patient is seen lying in bed. He is awake. He is alert. He is very stiff. He is somewhat altered. PHYSICAL EXAMINATION: GENERAL: Thinly built elderly male lying in bed. VITAL SIGNS: Blood pressure 129/92, heart rate 61, respiratory rate 20, temperature 98.2. HEENT: Normocephalic, atraumatic, positive pallor. NECK: Supple, no JVD. LUNGS: Bilateral equal entry, bilateral equal expansion. CARDIAC: S1 and S2, regular rate and rhythm, no murmur, no rub. ABDOMEN: Soft, nondistended, nontender, bowel sounds present. EXTREMITIES: No lower extremity edema. INTAKE AND OUTPUT: Intake not charted. Output 1550. LABORATORY DATA: WBC 9.6, hemoglobin 10.7, hematocrit 31, platelets 156. Sodium 145, potassium 4.5, chloride 106, CO2 of 27, BUN 40, creatinine 2.7, glucose 93, calcium 9, phosphorus 3.8, magnesium 1.7, AST 12, ALT 12, albumin 3.7. CURRENT MEDICATIONS: Apresoline 10 mg t.i.d., Bactrim daily, DuoNeb, amlodipine 5, Sinemet, half-normal saline at 75, Xanax 0.25. ASSESSMENT AND PLAN: 1. Acute kidney injury, largely prerenal azotemia, slowly resolving. 2. Bilateral hydronephrosis. 3. Parkinson's. 4. Dementia. 5. Hypertension. 6. Anemia. 7. Coronary artery disease. 8. Transient ischemic attack. PLAN: 1. Continue IV fluids. 2. Continue current antihypertensives. 3. Urology followup. 4. Monitor intake and output. 5. Push p.o. fluids. Rox Luque MD
--- NOTE | 2017-11-22 16:27 | PN ---
DATE: 11/22/2017 COVERING FOR: Dr. Jacob. SUBJECTIVE: The patient is lying in bed, seems to be comfortable. The patient came to Emergency Room on 11/19/2017. The patient was brought to the Emergency Room from residential after he had altered mental status. He is also having hematuria and foul smelling urine. PAST MEDICAL HISTORY: Significant for: 1. CVA. 2. History of Parkinson disease. 3. History of smoking. 4. Coronary artery disease. 5. History of COPD and renal insufficiency. Currently, the patient is on CBI. Dr. Contreras's input noted and appreciated. PHYSICAL EXAMINATION: GENERAL: On examination, he is awake and alert, but somewhat confused. VITAL SIGNS: He is afebrile. Pulse 67, respirations 20, blood pressure 129/92. LUNGS: Bilateral good airflow. No rhonchi or crackle. HEART: S1 and S2 audible. ABDOMEN: Soft, nontender. No rebound. No guarding. Patel draining blood and urine. LABORATORY DATA: WBC 9.6, hemoglobin 10.7, hematocrit 31.4, platelet 156. Chemistry: Sodium 145, potassium 4.5, chloride 106, CO2 27, BUN 40, creatinine 2.7, blood sugar of 93. The urine has no growth. ASSESSMENT: 1. Status post altered mental status. 2. Hematuria. 3. [id number] renal insufficiency. 4. Chronic obstructive pulmonary disease. 5. Parkinson disease. 6. Coronary artery disease. 7. Anemia. 8. History of bilateral hydronephrosis. 9. Hyperkalemia, resolved. 10. Hypertension. 11. Mild dementia. 12. History of cerebrovascular accident in the past. PLAN: Currently, the patient is on IV fluid. He is on Bactrim modified dose and he is on Norvasc and carbidopa/levodopa. Dr. Contreras has ordered renal ultrasound. We will follow that. Out of bed to chair. Encourage physical therapy and order for ANASTASIIA stockings, order for DVT prophylaxis. Stefanie Montilla MD
[2017-11-23 06:55] LABS: BASO # 0.02 K/mm3 (0.0-2.0); BASO % 0.2 % (0.0-3.0); EOS # 0.4 (0.0-0.7); EOS % 5.2 % (1.5-5.0); GRAN # 5.16 (1.4-6.5); GRAN % 64.5 % (50.0-68.0); HEMOGLOBIN 10.2 g/dL (14.0-18.0); LYMPH # 1.6 (1.2-3.4); LYMPH % 19.7 % (22.0-35.0); MEAN CELL VOLUME 86.3 fl (80.0-105.0); MEAN CORPUSCULAR HEMOGLOBIN 29.8 pg (25.0-35.0); MEAN CORPUSCULAR HGB CONC 34.6 g/dl (31.0-37.0); MEAN PLATELET VOLUME 11.2 fl (7.0-11.0); MONO # 0.8 (0.1-0.6); MONO % 10.4 % (1.0-6.0); RBC 3.42 10^6/uL (3.5-6.1); RED CELL DISTRIBUTION WIDTH 13.7 % (11.5-14.5)
[2017-11-23 07:08] LABS: ALB/GLOB RATIO 1.3 (1.1-1.8); ALBUMIN 3.6 g/dL (3.0-4.8); CALCIUM 8.9 mg/dL (8.4-10.5)
[2017-11-23] MEDS: Tmp-Smz 800 mg-160 mg DS Tab PO SCH (10:03)
[2017-11-23] MEDS: Sodium Chloride 0.45% 1,000 ML IV SCH (17:28)
--- NOTE | 2017-11-23 21:24 | PN ---
DATE: 11/23/2017 SUBJECTIVE: Patient is a 77-year-old, seen and examined, lying in bed, seems to be comfortable. No nausea or vomiting. Eating and tolerating. Agitated at times. PHYSICAL EXAMINATION: VITAL SIGNS: Patient is afebrile, pulse 59, respirations 18, blood pressure 154/59. LUNGS: Bilateral fair airflow. No rhonchi or crackle. HEART: S1 and S2 audible. ABDOMEN: Soft, nontender. No rebound. No guarding. Patel catheter is draining clear urine. No hematuria noted. NEUROLOGIC: He is awake and alert, but confused, disoriented. LABORATORY DATA: WBC 8, hemoglobin 10.4, hematocrit 29.5, platelets 145. Chemistry: Sodium 140, potassium 4.1, chloride 105, CO2 of 25, BUN 36, creatinine 2.6, blood sugar of 94. ASSESSMENT: 1. Acute on chronic renal failure. 2. History of bilateral hydronephrosis. 3. Dementia. 4. Metabolic encephalopathy. 5. History of Parkinson disease. 6. Hypertension. 7. Chronic anemia. 8. Hyperkalemia, resolved. 9. Chronic obstructive pulmonary disease. PLAN: Patient is currently on IV fluid as per Nephrology. We will continue Nebulizer treatment, Ativan as needed for agitation. Stefanie Montilla MD
[2017-11-24 07:07] LABS: ALB/GLOB RATIO 1.2 (1.1-1.8); ALBUMIN 3.4 g/dL (3.0-4.8)
[2017-11-24 07:09] LABS: BASO # 0.02 K/mm3 (0.0-2.0); BASO % 0.3 % (0.0-3.0); EOS # 0.4 (0.0-0.7); EOS % 5.2 % (1.5-5.0); GRAN # 4.57 (1.4-6.5); GRAN % 60.4 % (50.0-68.0); HEMOGLOBIN 10.3 g/dL (14.0-18.0); LYMPH # 1.9 (1.2-3.4); LYMPH % 25.4 % (22.0-35.0); MEAN CELL VOLUME 85.4 fl (80.0-105.0); MEAN CORPUSCULAR HEMOGLOBIN 29.4 pg (25.0-35.0); MEAN CORPUSCULAR HGB CONC 34.4 g/dl (31.0-37.0); MEAN PLATELET VOLUME 11.5 fl (7.0-11.0); MONO # 0.7 (0.1-0.6); MONO % 8.7 % (1.0-6.0); RBC 3.5 10^6/uL (3.5-6.1); RED CELL DISTRIBUTION WIDTH 13.6 % (11.5-14.5); WHITE BLOOD COUNT 7.6 10^3/ul (4.5-11.0)
[2017-11-24] MEDS: Sodium Chloride 0.45% 1,000 ML IV SCH (14:39)
--- NOTE | 2017-11-24 17:11 | PN ---
DATE: 11/24/2017 SUBJECTIVE: The patient is 77 years old, seen and examined. Yesterday's events noted. The patient was agitated. He was non non-cooperative to his medication. He was given Ativan at 04:00 o'clock this morning because of agitation. Seems to be comfortable now. Sleepy, but arousable. PHYSICAL EXAMINATION: VITAL SIGNS: He is afebrile, pulse 63, respirations 18, blood pressure 170/102. LUNGS: Bilateral good airflow. No rhonchi or crackle. HEART: S1 and S2 audible. ABDOMEN: Soft. Nontender. No rebound. No guarding. GENITOURINARY: He has Patel catheter that is draining clear urine. EXTREMITIES: Bilateral leg, no edema. NEUROLOGIC: He is sleepy, but arousable, opens eye. He is confused, disoriented. LABORATORY EXAM: WBC 7.6, hemoglobin 10.3, hematocrit 29.9, platelet of 154. Chemistry: Sodium 141, potassium 4.1, chloride 105, CO2 of 24, BUN 31, creatinine 3.4, blood sugar of 84. ASSESSMENT: 1. Dementia. 2. Parkinson's disease. 3. Status post hematuria that has resolved. 4. Metabolic encephalopathy. 5. Acute on chronic renal failure, seems to be resolved. 6. Hypertension. 7. Chronic obstructive pulmonary disease. 8. Deconditioning. PLAN: The patient's oral intake is not that great yet. Cut down his sedation to 0.5 every 8 p.r.n. and only intermittently for agitation. Continue IV fluid as per Renal. Follow up electrolyte intermittently. Out of bed to chair. Stefanie Montilla MD
[2017-11-24 18:10] VITALS: PULSE 61
--- NOTE | 2017-11-25 03:32 | PN ---
DATE: 11/24/2017 SUBJECTIVE: Patient is in 567, bed 1. He is lying bed. He is comfortable. He is slow to mentate. PHYSICAL EXAMINATION: GENERAL: Elderly male, lying in bed. VITAL SIGNS: Blood pressure 170/102, heart rate 62, respiratory rate 18, temperature 97.5. HEENT: Normocephalic, atraumatic, positive pallor. NECK: Supple, no JVD. LUNGS: Bilateral equal air entry, bilateral equal expansion. CARDIAC: S1 and S2, regular rate and rhythm, no murmur, no rub. ABDOMEN: Soft, nondistended, nontender, bowel sounds present. EXTREMITIES: No lower extremity edema. INTAKE AND OUTPUT: 1710/2100. LABORATORY DATA: WBC 7.6, hemoglobin 10, hematocrit 29.9, platelet 154. Sodium 141, potassium 4.1, chloride 105, CO2 of 24, BUN 31, creatinine 2.4, glucose 84, calcium 9, albumin 3.4. CURRENT MEDICATIONS: Apresoline 10 t.i.d., Ativan, DuoNeb, amlodipine 5, Sinemet, half-normal saline at 75, Xanax. ASSESSMENT: 1. Acute kidney injury, superimposed on chronic kidney disease stage 2/3. 2. Prerenal azotemia. 3. Dehydration. 4. Parkinson disease. 5. Hypertension. PLAN: 1. Continue hypotonic IV fluids. 2. Push p.o. fluids. 3. Continue antihypertensive. 4. Continue medications for Parkinson's. Rox Luque MD
[2017-11-25 08:34] VITALS: BP 131/88; RESP 20; TEMP 97.8; O2SAT 95
--- NOTE | 2017-11-25 09:44 | PN ---
DATE: 11/25/2017 SUBJECTIVE: A 77-year-old white male. Patel catheter recently placed, obstructive uropathy, renal insufficiency. BUN and creatinine are trending lower down to 31 and 2.4. The patient is more awake and alert. He knows my name today. Vital signs are stable. He is afebrile. He has been treated for infected urinary tract infection and postobstructive uropathy with postrenal azotemia. The patient was seen in consultation with Dr. Luque and Dr. Contreras. Plan is [facility]. Leave the Patel catheter in for a week. After that time to remove the Patel catheter to follow his BUN and creatinine and to repeat an ultrasound after several days to see if there is any recurrent hydronephrosis. Physical examination is unchanged. The patient does have dementia, but he knows his person and he knows where he is and he also does not know the time, but he knows Saturday and today. Ted Jacob MD
--- NOTE | 2017-11-25 16:03 | PN ---
DATE: 11/25/2017 SUBJECTIVE: The patient is seen lying in bed. He is comfortable. He does not appear to be in any kind of distress. PHYSICAL EXAMINATION: VITAL SIGNS: Blood pressure 131/88, heart rate 61, respiratory rate 20, temperature 97.8. HEENT: Normocephalic, atraumatic, positive pallor. NECK: Supple, no JVD. LUNGS: Bilateral equal air entry, no rales, no rhonchi. CARDIAC: S1 and S2, regular rate and rhythm, no murmur, no rub. ABDOMEN: Soft, nondistended, nontender, bowel sounds present. EXTREMITIES: No lower extremity edema. INTAKE AND OUTPUT: 360/2200. LABORATORY DATA: WBC 7.6, hemoglobin 10.3, hematocrit 30, platelets 154. Sodium 141, potassium 4.1, chloride 105, CO2 24, BUN 31, creatinine 2.4, glucose 84, calcium 9, AST 25, ALT 13, albumin 3.4. MEDICATIONS: Apresoline, Ativan, DuoNeb, amlodipine 5, Sinemet and Xanax. ASSESSMENT AND PLAN: 1. Acute kidney injury, largely prerenal azotemia, slowly resolving. 2. Bilateral hydronephrosis, continue Patel. 3. Parkinson disease. 4. Hypertension. 5. Cachexia. PLAN: 1. Push p.o. fluids. 2. Continue with Patel. 3. Okay to discontinue IV fluids. 4. Continue treatment for Parkinson's. 5. Continue antihypertensives. 6. No objection to discharge. Rox Luque MD
== END 2017-11-25 14:57 | DRG 682 ==
LOC: ED 17:43 → ERH 20:00 → 5RNO 21:57
PROVIDERS: ADMIT Internal Medicine; ATTEND Internal Medicine
DX: N17.9 Acute kidney failure, unspecified (principal); G93.41 Metabolic encephalopathy; N39.0 Urinary tract infection, site not specified; R64 Cachexia; Z68.1 Body mass index [BMI] 19.9 or less, adult; J44.9 Chronic obstructive pulmonary disease, unspecified; I25.10 Atherosclerotic heart disease of native coronary artery without angina pectoris; I12.9 Hypertensive chronic kidney disease with stage 1 through stage 4 chronic kidney disease, or unspecified chronic kidney disease; N18.3 Chronic kidney disease, stage 3 (moderate); G20 Parkinson's disease; F02.80 Dementia in other diseases classified elsewhere, unspecified severity, without behavioral disturbance, psychotic disturbance, mood disturbance, and anxiety; N13.2 Hydronephrosis with renal and ureteral calculous obstruction; E86.0 Dehydration; D64.9 Anemia, unspecified; E87.5 Hyperkalemia; F17.210 Nicotine dependence, cigarettes, uncomplicated; Z86.73 Personal history of transient ischemic attack (TIA), and cerebral infarction without residual deficits; Z95.0 Presence of cardiac pacemaker

== ENCOUNTER 2017-12-06 13:32 | Inpatient (IN) | payer MEDICARE, BC ==
[2017-12-06 13:44] VITALS: BMI 26.6
--- NOTE | 2017-12-06 13:51 | ED PDOC ---
Arrival/HPI - General Time Seen by Provider: 12/06/17 13:46 Historian: Patient - History of Present Illness Narrative History of Present Illness (Text): 12/06/17 13:45 Juan Ramon Wright is a 77 year old male brought in by EMS from 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 En route to emergency department , EMS notes that patient was apneic and after using manual bag valve mask, patient was breathing spontaneously. Full HPI and ROS unobtainable due to patient's condition. PMD: Dr. Jacob Time/Duration: Prior to Arrival Symptom Course: Unchanged Activities at Onset: Rest Context: Other ([facility]) Past Medical History - Provider Review Nursing Documentation Reviewed: Yes - Infectious Disease Hx of Infectious Diseases: None - Tetanus Immunization Tetanus Immunization: Unknown - Cardiac Hx Pacemaker: No - Pulmonary Hx Chronic Obstructive Pulmonary Disease (COPD): Yes - Neurological HX Cerebrovascular Accident: Yes (TIA) - HEENT Hx HEENT Disorder: Yes (uses glasses) Hx Macular Degeneration: Yes - Renal Hx Renal Failure: Yes - Endocrine/Metabolic Hx Endocrine Disorders: No - Hematological/Oncological Hx Blood Disorders: Yes - Integumentary Hx Dermatological Disorder: Yes Hx Psoriasis: Yes Other/Comment: left upper arm bruise, lle healing scabs, right arm bright red skin with mulrtiple dry patches of skin from elbow to wrist, old fading bruises to ble and both knees, bruise to left upper side of knee painful to touch, bottom of both feet red with dry skin, thick long toenails and fingernails, bright red skin to r elbow, left elbow dry patches of skin , red skin and 2 dry red scabs, buttocks slightly reddened, mid chest scar - Musculoskeletal/Rheumatological Hx Musculoskeletal Disorders: Yes - Gastrointestinal Hx Gall Bladder Disease: Yes (gallstones) - Genitourinary/Gynecological Hx Genitourinary Disorders: Yes Hx Incontinence: Yes - Psychiatric Hx Substance Use: No - Surgical History Hx Cardiac Catheterization: Yes Hx Cholecystectomy: Yes (04/16/14) Hx Open Heart Surgery: Yes - Anesthesia Hx Anesthesia Reactions: No Family/Social History - Physician Review Nursing Documentation Reviewed: Yes Family/Social History: No Known Family HX Smoking Status: Unknown If Ever Smoked Hx Alcohol Use: No Hx Substance Use: No Allergies/Home Meds Allergies/Adverse Reactions: Allergies pineapple Allergy (Unknown, Verified 11/18/17 19:07) ITCHING Home Medications: Home Meds Medication Instructions Recorded Confirmed Xanax 0.25 mg PO Q6H PRN 01/31/17 12/06/17 Albuterol/Ipratropium [Duoneb 3 3 ml PO Q6 PRN 11/18/17 12/06/17 mg/0.5 mg (3 ml) UD] hydrALAZINE [Apresoline] 10 mg PO Q8H 11/18/17 12/06/17 amLODIPine [Norvasc] 5 mg PO DAILY 12/06/17 12/06/17 Review of Systems - Review of Systems Systems not reviewed;Unavailable: Acuity of Condition Physical Exam - Physical Exam Narrative Physical Exam (Text): Constitutional: No acute distress. Head: Normocephalic. Atraumatic. Eyes: PERRL. ENT: Moist mucous membranes. Neck: Supple. Cardiovascular: Regular rate. Chest: No tenderness. Respiratory: Clear to auscultation bilaterally. GI: Soft. Nontender. Nondistended. Back: No CVA tenderness. Musculoskeletal: No tenderness or swelling of extremities. Skin: No rash. Neurologic: Lethargic. Responsive to noxious stimuli. Vital Signs Reviewed: Yes Vital Signs Temp Pulse Resp BP Pulse Ox 12/06/17 13:32 100.7 F H 63 18 122/76 100 Medical Decision Making ED Course and Treatment: 12/06/17 13:51 Impression: 77 year old male brought in by EMS for abnormal lab work. En route to emergency department, patient was apneic. Plan: -- Type and screen -- Chest X-ray -- Abdomen and Pelvis CT -- VBG and Blood Culture -- Urinalysis and Urine Culture -- Labs -- Reassess and disposition Prior Visits: Notes and results from previous visits were reviewed. Patient was last seen in the emergency department on 11/18/17 for hematuria as reported by [facility]. Patient was admitted to hospitalist care for further evaluation. Progress Notes: EKG: Ordered, reviewed, and independently interpreted the EKG. Rate : 70 BPM Rhythm : Ventricularly paced rhythm Interpretation : No ST-segment elevations or depressions, no T-wave inversions, normal intervals. Comparison : No previous EKG for comparison. 12/06/17 14:18 Chest X-ray: Creator : Addy Terrazas MD FINDINGS: LUNGS:No active pulmonary disease. PLEURA:No significant pleural effusion identified, no pneumothorax apparent. CARDIOVASCULAR:Normal. OSSEOUS STRUCTURES:Sternal wires VISUALIZED UPPER ABDOMEN:Normal. OTHER FINDINGS:Single lead pacemaker IMPRESSION: No active disease. 12/06/17 15:10 FINDINGS: LOWER THORAX: Unremarkable. LIVER: Unremarkable. No gross lesion or ductal dilatation. GALLBLADDER AND BILE DUCTS: Unremarkable. PANCREAS: Unremarkable. No gross lesion or ductal dilatation. SPLEEN: Unremarkable. ADRENALS: Unremarkable. No mass. KIDNEYS AND URETERS: Bilateral lower pole calculi none larger than 5 mm. Bilateral hydronephrosis and hydroureter likely due to massively distended urinary bladder. VASCULATURE: Stable infrarenal abdominal aortic aneurysm 5.3 x 5.5 cm. Aneurysm measures 8.2 cm in length extending to the bifurcation. BOWEL: Constipation, fecal impaction. APPENDIX: Unremarkable. Normal appendix. PERITONEUM: Unremarkable. No free fluid. No free air. LYMPH NODES: Unremarkable. No enlarged lymph nodes. BLADDER: Distended urinary bladder likely accounting for hydroureteronephrosis. REPRODUCTIVE: Unremarkable. BONES: No acute fracture. OTHER FINDINGS: None. IMPRESSION: Stable abdominal aortic aneurysm. Markedly distended urinary bladder, bilateral hydroureteronephrosis. Nonobstructing bilateral renal calculi. 12/06/17 15:31 Son at bedside states patient's mental baseline is about how he is currently but notes perhaps more drowsy than usual. Dr. Montilla covering for Dr. Jacob accepts admission to her service. Antibiotics initiated. - Lab Interpretations Lab Results: 12/06/17 13:58 12/06/17 13:58 Lab Results 12/06/17 15:04: Urine Color Yellow, Urine Appearance Slight-cloudy, Urine pH 6.0 , Ur Specific Birney 1.020, Urine Protein 30 H, Urine Glucose (UA) Negative, Urine Ketones Negative, Urine Blood Small H, Urine Nitrate Negative, Urine Bilirubin Negative, Urine Urobilinogen 0.2, Ur Leukocyte Esterase Moderate H, Urine RBC 0 - 2, Urine WBC 15 - 20, Ur Epithelial Cells None, Urine Bacteria Mod 12/06/17 13:58: Sodium 137, Chloride 97 L, Potassium 5.2 H, Carbon Dioxide 23, Anion Gap 23 H, BUN 113 H, Creatinine 4.4 H, Est GFR ( Amer) 16, Est GFR (Non-Af Amer) 13, Random Glucose 138 H, Calcium 9.6, Total Bilirubin 0.7, AST 29 , ALT 13, Alkaline Phosphatase 85, Total Creatine Kinase 89, Troponin I 0.05 D , NT-Pro-B Natriuret Pep 90879 H, Total Protein 8.0, Albumin 4.4, Globulin 3.6, Albumin/Globulin Ratio 1.2, Lipase 24 12/06/17 13:58: pO2 38, VBG pH 7.31 L, VBG pCO2 47.0, VBG HCO3 23.7, VBG Total CO2 25.1, VBG O2 Sat (Calc) 69.8 H, VBG Base Excess -2.9 L, VBG Potassium 5.3 H , Sodium 133.0, Chloride 99.0, Glucose 143 H, Lactate 1.8, FiO2 21.0, Venous Blood Potassium 5.3 H 12/06/17 13:58: PT 14.4 H, INR 1.26 H, APTT 29.5 12/06/17 13:58: WBC 17.3 H D, RBC 3.67, Hgb 10.9 L, Hct 31.9 L, MCV 86.9, MCH 29.7, MCHC 34.2, RDW 14.2, Plt Count 179, MPV 11.8 H, Gran % 89.3 H, Lymph % ( Auto) 6.9 L, Elliott % (Auto) 3.8, Eos % (Auto) 0.0 L, Baso % (Auto) 0.0, Gran # 15.48 H, Lymph # (Auto) 1.2, Elliott # (Auto) 0.7 H, Eos # (Auto) 0.0, Baso # (Auto ) 0.00 I have reviewed the lab results: Yes - RAD Interpretation Radiology Orders: 12/06/17 13:46 ABD & PELVIS W/O PO OR IV CONT [CT] Stat CHEST PORTABLE [RAD] Stat - Medication Orders Current Medication Orders: Cefepime HCl (Maxipime 1gm) 1 gm in 100 mls @ 100 mls/hr IVPB Q24H YARON PRN Reason: Protocol - Scribe Statement The provider has reviewed the documentation as recorded by the Raffi Ovalle Provider Scribe Attestation: All medical record entries made by the Felipeibe were at my direction and personally dictated by me. I have reviewed the chart and agree that the record accurately reflects my personal performance of the history, physical exam, medical decision making, and the department course for this patient. I have also personally directed, reviewed, and agree with the discharge instructions and disposition. Disposition/Present on Arrival - Present on Arrival Any Indicators Present on Arrival: No History of DVT/PE: No History of Uncontrolled Diabetes: No Urinary Catheter: No History Surgical Site Infection Following: None - Disposition Have Diagnosis and Disposition been Completed?: Yes Diagnosis: UTI (urinary tract infection), Sepsis, Acute renal insufficiency Disposition: HOSPITALIZED Disposition Time: 15:30 Patient Plan: Admission, Telemetry Condition: GUARDED Discharge Instructions (ExitCare): Sepsis (ED) Referrals: Ted Jacob MD [Primary Care Provider] - Follow up with primary
[2017-12-06 14:05] LABS: GRAN # 15.48 (1.4-6.5); GRAN % 89.3 % (50.0-68.0); HEMOGLOBIN 10.9 g/dL (14.0-18.0); LYMPH # 1.2 (1.2-3.4); LYMPH % 6.9 % (22.0-35.0); MEAN CELL VOLUME 86.9 fl (80.0-105.0); MEAN CORPUSCULAR HEMOGLOBIN 29.7 pg (25.0-35.0); MEAN CORPUSCULAR HGB CONC 34.2 g/dl (31.0-37.0); MEAN PLATELET VOLUME 11.8 fl (7.0-11.0); MONO # 0.7 (0.1-0.6); MONO % 3.8 % (1.0-6.0); RBC 3.67 10^6/uL (3.5-6.1); RED CELL DISTRIBUTION WIDTH 14.2 % (11.5-14.5); VENOUS BLOOD GAS BASE EXCESS -2.9 mmol/L (0.0-2.0); VENOUS BLOOD GAS PO2 38 mm/Hg (30-55); VENOUS BLOOD PH 7.31 (7.32-7.43); WHITE BLOOD COUNT 17.3 10^3/ul (4.5-11.0)
--- NOTE | 2017-12-06 14:13 | RAD ---
HISTORY: leukocytosis COMPARISON: 11/19/2017 FINDINGS: LUNGS: No active pulmonary disease. PLEURA: No significant pleural effusion identified, no pneumothorax apparent. CARDIOVASCULAR: Normal. OSSEOUS STRUCTURES: Sternal wires VISUALIZED UPPER ABDOMEN: Normal. OTHER FINDINGS: Single lead pacemaker IMPRESSION: No active disease.
[2017-12-06 14:14] LABS: INR 1.26 (0.93-1.08); PARTIAL THROMBOPLASTIN TIME 29.5 Seconds (25.1-36.5); PROTHROMBIN TIME 14.4 SECONDS (9.4-12.5)
[2017-12-06 14:29] LABS: TROPONIN I 0.05 ng/mL
[2017-12-06 14:32] LABS: ALB/GLOB RATIO 1.2 (1.1-1.8); ALBUMIN 4.4 g/dL (3.0-4.8); CALCIUM 9.6 mg/dL (8.4-10.5)
--- NOTE | 2017-12-06 15:08 | CT ---
PROCEDURE: CT Abdomen and Pelvis without intravenous contrast HISTORY: Abdominal tenderness COMPARISON: 11/19/2017 and 08/29/[address] scans abdomen and pelvis TECHNIQUE: Technique. Contrast dose: Radiation dose: Total exam DLP = mGy-cm. This CT exam was performed using one or more of the following dose reduction techniques: Automated exposure control, adjustment of the mA and/or kV according to patient size, and/or use of iterative reconstruction technique. FINDINGS: LOWER THORAX: Unremarkable. LIVER: Unremarkable. No gross lesion or ductal dilatation. GALLBLADDER AND BILE DUCTS: Unremarkable. PANCREAS: Unremarkable. No gross lesion or ductal dilatation. SPLEEN: Unremarkable. ADRENALS: Unremarkable. No mass. KIDNEYS AND URETERS: Bilateral lower pole calculi none larger than 5 mm. Bilateral hydronephrosis and hydroureter likely due to massively distended urinary bladder. VASCULATURE: Stable infrarenal abdominal aortic aneurysm 5.3 x 5.5 cm. Aneurysm measures 8.2 cm in length extending to the bifurcation. BOWEL: Constipation, fecal impaction. APPENDIX: Unremarkable. Normal appendix. PERITONEUM: Unremarkable. No free fluid. No free air. LYMPH NODES: Unremarkable. No enlarged lymph nodes. BLADDER: Distended urinary bladder likely accounting for hydroureteronephrosis. REPRODUCTIVE: Unremarkable. BONES: No acute fracture. OTHER FINDINGS: None. IMPRESSION: Stable abdominal aortic aneurysm. Markedly distended urinary bladder, bilateral hydroureteronephrosis. Nonobstructing bilateral renal calculi.
[2017-12-06 15:18] LABS: URINE APPEARANCE SLIGHT-CLOUDY (CLEAR); URINE BILIRUBIN NEGATIVE (NEGATIVE); URINE BLOOD SMALL (NEGATIVE); URINE COLOR YELLOW (YELLOW); URINE GLUCOSE (UA) NEGATIVE (NEGATIVE); URINE LEUKOCYTE ESTERASE MODERATE Leu/uL (NEGATIVE); URINE PROTEIN 30 mg/dL (<30 mg/dL); URINE UROBILINOGEN 0.2 E.U./dL (<1 E.U./dL)
[2017-12-06 15:30] LABS: URINE BACTERIA MOD (NEG); URINE RBC 0 - 2 /hpf (0-2); URINE WBC 15 - 20 /hpf (0-6)
[2017-12-06] MEDS ORDERED: Cefepime 1gm in NS 100ml 1 GM/100 ML BAG IVPB SCH ×2 (15:30→22:15)
[2017-12-06] MEDS ORDERED: Dextrose 5%/0.45% NS 1,000 ML IV SCH (18:00)
[2017-12-06] MEDS: Albuterol-Ipratrop 3 mg / 0.5 (3 ml) UD IH SCH (20:05)
[2017-12-06] MEDS: Dextrose 5%/0.45% NS 1,000 ML IV SCH (22:36)
[2017-12-07] MEDS: Albuterol-Ipratrop 3 mg / 0.5 (3 ml) UD IH SCH ×4 (02:45→21:20)
--- NOTE | 2017-12-07 06:00 | HP ---
HISTORY OF PRESENT ILLNESS: The patient is a 77-year-old male who was sent from [facility]. Patient was sent from [facility] normal labs, was found to be in acute renal failure. Denies any fever or chills. Patient does seem to be somewhat confused and disoriented. No history of nausea or vomiting. No diarrhea. No hemoptysis. No hematemesis. PAST MEDICAL HISTORY: Is significant for, 1. COPD. 2. Mild dementia. 3. History of CVA 2 months ago with left-sided weakness and difficulty walking. 4. pacemaker placement. 5. History of Parkinson disease. ALLERGIES: PATIENT IS ALLERGIC TO PINEAPPLE. MEDICATIONS IN THE SKILLED NURSING: Patient is on Xanax p.r.n., carbidopa and Sinemet one tablet 3 times a day, hydralazine 10 mg every 8, amlodipine 5 mg, nebulizer treatment. SOCIAL HISTORY: Denies smoking, drinking, or alcohol use. [facility] PHYSICAL EXAMINATION: GENERAL: Patient is sleepy but arousable. VITAL SIGNS: He has a temperature of 99.5, pulse 60, respirations 18, blood pressure 134/63. LUNGS: Bilateral fair airflow. No rhonchi or crackle. HEART: S1 and S2 audible. ABDOMEN: Soft. Nontender. No rebound. No guarding. NEUROLOGIC: Patient is sleepy, but arousable. LABORATORY EXAM: WBC 17.3, hemoglobin 10.9, hematocrit 31.9, platelet of 179. PT 14.4, INR 1.26. Chemistry: Sodium 137, potassium 5.2, chloride 97, CO2 of 23, BUN 113, creatinine 4.4, blood sugar of 136. BNP 10,200. Urinalysis shows moderate leukocytes. ASSESSMENT: 1. [id number] renal failure. CT scan shows markedly distended urinary bladder with bilateral hydroureteronephrosis. 2. Parkinson disease. 3. Patient has stable infrarenal abdominal aortic aneurysm, 5.3 x 5.5. 4. Hydronephrosis. 5. Urinary tract infection. 6. Leukocytosis. 7. Hyperkalemia. PLAN: Keep patient on IV fluids. Start him on Maxipime. Nephrology consult by Dr. Luque has been requested. We will follow up labs in a.m. Stefanie Montilla MD
[2017-12-07 06:50] LABS: GRAN # 10.47 (1.4-6.5); HEMOGLOBIN 9.6 g/dL (14.0-18.0); LYMPH # 0.8 (1.2-3.4); LYMPH % 6.6 % (22.0-35.0); MEAN CELL VOLUME 86.3 fl (80.0-105.0); MEAN CORPUSCULAR HEMOGLOBIN 29.3 pg (25.0-35.0); MEAN CORPUSCULAR HGB CONC 33.9 g/dl (31.0-37.0); MEAN PLATELET VOLUME 11.5 fl (7.0-11.0); MONO # 0.4 (0.1-0.6); MONO % 3.2 % (1.0-6.0); PLATELET COUNT 121 10^3/uL (120.0-450.0); RBC 3.28 10^6/uL (3.5-6.1); RED CELL DISTRIBUTION WIDTH 13.8 % (11.5-14.5); WHITE BLOOD COUNT 11.6 10^3/ul (4.5-11.0)
[2017-12-07 07:06] LABS: ALB/GLOB RATIO 1.1 (1.1-1.8); ALBUMIN 3.4 g/dL (3.0-4.8)
[2017-12-07 07:23] LABS: GRAN % 90.2 % (50.0-68.0)
[2017-12-07 08:22] LABS: LYMPHOCYTE 6 % (22.0-35.0); MONOCYTE 4 % (1.0-6.0); NEUTROPHIL 90 % (50.0-70.0)
[2017-12-07] MEDS: Dextrose 5%/0.45% NS 1,000 ML IV SCH ×2 (10:30→13:18)
[2017-12-07] MEDS ORDERED: Meropenem 500 MG in Sodium Chloride 0.9% 50 ML IVPB SCH (12:30)
--- NOTE | 2017-12-07 12:34 | PN ---
DATE: 12/07/2017 SUBJECTIVE: The patient is 77 years old, seen and examined, lying in bed. Seemed to be uncomfortable. He tried to communicate, but mumbles. Able to answer simple question. No nausea or vomiting. No diarrhea. No fever or chills. PHYSICAL EXAMINATION: VITAL SIGNS: He is afebrile, pulse 57, respirations 20, blood pressure 118/64. LUNGS: Bilateral fair airflow. No rhonchi or crackle. HEART: S1 and S2 audible. ABDOMEN: Soft. Nontender. No rebound. No guarding. NEUROLOGICAL: He is awake and alert. He is able to communicate. EXTREMITIES: Bilateral legs, no edema. GENITOURINARY: His Patel is draining clear urine. LABORATORY EXAM: WBC is 11.6, hemoglobin 9.6, hematocrit 28.3, platelet of 121. Chemistry: Sodium 140, potassium 4.3, chloride 103, CO2 of 23, BUN 100, creatinine 3.6, blood sugar 172. His blood culture is growing gram-negative rods. ASSESSMENT: 1. Acute renal failure. 2. Gram-negative sepsis. 3. Dehydration. 4. Dementia. 5. Parkinson's disease. 6. Deconditioning. PLAN: We will continue the patient on cefepime. Follow up sensitivity. Call Dr. Buitrago for consult. We will follow up CBC and CMP in the a.m. Stefanie Montilla MD
--- NOTE | 2017-12-07 12:57 | CARD ---
APPROVED REPORT EKG Measurement Heart [id number] RI 200P [id number] <Conclusion> Electronic ventricular pacemaker
[2017-12-07] MEDS: Iron Complex Polysacch 150mg Cap PO SCH (13:16)
[2017-12-07] MEDS: Meropenem 500 MG in Sodium Chloride 0.9% 50 ML IVPB SCH (17:06)
--- NOTE | 2017-12-07 20:55 | CON ---
DATE: 12/07/[address] Montilla. REFERRING PHYSICIAN: Stefanie Montilla MD REASON FOR CONSULTATION Evaluation of the patient known to us, who once again presents with acute renal failure in the setting of bilateral hydronephrosis and a distended bladder in the setting of nonobstructive kidney stones. HISTORY OF PRESENT ILLNESS The patient is a 77-year-old white male who was essentially noncommunicative. He has end-stage Parkinson disease. The patient is a residential resident. The patient was sent over to the emergency room on 12/06/2017, for perhaps worsening dementia and noted to have an elevated BUN and creatinine. Evaluation in the emergency room, the patient had an abdominal and pelvic CT scan which showed persistent bilateral hydronephrosis with a distended urinary bladder and nonobstructive kidney stones. The patient's urinalysis showed pyuria and initial urine cultures are positive for Gram-negative rods. The patient is on IV antibiotic therapy. The patient had been evaluated by Dr. Raf Contreras in the past. There were discussions about the possibility of a possible decompressive procedure for the urinary tract, but short of placing a Patel catheter, nothing further was done. History of hypertension, history of ASHD status post permanent pacemaker for complete heart block. History of COPD, history of anemia, history of TIA in the past, history of a right-sided CVA with left-sided weakness. We are asked to evaluate the patient for the elevated BUN and creatinine. His baseline BUN, when he is stable, is in the 30 range with a baseline creatinine that is in the 1 to 2 range. We are asked to evaluate the patient to help manage his fluid replacement therapy. PAST MEDICAL HISTORY: Significant for presentations of acute renal failure in the setting of bilateral hydronephrosis, nephrolithiasis, volume depletion, and urinary tract infection in the setting of a distended bladder. History of Parkinson disease. History of right-sided CVA with left-sided weakness. History of ASHD status post permanent pacemaker. History of hypertension. COPD. History of anemia. History of TIAs in the past. MEDICATIONS AT HOME: Include that of Xanax, Sinemet, Apresoline, Norvasc, and DuoNeb. ALLERGIES: THE PATIENT IS ALLERGIC TO PINEAPPLE. CURRENT MEDICATIONS IN HOSPITAL: Include that of hydralazine, D5 half-normal saline 80 mL an hour, DuoNeb, Maxipime, Norvasc, and Sinemet. SOCIAL HISTORY: The patient has a history of cigarette smoking. He presently does not smoke. He is a residential resident. No history of alcohol use. FAMILY HISTORY: Unobtainable from the patient. REVIEW OF SYSTEMS: Very difficult to obtain from the patient. He does have a relative in the room, who states that he has been stable in the residential. GENERAL: Appetite and weight have been stable. ENT: No apparent hearing or visual problems. PULMONARY: Mild shortness of breath, perhaps secondary to COPD. CARDIAC: History of permanent pacemaker with no apparent difficulty. No history of chest pain. GI: No nausea, vomiting, or diarrhea. No abdominal pain. No constipation. : History of kidney stones, history of bilateral hydronephrosis. ENDO: No history of diabetes. MUSCULOSKELETAL: No complaints according to his relative. NEURO: History of Parkinson disease, history of right-sided CVA, history of TIAs, history of left-sided weakness. HEME/ONC: History of anemia secondary to chronic kidney disease. No history of malignancy. PSYCHIATRIC: History is apparently negative. PHYSICAL EXAMINATION: GENERAL: The patient is currently seen on 2R. IV fluids and IV antibiotics are infusing. VITAL SIGNS: Blood pressure 118/64, pulse of 61, temperature is 98.2 with a respiratory rate of 20. Oxygen saturation is 98%. HEENT: Show him to be normocephalic, atraumatic. Conjunctivae are pale. Sclerae are nonicteric. Pupils appear to be equal and reactive to light and accommodation. Extraocular muscles are intact. Posterior pharynx was not examined. NECK: Supple. No neck vein distention. No thyromegaly. No lymphadenopathy. No bruits. CHEST: Clear to auscultation and percussion with no rales, rhonchi, or wheezing. CARDIOVASCULAR: Shows a regular rate and rhythm. Positive permanent pacemaker. No S3, no S4, no audible murmurs, no rubs. ABDOMEN: Soft. Bowel sounds normal. No suprapubic dullness. No masses. No rebound or guarding. : Patel catheter in place draining copious amounts of urine. BACK: No CVAT. No spinal tenderness. EXTREMITIES: Show no lower extremity cyanosis, clubbing, or edema. Distal lower extremity pulses are reduced at 1 to 2+ bilaterally. NEURO: Shows him to be noncommunicative. He does track me around the room. He does appear to have mild left-sided weakness. LABORATORY DATA AND IMAGING: Admitting chest x-ray negative. Admitting abdominal and pelvic CT scan again showed bilateral extensive hydronephrosis with a distended bladder. He does have a 5.5 cm abdominal aortic aneurysm. He does have nonobstructive kidney stones in both kidneys. Labs: CBC: White blood cell count 11.6 with a hemoglobin of 9.6 and a platelet count of 121,000. Coags: PT of 14.4 with INR 1.26, PTT of 29.5. Admitting blood gas 7.31 pH, pCO2 of 47, pO2 of 70. Chemistries on admission: BUN 113, down to 100 with fluid hydration and placement of a Patel; creatinine 4.4, down to 3.6. Baseline BUN is in the 30s with a baseline creatinine in the upper 1 range. Electrolytes are now normal. Potassium was 5.2 on admission. Liver enzymes are normal. Iron saturations checked last time were 24%. Albumin level is 3.4. Urine's are positive for white blood cells. Trace protein. Microbiology: Urine cultures are positive for Gram-negative rods. ASSESSMENT: 1. 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 This is again in the setting of volume depletion, in the setting of bilateral hydronephrosis, in the setting of a distended urinary bladder, and in the setting of a recurrent urinary tract infection. As discussed with the patient's family, I would like for Dr. Raf Contreras, his urologist to be involved. Perhaps, the patient could have some sort of decompressive procedure to allow urine flow and to decrease his readmission right back to the hospital with acute renal failure in the setting of a nonfunctioning, nondraining lower urinary tract. 2. History of Parkinson disease, apparently progressive. 3. History of right-sided cerebrovascular accident with left-sided weakness, appears to be stable. 4. History of atherosclerotic heart disease, status post permanent pacemaker for complete heart block, appears to be stable. 5. Hypertension, controlled on present medical therapy. The patient will continue calcium channel theodore therapy and hydralazine. 6. History of anemia. Earlier this month, iron levels were stable. Need to follow hemoglobin closely. The patient would benefit from iron supplementation with Aranesp on an as-needed basis. 7. History of recurrent urinary tract infections. Patient is on empiric antibiotic therapy. Urine C and S are pending. PLAN: 1. Continue to monitor accurate I's and O's. 2. Continue to follow daily labs. I expect his BUN and creatinine to fall to baseline levels with treatment of his urinary tract infection, IV fluid hydration, and decompression of his lower urinary tract system. 3. Would suggest that we consult Dr. Raf Contreras for more definitive evaluation. 4. Aranesp and iron as noted above. 5. We will continue to monitor the patient closely from a renal standpoint. Thank you for letting me partake and share in the care of your patient. Mikal Brock MD
[2017-12-08] MEDS: Albuterol-Ipratrop 3 mg / 0.5 (3 ml) UD IH SCH ×4 (02:44→21:30)
--- NOTE | 2017-12-08 04:56 | CON ---
DATE: 12/07/2017 LOCATION: The patient was seen in room 276, bed 1. CHIEF COMPLAINT: The patient is positive blood cultures x1 day. HISTORY OF PRESENT ILLNESS This is a 77-year-old male known to me from previous admissions with past medical history significant for congestive heart failure, hypertension, hyperlipidemia, coronary artery disease, Parkinson's, depression, anxiety, dementia, gallstones with a past surgical history of coronary artery bypass graft, cholecystectomy, cardiac catheterization. The patient was admitted to the emergency room by . The patient was brought to the emergency room from a half-way. He also had pacemaker, chronic obstructive lung disease, cerebrovascular accident, and left-sided weakness. REVIEW OF SYSTEMS: Revealed the patient is unable to give accurate history, he is confused. His son is at the bedside. No abdominal pain, diarrhea or constipation reported. No headaches. No blurred vision reported. At the half-way, he was found to have acute renal failure. A 12-point review of systems is performed. There is low-grade fevers, and no abdominal pain or diarrhea. No dysuria or frequency. PAST MEDICAL HISTORY: Significant for dementia, anxiety, depression, gallstone, congestive heart failure, chronic obstructive lung disease, cerebrovascular accident, Parkinson's, coronary artery disease and hyperlipidemia. PAST SURGICAL HISTORY: Significant for pacemaker, coronary artery bypass graft and cholecystectomy, cardiac catheterization. ALLERGIES: THE PATIENT IS ALLERGIC TO [place]. MEDICATIONS AT HOME: Include the patient to be on Xanax, Apresoline and Norvasc. PHYSICAL EXAMINATION: GENERAL: The patient is in bed, confused. VITAL SIGNS: He has a temperature of 99.5, T-max is 100.7, pulse of 63, respiratory rate of 20, blood pressure is 114/60. HEENT: Unremarkable. NECK: Supple. LUNGS: Have decreased breath sounds. HEART: Normal S1, S2. ABDOMEN: Soft, nontender. LABORATORY EXAMINATION: Reveals a white count of 17,300, hemoglobin of 10, platelets of 179. Coagulation is noted. Chemistries revealed a BUN of 113, creatinine of 4.4; in the past the patient's creatinine had been last month and earlier even this month was 2.6, 2.7 and earlier this year was 1.1. Urinalysis reveals 15 to 20 wbc's, moderate bacteria, 30 protein. Microbiology reveals Gram-negative rods in the blood, Gram-negative rods in the urine. Imaging reveals a CAT scan of the abdomen and pelvis, markedly distended urinary bladder, bilateral hydroureter and hydronephrosis, stable abdominal aortic aneurysm, unremarkable lower thorax. The patient also had a chest x-ray, which is reported to be no active pulmonary disease. ASSESSMENT AND PLAN: This a 77-year-old male with congestive heart failure, depression, hypertension, anxiety, hyperlipidemia, dementia, gallstones, coronary artery disease, Parkinson disease, chronic obstructive lung disease, cerebrovascular accident with severe sepsis with Gram-negative maritza bacteremia secondary to Gram-negative maritza in the urine with acute kidney injury. We will treat the patient with meropenem. Urology evaluation is recommended and has been ordered by Dr. Montilla. We will check on the identification and sensitivity of the Gram-negative maritza both in the blood and the urine, and we will make further recommendations upon availability of initial results and clinical response. Case was discussed with the patient's son who is at the bedside. We will follow closely with you. Tunde Buitrago MD
[2017-12-08 06:40] LABS: EOS % 0.3 % (1.5-5.0); GRAN # 6.26 (1.4-6.5); GRAN % 85.1 % (50.0-68.0); HEMOGLOBIN 9.6 g/dL (14.0-18.0); LYMPH # 0.8 (1.2-3.4); LYMPH % 10.9 % (22.0-35.0); MEAN CELL VOLUME 87.8 fl (80.0-105.0); MEAN CORPUSCULAR HEMOGLOBIN 29.2 pg (25.0-35.0); MEAN CORPUSCULAR HGB CONC 33.2 g/dl (31.0-37.0); MEAN PLATELET VOLUME 11.8 fl (7.0-11.0); MONO # 0.3 (0.1-0.6); MONO % 3.7 % (1.0-6.0); RBC 3.29 10^6/uL (3.5-6.1); RED CELL DISTRIBUTION WIDTH 13.6 % (11.5-14.5); WHITE BLOOD COUNT 7.4 10^3/ul (4.5-11.0)
[2017-12-08 07:14] LABS: ALBUMIN 3.4 g/dL (3.0-4.8); CALCIUM 9.2 mg/dL (8.4-10.5)
[2017-12-08] MEDS: Meropenem 500 MG in Sodium Chloride 0.9% 50 ML IVPB SCH ×2 (09:11→21:44)
[2017-12-08] MEDS: Iron Complex Polysacch 150mg Cap PO SCH (09:21)
[2017-12-08] MEDS ORDERED: Darbepoetin Alfa 60 mcg/ml Inj SC ONE (10:00)
[2017-12-08] MEDS: Dextrose 5%/0.45% NS 1,000 ML IV SCH ×3 (11:30→17:30)
--- NOTE | 2017-12-08 12:19 | PN ---
DATE: 12/08/2017 SUBJECTIVE: The patient is currently seen on Telemetry. IV fluids and IV antibiotics are being infused. He remains sleepy. He opens his eyes, but is not communicative. He has a Patel catheter, which is draining large amounts of urine. MEDICATIONS: Medication list reviewed. The patient is currently on hydralazine, D5 half-normal saline 80 mL an hour, inhalation therapy, oral iron, meropenem, amlodipine and Sinemet. OBJECTIVE: INTAKE/OUTPUT: Intake is 970, output is 2300 through the Patel catheter. VITAL SIGNS: Blood pressure is 154/77, temperature is 97.8, pulse of 60 with a respiratory rate of 18. HEENT: Exam shows him to be normocephalic, atraumatic. Conjunctivae are pale. Sclerae are nonicteric. NECK: Supple. No neck vein distention. CHEST: Clear to auscultation and percussion. No rales, rhonchi or wheezing. CARDIOVASCULAR: Regular rate and rhythm. Positive pacemaker. No audible murmurs. No S3. No S4. No rub. ABDOMEN: Soft. Bowel sounds normal. No rebound or guarding. GENITOURINARY: Patel catheter in place draining large amounts of urine. EXTREMITIES: Show no lower extremity cyanosis, clubbing or edema. Diminished lower extremity pulses bilaterally. LABORATORY DATA AND IMAGING DATA: CBC today, white blood cell count is down to 7.4 with a hemoglobin of 9.6, platelet count is 134,000. Chemistry showed normal electrolytes. Potassium is now normal at 4. BUN is down to 73 from a high of 113. His baseline BUN is in the 30 to 40 range. Creatinine is down from 4.4 to 2.5, baseline creatinine is in the mid 1 range. Glucose is 185. Calcium, phosphorus, magnesium levels were all normal. Microbiology, urine cultures are positive for E-coli and enterococcus. Blood cultures are positive for gram-negative rods. ASSESSMENT: 1. Acute renal failure superimposed on chronic kidney disease stage II/III. This is in the setting of volume depletion in the setting of bilateral hydronephrosis, in the setting of distended urinary bladder, in the setting of recurrent urinary tract infection and possible sepsis from his urinary tract infection. I have requested that his urologist see him in light of the inability for him to empty his bladder properly, which is likely causing bad pressure on the kidneys by virtue of fact that he has bilateral hydronephrosis and decreasing GFR. The patient will likely need a procedure to decompress his urinary tract system and to allow urine to flow. 2. History of Parkinson disease, progressive. 3. 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 4. History of atherosclerotic heart disease, status post permanent pacemaker for complete heart block, stable. 5. Hypertension, controlled on present medical therapy. The patient will continue calcium channel theodore therapy and hydralazine. 6. History of anemia. Hemoglobin level is down to 9.6. The patient remains on oral iron therapy and he did receive one dose of Aranesp today 60 mcg on 12/08/2017. 7. Urinary tract infection with possible septicemia secondary to his urinary tract infection. The patient will continue on empiric antibiotic therapy. PLAN: 1. Need to monitor accurate Is and Os. 2. Continue to follow labs on a daily basis. 3. evaluation requested in light of the discussion above. 4. Continue to monitor the patient closely during hospitalization. 5. Continue to monitor the patient on Telemetry. Mikal Brock MD
--- NOTE | 2017-12-08 16:06 | PN ---
DATE: 12/08/2017 SUBJECTIVE: The patient is in bed, in no acute distress, nontoxic. OBJECTIVE: VITAL SIGNS: On exam, temperature is 98, blood pressure is 150/70, respiratory rate of 16. HEENT: Examination is unremarkable. NECK: Supple. LUNGS: Have decreased breath sounds. HEART: Normal S1, S2. ABDOMEN: Soft, nontender. DATA: Laboratory examination reveals the patient's white count of 7.4, hemoglobin 9.6, platelets of 134. The patient has 85% granulocytosis and coagulation is reviewed. INR . Blood gases are reviewed. The patient's BUN of 73, creatinine of 2.5 and BNP is 10,000. Urinalysis is noted and microbiology reveals a gram-negative maritza in the blood. Further identification, sensitivity pending. There is a gram-negative maritza in the urine also; the sensitivity and identification sensitivity is noted to be E-coli and Enterococcus faecalis in the urine. The E. Coli in the urine is sensitive to cefazolin, resistant to Cipro, sensitive to cefepime and the Enterococcus faecalis is sensitive to , JAYDE of 1 to vancomycin. Review of orders reveals the patient to be on meropenem. ASSESSMENT AND PLAN: This is a 77-year-old male who was seen earlier appears to be much improved from yesterday and with congestive heart failure and depression, hypertension, anxiety, hyperlipidemia, hyperlipidemia, dementia, gallstones, coronary artery disease, Parkinson disease, chronic obstructive lung disease, cerebrovascular accident, admitted on this admission with severe sepsis with gram-negative maritza bacteremia secondary to gram-negative maritza in the urine with acute kidney injury, on meropenem and awaiting the identification, sensitivity of the gram-negative maritza in the blood. The urine has been identified as E. Coli and Enterococcus, two organisms in the urine. Tunde Buitrago MD
--- NOTE | 2017-12-08 17:57 | PN ---
DATE: 12/08/2017 SUBJECTIVE: The patient is 77 years old seen and examined, seems to be little more alert, mumbles, answer verbal commands. Eating fair. PHYSICAL EXAMINATION: VITAL SIGNS: He is afebrile, pulse 92, respirations 20, blood pressure 137/71. LUNGS: Bilateral fair airflow. No rhonchi or crackle. HEART: S1 and S2 audible. ABDOMEN: Soft, nontender. No rebound. No guarding. He is slowly draining clear urine. EXTREMITIES: Bilateral legs, no edema. LABORATORY EXAMINATION: WBC is 7.4, hemoglobin 9.6, hematocrit 28.9, platelet of 134. Chemistry: Sodium 145, potassium 4, chloride 107, CO2 25, BUN 73, creatinine 2.5, blood sugar of 185. Urine culture positive for E-coli and Enterococcus faecalis. Blood culture positive for gram-negative rods. CT scan of the abdomen and pelvis was done, which showed prior to catheterization markedly distended urinary bladder with bilateral hydronephrosis. ASSESSMENT: 1. Acute on chronic renal failure. 2. Bilateral hydronephrosis. 3. Urine retention. 4. Escherichia coli and Enterococcus faecalis urinary tract infection. 5. Gram negative sepsis. 6. Dementia. 7. Parkinson disease. 8. Dehydration that is improving. 9. Anemia. PLAN: The patient was given dose of Aranesp and he is on p.o. iron supplementation. We will continue on IV fluid, continue on nebulizer treatment. He has been started on meropenem. We will follow the sensitivity and we will follow up his CBC and CMP in a.m. A physical therapy evaluation has been done, awaiting Urology input. Stefanie Montilla MD
[2017-12-09] MEDS: Albuterol-Ipratrop 3 mg / 0.5 (3 ml) UD IH SCH ×4 (03:05→22:02)
[2017-12-09] MEDS: Dextrose 5%/0.45% NS 1,000 ML IV SCH (05:50)
[2017-12-09 07:35] LABS: HEMOGLOBIN 9.5 g/dL (14.0-18.0); MEAN CELL VOLUME 88.4 fl (80.0-105.0); MEAN CORPUSCULAR HEMOGLOBIN 29.1 pg (25.0-35.0); MEAN CORPUSCULAR HGB CONC 32.9 g/dl (31.0-37.0); MEAN PLATELET VOLUME 11.3 fl (7.0-11.0); RBC 3.27 10^6/uL (3.5-6.1); RED CELL DISTRIBUTION WIDTH 13.4 % (11.5-14.5); WHITE BLOOD COUNT 7.3 10^3/ul (4.5-11.0)
[2017-12-09 07:58] LABS: ALBUMIN 3.4 g/dL (3.0-4.8); CALCIUM 8.9 mg/dL (8.4-10.5)
[2017-12-09] MEDS: Iron Complex Polysacch 150mg Cap PO SCH (09:45)
--- NOTE | 2017-12-09 09:48 | PN ---
DATE: 12/09/2017 SUBJECTIVE: The patient is in bed, in no acute distress, nontoxic. PHYSICAL EXAMINATION: VITAL SIGNS: Temperature is 97, blood pressure is 135/50, respiratory rate of 20, heart rate of 60. HEENT: Unremarkable. NECK: Supple. LUNGS: Decreased breath sounds. HEART: Normal S1, S2. ABDOMEN: Soft, nontender. LABORATORY EXAMINATION: Reveals a white count of 7.4, hemoglobin of 9, platelets of 134. BUN of 73, creatinine of 2.5. BNP is elevated. Urinalysis is noted. Microbiology reveals Gram-negative maritza in the blood. Identification and sensitivity is still pending. Urine culture has E. Coli and Enterococcus faecalis. E. Coli in the urine is sensitive to cefazolin cefepime. Resistant to quinolones, resistant to Bactrim. Sensitive to ampicillin. Review of orders reveals the patient to be on meropenem. ASSESSMENT AND PLAN: This is a 77-year-old male, was seen earlier this morning. Patient is doing better. His mental status is improving, who was admitted with severe sepsis, with Gram-negative maritza bacteremia secondary to Escherichia coli and Enterococcus in the urine with acute kidney injury, currently on meropenem. Awaiting for identification and sensitivity of the Gram-negative maritza in the blood and we will repeat blood cultures and urinalysis and urine cultures in this patient with a history of congestive heart failure, depression, hypertension, anxiety, hyperlipidemia, dementia and gallstones, coronary artery disease and Parkinson's disease and chronic obstructive lung disease, cerebrovascular accident. Should have urology evaluation and prostate workup. Tunde Buitrago MD
[2017-12-09] MEDS: Meropenem 500 MG in Sodium Chloride 0.9% 50 ML IVPB SCH ×2 (09:51→22:48)
--- NOTE | 2017-12-09 11:34 | PN ---
DATE: 12/09/2017 SUBJECTIVE: This is a 77-year-old white male who was readmitted to the hospital from a residential, in acute renal failure with chronic renal insufficiency, history of Parkinson's, history of CVA in the past, dementia. The patient previously had an obstructive uropathy, was sent to the residential with a Patel catheter. When the Patel was removed, apparently the patient reestablished postobstructive uropathy and acute renal failure on chronic renal insufficiency and was readmitted to the hospital. The patient's BUN and creatinine have trended back to almost normal today. He is down to BUN and creatinine of 49 and 2, initially came in with a BUN over 100 and the creatinine over 4. The patient will need a chronic Patel catheter or suprapubic catheter due to the recurrent renal failure from postobstructive uropathy and bilateral hydronephrosis. The patient is more awake and alert today. He is tolerating his diet well. PHYSICAL EXAMINATION: VITAL SIGNS: Stable. CHEST: Clear to auscultation and percussion. HEART: Regular sinus rhythm. GENITOURINARY: He has Patel catheter that is draining. He is on IV antibiotics. Plan is to start physical therapy and occupational therapy. Continue his medications and discussed the case with Urology as far as a permanent catheter. Ted Jacob MD
--- NOTE | 2017-12-09 13:31 | PN ---
DATE: 12/09/2017 SUBJECTIVE: The patient is currently seen lying comfortable in bed. He is attempting to eat lunch. IV fluids are being infused. He remains on IV antibiotics. He is communicating a little bit better today. He has a Patel catheter which is draining large amounts of urine. MEDICATIONS: Medication list reviewed. The patient is on hydralazine, D5 half-normal saline, DuoNeb, Ferrex, meropenem, Norvasc, Sinemet. OBJECTIVE: INTAKE/OUTPUT: Intake 13 80, output 4800. VITAL SIGNS: Blood pressure 135/69, temperature 97.8, respiratory rate 18 with a pulse of 97. Oxygen saturation is 98%. HEENT: Exam shows him to be normocephalic, atraumatic. Conjunctivae remain pale. Sclerae are nonicteric. NECK: Supple. No neck vein distention. CHEST: Clear to auscultation and percussion. No rales, rhonchi or wheezing. CARDIOVASCULAR: Regular rate and rhythm. Positive pacemaker. No audible murmurs. No S3, no S4. No rub. ABDOMEN: Soft. Bowel sounds normal. No rebound or guarding. GENITOURINARY: Positive Patel catheter in place, draining large amounts of urine. EXTREMITIES: No lower extremity cyanosis, clubbing or edema. Diminished lower extremity pulses bilaterally. LABORATORY DATA AND IMAGING DATA: CBC: White blood cell count down to 7.3, hemoglobin 9.5 with a platelet count of 144,000. Chemistry today showed normal electrolytes. BUN 49 with a creatinine of 2. Glucose of 134. Calcium of 8.9. Yesterday's phosphorus 3.7 with a magnesium level of 2.2. Microbiology. Urine is positive for E-coli and enterococcus. Blood cultures are positive for E-coli. ASSESSMENT: 1. Acute renal failure superimposed on chronic kidney disease stage II/III. The patient's baseline BUN is in the 30-40 range with a creatinine in the mid 1 range. This is in the setting of bilateral hydronephrosis, distended urinary bladder. Positive blood culture is likely secondary to his urinary tract infection. The patient will have this issue addressed by his urologist to discuss possible ways to decompress the bladder and decrease his frequency of bouts of acute renal failure and urinary tract infection. 2. History of Parkinson's disease, progressive. 3. 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 4. History of atherosclerotic heart disease, status post permanent pacemaker for complete heart block. 5. History of hypertension. Blood pressure controlled on calcium channel theodore therapy, hydralazine. 6. History of anemia. Hemoglobin is stable at 9.5. The patient had received Aranesp and we will continue on oral iron therapy. 7. History of urinary tract infection with septicemia, continue appropriate antibiotic therapy. PLAN: 1. Continue IV fluid hydration until BUN and creatinine hit baseline levels. Encourage oral fluid intake. 2. Await evaluation for definitive evaluation for decompression of his nonfunctional bladder and hydronephrosis. 3. Continue to monitor the patient on Telemetry. 4. Close renal followup during hospitalization. Mikal Brock MD
[2017-12-10] MEDS: Albuterol-Ipratrop 3 mg / 0.5 (3 ml) UD IH SCH ×4 (01:58→20:14)
[2017-12-10 02:12] LABS: PH,URINE 6.5 (4.7-8.0); URINE BILIRUBIN NEGATIVE (NEGATIVE); URINE BLOOD TRACE-LYSED (NEGATIVE); URINE GLUCOSE (UA) NEGATIVE (NEGATIVE); URINE LEUKOCYTE ESTERASE MODERATE Leu/uL (NEGATIVE); URINE PROTEIN TRACE mg/dL (<30 mg/dL); URINE UROBILINOGEN 0.2 E.U./dL (<1 E.U./dL)
[2017-12-10 02:16] LABS: URINE APPEARANCE CLEAR (CLEAR); URINE COLOR YELLOW (YELLOW)
[2017-12-10 02:29] LABS: URINE EPITHELIAL CELLS 0 - 2 /hpf (0-5); URINE RBC 0 - 2 /hpf (0-2)
[2017-12-10 02:30] LABS: URINE BACTERIA RARE (NEG)
[2017-12-10] MEDS: Dextrose 5%/0.45% NS 1,000 ML IV SCH (06:08)
[2017-12-10 07:00] LABS: HEMOGLOBIN 9.4 g/dL (14.0-18.0); MEAN CELL VOLUME 86.6 fl (80.0-105.0); MEAN CORPUSCULAR HEMOGLOBIN 29.3 pg (25.0-35.0); MEAN CORPUSCULAR HGB CONC 33.8 g/dl (31.0-37.0); MEAN PLATELET VOLUME 10.8 fl (7.0-11.0); RBC 3.21 10^6/uL (3.5-6.1); RED CELL DISTRIBUTION WIDTH 13.3 % (11.5-14.5); WHITE BLOOD COUNT 8.8 10^3/ul (4.5-11.0)
[2017-12-10 07:26] LABS: ALBUMIN 3.1 g/dL (3.0-4.8); CALCIUM 8.5 mg/dL (8.4-10.5)
[2017-12-10] MEDS: Meropenem 500 MG in Sodium Chloride 0.9% 50 ML IVPB SCH (09:59)
[2017-12-10] MEDS: Iron Complex Polysacch 150mg Cap PO SCH (10:05)
--- NOTE | 2017-12-10 16:03 | CON ---
DATE: 12/08/2017 UROLOGY CONSULT REASON FOR CONSULTATION: Hematuria, renal failure, and urinary retention. HISTORY OF PRESENT ILLNESS: History is from the chart. I have also seen the patient previously. See my previously dictated notes for his previous hospitalization and has also had a chance now to review and previously performed cystoscopic evaluation on patient. Patient is here now, comes in from the custodial without a Patel catheter and we put a Patel catheter in the emergency room. We got more than a liter. There is some bloody urine. It is not exactly clear if we will need to discharge the patient and we had recommended continuing the Patel catheter. See the plans listed below. Meanwhile, patient now has a Patel catheter in place. Urology consulted for further recommendations, see below. PAST MEDICAL AND SURGICAL HISTORY: All listed on the chart. Multiple medical issues. The patient of Dr. Langston. Nurse did confirm this. MEDICATIONS: See the chart. ALLERGIES: . PHYSICAL EXAMINATION: GENERAL: A well-nourished male, in no apparent distress. VITAL SIGNS: Within normal limits. ABDOMEN: Soft. Now, the Patel catheter in place, draining relatively clear urine; therefore, it irrigates well. LABORATORY DATA: Noted. Repeat creatinine, elevation noted. DIAGNOSES: 1. Renal failure. 2. Azotemia. 3. Urinary retention. 4. Gross hematuria. PLAN: At this time, I am planning to discuss further options with Dr. Jacob and also with his primary care doctor unless we see who is here for the weekend, maybe Dr. Jacobs. We will discuss further plans. We will look at all previous records and make recommendations and plans, but, it was deemed that the patient had the Patel catheter removed after trying to find out exactly the source of this removal, but our general recommendation is to leave the Patel catheter in place. Just take good care of the meatus, make sure it is working well with irrigation and change it every four to six weeks. Of course, we recognized the concern for UTI and infection and complication. So, in this regard, we will discuss further options, perhaps consider a cystostomy tube. I do not feel the patient will be a great candidate for TURP for various reasons. So, the plan will be as follows: 1. Maintain his Patel. 2. Check some old record. 3. Consider cystostomy tube with suprapubic catheter versus indwelling Patel and just . . Discuss options with the family and Dr. Jacob regarding further intervention and we may try approach of suprapubic catheter versus the possibility for just waiting for the patient and if we keep the Patel clear and not remove it even in the custodial and keep it clean, dry and uninfected, we will review the patient with an indwelling Patel catheter. Those are the various options. 1. Patel catheter. 2. Cystostomy tube. 3. performing a TURP. entertained. Raf Contreras MD
--- NOTE | 2017-12-10 16:05 | PN ---
DATE: 12/10/2017 SUBJECTIVE: A 77-year-old white male admitted to the hospital with acute renal failure, chronic renal insufficiency, bladder outlet obstruction, obstructive uropathy, history of Parkinson, CVA in the past, dementia and patient has had a markedly improved BUN and creatinine of 36 and 1.7. The hemoglobin is 9.4. He states vital signs are stable. Blood pressure is stable. Patient seen with his son this morning, discussed consultation with Dr. Contreras, decided that best course of action will be suprapubic catheter as opposed to TURP in a patient who is had dementia and Parkinson in the past and is a high risk for CVA, myocardial infarction and clots. Patient will have a suprapubic catheter as soon as possible and then return to his [facility]. Physical examination, unchanged. Vital signs are stable. Patient is awake and alert. Ted Jacob MD
[2017-12-10] MEDS: Potassium Chloride 20 MEQ in Dextrose 5%/0.45% NS 1,000 ML IV SCH (16:52)
[2017-12-10] MEDS: Magnesium Oxide 400 mg Tab UD PO SCH (18:56)
--- NOTE | 2017-12-10 19:39 | PCM.URO ---
Urology Progress Note - General General: No Complaints, Tolerating Diet - Subjective Abdominal Pain: No Flank Pain: No Nausea: No Vomiting: No Voiding Well: No Hematuria: No Dsypnea: No Chest Pain: No Fever & Chills: No - Objective Lab Studies: Reviewed (Creat=1.7 Hct=27 + urine culture - enterococcus, e coli) Lab Results Last 24 Hours: Laboratory Results - last 24 hr 12/10/17 12/10/17 12/10/17 02:00 06:30 06:30 WBC 8.8 D RBC 3.21 L Hgb 9.4 L Hct 27.8 L MCV 86.6 MCH 29.3 MCHC 33.8 RDW 13.3 Plt Count 140 MPV 10.8 Sodium 143 Potassium 3.6 Chloride 106 Carbon Dioxide 25 Anion Gap 16 BUN 36 H Creatinine 1.7 H Est GFR ( Amer) 48 Est GFR (Non-Af Amer) 39 Random Glucose 116 H Calcium 8.5 Phosphorus 3.0 Magnesium 1.5 L Total Bilirubin 0.2 AST 29 ALT 22 Alkaline Phosphatase 71 Total Protein 6.3 Albumin 3.1 Globulin 3.2 Albumin/Globulin Ratio 1.0 L Urine Color Yellow Urine Appearance Clear Urine pH 6.5 Ur Specific [place] 1.010 Urine Protein Trace H Urine Glucose (UA) Negative Urine Ketones Negative Urine Blood Trace-lysed H Urine Nitrate Negative Urine Bilirubin Negative Urine Urobilinogen 0.2 Ur Leukocyte Esterase Moderate H Urine RBC 0 - 2 Urine WBC 5 - 10 Ur Epithelial Cells 0 - 2 Urine Bacteria Rare Intake & Output: Intake & Output 12/10/17 12/10/17 12/11/17 06:59 18:59 06:59 Intake Total 960 420 Output Total 1500 900 Balance -540 -480 Weight 111 lb 11.2 oz Intake: IV 960 Right Forearm 960 Oral 0 420 Output: Urine 1500 900 Urethral (Patel) 1500 900 Stool 0 Other: # Bowel Movements 0 Vital Signs: Vital Signs - 24 hr 12/09/17 12/09/17 12/10/17 22:00 22:48 00:01 Temperature 98.7 F Pulse Rate 62 62 60 Respiratory 18 Rate Blood Pressure 130/67 130/65 O2 Sat by Pulse 100 Oximetry 12/10/17 12/10/17 12/10/17 02:00 05:56 10:00 Temperature Pulse Rate 60 60 60 Respiratory Rate Blood Pressure O2 Sat by Pulse Oximetry 12/10/17 12/10/17 12/10/17 10:05 12:00 13:41 Temperature 97.8 F Pulse Rate 60 60 63 Respiratory 18 Rate Blood Pressure 125/67 124/69 122/61 O2 Sat by Pulse Oximetry 12/10/17 12/10/17 12/10/17 14:00 17:51 18:00 Temperature 97.6 F Pulse Rate 60 58 L 68 Respiratory 18 Rate Blood Pressure 135/69 O2 Sat by Pulse Oximetry - Physical Exam Abdominal Exam: Soft, Non-Tender, Non-Distended Back: No CVA Tenderness Genitalia: Without Inflammation Urinary Catheter Draining Well: Yes Urine Color: Clear, Yellow - Plan Catheter Care: Yes Intake & Output: Yes Additional Information: IMP: UTI. Retention. Catheter in place. P: on Antibiotic rx, merepenem - Date & Time of Note Date: 12/10/17 Time: 19:39
[2017-12-10] MEDS: AMPicillin 2 GM in Sodium Chloride 0.9% 100 ML IVPB SCH (23:32)
--- NOTE | 2017-12-11 00:53 | PN ---
DATE: 12/10/2017 SUBJECTIVE: Patient is in bed, in no acute distress, nontoxic. PHYSICAL EXAMINATION: VITAL SIGNS: Temperature is 97, blood pressure is 135/60, respiratory rate of 18, heart rate of 58. HEENT: Unremarkable. NECK: Supple. LUNGS: Have decreased breath sounds. HEART: Normal S1 and S2. ABDOMEN: Soft and nontender. LABORATORY DATA: Reveals a white count of 8.5, hemoglobin of 9, platelets of 140. Chemistries reveal the BUN of 36, creatinine of 1.7. BNP is 10,000. Urinalysis is noted. Microbiology reveals the blood culture being positive for E. coli. The urine culture is positive for E. coli and Enterococcus. The E. coli is richard sensitive. It is resistant to Cipro, resistant to Bactrim, sensitive to ampicillin. Repeat blood cultures are negative. Dr. Contreras's progress note is reviewed. Dr. Jacob's consult, ER and progress note is also reviewed. He states that the patient will have a suprapubic catheter. Patient is on meropenem. E. coli is sensitive to ampicillin and cefazolin. ASSESSMENT AND PLAN: This is a 77-year-old male who was admitted with change is mental status and found to have severe sepsis with Escherichia coli bacteremia secondary to Escherichia coli, Enterococcus in the urine, acute kidney injury; now, we will discontinue meropenem and use ampicillin, maybe able to switch to p.o. ampicillin upon discharge and follow closely with you. Patient is scheduled for possible suprapubic catheter placement. Tunde Buitrago MD
[2017-12-11] MEDS: Albuterol-Ipratrop 3 mg / 0.5 (3 ml) UD IH SCH ×4 (01:14→20:03)
[2017-12-11] MEDS: Potassium Chloride 20 MEQ in Dextrose 5%/0.45% NS 1,000 ML IV SCH ×3 (02:00→17:15)
--- NOTE | 2017-12-11 06:06 | PN ---
DATE: 12/10/2017 SUBJECTIVE: The patient is currently seen on telemetry, lying comfortable supine in bed, IV fluids and IV antibiotics are infusing. As per my discussion with the staff on 2R, the patient is likely being scheduled for a suprapubic cystotomy tube in light of the fact that he has a distended nonfunctional bladder with bilateral hydronephrosis and continues to return to the hospital with acute urinary retention, renal failure and urinary tract infections. MEDICATIONS: Medication list reviewed. The patient is on Apresoline, D5 half normal saline at 80 mL an hour, albuterol, oral iron, meropenem, amlodipine and Sinemet. OBJECTIVE: INTAKE/OUTPUT: Intake is 960, output is 1500. VITAL SIGNS: Blood pressure is 132/70. Pulse of 96. The patient is afebrile, respiratory rate is 18. HEENT: Shows him to be normocephalic, atraumatic. Conjunctivae remain pale. Sclerae are nonicteric. NECK: Supple. No neck vein distention. CHEST: Clear to auscultation and percussion. No rales, rhonchi or wheezing. CARDIOVASCULAR: Shows a regular rate and rhythm. Positive permanent pacemaker. No audible murmurs. No S3. No S4. No rub. ABDOMEN: Soft. Bowel sounds are normal. No rebound or guarding. GENITOURINARY: Positive Patel catheter, draining large amounts of urine. EXTREMITIES: No lower extremity cyanosis, clubbing or edema. Diminished lower extremity pulses bilaterally. LABORATORY DATA: CBC: White blood cell count 8.8, hemoglobin 9.4 with a platelet count of 140,000. Chemistries today showed normal electrolytes. BUN is 36 with a creatinine of 1.7. The patient is down from a BUN of 130 down to his baseline which is in the 30-40 range. Creatinine is down from 4.4 down to 1.7 which is in the mid one range again in his baseline level. IMAGING STUDIES: Showed bilateral hydronephrosis with a distended urinary bladder prior to placement of the Patel catheter. ASSESSMENT: 1. Urinary tract infection with positive blood cultures. Urine grew out Escherichia coli and enterococcus. Blood cultures grew out Escherichia coli. The patient is completing a course of antibiotic therapy. 2. History of Parkinson's disease, progressive. The patient is on medical therapy. 3. 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 4. History of atherosclerotic heart disease, status post permanent pacemaker for complete heart block. 5. History of hypertension. Blood pressure is controlled on calcium channel theodore therapy and hydralazine therapy. 6. History of anemia in part secondary to chronic kidney disease stage II/III. The patient will continue oral iron therapy. The patient had received a dose of Aranesp on 12/08/2017, 60 mcg. 7. Poor p.o. intake. No choice, but to continue IV fluid hydration even though he is returned back to baseline levels of his BUN and creatinine. PLAN: 1. Continue IV fluid hydration. I will supplement potassium cautiously. 2. No definitive note seen in the EMR , but from what I am told from the staff on 2R, the patient will likely be scheduled for a suprapubic cystotomy tube. 3. Continue to monitor the patient on telemetry. 4. Supplement magnesium. Magnesium level was 1.5. Mikal Brock MD
[2017-12-11] MEDS: AMPicillin 2 GM in Sodium Chloride 0.9% 100 ML IVPB SCH ×4 (06:30→23:47)
[2017-12-11 08:09] LABS: HEMOGLOBIN 9.7 g/dL (14.0-18.0); MEAN CORPUSCULAR HEMOGLOBIN 29.3 pg (25.0-35.0); MEAN CORPUSCULAR HGB CONC 33.7 g/dl (31.0-37.0); MEAN PLATELET VOLUME 10.6 fl (7.0-11.0); RBC 3.31 10^6/uL (3.5-6.1); RED CELL DISTRIBUTION WIDTH 13.2 % (11.5-14.5); WHITE BLOOD COUNT 9.8 10^3/ul (4.5-11.0)
[2017-12-11 08:21] LABS: ALBUMIN 3.2 g/dL (3.0-4.8); CALCIUM 8.4 mg/dL (8.4-10.5)
[2017-12-11] MEDS: Magnesium Oxide 400 mg Tab UD PO SCH ×2 (10:00→17:23)
[2017-12-11] MEDS ORDERED: Lidocaine 2% Jelly (Uro-Jet) ONE (11:13)
[2017-12-11] MEDS ORDERED: Iohexol 240 (50 ml) ONE (11:14)
[2017-12-11] MEDS ORDERED: Lactated Ringer's 1,000 ML IV SCH (11:15)
[2017-12-11] MEDS ORDERED: Midazolam 2 MG/2 ML VIAL ONE (11:27)
[2017-12-11] MEDS ORDERED: cefTRIAXone (Rocephin) 1 gm Inj ONE (11:34)
[2017-12-11] MEDS ORDERED: Lidocaine 1% Inj (20ml) ONE (11:36)
--- NOTE | 2017-12-11 11:41 | PN ---
DATE: 12/11/2017 SUBJECTIVE: A 77-year-old white male, acute renal failure, chronic renal insufficiency, bladder outlet obstruction. The patient's BUN and creatinine have gone down to 28 and 1.4. normalized. He is afebrile. Vital signs are stable. The patient is for surgical suprapubic catheter today. Plan is to continue current medication and eventually return to his [facility]. Ted Jacob MD
[2017-12-11] MEDS ORDERED: Magnesium Sulfate 1 gm in D5W 1 GM/100 ML BAG IVPB ONE (13:19)
--- NOTE | 2017-12-11 13:22 | RAD ---
PROCEDURE: Cystogram HISTORY: CYSTOGRAM COMPARISON: TECHNIQUE: Fluoroscopy was provided in the operating room. 4.1 seconds of fluoro time. Cumulative dose 1.11 mGy. Four images were submitted FINDINGS: The study shows a balloon tipped catheter in the bladder with opacification of the bladder. Small diverticula are seen. IMPRESSION: As above
--- NOTE | 2017-12-11 13:53 | PN ---
DATE: 12/11/2017 SUBJECTIVE: The patient is seen lying in bed. He is awake, he is alert. PHYSICAL EXAMINATION: GENERAL: Elderly male lying in bed. VITAL SIGNS: Blood pressure 145/83, heart rate 64, respiratory rate 24, temperature 97.5. HEENT: Normocephalic, atraumatic. Positive pallor. NECK: Supple, no JVD. LUNGS: Bilateral equal entry, bilateral equal expansion. CARDIAC: S1, S2. Regular rate and rhythm. No murmur, no rub. ABDOMEN: Soft, nondistended, nontender. Bowel sounds present. EXTREMITIES: No lower extremity edema. INTAKE AND OUTPUT: 4080/2100. LABORATORY DATA: WBC 9.8, hemoglobin 9.7, hematocrit 28.8, platelets 168. Sodium 142, potassium 3.9, chloride 107, CO2 24, BUN 28, creatinine 1.4, glucose 117. Calcium 8.4, phosphorus 2.8, magnesium 1.5, albumin 3.2, globulin 3.1. Urinalysis, yellow clear, pH 6.5, specific gravity 1.010, protein trace, blood trace, leukocyte esterase moderate. Urine culture, no growth. Blood culture, no growth. Urine culture and blood culture from the 25th, E. coli. CURRENT MEDICATIONS: Ampicillin 2 g every 6 hours, Apresoline, magnesium oxide, amlodipine 5, potassium and D5 half-normal saline at 80, carbidopa. ASSESSMENT AND PLAN: 1. Urinary tract infection, Escherichia coli, urosepsis and bacteremia. 2. Parkinson's disease. 3. History of right cerebrovascular accident. 4. Coronary artery disease, complete heart block with pacemaker. 5. Hypertension. 6. Anemia of chronic kidney disease. 7. Failure to thrive. PLAN: 1. Continue IV fluids. 2. The patient is going for suprapubic catheter today. 3. Continue antibiotics. 4. Repeat magnesium supplementation IV. 5. Avoid nephrotoxins. Rox Luque MD
[2017-12-11] MEDS: Iron Complex Polysacch 150mg Cap PO SCH (13:59)
--- NOTE | 2017-12-11 19:05 | CP.PCM.PN ---
Subjective - Date & Time of Evaluation Date of Evaluation: 12/11/17 Time of Evaluation: 09:00 - Subjective Subjective: Patient is for suprapubic catheter placement, no fevers. Objective - Vital Signs/Intake and Output Vital Signs (last 24 hours): Temp Pulse Resp BP Pulse Ox 98.9 F 65 20 160/80 H 96 12/11/17 06:00 12/11/17 06:30 12/11/17 06:00 12/11/17 06:30 12/11/17 00:01 Intake and Output: 12/11/17 12/11/17 06:59 18:59 Intake Total 1060 Output Total 1200 Balance -140 - Medications Medications: Current Medications Albuterol/Ipratropium (Duoneb 3 Mg/0.5 Mg (3 Ml) Ud) 3 ml IH [id number] [facility] Last Admin: 12/11/17 08:23 Dose: 3 ml Amlodipine Besylate (Norvasc) 5 mg PO DAILY [facility] Last Admin: 12/10/17 10:05 Dose: 5 mg Carbidopa/Levodopa (Sinemet) 1 tab PO TID [facility] Last Admin: 12/10/17 18:56 Dose: 1 tab Hydralazine HCl (Apresoline) 10 mg PO Q8H [facility] Last Admin: 12/11/17 06:30 Dose: 10 mg Potassium Chloride 20 meq/ (Dextrose/Sodium Chloride) 1,010 mls @ 80 mls/hr IV .[id number] [facility] Last Admin: 12/11/17 06:33 Dose: 80 mls/hr Ampicillin 2 gm/ Sodium (Chloride) 100 mls @ 200 mls/hr IVPB Q6 [facility] PRN Reason: Protocol Stop: 12/19/17 00:01 Last Admin: 12/11/17 06:30 Dose: 200 mls/hr Magnesium Oxide (Mag-Ox) 400 mg PO BID [facility] Last Admin: 12/10/17 18:56 Dose: 400 mg Polysaccharide Iron Complex (Ferrex-150) 150 mg PO DAILY [facility] Last Admin: 12/10/17 10:05 Dose: 150 mg - Labs Labs: 12/11/17 07:50 12/11/17 07:50 PT 14.4 SECONDS (9.4-12.5) H 12/06/17 13:58 INR 1.26 (0.93-1.08) H 12/06/17 13:58 APTT 29.5 Seconds (25.1-36.5) 12/06/17 13:58 - Constitutional Appears: Chronically Ill - Head Exam Head Exam: NORMAL INSPECTION - Cardiovascular Exam Cardiovascular Exam: +S1, +S2 - GI/Abdominal Exam GI & Abdominal Exam: Soft. absent: Tenderness Assessment and Plan - Assessment and Plan (Free Text) Plan: Assessment severe sepsis with E. coli bacteremia due to UTI, with also E. faecalis in the urine history of C. diff. colitis S/P thalamic bleed CAD COPD Parkinson's disease history of significant smoking Plan continue IV ampicillin to complete 10-14 days of therapy for suprapubic catheter insertion today
[2017-12-12] MEDS: Albuterol-Ipratrop 3 mg / 0.5 (3 ml) UD IH SCH ×3 (02:05→13:58)
[2017-12-12] MEDS: Potassium Chloride 20 MEQ in Dextrose 5%/0.45% NS 1,000 ML IV SCH (03:10)
[2017-12-12] MEDS: AMPicillin 2 GM in Sodium Chloride 0.9% 100 ML IVPB SCH ×2 (05:52→11:22)
[2017-12-12 08:01] VITALS: O2SAT 93
[2017-12-12] MEDS: Magnesium Oxide 400 mg Tab UD PO SCH (09:45)
[2017-12-12] MEDS: Iron Complex Polysacch 150mg Cap PO SCH (09:45)
--- NOTE | 2017-12-12 11:41 | CP.PCM.PN ---
Subjective - Date & Time of Evaluation Date of Evaluation: 12/12/17 Time of Evaluation: 10:15 - Subjective Subjective: Comfortable in bed, afebrile, not in distress. Objective - Vital Signs/Intake and Output Vital Signs (last 24 hours): Temp Pulse Resp BP Pulse Ox 98.2 F 70 18 125/85 98 12/11/17 18:58 12/12/17 06:00 12/11/17 18:58 12/12/17 05:56 12/11/17 13:11 Intake and Output: 12/11/17 12/12/17 18:59 06:59 Intake Total 0 Output Total 600 Balance -600 - Medications Medications: Current Medications Albuterol/Ipratropium (Duoneb 3 Mg/0.5 Mg (3 Ml) Ud) 3 ml IH [id number] [facility] Last Admin: 12/12/17 02:05 Dose: Not Given Amlodipine Besylate (Norvasc) 5 mg PO DAILY [facility] Last Admin: 12/11/17 14:01 Dose: 5 mg Carbidopa/Levodopa (Sinemet) 1 tab PO TID [facility] Last Admin: 12/11/17 17:23 Dose: 1 tab Hydralazine HCl (Apresoline) 10 mg PO Q8H [facility] Last Admin: 12/12/17 05:56 Dose: 10 mg Potassium Chloride 20 meq/ (Dextrose/Sodium Chloride) 1,010 mls @ 80 mls/hr IV .[id number] [facility] Last Admin: 12/12/17 03:10 Dose: Not Given Ampicillin 2 gm/ Sodium (Chloride) 100 mls @ 200 mls/hr IVPB Q6 [facility] PRN Reason: Protocol Stop: 12/19/17 00:01 Last Admin: 12/12/17 05:52 Dose: 200 mls/hr Magnesium Oxide (Mag-Ox) 400 mg PO BID [facility] Last Admin: 12/11/17 17:23 Dose: 400 mg Polysaccharide Iron Complex (Ferrex-150) 150 mg PO DAILY [facility] Last Admin: 12/11/17 13:59 Dose: 150 mg - Labs Labs: 12/11/17 07:50 12/11/17 07:50 PT 14.4 SECONDS (9.4-12.5) H 12/06/17 13:58 INR 1.26 (0.93-1.08) H 12/06/17 13:58 APTT 29.5 Seconds (25.1-36.5) 12/06/17 13:58 - Constitutional Appears: Chronically Ill - Head Exam Head Exam: NORMAL INSPECTION - ENT Exam ENT Exam: Mucous Membranes Moist - Neck Exam Neck Exam: absent: Meningismus - Respiratory Exam Respiratory Exam: Decreased Breath Sounds - Cardiovascular Exam Cardiovascular Exam: +S1, +S2 - GI/Abdominal Exam GI & Abdominal Exam: Soft. absent: Tenderness Assessment and Plan - Assessment and Plan (Free Text) Plan: Assessment severe sepsis with E. coli bacteremia due to UTI, with also E. faecalis in the urine history of C. diff. colitis S/P thalamic bleed CAD COPD Parkinson's disease history of significant smoking Plan continue IV ampicillin to complete 10-14 days of therapy (day 6 of antibiotics today) S/P suprapubic catheter insertion
[2017-12-12 12:18] VITALS: BP 158/60; PULSE 66; RESP 18; TEMP 98
--- NOTE | 2017-12-12 14:14 | PN ---
DATE: 12/12/2017 SUBJECTIVE: A 77-year-old white male, status post acute renal failure on chronic renal insufficiency, status post obstructive uropathy, status post suprapubic catheter insertion by Dr. Raf Contreras yesterday. The patient still has a Patel and a suprapubic. The Patel will be discontinued once the patient is sent back to his residential and his suprapubic is functioning without problem. Vital signs are stable. Physical exam is unchanged. Plan is to discharge to residential and follow as an outpatient. Ted Jacob MD
--- NOTE | 2017-12-12 14:17 | PN ---
DATE: 12/12/2017 SUBJECTIVE: The patient is seen sitting in bed. He is awake. He is alert. He is confused. He thinks he is lost. He wants to find the police station. PHYSICAL EXAMINATION: GENERAL: Elderly male lying in bed. VITAL SIGNS: Blood pressure 158/60, heart rate 66, respiratory rate 18, temperature 98. HEENT: Normocephalic, atraumatic, positive pallor. NECK: Supple, no JVD. LUNGS: Bilateral equal air entry, no rales. CARDIAC: S1 and S2, regular rate and rhythm, no murmur, no rub. ABDOMEN: Soft, nondistended, nontender, positive suprapubic catheter. EXTREMITIES: No lower extremity edema. INTAKE AND OUTPUT: 240/1600. LABORATORY DATA: Hemoglobin 9.7. Sodium 142, potassium 3.9, chloride 107, CO2 24, BUN 28, creatinine 1.4, glucose 117, calcium 8.4, phosphorus 2.8 magnesium 1.5. CURRENT MEDICATIONS: Ampicillin, Apresoline, iron, magnesium oxide, amlodipine, D5 half-normal saline with 20 of K, Sinemet. ASSESSMENT: 1. Acute kidney injury, resolving; obstructive uropathy; now status post suprapubic catheter. 2. Hypertension controlled. 3. Parkinson disease. 4. Dementia. 5. Cachexia. 6. Urinary tract infection. PLAN: 1. Push p.o. intake. 2. Monitor urine output. 3. Continue IV fluids for now. 4. Stable from renal standpoint for discharge. Rox Luque MD
--- NOTE | 2017-12-16 23:39 | DS ---
HISTORY OF PRESENT ILLNESS: A 77-year-old white male, admitted to the hospital with acute renal failure, obstructive uropathy. The patient was evaluated by Dr. Contreras. The patient has a suprapubic catheter placed. After discussion with the family, his BUN and creatinine reduced dramatically over time. He was admitted on 12/06/2017, discharged home on 12/12/2017. The patient was [facility] to the [facility] to continue physical therapy, occupational therapy, suprapubic catheter. A Patel catheter was left in place until the suprapubic catheter is fully functioning. The patient also has history of Parkinson's disease, dementia and history of CVA. Ted Jacob MD
--- NOTE | 2017-12-25 06:31 | OP ---
PROCEDURE DATE: 12/11/2017 UROLOGY OPERATIVE REPORT PREOPERATIVE DIAGNOSES: Hematuria, recurrent episodes of catheter failure, urinary retention, and voiding dysfunction. POSTOPERATIVE DIAGNOSES: Hematuria, recurrent episodes of catheter failure, urinary retention, and voiding dysfunction. PROCEDURE: Insertion of a suprapubic catheter and cystogram. COMPLICATIONS: None. UROLOGY OPERATIVE FINDINGS: We were able to inflate the bladder and insert a suprapubic catheter, a 12-Sudanese. ESTIMATED BLOOD LOSS: Less than 10 mL. At the termination of the procedure, the patient has both an indwelling Patel catheter and a suprapubic catheter. INDICATIONS FOR THE PROCEDURE: See history and physical for further details. A very pleasant gentleman who is here now for the above listed procedure. He has had multiple problems. He has had a Patel catheter and without that Patel catheter, he goes into retention, but more importantly for 8 weeks apparently when the patient has no Patel, he does retention. He also developed hydronephrosis and he got urinary retention. He also to have developed renal failure with an elevation in creatinine. His baseline creatinine is somewhere around 1.5-1.7 with an indwelling Patel catheter. He saw me back at the detention, the catheter has been removed and failed voiding trial, then he comes back in as an emergency. I discussed options with his son, Juan Ramon, who is his power of claims attorney and after discussion both options, we are going to place suprapubic catheter, this will be left in place. Risks and benefits discussed at length. See the patient's history and physical for further details. DESCRIPTION OF PROCEDURE: After obtaining informed consent from the son and also explaining to the patient what we are planning to do, the patient was brought to the OR and placed on the table in a flank position. The routine monitor utilized was placed. Time-out was called to confirm patient, antibiotic prophylaxis. With the indwelling Patel catheter that is in place, we overinflated the bladder. . Then, under fluoroscopic guidance finder needle. We took the about 2 to 3 fingerbreadths above the suprapubic region. Then, we identified the bladder. We now made a standard small tiny wound incision and advanced into the bladder with a suprapubic catheter. Once we measured the length by finder needle, the patient finder needle measured the length of same length. Once we did that, we were able to insert the catheter. We inflated the balloon. We removed the stylet. We drained the bladder. It drained very nicely. Further evaluation, we did a cystogram. We confirmed our positioning. We took multiple images, all saved. Overall, the patient tolerated the procedure well. We secured in place the suprapubic catheter and the Patel catheter. The patient tolerated the procedure well without complications. Raf Contreras MD
--- NOTE | 2017-12-25 08:29 | PN ---
UROLOGY NOTE 12/12/2017 REASON: For insertion of a cystostomy tube. HISTORY OF PRESENT ILLNESS: Mr. Juan Ramon Wright is a very pleasant gentleman who is under the care of Dr. Jacob while he was in the hospital suggest somebody else. He has every time that he was brought back to the hospital with urinary retention and renal failure, leaves the hospital with a Patel catheter. When he was given a voiding trial, he failed that and goes into retention and then also goes into renal failure and now after discussing the options with the son in an effort to try to decrease these episodes, we will bring him in today for insertion of a cystostomy tube. Then, further plans will follow. PAST MEDICAL AND SURGICAL HISTORY: As listed on the chart. Multiple medical issues. I talked to his son, his son name Juan Ramon, is the person for consent and the power of food order expediter. The past medical and surgical as listed, patient of Dr. Jacob and at skilled nursing somebody else. REVIEW OF SYSTEMS: Listed above. MEDICATIONS: See the chart. ALLERGIES: SEE THE CHART. SOCIAL HISTORY: He is in a skilled nursing and his son is the power of food order expediter. PHYSICAL EXAMINATION: GENERAL: A well-developed male, in no apparent distress. VITAL SIGNS: Within normal limits, in the chart. LUNGS: Clear. HEART: Normal S1, S2. ABDOMEN: Overall soft. GENITOURINARY: Currently with an indwelling Patel catheter in place, draining well. DIAGNOSES: Urinary retention, incomplete bladder emptying. When given voiding trials, he has renal failure, azotemia. His baseline creatinine is at 1.7 or so and without the catheter, it goes above 3. After discussing options with the son in an effort to present some infections and Patel catheter trouble, we are going to insert a cystostomy tube today. We are also going to do a cystogram to confirm everything. I also explained to the patient and his son that afterwards immediately, we are going to be leaving both catheters temporarily draining well. Then, once we are sure of that, we will elect to remove the Patel catheter via the urethra and we will slowly softly dilate the suprapubic catheter to go from 12, 14, 16, all the way up to 18 or 20 and then we will leave the Patel catheter at this time. Further plans to follow, but the plans today are; 1. Antibiotic prophylaxis. 2. Insertion of cystostomy tube. 3. Cystogram. Then, further plans to follow. Raf Contreras MD [facility] # [id number]
--- NOTE | 2017-12-25 08:35 | PN ---
DATE: 12/11/2017 IMMEDIATE POSTOPERATIVE NOTE PREOPERATIVE DIAGNOSES: Retention both catheter, hematuria, azotemia, renal failure and renal failure. POSTOPERATIVE DIAGNOSES: Retention both catheter, hematuria, azotemia, renal failure and renal failure. PROCEDURE: Insertion of a cystotomy tube and suprapubic catheter, and also a cystogram. ESTIMATED BLOOD LOSS: Less than 10 mL. IMMEDIATE POSTOPERATIVE NOTE: The patient is in the Recovery Room in stable condition with both the Patel catheter indwelling working well. His thought that he . There were no complications. The patient has an indwelling Patel catheter. Raf Contreras MD
== END 2017-12-12 14:07 | DRG 872 ==
LOC: ED 13:32 → ERH 15:29 → 2RSO 17:04
PROVIDERS: ADMIT Internal Medicine; ATTEND Internal Medicine
PROC: BT101ZZ Fluoroscopy of Bladder using Low Osmolar Contrast (ICD-10-PCS; 2017-12-11)
PROC: 0T9B80Z Drainage of Bladder with Drainage Device, Via Natural or Artificial Opening Endoscopic (ICD-10-PCS; principal; 2017-12-11 10:00)
DX: A41.51 Sepsis due to Escherichia coli [E. coli] (principal); N39.0 Urinary tract infection, site not specified; I13.0 Hypertensive heart and chronic kidney disease with heart failure and stage 1 through stage 4 chronic kidney disease, or unspecified chronic kidney disease; N17.9 Acute kidney failure, unspecified; I44.2 Atrioventricular block, complete; I69.354 Hemiplegia and hemiparesis following cerebral infarction affecting left non-dominant side; N13.30 Unspecified hydronephrosis; R64 Cachexia; D63.1 Anemia in chronic kidney disease; I50.9 Heart failure, unspecified; N18.3 Chronic kidney disease, stage 3 (moderate); E78.5 Hyperlipidemia, unspecified; E86.0 Dehydration; E87.5 Hyperkalemia; F03.90 Unspecified dementia, unspecified severity, without behavioral disturbance, psychotic disturbance, mood disturbance, and anxiety; F41.9 Anxiety disorder, unspecified; F32.89 Other specified depressive episodes; G20 Parkinson's disease; I25.10 Atherosclerotic heart disease of native coronary artery without angina pectoris; I71.4 Abdominal aortic aneurysm, without rupture; J44.9 Chronic obstructive pulmonary disease, unspecified; N32.0 Bladder-neck obstruction; R31.0 Gross hematuria; R62.7 Adult failure to thrive; R65.20 Severe sepsis without septic shock; B95.2 Enterococcus as the cause of diseases classified elsewhere; Z86.19 Personal history of other infectious and parasitic diseases; Z87.440 Personal history of urinary (tract) infections; Z87.891 Personal history of nicotine dependence; Z95.0 Presence of cardiac pacemaker; Z95.1 Presence of aortocoronary bypass graft; Z87.442 Personal history of urinary calculi

== ENCOUNTER 2017-12-25 10:44 | Day surgery (SDC) | payer MEDICARE, BC ==
[2017-12-24 10:18] VITALS: BMI 19.5
[2017-12-25] MEDS ORDERED: Iohexol 240 (50 ml) ONE (12:38)
[2017-12-25] MEDS ORDERED: Lidocaine 1% Inj (20ml) ONE (12:38)
[2017-12-25] MEDS ORDERED: Etomidate 20 mg/10ml Inj IV ONE ×2 (12:54→13:14)
[2017-12-25] MEDS ORDERED: Iohexol 240 (50 ml) UR ONE ×2 (13:02→13:15)
[2017-12-25] MEDS ORDERED: Lidocaine 1% Inj (20ml) IJ ONE (13:20)
[2017-12-25] MEDS ORDERED: Bacitracin Ointment 30 GM TUBE TOP ONE (13:29)
[2017-12-25] MEDS ORDERED: Bacitracin Ointment 30 GM TUBE ONE (13:30)
[2017-12-25] MEDS ORDERED: Ciprofloxacin 400mg/200ml D5W 400 MG/200 ML BAG IVPB STA (13:41)
[2017-12-25] MEDS ORDERED: HYDROmorphone 0.5 mg/0.5 ml ISec IVP PRN (13:43)
[2017-12-25] MEDS ORDERED: Lactated Ringer's 1,000 ML IV SCH (13:45)
[2017-12-25] MEDS ORDERED: Ciprofloxacin 400mg/200ml D5W 400 MG/200 ML BAG IVPB ONE (13:59)
[2017-12-25] MEDS ORDERED: Ciprofloxacin 400mg/200ml D5W IVPB ONE (14:00)
[2017-12-25 14:31] VITALS: RESP 16; TEMP 97.8; O2SAT 94
--- NOTE | 2017-12-25 15:04 | RAD ---
PROCEDURE: Fluoroscopy up to 1 hour HISTORY: SUPRAPUBIC CATH. INSERTION / CYSTOGRAM COMPARISON: TECHNIQUE: Fluoroscopy was provided in the operating room. 2.7 seconds of fluoro time. Cumulative dose 1.77 mGy. Eight images were submitted FINDINGS: The study shows a balloon tipped a suprapubic catheter in the bladder with opacification of the bladder. There is a small right-sided diverticulum. IMPRESSION: As above
[2017-12-25 17:50] VITALS: PULSE 60
[2017-12-25 17:52] VITALS: BP 140/70
--- NOTE | 2018-01-13 06:44 | OP ---
PROCEDURE DATE: 12/25/2017 UROLOGY OPERATIVE NOTE PREOPERATIVE DIAGNOSES: Urinary retention, voiding dysfunction, recurrent episodes of azotemia, renal failure. POSTOPERATIVE DIAGNOSES: Urinary retention, voiding dysfunction, recurrent episodes of azotemia, renal failure. PROCEDURE: Change of cystostomy tube. COMPLICATIONS: There were no complications. INDICATIONS: See history and physical for the details. This is a very pleasant gentleman who is here now for the above procedure. Please see previously dictated operative notes; he had two, in that one was for a cystoscopy and evacuation of clots and then the other was insertion of cystostomy tube. He is in a fci, and in that fci, whenever they remove the Patel catheter, he went into renal failure, azotemia, elevated BUN and creatinine, was not voiding well, so they would reinsert the Patel catheter, but then when he goes back to fci, they remove the Patel and run into trouble. Based on that indication, we then decided to do a suprapubic catheter. Now the patient was in the fci and he had both a Patel catheter via the urethra and suprapubic catheter; and then he came to the office for routine. That was our initial plan to monitor it just to make sure that he was draining well from the suprapubic. We could not get the catheter working well, but it looked like it was in place. It was secured previously with sutures and has a balloon. Everything looked in place, but simply could not get it irrigating well. We decided to bring the patient back here to the OR for the above listed change. DESCRIPTION OF PROCEDURE: Under sterile technique, we removed the old Patel catheter suprapubically and inserted new one. Even though it is fairly fresh at about 2 to 3 weeks old, we were able to do it easily. Once we did this, we then confirmed the positioning. We irrigated it. It irrigates well. We secured the positioning and we confirmed the position under fluoroscopic imaging. See the pictures that were submitted to the radiologist. The catheter from below also irrigates well. Overall, the patient tolerated the procedure without complication. Raf Contreras MD [facility] # [id number]
--- NOTE | 2018-01-13 09:00 | PN ---
DATE: 12/25/2017 IMMEDIATE POSTOP NOTE See the operative note and history and physical with dated 12/30/2017 Patient is status post a change of cystoscopy tube. There were no complications. The blood loss is less than 10 mL. Patient's vital signs remain stable. Patient is in stable condition. The diagnoses were retention, voiding dysfunction, clot, urinary retention. The procedure that he had done was just a change of cystoscopy tube. There were no complications. Patient is stable. The plans would be for outpatient management. Raf Contreras MD
--- NOTE | 2018-01-13 09:30 | HP ---
REASON FOR ADMISSION: Change of cystostomy tube. HISTORY OF PRESENT ILLNESS: A very pleasant gentleman who is here for change of cystostomy tube. See previously dictated notes. We did a cystoscopy, evacuation of clots in the beginning of November and we did a cystostomy tube insertion towards the end of November. Now he came to the office for routine visit and we cannot get the cystostomy tube working well. We noted it in place. He does have a Patel in the penis. We are bringing him today with anesthesia to adjust it to remove and insert because it has been only a couple of weeks, the tract may not be well formed, but in the operating room with cystoscopy assistance, with fluoroscopic imaging and assistance, we plan to be able to do it. PAST MEDICAL AND SURGICAL HISTORY: As listed on chart, otherwise, unremarkable. REVIEW OF SYSTEMS: Listed above; otherwise, unremarkable. PHYSICAL EXAMINATION: GENERAL: A well-nourished male, in no apparent distress. VITAL SIGNS: Noted. Socially, his takes care of him. He is aphasic pretty much. It is difficult to assess his exact understanding. Physical exam, otherwise unremarkable. No other changes. LABORATORY DATA: See chart. DIAGNOSES: 1. Clot, urinary retention. 2. Gross hematuria, azotemia, renal failure. PLAN: As follows. So every time, the patient is in the prison, I may remove the catheter, his BUN and creatinine jumped very high. With the Patel insertion, it goes back down to normal. We are very concerned in this regard to how this happened, risk of infection, renal failure etc. So, what we discussed is insertion of cystostomy tube. Since the last time we did it, he has both that and a Patel. The cystostomy tube is not draining well. I was worried about the changing in the office due to the patient's cooperation issues. So after discussing the options, we will bring him in today. PLAN: As follows: 1. We will provide antibiotic. 2. Change of cystostomy tube and then, further plans will follow. Raf Contreras MD
== END 2017-12-25 19:00 | disposition home or self-care (01) ==
LOC: SDS 10:44
PROVIDERS: ATTEND Urology
DX: R33.9 Retention of urine, unspecified (principal); N19 Unspecified kidney failure; N31.9 Neuromuscular dysfunction of bladder, unspecified
CPT/HCPCS: 51705; A4358; J0744; J1170; J3010; J7120 ×2; Q9966

== ENCOUNTER 2018-01-26 10:36 | Inpatient (IN) | payer MEDICARE, BC ==
[2018-01-26 11:04] VITALS: BMI 22.4
[2018-01-26 11:59] LABS: BASO # 0.01 K/mm3 (0.0-2.0); BASO % 0.1 % (0.0-3.0); EOS % 0.1 % (1.5-5.0); GRAN # 6.98 (1.4-6.5); GRAN % 71.2 % (50.0-68.0); HEMOGLOBIN 13.1 g/dL (14.0-18.0); LYMPH # 1.1 (1.2-3.4); LYMPH % 10.8 % (22.0-35.0); MEAN CORPUSCULAR HEMOGLOBIN 29.4 pg (25.0-35.0); MEAN CORPUSCULAR HGB CONC 33.8 g/dl (31.0-37.0); MEAN PLATELET VOLUME 11.5 fl (7.0-11.0); MONO # 1.7 (0.1-0.6); MONO % 17.8 % (1.0-6.0); RBC 4.46 10^6/uL (3.5-6.1); WHITE BLOOD COUNT 9.8 10^3/ul (4.5-11.0)
[2018-01-26 12:06] LABS: INR 1.14 (0.93-1.08); PARTIAL THROMBOPLASTIN TIME 29.2 Seconds (25.1-36.5); PROTHROMBIN TIME 13.1 SECONDS (9.4-12.5)
[2018-01-26 12:08] LABS: ALB/GLOB RATIO 1.2 (1.1-1.8); ALBUMIN 4.4 g/dL (3.0-4.8); CALCIUM 10.4 mg/dL (8.4-10.5)
--- NOTE | 2018-01-26 12:11 | ED PDOC ---
Arrival/HPI - General Chief Complaint: Medical Clearance Time Seen by Provider: 01/26/18 11:09 Historian: Patient - History of Present Illness Narrative History of Present Illness (Text): 01/26/18 11:13 A 77 year old male, whose past medical history includes COPD, pacemaker, and renal failure, is [facility] and presents to the emergency department complaining of catheter leaking and no drainage into catheter bag for the past day. Limited HPI and ROS due to patient's dementia. PMD: Dr. Jacob Past Medical History - Provider Review Nursing Documentation Reviewed: Yes - Infectious Disease Hx of Infectious Diseases: None - Tetanus Immunization Tetanus Immunization: Unknown - Cardiac Hx Pacemaker: Yes - Pulmonary Hx Chronic Obstructive Pulmonary Disease (COPD): Yes - Neurological HX Cerebrovascular Accident: Yes (TIA) Hx Parkinson's Disease: Yes - HEENT Hx HEENT Disorder: Yes (uses glasses) Hx Macular Degeneration: Yes - Renal Hx Renal Failure: Yes Other/Comment: Urinary retention - Endocrine/Metabolic Hx Endocrine Disorders: No - Hematological/Oncological Hx Blood Transfusions: No - Integumentary Hx Dermatological Disorder: Yes Hx Psoriasis: Yes Other/Comment: left upper arm bruise, lle healing scabs, right arm bright red skin with mulrtiple dry patches of skin from elbow to wrist, old fading bruises to ble and both knees, bruise to left upper side of knee painful to touch, bottom of both feet red with dry skin, thick long toenails and fingernails, bright red skin to r elbow, left elbow dry patches of skin , red skin and 2 dry red scabs, buttocks slightly reddened, mid chest scar - Musculoskeletal/Rheumatological Hx Musculoskeletal Disorders: Yes - Gastrointestinal Hx Gall Bladder Disease: Yes (gallstones) - Genitourinary/Gynecological Hx Genitourinary Disorders: Yes Hx Incontinence: Yes - Psychiatric Hx Emotional Abuse: No Hx Physical Abuse: No Hx Substance Use: No - Surgical History Hx Cardiac Catheterization: Yes Hx Cholecystectomy: Yes (04/16/14) Hx Open Heart Surgery: Yes - Anesthesia Hx Anesthesia Reactions: Yes Hx Malignant Hyperthermia: No - Suicidal Assessment Feels Threatened In Home Enviroment: No Family/Social History - Physician Review Nursing Documentation Reviewed: Yes Family/Social History: No Known Family HX Smoking Status: Unknown If Ever Smoked Hx Alcohol Use: No Hx Substance Use: No Allergies/Home Meds Allergies/Adverse Reactions: Allergies pineapple Allergy (Unknown, Verified 01/26/18 11:06) ITCHING Home Medications: Home Meds Medication Instructions Recorded Confirmed Albuterol/Ipratropium [Duoneb 3 3 ml PO Q6 PRN 11/18/17 01/26/18 mg/0.5 mg (3 ml) UD] hydrALAZINE [Apresoline] 10 mg PO Q8H 11/18/17 01/26/18 amLODIPine [Norvasc] 5 mg PO DAILY 12/06/17 01/26/18 ALPRAZolam [Xanax] 0.25 mg PO Q6H PRN 12/24/17 01/26/18 Acetaminophen [Pain Reliever] 650 mg PO Q6H PRN 12/24/17 01/26/18 Review of Systems - Review of Systems Constitutional: absent: Fevers Respiratory: absent: SOB Gastrointestinal: absent: Abdominal Pain, Vomiting Genitourinary Male: Urinary Output Changes. absent: Hematuria Hemo/Lymphatic: absent: Easy Bleeding Physical Exam - Physical Exam Narrative Physical Exam (Text): Head: Atraumatic. Normocephalic. Eyes: PERRL. EOMI. Conjunctivae are not pale. ENT: Mucous membranes are dry. NO drooling or stridor. Neck: Supple. No jvd. No meningeal signs. Cardiovascular: Regular rate. Regular rhythm. Systolic murmur. Pulmonary/Chest: No evidence of respiratory distress. Clear to auscultation bilaterally. No wheezing, rales or rhonchi. Abdominal: Soft. Mild distension suprapubic region, there is urine leakage around suprapubic catheter site, mild skin irritation around abdominal wall . Back: No midline deformity. Extremities: No edema. No cyanosis. No clubbing. Skin: Skin is warm and dry. No petechiae. No purpura. Neurological: Patient with no acute focal weakness as reported. He will move all four extremities but is laying in bed, will open eyes, no facial droop noted. Psychiatric: Poor interaction. Genitourinary: no drainage from suprapubic catheter 01/26/18 18:03 Vital Signs Reviewed: Yes Vital Signs Temp Pulse Resp BP Pulse Ox 01/26/18 16:00 68 18 110/73 99 01/26/18 13:00 62 16 115/69 97 01/26/18 10:53 98.6 F 01/26/18 10:38 97.2 F L 66 18 137/74 98 Temperature: Afebrile Pulse: Regular Respiratory Rate: Normal Appearance: Positive for: Non-Toxic Medical Decision Making ED Course and Treatment: 01/26/18 11:16 Impression: 77 year old male with catheter leakage. Plan: -- EKG -- Urinalysis -- Urine Culture -- Labs -- Reassess and disposition Progress Notes: 01/26/18 12:[address] Abundio Contreras, urologist, who has been made aware of patient's condition and will arrive here at the ER today to change suprapubic catheter. I reviewed patient's past history with Dr. Contreras. Patient's suprapubic catheter is not draining. Dr. Contreras presented to ED and changed catheter. Patel now has 800 cc of urine noted in bag. Abdomen nontender on re-evaluation. He is not febrile, although UA suggestive of UTI. IV antibitoics will be initiated. Cr is elevated from baseline. Will iv hydrate, admit, serial exams. Case discussed with Dr. Gamez, covering for PMD Dr. Jacob. Patient accepted to Dr. Jacob's service. 01/26/18 18:06 - Lab Interpretations Lab Results: 01/26/18 11:30 01/26/18 11:30 Lab Results 01/26/18 16:29: Urine Color Light orange, Urine Appearance Turbid, Urine pH 8.5 , Ur Specific Bailey 1.015, Urine Protein >=300 H, Urine Glucose (UA) Negative , Urine Ketones Negative, Urine Blood Large H, Urine Nitrate Positive H, Urine Bilirubin Negative, Urine Urobilinogen 0.2, Ur Leukocyte Esterase Moderate H, Urine RBC Tntc, Urine WBC Tntc, Ur Epithelial Cells 4 - 5, Urine Bacteria Mod 01/26/18 11:30: Sodium 146, Potassium 5.3 H, Chloride 106, Carbon Dioxide 24, Anion Gap 21 H, BUN 66 H, Creatinine 2.4 H, Est GFR ( Amer) 32, Est GFR ( Non-Af Amer) 27, Random Glucose 117 H, Calcium 10.4, Total Bilirubin 1.0, AST 19 , ALT 15, Alkaline Phosphatase 84, Total Protein 8.0, Albumin 4.4, Globulin 3.6 , Albumin/Globulin Ratio 1.2 01/26/18 11:30: PT 13.1 H, INR 1.14 H, APTT 29.2 01/26/18 11:30: WBC 9.8, RBC 4.46, Hgb 13.1 L D, Hct 38.8 L, MCV 87.0, MCH 29.4 , MCHC 33.8, RDW 15.0 H, Plt Count 213, MPV 11.5 H, Gran % 71.2 H, Lymph % (Auto ) 10.8 L, [place] % (Auto) 17.8 H, Eos % (Auto) 0.1 L, Baso % (Auto) 0.1, Gran # 6.98 H, Lymph # (Auto) 1.1 L, [place] # (Auto) 1.7 H, Eos # (Auto) 0.0, Baso # ( Auto) 0.01 I have reviewed the lab results: Yes - Medication Orders Current Medication Orders: Sodium Chloride (Sodium Chloride 0.9%) 1,000 mls @ 100 mls/hr IV .Q10H YARON Discontinued Medications Sodium Chloride (Sodium Chloride 0.9%) 500 mls @ 1,000 mls/hr IV .Q30M STA Stop: 01/26/18 17:37 Ceftriaxone Sodium (Rocephin 1 Gram Ivpb) 1 gm in 100 mls @ 200 mls/hr IVPB ONCE STA PRN Reason: Protocol Stop: 01/26/18 17:58 - Scribe Statement The provider has reviewed the documentation as recorded by the Raffi De Guzman Provider Scribe Attestation: All medical record entries made by the Felipeiboamr were at my direction and personally dictated by me. I have reviewed the chart and agree that the record accurately reflects my personal performance of the history, physical exam, medical decision making, and the department course for this patient. I have also personally directed, reviewed, and agree with the discharge instructions and disposition. Disposition/Present on Arrival - Present on Arrival Any Indicators Present on Arrival: Yes History of DVT/PE: No History of Uncontrolled Diabetes: No Urinary Catheter: Yes History of Decub. Ulcer: No History Surgical Site Infection Following: None - Disposition Have Diagnosis and Disposition been Completed?: Yes Diagnosis: UTI (urinary tract infection), Acute renal insufficiency Disposition: HOSPITALIZED Disposition Time: 16:00 Patient Plan: Admission Condition: FAIR
--- NOTE | 2018-01-26 17:01 | CARD ---
APPROVED REPORT Date of service: 01/26/2018 EKG Measurement Heart [id number] <Conclusion> Electronic ventricular pacemaker
[2018-01-26 17:02] LABS: PH,URINE 8.5 (4.7-8.0); URINE BILIRUBIN NEGATIVE (NEGATIVE); URINE BLOOD LARGE (NEGATIVE); URINE GLUCOSE (UA) NEGATIVE (NEGATIVE); URINE LEUKOCYTE ESTERASE MODERATE Leu/uL (NEGATIVE); URINE PROTEIN >=300 mg/dL (<30 mg/dL); URINE UROBILINOGEN 0.2 E.U./dL (<1 E.U./dL)
[2018-01-26] MEDS ORDERED: Sodium Chloride 0.9% 500 ML IV STA (17:08)
[2018-01-26 17:16] LABS: URINE APPEARANCE TURBID (CLEAR); URINE COLOR LIGHT ORANGE (YELLOW)
[2018-01-26] MEDS ORDERED: cefTRIAXone 1 gm 1 GM/100 ML BAG IVPB STA (17:29)
[2018-01-26 17:30] LABS: URINE BACTERIA MOD (NEG); URINE RBC TNTC /hpf (0-2); URINE WBC TNTC /hpf (0-6)
[2018-01-26] MEDS ORDERED: Albuterol-Ipratrop 3 mg / 0.5 (3 ml) UD INH PRN (18:39)
[2018-01-26] MEDS: Sodium Chloride 0.9% 1,000 ML IV SCH (20:31)
--- NOTE | 2018-01-27 08:48 | RAD ---
Date of service: 01/26/2018 HISTORY: weakness COMPARISON: 12/06/2017 FINDINGS: LUNGS: No active pulmonary disease. PLEURA: No significant pleural effusion identified, no pneumothorax apparent. CARDIOVASCULAR: Normal. OSSEOUS STRUCTURES: Sternal wires VISUALIZED UPPER ABDOMEN: Normal. OTHER FINDINGS: Single lead pacemaker IMPRESSION: No active disease.
[2018-01-27 09:18] LABS: BASO # 0.01 K/mm3 (0.0-2.0); BASO % 0.2 % (0.0-3.0); EOS % 0.2 % (1.5-5.0); GRAN # 4.78 (1.4-6.5); GRAN % 77.6 % (50.0-68.0); HEMOGLOBIN 11.8 g/dL (14.0-18.0); LYMPH # 0.7 (1.2-3.4); LYMPH % 10.9 % (22.0-35.0); MEAN CELL VOLUME 88.5 fl (80.0-105.0); MEAN CORPUSCULAR HEMOGLOBIN 28.9 pg (25.0-35.0); MEAN CORPUSCULAR HGB CONC 32.6 g/dl (31.0-37.0); MEAN PLATELET VOLUME 11.8 fl (7.0-11.0); MONO # 0.7 (0.1-0.6); MONO % 11.1 % (1.0-6.0); RBC 4.09 10^6/uL (3.5-6.1); WHITE BLOOD COUNT 6.2 10^3/ul (4.5-11.0)
[2018-01-27 09:29] LABS: ALB/GLOB RATIO 1.2 (1.1-1.8); ALBUMIN 3.8 g/dL (3.0-4.8); CALCIUM 9.7 mg/dL (8.4-10.5)
[2018-01-27] MEDS ORDERED: Magnesium Oxide 400 mg Tab UD PO SCH (10:00)
[2018-01-27] MEDS: Iron Complex Polysacch 150mg Cap PO SCH (10:30)
[2018-01-27] MEDS: Nystatin 100,000 Units/gm Topical Pow(15 gm) TOP SCH ×2 (10:31→22:34)
--- NOTE | 2018-01-27 11:49 | HP ---
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 On last admission, the patient had a suprapubic catheter administered. He did well with this; however, was admitted to the hospital with some pyuria, dysuria, renal insufficiency, elevated BUN and creatinine 58 and 2, signs of dehydration and elevated sodium of 150, poor oral intake and worsening dementia. PHYSICAL EXAMINATION: VITAL SIGNS: The patient is afebrile. Vital signs are stable. CHEST: Clear to auscultation and percussion. HEART: Regular sinus rhythm. EXTREMITIES: Without cyanosis, clubbing or edema. GENITOURINARY: Suprapubic catheter is draining clear urine. IMPRESSION: Renal insufficiency, chronic urinary tract infection secondary to indwelling suprapubic catheter, worsening dementia, worsening Parkinson's disease, history of coronary artery disease, history of chronic obstructive pulmonary disease. Ted Jacob MD
[2018-01-27] MEDS: Sodium Chloride 0.9% 1,000 ML IV SCH (13:43)
--- NOTE | 2018-01-27 14:33 | PCM.URO ---
Urology Progress Note - Objective Lab Studies: Reviewed (no gu change new spt inserted 01/26-- see notes 01/26) Lab Results Last 24 Hours: Laboratory Results - last 24 hr 01/27/18 01/27/18 08:00 08:00 WBC 6.2 D RBC 4.09 Hgb 11.8 L Hct 36.2 L MCV 88.5 MCH 28.9 MCHC 32.6 RDW 15.0 H Plt Count 171 MPV 11.8 H Gran % 77.6 H Lymph % (Auto) 10.9 L [place] % (Auto) 11.1 H Eos % (Auto) 0.2 L Baso % (Auto) 0.2 Gran # 4.78 Lymph # (Auto) 0.7 L [place] # (Auto) 0.7 H Eos # (Auto) 0.0 Baso # (Auto) 0.01 Sodium 150 H Potassium 4.3 Chloride 113 H Carbon Dioxide 23 Anion Gap 18 BUN 58 H Creatinine 2.0 H Est GFR ( Amer) 40 Est GFR (Non-Af Amer) 33 Random Glucose 93 Calcium 9.7 Phosphorus 4.0 Magnesium 2.3 H Total Bilirubin 0.8 AST 19 ALT 21 Alkaline Phosphatase 75 Total Protein 7.0 Albumin 3.8 Globulin 3.2 Albumin/Globulin Ratio 1.2 Intake & Output: Intake & Output 01/26/18 01/27/18 01/27/18 18:59 06:59 18:59 Other: Voiding Method Indwelling Catheter Vital Signs: Vital Signs - 24 hr 01/26/18 01/26/18 01/26/18 20:56 21:03 21:54 Temperature 97.6 F 97.8 F Pulse Rate 62 62 68 Pulse Rate [ Apical] Respiratory 18 18 Rate Blood Pressure 147/71 147/71 142/86 O2 Sat by Pulse 97 95 Oximetry 01/26/18 01/27/18 01/27/18 22:30 06:00 10:30 Temperature 97.9 F Pulse Rate 59 L Pulse Rate [ 61 Apical] Respiratory 19 20 Rate Blood Pressure 134/60 130/68 O2 Sat by Pulse 97 Oximetry
--- NOTE | 2018-01-27 15:25 | CP.PCM.CON ---
History of Present Illness - History of Present Illness History of Present Illness: 77 year old male with PMH of dementia, CAD, COPD, history of significant smoking , peripheral vascular disease, HTN, history of asthma, history of kidney stones , history of anxiety and depression, dementia was brought in to [facility] [place] because of urinary catheter leakage. The patient seems to be in pain from the back up of urine. There is no note of fever, no vomiting, no diarrhea. Infectious diseases consult is requested to further evaluate and manage. Full ROS is unobtainable because of the patient's dementia. Review of Systems - Review of Systems All systems: reviewed and no additional remarkable complaints except (as per HPI ) Past Patient History - Infectious Disease Hx of Infectious Diseases: None - Tetanus Immunizations Tetanus Immunization: Unknown - Past Social History Smoking Status: Never Smoked - CARDIAC Hx Congestive Heart Failure: Yes Hx Hypercholesterolemia: Yes Hx Hypertension: Yes Hx Pacemaker: Yes - PULMONARY Hx Chronic Obstructive Pulmonary Disease (COPD): Yes - NEUROLOGICAL HX Cerebrovascular Accident: Yes (TIA) Hx Dementia: Yes Hx Parkinson's Disease: Yes - HEENT Hx HEENT Problems: Yes (uses glasses) Hx Macular Degeneration: Yes - RENAL Hx Kidney Stones: Yes Hx Renal Failure: Yes Other/Comment: Urinary retention - ENDOCRINE/METABOLIC Hx Endocrine Disorders: No - HEMATOLOGICAL/ONCOLOGICAL Hx Blood Disorders: Yes - INTEGUMENTARY Hx Dermatological Problems: Yes Hx Psoriasis: Yes Other/Comment: lle healing scabs, bottom of both feet red with dry skin, thick long toenails and fingernails, left elbow dry patches of skin , perineal area rashes and reddened noted, sacral area has 2cm by 1.5cm pressure ulcer covered with yellow slough, redness noted around the area, buttocks slightly reddened, mid chest scar - MUSCULOSKELETAL/RHEUMATOLOGICAL Hx Musculoskeletal Disorders: Yes Hx Falls: Yes - GASTROINTESTINAL Hx Gall Bladder Disease: Yes (gallstones) HX Swallowing Problems: Yes - GENITOURINARY/GYNECOLOGICAL Hx Genitourinary Disorders: Yes Hx Incontinence: Yes Hx Urinary Tract Infection: Yes - PSYCHIATRIC Hx Anxiety: Yes Hx Depression: Yes Hx Emotional Abuse: No Hx Physical Abuse: No - SURGICAL HISTORY Hx Cardiac Catheterization: Yes Hx Cholecystectomy: Yes (04/16/14) Hx Open Heart Surgery: Yes - ANESTHESIA Hx Anesthesia Reactions: Yes Hx Malignant Hyperthermia: No Meds Allergies/Adverse Reactions: Allergies Allergy/AdvReac Type Severity Reaction Status Date / Time pineapple Allergy Unknown ITCHING Verified 01/26/18 11:06 - Medications Medications: Current Medications Acetaminophen (Tylenol 325mg Tab) 650 mg PO Q6H PRN PRN Reason: Fever >100.4 F Albuterol/Ipratropium (Duoneb 3 Mg/0.5 Mg (3 Ml) Ud) 3 ml INH Q6 PRN PRN Reason: Shortness of Breath Alprazolam (Xanax) 0.25 mg PO Q6H PRN; Protocol PRN Reason: Anxiety Stop: 02/02/18 18:40 Amlodipine Besylate (Norvasc) 5 mg PO DAILY YARON Carbidopa/Levodopa (Sinemet) 1 tab PO TID YARON Hydralazine HCl (Apresoline) 10 mg PO Q8H YARON Last Admin: 01/27/18 02:49 Dose: Not Given Sodium Chloride (Sodium Chloride 0.9%) 1,000 mls @ 100 mls/hr IV .Q10H YARON Last Admin: 01/26/18 20:31 Dose: 100 mls/hr Physical Exam - Constitutional Appears: Chronically Ill - Head Exam Head Exam: NORMAL INSPECTION - Respiratory Exam Respiratory Exam: Decreased Breath Sounds - Cardiovascular Exam Cardiovascular Exam: +S1, +S2 - GI/Abdominal Exam GI & Abdominal Exam: Soft. absent: Tenderness Results - Vital Signs Recent Vital Signs: Last Vital Signs Temp 97.8 F 01/26/18 21:54 Pulse 61 01/26/18 22:30 Resp 19 01/26/18 22:30 BP 142/86 01/26/18 21:54 Pulse Ox 95 01/26/18 21:54 - Labs Result Diagrams: 01/27/18 08:00 01/27/18 08:00 Assessment & Plan - Assessment and Plan (Free Text) Plan: Assessment consider complicated UTI in this patient with chronic Patel catheter use history of severe sepsis with E. coli bacteremia due to UTI, with also E. faecalis in the urine history of C. diff. colitis S/P thalamic bleed CAD COPD Parkinson's disease history of significant smoking dementia Plan started Merrem pending urine cx; reviewed urinalysis which shows pyuria Patel should be changed will monitor clinically
[2018-01-27 23:12] VITALS: RESP 20
[2018-01-28] MEDS: Sodium Chloride 0.45% 1,000 ML IV SCH ×2 (08:02→21:49)
[2018-01-28] MEDS: Iron Complex Polysacch 150mg Cap PO SCH (10:13)
[2018-01-28] MEDS: Nystatin 100,000 Units/gm Topical Pow(15 gm) TOP SCH ×2 (10:14→21:47)
[2018-01-28 11:34] LABS: BASO # 0.01 K/mm3 (0.0-2.0); BASO % 0.1 % (0.0-3.0); EOS % 0.4 % (1.5-5.0); GRAN # 6.5 (1.4-6.5); GRAN % 77.3 % (50.0-68.0); HEMOGLOBIN 12.6 g/dL (14.0-18.0); LYMPH # 1.2 (1.2-3.4); LYMPH % 14.5 % (22.0-35.0); MEAN CELL VOLUME 89.1 fl (80.0-105.0); MEAN CORPUSCULAR HEMOGLOBIN 28.6 pg (25.0-35.0); MEAN CORPUSCULAR HGB CONC 32.1 g/dl (31.0-37.0); MEAN PLATELET VOLUME 10.9 fl (7.0-11.0); MONO # 0.7 (0.1-0.6); MONO % 7.7 % (1.0-6.0); RBC 4.41 10^6/uL (3.5-6.1); RED CELL DISTRIBUTION WIDTH 14.7 % (11.5-14.5); WHITE BLOOD COUNT 8.4 10^3/ul (4.5-11.0)
[2018-01-28 11:44] LABS: ALB/GLOB RATIO 1.1 (1.1-1.8); ALBUMIN 3.9 g/dL (3.0-4.8); CALCIUM 9.5 mg/dL (8.4-10.5)
--- NOTE | 2018-01-28 11:57 | PN ---
DATE: 01/28/2018 SUBJECTIVE: A 77-year-old white male admitted to the hospital with urinary tract infection, change in mental status, confusion, disorientation. Patient is more alert and oriented today. He is tolerating his diet well. His abdomen is benign. PHYSICAL EXAMINATION: VITAL SIGNS: Stable. He is afebrile. Temperature is 99, blood pressure is 150/90. CHEST: Clear to auscultation. HEART: Regular sinus rhythm. He is on meropenem for his urinary tract infection. His BUN and creatinine dropped slightly to 58 and 2. His sodium is 150. He is on normal saline; half-normal saline, continue to hydrate him. Ted Jacob MD
[2018-01-28] MEDS: Cefpodoxime (Vantin) 100 mg Tab PO SCH (21:46)
--- NOTE | 2018-01-29 01:31 | PN ---
DATE: 01/28/2018 SUBJECTIVE: The patient is in bed, in no acute distress, nontoxic. PHYSICAL EXAMINATION: VITAL SIGNS: Temperature is 98, blood pressure is 150/90, respiratory rate of . HEENT: Unremarkable. NECK: Supple. LUNGS: Have decreased breath sounds. HEART: Normal S1 and S2. ABDOMEN: Soft. LABORATORY DATA: Reveals a white count of 8.4, hemoglobin of 12, platelets of 163. Chemistries reveal a BUN of 47, creatinine of 1.6. Urinalysis is noted. Microbiology reveals Serratia fonticola, relatively sensitive to ceftriaxone. Review of orders reveals the patient is now on p.o. Vantin (cefpodoxime) 100 mg p.o. b.i.d. ASSESSMENT AND PLAN: This is a 77-year-old male with dementia, coronary artery disease, chronic obstructive lung disease, peripheral vascular disease, hypertension, asthma, kidney disease, history of anxiety and depression, dementia with urinary tract infection with a chronic Patel catheter. The patient with severe sepsis by history with Escherichia coli bacteremia by history secondary to urinary tract infection, history of Enterococcus urinary tract infection, history of pseudomembranous colitis, status post thalamic bleed, Parkinson disease. Now on p.o. Vantin, sensitive, complete a short course of antibiotic. Tuned Buitrago MD
[2018-01-29 06:30] VITALS: BP 148/85; PULSE 66
[2018-01-29 07:51] LABS: CALCIUM 8.9 mg/dL (8.4-10.5)
[2018-01-29 08:14] VITALS: TEMP 97.4; O2SAT 97
[2018-01-29] MEDS: Cefpodoxime (Vantin) 100 mg Tab PO SCH (10:25)
[2018-01-29] MEDS: Iron Complex Polysacch 150mg Cap PO SCH (10:25)
[2018-01-29] MEDS: Nystatin 100,000 Units/gm Topical Pow(15 gm) TOP SCH (10:27)
--- NOTE | 2018-01-29 11:16 | PN ---
DATE: 01/29/2018 A 77-year-old white male admitted the hospital with urosepsis, change in mental status with increased confusion, dehydration, hypernatremia. Patient is improved on half-normal saline and antibiotics. His BUN and creatinine dropped to 40 and 1.4. His sodium has dropped to 147. Patient is awake, alert and oriented. He is feeding himself. He is . Physical examination is unchanged. Patient was recommended to take Vantin p.o. for his urinary tract infection. He will be discharged most likely home today if accepted to [facility] and continue on Vantin and his antiparkinson medications. Ted Jacob MD
--- NOTE | 2018-01-29 12:20 | PN ---
DATE: 01/27/2018 UROLOGY PROGRESS NOTE Please see the consultation and procedure note on 01/26/2018. SUBJECTIVE: Patient came in with non-functioning catheter from the long term. We put a new one in. It is draining well. Look at the urine output. The creatinine has improved from 2. It is down to 1.6. Urology plan is as follows: Maintain cystostomy tube and patient could be discharged to another . From Urology standpoint, patient is cleared for discharge. Raf Contreras MD
--- NOTE | 2018-01-29 15:36 | CP.PCM.PN ---
Subjective - Date & Time of Evaluation Date of Evaluation: 01/29/18 Time of Evaluation: 11:05 - Subjective Subjective: Comfortable, chronically ill, no fevers. Objective - Vital Signs/Intake and Output Vital Signs (last 24 hours): Temp Pulse Resp BP Pulse Ox 97.4 F L 66 20 148/85 97 01/29/18 06:00 01/29/18 06:26 01/29/18 06:00 01/29/18 06:26 01/29/18 06:00 Intake and Output: 01/29/18 01/29/18 06:59 18:59 Intake Total 1800 Output Total 1550 Balance 250 - Medications Medications: Current Medications Acetaminophen (Tylenol 325mg Tab) 650 mg PO Q6H PRN PRN Reason: Fever >100.4 F Albuterol/Ipratropium (Duoneb 3 Mg/0.5 Mg (3 Ml) Ud) 3 ml INH Q6 PRN PRN Reason: Shortness of Breath Alprazolam (Xanax) 0.25 mg PO Q6H PRN; Protocol PRN Reason: Anxiety Stop: 02/02/18 18:40 Amlodipine Besylate (Norvasc) 5 mg PO DAILY [facility] Last Admin: 01/28/18 10:13 Dose: 5 mg Carbidopa/Levodopa (Sinemet) 1 tab PO TID [facility] Last Admin: 01/28/18 17:45 Dose: Not Given Cefpodoxime Proxetil (Vantin) 100 mg PO Q12 YARON PRN Reason: Protocol Stop: 02/02/18 22:00 Last Admin: 01/28/18 21:46 Dose: 100 mg Hydralazine HCl (Apresoline) 10 mg PO Q8 [facility] Last Admin: 01/29/18 06:26 Dose: 10 mg Sodium Chloride (Sodium Chloride 0.45%) 1,000 mls @ 75 mls/hr IV .[id number] [facility] Last Admin: 01/28/18 21:49 Dose: 75 mls/hr Nystatin (Nystop Topical Powder) 0 gm TOP Q12H [facility] Last Admin: 01/28/18 21:47 Dose: 1 applic Polysaccharide Iron Complex (Ferrex-150) 150 mg PO DAILY [facility] Last Admin: 01/28/18 10:13 Dose: 150 mg - Labs Labs: 01/28/18 11:25 01/29/18 07:00 PT 13.1 SECONDS (9.4-12.5) H 01/26/18 11:30 INR 1.14 (0.93-1.08) H 01/26/18 11:30 APTT 29.2 Seconds (25.1-36.5) 01/26/18 11:30 - Constitutional Appears: Chronically Ill - Head Exam Head Exam: NORMAL INSPECTION - Respiratory Exam Respiratory Exam: Decreased Breath Sounds - Cardiovascular Exam Cardiovascular Exam: +S1, +S2 - GI/Abdominal Exam GI & Abdominal Exam: Soft. absent: Tenderness Assessment and Plan - Assessment and Plan (Free Text) Plan: Assessment consider complicated UTI in this patient with chronic Patel catheter use, growing Serratia in the urine history of severe sepsis with E. coli bacteremia due to UTI, with also E. faecalis in the urine history of C. diff. colitis S/P thalamic bleed CAD COPD Parkinson's disease history of significant smoking dementia Plan continue PO Vantin for at least 10 days
--- NOTE | 2018-01-29 20:41 | OP ---
PROCEDURE DATE: 01/26/2018 UROLOGY BEDSIDE PROCEDURE NOTE PROCEDURE PERFORMED: Change of cystostomy tube. SURGEON: Raf Contreras MD There were no complications. BLOOD LOSS: Less than 10 mL. INDICATIONS: See history and physical for further details, see consultation, but basically the patient is in the ER with rising BUN and creatinine. See the urology consult as well. The patient is here now for the above procedure. Under sterile technique, we removed the old suprapubic catheter and under sterile technique, we inserted new Patel catheter via the suprapubic catheter. The catheter is not working well. He is sent from the halfway. Without a phone call, just sent to the emergency room without calling me. He is here in the ER and now the ER doctor called me and so we can see the patient. See the consultation note as well. Under sterile technique, we removed the old catheter and inserted a new catheter without difficulty. We actually moved up left side with mild dilation. The eventual goal is to get up to about 18. It drains clear yellow urine. Overall, the patient tolerated the procedure well without complication. I suspected the patient will improve in his urine output and BUN and creatinine. Raf Contreras MD
--- NOTE | 2018-01-29 23:47 | CON ---
DATE: 01/26/2018 UROLOGY CONSULTATION REASON FOR CONSULTATION: Urinary retention and nonfunctioning suprapubic catheter. HISTORY OF PRESENT ILLNESS: Mr. Wright is a patient with multiple medical issues. He is 77 years old, he is in a assisted. His history is as follows: Every time he is in the assisted and they remove the Patel catheter, he goes back into retention and it is not just retention, but he goes to renal failure, azotemia with creatinine that rise up. Then he comes back to the hospital, put a Patel catheter and it goes back down. Then he goes back, and if the Patel catheter gets removed, then he goes again back and forth, so we decided to insert a Patel catheter, we decided to insert cystostomy tube. Since then, the patient has been okay. Today, he comes to the emergency room because his cystostomy tube is leaking. Not a phone call from the assisted, just brought straight to the emergency room. The doctor here called me. Urology is consulted. See the plans listed above. See the separately dictated procedure note. We have now inserted a new cystostomy tube. PAST MEDICAL AND SURGICAL HISTORY: As listed on the chart. No other Urology changes. Patient of Dr. Jacob here in the assisted is the patient of . REVIEW OF SYSTEMS: Listed above. Noncontributory. MEDICATIONS: All listed on the chart. PHYSICAL EXAMINATION: VITAL SIGNS: Noted. GENERAL: He is resting comfortably in the gurney. ABDOMEN: Difficult to tell. Cystostomy tube looks like it is secured in place. It is not draining well. See the separately dictated procedure note, but under sterile technique, we removed and inserted a new Patel catheter by the cystostomy tube. Again, we are able to get a Patel by urethra. The only reason that we have taken it out is because the cystostomy tube will be taken out at the assisted, but the Patel catheter will be in. See the separately dictated procedure note, but basically the cystostomy tube that was not draining, but the new one is draining more than a half liter in a minute. FINAL DIAGNOSES: 1. Nonfunctioning cystostomy tube. 2. Renal failure. 3. Urinary retention and voiding dysfunction. PLAN: As follows. New cystostomy tube inserted. Further management will be per the medical team, but from the Urology standpoint, we will just monitor Is and Os and monitor the patient closely. He is here back in the assisted, but the plan is to change the cystostomy tube every 4-6 weeks and then further plans will follow. Raf Contreras MD
--- NOTE | 2018-01-30 15:21 | DS ---
HOSPITAL COURSE: A 77-year-old white male admitted on 01/26/2018 and discharged on . Patient was admitted to the hospital with change in mental status, urinary tract infection. Patient has history of Parkinson disease and early dementia, also history of COPD and CAD. Patient was treated with IV antibiotics. He became afebrile, did have elevated BUN and creatinine, which reduced with hydration. Patient also was hypernatremic which resolved prior to being discharged home. The patient was able to be discharged home on p.o. Vantin to a rehab facility and he will be as an outpatient and finish his course of Vantin as an outpatient and patient's mental status has returned to its baseline. FINAL DISCHARGE DIAGNOSES: Change in mental status, urinary tract infection, renal insufficiency, hypernatremia, Parkinson disease, and early dementia. Ted Jacob MD
== END 2018-01-29 15:06 | DRG 699 ==
LOC: ED 10:36 → ERH 17:28 → 5RNO 21:43
PROVIDERS: ADMIT Internal Medicine; ATTEND Internal Medicine
PROC: 0T2BX0Z Change Drainage Device in Bladder, External Approach (ICD-10-PCS; principal; 2018-01-26)
DX: T83.510A Infection and inflammatory reaction due to cystostomy catheter, initial encounter (principal); N39.0 Urinary tract infection, site not specified; E87.0 Hyperosmolality and hypernatremia; E78.00 Pure hypercholesterolemia, unspecified; E86.0 Dehydration; F02.80 Dementia in other diseases classified elsewhere, unspecified severity, without behavioral disturbance, psychotic disturbance, mood disturbance, and anxiety; G20 Parkinson's disease; H35.30 Unspecified macular degeneration; I11.0 Hypertensive heart disease with heart failure; I25.10 Atherosclerotic heart disease of native coronary artery without angina pectoris; I50.9 Heart failure, unspecified; I73.9 Peripheral vascular disease, unspecified; J44.9 Chronic obstructive pulmonary disease, unspecified; N28.9 Disorder of kidney and ureter, unspecified; N40.0 Benign prostatic hyperplasia without lower urinary tract symptoms; Y84.6 Urinary catheterization as the cause of abnormal reaction of the patient, or of later complication, without mention of misadventure at the time of the procedure; Z86.19 Personal history of other infectious and parasitic diseases; Z86.73 Personal history of transient ischemic attack (TIA), and cerebral infarction without residual deficits; Z87.440 Personal history of urinary (tract) infections; Z87.442 Personal history of urinary calculi; Z90.49 Acquired absence of other specified parts of digestive tract; Z95.0 Presence of cardiac pacemaker

== ENCOUNTER 2018-03-13 17:46 | Observation (INO) | payer MEDICARE, BC ==
--- NOTE | 2018-03-13 18:05 | ED PDOC ---
Arrival/HPI - General Chief Complaint: Male Genitourinary Time Seen by Provider: 03/13/18 17:50 - History of Present Illness Narrative History of Present Illness (Text): 03/13/18 18:02 77 male h/o Parkinson's, HTN, Hep C, CVA, Suprapubic Catheter, presents to the ED from [facility] due to leaking suprapubic catheter. Patient is baseline confused but he's able to answer some questions. He knows his name and place. He denies any pain. He says the nurses told him his catheter is leaking. PMD: Dr. Jacob Half-Way: Dr. Jacobs Urologist: Dr. Contreras Past Medical History - Provider Review Nursing Documentation Reviewed: Yes - Infectious Disease Hx of Infectious Diseases: None - Tetanus Immunization Tetanus Immunization: Unknown - Cardiac Hx Congestive Heart Failure: Yes Hx Hypertension: Yes Hx Pacemaker: Yes - Pulmonary Hx Chronic Obstructive Pulmonary Disease (COPD): Yes - Neurological HX Cerebrovascular Accident: Yes (TIA) Hx Dementia: Yes Hx Parkinson's Disease: Yes - HEENT Hx HEENT Disorder: Yes (uses glasses) Hx Macular Degeneration: Yes - Renal Hx Kidney Stones: Yes Hx Renal Failure: Yes Other/Comment: Urinary retention - Endocrine/Metabolic Hx Endocrine Disorders: No - Hematological/Oncological Hx Blood Disorders: Yes - Integumentary Hx Dermatological Disorder: Yes Hx Psoriasis: Yes Other/Comment: lle healing scabs, bottom of both feet red with dry skin, thick long toenails and fingernails, left elbow dry patches of skin , perineal area rashes and reddened noted, sacral area has 2cm by 1.5cm pressure ulcer covered with yellow slough, redness noted around the area, buttocks slightly reddened, mid chest scar - Musculoskeletal/Rheumatological Hx Musculoskeletal Disorders: Yes Hx Falls: Yes - Gastrointestinal Hx Gall Bladder Disease: Yes (gallstones) HX Swallowing Problems: Yes - Genitourinary/Gynecological Hx Genitourinary Disorders: Yes Hx Incontinence: Yes Hx Urinary Tract Infection: Yes Other/Comment: suprapubic catheter - Psychiatric Hx Anxiety: Yes Hx Depression: Yes Hx Emotional Abuse: No Hx Physical Abuse: No Hx Substance Use: No - Surgical History Hx Cardiac Catheterization: Yes Hx Cholecystectomy: Yes (04/16/14) Hx Open Heart Surgery: Yes - Anesthesia Hx Anesthesia Reactions: Yes Hx Malignant Hyperthermia: No - Suicidal Assessment Feels Threatened In Home Enviroment: No Family/Social History - Physician Review Nursing Documentation Reviewed: Yes Family/Social History: No Known Family HX Smoking Status: Never Smoked Hx Alcohol Use: No Hx Substance Use: No Allergies/Home Meds Allergies/Adverse Reactions: Allergies pineapple Allergy (Unknown, Verified 03/13/18 18:00) ITCHING Home Medications: Home Meds Medication Instructions Recorded Confirmed Albuterol/Ipratropium [Duoneb 3 3 ml PO Q6 PRN 11/18/17 01/26/18 mg/0.5 mg (3 ml) UD] hydrALAZINE [Apresoline] 10 mg PO Q8H 11/18/17 01/26/18 amLODIPine [Norvasc] 5 mg PO DAILY 12/06/17 01/26/18 ALPRAZolam [Xanax] 0.25 mg PO Q6H PRN 12/24/17 01/26/18 Acetaminophen [Pain Reliever] 650 mg PO Q6H PRN 12/24/17 01/26/18 Review of Systems - Review of Systems Systems not reviewed;Unavailable: Dementia Physical Exam Vital Signs Reviewed: Yes Vital Signs Temp Pulse Resp BP Pulse Ox 03/13/18 18:01 98.9 F 66 18 135/78 98 Temperature: Afebrile Blood Pressure: Normal Pulse: Regular Respiratory Rate: Normal Appearance: Positive for: Well-Appearing, Non-Toxic, Comfortable Pain Distress: None Mental Status: No: Alert and Oriented X 3 (dementia, aaox2) - Systems Exam Head: Present: Atraumatic, Normocephalic Pupils: Present: PERRL Extroacular Muscles: Present: EOMI Conjunctiva: Present: Normal Mouth: Present: Moist Mucous Membranes Neck: Present: Normal Range of Motion Respiratory/Chest: Present: Clear to Auscultation, Good Air Exchange. No: Respiratory Distress, Accessory Muscle Use Cardiovascular: Present: Regular Rate and Rhythm, Normal S1, S2. No: Murmurs Abdomen: Present: Tenderness (over bladder), Other (bladder distended with some tenderness). No: Distention, Peritoneal Signs, Rebound, Guarding Back: Present: Normal Inspection Upper Extremity: Present: Normal Inspection. No: Cyanosis, Edema Lower Extremity: Present: Normal Inspection. No: Edema Neurological: Present: GCS=15, CN II-XII Intact, Speech Normal Skin: Present: Warm, Dry, Normal Color. No: Rashes Psychiatric: Present: Alert. No: Oriented x 3 (x2) Medical Decision Making ED Course and Treatment: 03/13/18 18:08 77 yo male with leaking suprapubic catheter -- Labs -- UA, UCx Case discussed with Dr. Contreras, Urologist, who states to place a coto catheter for now and keep the patient under observation until he comes to replace a suprapubic catheter. 03/13/18 19:[address] Jose Diego to f/u labs, UA, Urology and disposition Disposition/Present on Arrival - Present on Arrival Any Indicators Present on Arrival: Yes History of DVT/PE: No History of Uncontrolled Diabetes: No Urinary Catheter: Yes (suprapubic cath) History of Decub. Ulcer: No History Surgical Site Infection Following: None - Disposition Have Diagnosis and Disposition been Completed?: No Diagnosis: Suprapubic catheter dysfunction Disposition Time: 18:39 Condition: FAIR Forms: [employer] (Korean)
[2018-03-13 19:04] LABS: BASO # 0.02 K/mm3 (0.0-2.0); BASO % 0.2 % (0.0-3.0); EOS # 0.2 (0.0-0.7); EOS % 1.7 % (1.5-5.0); GRAN # 7.45 (1.4-6.5); GRAN % 72.1 % (50.0-68.0); HEMOGLOBIN 12.8 g/dL (14.0-18.0); LYMPH # 1.3 (1.2-3.4); MEAN CELL VOLUME 84.3 fl (80.0-105.0); MEAN CORPUSCULAR HEMOGLOBIN 28.7 pg (25.0-35.0); MEAN PLATELET VOLUME 12.6 fl (7.0-11.0); MONO # 1.3 (0.1-0.6); RBC 4.46 10^6/uL (3.5-6.1); RED CELL DISTRIBUTION WIDTH 15.2 % (11.5-14.5); WHITE BLOOD COUNT 10.3 10^3/ul (4.5-11.0)
--- NOTE | 2018-03-13 19:16 | ED PDOC ---
Physical Exam Vital Signs Reviewed: Yes Vital Signs Temp Pulse Resp BP Pulse Ox 03/13/18 18:01 98.9 F 66 18 135/78 98 - Systems Exam Head: Present: Atraumatic, Normocephalic Conjunctiva: Present: Normal Mouth: Present: Moist Mucous Membranes Neck: No: Meningeal Signs Respiratory/Chest: Present: Clear to Auscultation Cardiovascular: Present: Regular Rate and Rhythm Abdomen: No: Tenderness, Distention Back: No: CVA Tenderness Medical Decision Making ED Course and Treatment: 03/13/18 19:07 Patient endorsed to me by Dr. Singh. Patient has a past medical history of dementia, COPD, Parkinsons and suprapubic catheter. Patient brought into the Emergency room from assisted due to leak in suprapubic catheter. Dr. Contreras has been consulted, who recommends coto placement. He will see patient this evening or tomorrow morning. Urinalysis has been ordered. Patient to be placed under observation with Dr. Jacob. 03/13/18 19:45 Labs reviewed, largely unremarkable. Non-septic vitals. Will page PMD and request obs. 03/13/18 20:10 2nd page to PMD 03/13/18 20:20 PMD unavailable per service, on vacation, we are to admit to hospitalist per service. paged medical logistics specialist abx ordered. 03/13/18 20:33 Endorsed to med resident and Dr. Sen- accepted to obs. - Lab Interpretations Lab Results: 03/13/18 18:28 03/13/18 19:14 Lab Results 03/13/18 19:14: Sodium 143, Potassium 4.7, Chloride 106, Carbon Dioxide 25, Anion Gap 16, BUN 50 H, Creatinine 2.1 H, Est GFR ( Amer) 37, Est GFR ( Non-Af Amer) 31, Random Glucose 124 H, Calcium 9.5 03/13/18 19:14: Urine Color yellow, Urine Appearance Cloudy, Urine pH 8.5, Ur Specific [place] 1.015, Urine Protein 100 H, Urine Glucose (UA) Negative, Urine Ketones Negative, Urine Blood Large H, Urine Nitrate Positive H, Urine Bilirubin Negative, Urine Urobilinogen 0.2, Ur Leukocyte Esterase Large H, Urine RBC Tntc, Urine WBC 10 - 15, Ur Epithelial Cells Many, Amorphous Sediment Moderate, Urine Bacteria Small, Urine Other Mucus 03/13/18 18:28: WBC 10.3 D, RBC 4.46, Hgb 12.8 L, Hct 37.6 L, MCV 84.3 D, MCH 28.7, MCHC 34.0, RDW 15.2 H, Plt Count 239, MPV 12.6 H, Gran % 72.1 H, Lymph % ( Auto) 13.0 L, [place] % (Auto) 13.0 H, Eos % (Auto) 1.7, Baso % (Auto) 0.2, Gran # 7.45 H, Lymph # (Auto) 1.3, [place] # (Auto) 1.3 H, Eos # (Auto) 0.2, Baso # (Auto ) 0.02 - Medication Orders Current Medication Orders: Ceftriaxone Sodium (Rocephin 1 Gram Ivpb) 1 gm in 100 mls @ 100 mls/hr IVPB ONCE ONE PRN Reason: Protocol Stop: 03/13/18 21:29 - Scribe Statement The provider has reviewed the documentation as recorded by the Raffi De Guzman Provider Scribe Provider Scribe Attestation: All medical record entries made by the Scribe were at my direction and personally dictated by me. I have reviewed the chart and agree that the record accurately reflects my personal performance of the history, physical exam, medical decision making, and the department course for this patient. I have also personally directed, reviewed, and agree with the discharge instructions and disposition. Disposition/Present on Arrival - Present on Arrival Any Indicators Present on Arrival: Yes History of DVT/PE: No History of Uncontrolled Diabetes: No Urinary Catheter: Yes (suprapubic cath) History of Decub. Ulcer: No History Surgical Site Infection Following: None - Disposition Have Diagnosis and Disposition been Completed?: Yes Diagnosis: Suprapubic catheter dysfunction Disposition: HOSPITALIZED Disposition Time: 19:45 Patient Problems: Current Active Problems Problem Status Onset Suprapubic catheter dysfunction Acute Condition: FAIR Forms: [employer] (Macedonian)
[2018-03-13 19:37] LABS: CALCIUM 9.5 mg/dL (8.4-10.5)
[2018-03-13 19:46] LABS: PH,URINE 8.5 (4.7-8.0); URINE BILIRUBIN NEGATIVE (NEGATIVE); URINE BLOOD LARGE (NEGATIVE); URINE GLUCOSE (UA) NEGATIVE (NEGATIVE); URINE LEUKOCYTE ESTERASE LARGE Leu/uL (NEGATIVE); URINE PROTEIN 100 mg/dL (<30 mg/dL); URINE UROBILINOGEN 0.2 E.U./dL (<1 E.U./dL)
[2018-03-13 19:47] LABS: URINE APPEARANCE CLOUDY (CLEAR)
[2018-03-13 19:49] LABS: URINE AMORPHOUS SEDIMENT MODERATE; URINE BACTERIA SMALL (NEG); URINE EPITHELIAL CELLS MANY /hpf (0-5); URINE RBC TNTC /hpf (0-2)
[2018-03-13] MEDS ORDERED: cefTRIAXone 1 gm 1 GM/100 ML BAG IVPB ONE (20:30)
[2018-03-13] MEDS ORDERED: Sodium Chloride 0.9% 1,000 ML IV SCH (22:00)
[2018-03-13 22:17] VITALS: O2SAT 99
--- NOTE | 2018-03-13 22:22 | CP.PCM.HP ---
<Roly Smith - Last Filed: 03/14/18 00:06> History of Present Illness - History of Present Illness History of Present Illness: PGY-1 History & Physical for Dr. Sen Patient is a 77 yo male with PMH of Parkinson's, dementia, HTN, CVA, hx of recurrent UTIs with suprapubic cathetter, COPD, hx of asthma and kidney stones presents from care home because suprapubic catheter was leaking. Patient mental status limits ability to take history as patient is at best oriented x 1. Most information from ED was collected from patient's brother who was no longer at bedside. Patient upon questioning did not complain of any symptoms. Unable to attain review of systems due to same reasoning. PMH- Parkinson's, dementia, HTN, CVA, hx of recurrent UTIs with suprapubic cathetter, COPD, hx of asthma and kidney stones PSH- Open Heart Surgery, Cholecystecomy (prior charts) FH- Unable to attain Meds- hydralazine 10mg po q8, amlodipine 5mg po daily, Carbidopa/Levidopa 25/ 100 1 tab po tid, Xanax 0.25 mg po q6h prn, Duoneb 3ml po q6 prn, Tylenol 650mg po q6h prn Allergies: pineapple Social: Unable to attain Code: Unable to attain PMD: Dr. Euceda Present on Admission - Present on Admission Any Indicators Present on Admission: No Review of Systems - Review of Systems Systems not reviewed;Unavailable: Acuity of Condition Past Patient History - Infectious Disease Hx of Infectious Diseases: None - Tetanus Immunizations Tetanus Immunization: Unknown - Past Social History Smoking Status: Never Smoked - CARDIAC Hx Congestive Heart Failure: Yes Hx Hypertension: Yes Hx Pacemaker: Yes - PULMONARY Hx Chronic Obstructive Pulmonary Disease (COPD): Yes - NEUROLOGICAL HX Cerebrovascular Accident: Yes (TIA) Hx Dementia: Yes Hx Parkinson's Disease: Yes - HEENT Hx HEENT Problems: Yes (uses glasses) Hx Macular Degeneration: Yes - RENAL Hx Kidney Stones: Yes Hx Renal Failure: Yes Other/Comment: Urinary retention - ENDOCRINE/METABOLIC Hx Endocrine Disorders: No - HEMATOLOGICAL/ONCOLOGICAL Hx Blood Disorders: Yes - INTEGUMENTARY Hx Dermatological Problems: Yes Hx Psoriasis: Yes Other/Comment: lle healing scabs, bottom of both feet red with dry skin, thick long toenails and fingernails, left elbow dry patches of skin , perineal area rashes and reddened noted, sacral area has 2cm by 1.5cm pressure ulcer covered with yellow slough, redness noted around the area, buttocks slightly reddened, mid chest scar - MUSCULOSKELETAL/RHEUMATOLOGICAL Hx Musculoskeletal Disorders: Yes Hx Falls: Yes - GASTROINTESTINAL Hx Gall Bladder Disease: Yes (gallstones) HX Swallowing Problems: Yes - GENITOURINARY/GYNECOLOGICAL Hx Genitourinary Disorders: Yes Hx Incontinence: Yes Hx Urinary Tract Infection: Yes Other/Comment: suprapubic catheter - PSYCHIATRIC Hx Anxiety: Yes Hx Depression: Yes Hx Emotional Abuse: No Hx Physical Abuse: No Hx Substance Use: No - SURGICAL HISTORY Hx Cardiac Catheterization: Yes Hx Cholecystectomy: Yes (04/16/14) Hx Open Heart Surgery: Yes - ANESTHESIA Hx Anesthesia Reactions: Yes Hx Malignant Hyperthermia: No Meds Allergies/Adverse Reactions: Allergies Allergy/AdvReac Type Severity Reaction Status Date / Time pineapple Allergy Unknown ITCHING Verified 03/13/18 18:00 Physical Exam - Constitutional Appears: Non-toxic, No Acute Distress - Head Exam Head Exam: NORMAL INSPECTION, NORMOCEPHALIC - Eye Exam Eye Exam: EOMI, Normal appearance. absent: Nystagmus, Scleral icterus - ENT Exam ENT Exam: Mucous Membranes Dry - Neck Exam Neck exam: Positive for: Normal Inspection. Negative for: Tenderness, Thyromegaly - Respiratory Exam Respiratory Exam: Clear to Auscultation Bilateral, NORMAL BREATHING PATTERN. absent: Rales, Rhonchi, Wheezes - Cardiovascular Exam Cardiovascular Exam: REGULAR RHYTHM, +S1, +S2 Additional comments: pacemaker in place - GI/Abdominal Exam GI & Abdominal Exam: Normal Bowel Sounds, Soft. absent: Distended, Firm, Guarding, Tenderness - Extremities Exam Extremities exam: Positive for: normal inspection. Negative for: calf tenderness, pedal edema - Back Exam Back exam: NORMAL INSPECTION. absent: CVA tenderness (L), CVA tenderness (R) - Neurological Exam Neurological exam: Altered Additional comments: oriented x 1 - Psychiatric Exam Psychiatric exam: Normal Affect, Normal Mood - Skin Skin Exam: Intact, Normal Color Additional comments: suprapubic catheter leaking coto in place; Results - Vital Signs Recent Vital Signs: Last Vital Signs Temp 98.9 F 03/13/18 18:01 Pulse 66 03/13/18 18:01 Resp 18 03/13/18 18:01 BP 135/78 03/13/18 18:01 Pulse Ox 98 03/13/18 18:01 - Labs Result Diagrams: 03/13/18 18:28 03/13/18 19:14 Assessment & Plan - Assessment and Plan (Free Text) Assessment: Suprapubic Catheter Dysfunctio Urology Consulted: Dr. Contreras- coto placed; awaiting for Dr. Contreras to replace catheter MARLEY IVF NS @ 70mls/hr for 12 hours Repeat CMP in AM Hx of Parkinson's Carbidopa/Levodopa 1 tab potid UTI U/A shows positive nitrates; large L.E; large blood Afebrile Continue Ceftriaxone 1gm IVPB HTN Norvasc 5mg po daily Hydralazine 10mg po q8h <Nikhil Sen - Last Filed: 03/14/18 05:30> Results - Vital Signs Recent Vital Signs: Last Vital Signs Temp 98.5 F 03/14/18 02:37 Pulse 58 L 03/14/18 02:37 Resp 20 03/14/18 02:37 BP 137/76 03/14/18 02:37 Pulse Ox 99 03/13/18 22:16 - Labs Result Diagrams: 03/13/18 18:28 03/13/18 19:14 Attending/Attestation - Attestation I have personally seen and examined this patient.: Yes I have fully participated in the care of the patient.: Yes I have reviewed all pertinent clinical information: Yes Notes (Text): I agree with the residents note above. - Suprapubic catheter leak - UTI - HTN - Parkinsons Urology eval send urine culture c/w rocephin resume home meds for HTN and parkinsons 03/14/18 05:28
[2018-03-14] MEDS: Albuterol-Ipratrop 3 mg / 0.5 (3 ml) UD IH SCH ×3 (01:45→14:39)
[2018-03-14 03:29] VITALS: BMI 20.7
[2018-03-14] MEDS ORDERED: Pantoprazole 40 mg EC Tab PO SCH (06:00)
[2018-03-14 07:38] VITALS: BP 122/73; PULSE 57; RESP 18; TEMP 97.5
[2018-03-14 08:14] LABS: BASO # 0.02 K/mm3 (0.0-2.0); BASO % 0.2 % (0.0-3.0); EOS # 0.2 (0.0-0.7); GRAN # 5.46 (1.4-6.5); GRAN % 64.9 % (50.0-68.0); HEMOGLOBIN 11.9 g/dL (14.0-18.0); LYMPH # 2.1 (1.2-3.4); LYMPH % 24.3 % (22.0-35.0); MEAN CELL VOLUME 86.4 fl (80.0-105.0); MEAN CORPUSCULAR HGB CONC 32.4 g/dl (31.0-37.0); MEAN PLATELET VOLUME 10.9 fl (7.0-11.0); MONO # 0.7 (0.1-0.6); MONO % 8.6 % (1.0-6.0); RBC 4.25 10^6/uL (3.5-6.1); RED CELL DISTRIBUTION WIDTH 15.1 % (11.5-14.5); WHITE BLOOD COUNT 8.4 10^3/ul (4.5-11.0)
[2018-03-14 08:43] LABS: ALB/GLOB RATIO 1.2 (1.1-1.8); ALBUMIN 3.7 g/dL (3.0-4.8); CALCIUM 9.3 mg/dL (8.4-10.5)
[2018-03-14] MEDS ORDERED: cefTRIAXone 1 gm 1 GM/100 ML BAG IVPB SCH ×2 (10:00→22:00)
--- NOTE | 2018-03-14 10:30 | PCM.URO ---
Urology Progress Note - Objective Lab Studies: Reviewed (gu plans ; we inserted a new spt and removed the coto and from gu standpoint pt is clear for discharge) Lab Results Last 24 Hours: Laboratory Results - last 24 hr 03/14/18 03/14/18 07:30 07:30 WBC 8.4 RBC 4.25 Hgb 11.9 L Hct 36.7 L MCV 86.4 MCH 28.0 MCHC 32.4 RDW 15.1 H Plt Count 142 MPV 10.9 Gran % 64.9 Lymph % (Auto) 24.3 [place] % (Auto) 8.6 H Eos % (Auto) 2.0 Baso % (Auto) 0.2 Gran # 5.46 Lymph # (Auto) 2.1 [place] # (Auto) 0.7 H Eos # (Auto) 0.2 Baso # (Auto) 0.02 Sodium 143 Potassium 4.2 Chloride 109 H Carbon Dioxide 24 Anion Gap 15 BUN 38 H Creatinine 1.5 Est GFR ( Amer) 55 Est GFR (Non-Af Amer) 46 Random Glucose 97 Calcium 9.3 Total Bilirubin 0.5 AST 16 L D ALT 21 Alkaline Phosphatase 72 Total Protein 6.9 Albumin 3.7 Globulin 3.2 Albumin/Globulin Ratio 1.2 Intake & Output: Intake & Output 03/13/18 03/14/18 03/14/18 18:59 06:59 18:59 Intake Total 680 Output Total 850 Balance -170 Weight 125 lb Intake: IV 560 Right Hand 560 Oral 120 Output: Urine 850 Urethral (Coto) 850 Other: Voiding Method Diaper Vital Signs: Vital Signs - 24 hr 03/13/18 03/13/18 03/14/18 22:10 22:16 02:37 Temperature 98.5 F Pulse Rate 60 58 L Pulse Rate [ 58 L Apical] Respiratory 20 20 Rate Blood Pressure 142/82 137/76 O2 Sat by Pulse 99 99 Oximetry 03/14/18 06:00 Temperature 97.5 F L Pulse Rate 57 L Pulse Rate [ Apical] Respiratory 18 Rate Blood Pressure 122/73 O2 Sat by Pulse 99 Oximetry
--- NOTE | 2018-03-14 11:36 | CP.PCM.DIS ---
Provider - Provider Date of Admission: 03/13/18 20:31 Attending physician: Nikhil Sen MD Hospital Course - Lab Results Lab Results: Most Recent Lab Values WBC 8.4 10^3/ul (4.5-11.0) 03/14/18 07:30 RBC 4.25 10^6/uL (3.5-6.1) 03/14/18 07:30 Hgb 11.9 g/dL (14.0-18.0) L 03/14/18 07:30 Hct 36.7 % (42.0-52.0) L 03/14/18 07:30 MCV 86.4 fl (80.0-105.0) 03/14/18 07:30 MCH 28.0 pg (25.0-35.0) 03/14/18 07:30 MCHC 32.4 g/dl (31.0-37.0) 03/14/18 07:30 RDW 15.1 % (11.5-14.5) H 03/14/18 07:30 Plt Count 142 10^3/uL (120.0-450.0) 03/14/18 07:30 MPV 10.9 fl (7.0-11.0) 03/14/18 07:30 Gran % 64.9 % (50.0-68.0) 03/14/18 07:30 Lymph % (Auto) 24.3 % (22.0-35.0) 03/14/18 07:30 [place] % (Auto) 8.6 % (1.0-6.0) H 03/14/18 07:30 Eos % (Auto) 2.0 % (1.5-5.0) 03/14/18 07:30 Baso % (Auto) 0.2 % (0.0-3.0) 03/14/18 07:30 Gran # 5.46 (1.4-6.5) 03/14/18 07:30 Lymph # (Auto) 2.1 (1.2-3.4) 03/14/18 07:30 [place] # (Auto) 0.7 (0.1-0.6) H 03/14/18 07:30 Eos # (Auto) 0.2 (0.0-0.7) 03/14/18 07:30 Baso # (Auto) 0.02 K/mm3 (0.0-2.0) 03/14/18 07:30 Sodium 143 mmol/L (132-148) 03/14/18 07:30 Potassium 4.2 mmol/L (3.6-5.0) 03/14/18 07:30 Chloride 109 mmol/L (98-107) H 03/14/18 07:30 Carbon Dioxide 24 mmol/L (21-33) 03/14/18 07:30 Anion Gap 15 (10-20) 03/14/18 07:30 BUN 38 mg/dL (7-21) H 03/14/18 07:30 Creatinine 1.5 mg/dl (0.8-1.5) 03/14/18 07:30 Est GFR ( Amer) 55 03/14/18 07:30 Est GFR (Non-Af Amer) 46 03/14/18 07:30 Random Glucose 97 mg/dL (70-110) 03/14/18 07:30 Calcium 9.3 mg/dL (8.4-10.5) 03/14/18 07:30 Total Bilirubin 0.5 mg/dL (0.2-1.3) 03/14/18 07:30 AST 16 U/L (17-59) L D 03/14/18 07:30 ALT 21 U/L (7-56) 03/14/18 07:30 Alkaline Phosphatase 72 U/L (38-126) 03/14/18 07:30 Total Protein 6.9 g/dL (5.8-8.3) 03/14/18 07:30 Albumin 3.7 g/dL (3.0-4.8) 03/14/18 07:30 Globulin 3.2 gm/dL 03/14/18 07:30 Albumin/Globulin Ratio 1.2 (1.1-1.8) 03/14/18 07:30 Urine Color yellow (YELLOW) 03/13/18 19:14 Urine Appearance Cloudy (CLEAR) 03/13/18 19:14 Urine pH 8.5 (4.7-8.0) 03/13/18 19:14 Ur Specific [place] 1.015 (1.005-1.035) 03/13/18 19:14 Urine Protein 100 mg/dL (<30 mg/dL) H 03/13/18 19:14 Urine Glucose (UA) Negative mg/dL (NEGATIVE) 03/13/18 19:14 Urine Ketones Negative mg/dL (NEGATIVE) 03/13/18 19:14 Urine Blood Large (NEGATIVE) H 03/13/18 19:14 Urine Nitrate Positive (NEGATIVE) H 03/13/18 19:14 Urine Bilirubin Negative (NEGATIVE) 03/13/18 19:14 Urine Urobilinogen 0.2 E.U./dL (<1 E.U./dL) 03/13/18 19:14 Ur Leukocyte Esterase Large [place]/uL (NEGATIVE) H 03/13/18 19:14 Urine RBC Tntc /hpf (0-2) 03/13/18 19:14 Urine WBC 10 - 15 /hpf (0-6) 03/13/18 19:14 Ur Epithelial Cells Many /hpf (0-5) 03/13/18 19:14 Amorphous Sediment Moderate 03/13/18 19:14 Urine Bacteria Small (NEG) 03/13/18 19:14 Urine Other Mucus 03/13/18 19:14 Discharge Exam - Head Exam Head Exam: NORMAL INSPECTION, NORMOCEPHALIC Discharge Plan - Discharge Medications Prescriptions: Ciprofloxacin [Cipro] 500 mg PO BID #7 tab - Follow Up Plan Condition: FAIR Disposition: REHAB FACILITY/REHAB UNIT Additional Instructions: 1. Please make sure to take your new antibiotics as prescribed 2. Should your symptoms recur or worsen please return to the ED
--- NOTE | 2018-03-14 17:44 | CP.PCM.DIS ---
<Handy Dorado - Last Filed: 03/14/18 17:40> Provider - Provider Date of Admission: 03/13/18 20:31 Attending physician: Nikhil Sen MD Primary care physician: Dr. Jacob Consults: Urology - Dr. Maria Time Spent in preparation of Discharge (in minutes): 45 Hospital Course - Lab Results Lab Results: Most Recent Lab Values WBC 8.4 10^3/ul (4.5-11.0) 03/14/18 07:30 RBC 4.25 10^6/uL (3.5-6.1) 03/14/18 07:30 Hgb 11.9 g/dL (14.0-18.0) L 03/14/18 07:30 Hct 36.7 % (42.0-52.0) L 03/14/18 07:30 MCV 86.4 fl (80.0-105.0) 03/14/18 07:30 MCH 28.0 pg (25.0-35.0) 03/14/18 07:30 MCHC 32.4 g/dl (31.0-37.0) 03/14/18 07:30 RDW 15.1 % (11.5-14.5) H 03/14/18 07:30 Plt Count 142 10^3/uL (120.0-450.0) 03/14/18 07:30 MPV 10.9 fl (7.0-11.0) 03/14/18 07:30 Gran % 64.9 % (50.0-68.0) 03/14/18 07:30 Lymph % (Auto) 24.3 % (22.0-35.0) 03/14/18 07:30 Tucker % (Auto) 8.6 % (1.0-6.0) H 03/14/18 07:30 Eos % (Auto) 2.0 % (1.5-5.0) 03/14/18 07:30 Baso % (Auto) 0.2 % (0.0-3.0) 03/14/18 07:30 Gran # 5.46 (1.4-6.5) 03/14/18 07:30 Lymph # (Auto) 2.1 (1.2-3.4) 03/14/18 07:30 Tucker # (Auto) 0.7 (0.1-0.6) H 03/14/18 07:30 Eos # (Auto) 0.2 (0.0-0.7) 03/14/18 07:30 Baso # (Auto) 0.02 K/mm3 (0.0-2.0) 03/14/18 07:30 Sodium 143 mmol/L (132-148) 03/14/18 07:30 Potassium 4.2 mmol/L (3.6-5.0) 03/14/18 07:30 Chloride 109 mmol/L (98-107) H 03/14/18 07:30 Carbon Dioxide 24 mmol/L (21-33) 03/14/18 07:30 Anion Gap 15 (10-20) 03/14/18 07:30 BUN 38 mg/dL (7-21) H 03/14/18 07:30 Creatinine 1.5 mg/dl (0.8-1.5) 03/14/18 07:30 Est GFR ( Amer) 55 03/14/18 07:30 Est GFR (Non-Af Amer) 46 03/14/18 07:30 Random Glucose 97 mg/dL (70-110) 03/14/18 07:30 Calcium 9.3 mg/dL (8.4-10.5) 03/14/18 07:30 Total Bilirubin 0.5 mg/dL (0.2-1.3) 03/14/18 07:30 AST 16 U/L (17-59) L D 03/14/18 07:30 ALT 21 U/L (7-56) 03/14/18 07:30 Alkaline Phosphatase 72 U/L (38-126) 03/14/18 07:30 Total Protein 6.9 g/dL (5.8-8.3) 03/14/18 07:30 Albumin 3.7 g/dL (3.0-4.8) 03/14/18 07:30 Globulin 3.2 gm/dL 03/14/18 07:30 Albumin/Globulin Ratio 1.2 (1.1-1.8) 03/14/18 07:30 Urine Color yellow (YELLOW) 03/13/18 19:14 Urine Appearance Cloudy (CLEAR) 03/13/18 19:14 Urine pH 8.5 (4.7-8.0) 03/13/18 19:14 Ur Specific Bend 1.015 (1.005-1.035) 03/13/18 19:14 Urine Protein 100 mg/dL (<30 mg/dL) H 03/13/18 19:14 Urine Glucose (UA) Negative mg/dL (NEGATIVE) 03/13/18 19:14 Urine Ketones Negative mg/dL (NEGATIVE) 03/13/18 19:14 Urine Blood Large (NEGATIVE) H 03/13/18 19:14 Urine Nitrate Positive (NEGATIVE) H 03/13/18 19:14 Urine Bilirubin Negative (NEGATIVE) 03/13/18 19:14 Urine Urobilinogen 0.2 E.U./dL (<1 E.U./dL) 03/13/18 19:14 Ur Leukocyte Esterase Large Lina/uL (NEGATIVE) H 03/13/18 19:14 Urine RBC Tntc /hpf (0-2) 03/13/18 19:14 Urine WBC 10 - 15 /hpf (0-6) 03/13/18 19:14 Ur Epithelial Cells Many /hpf (0-5) 03/13/18 19:14 Amorphous Sediment Moderate 03/13/18 19:14 Urine Bacteria Small (NEG) 03/13/18 19:14 Urine Other Mucus 03/13/18 19:14 - Hospital Course Hospital Course: Handy Dorado DO PGY-1, [employer]ist Medicine Discharge Summary Patient is a 77 yo male with PMH of Parkinson's, dementia, HTN, CVA, hx of recurrent UTIs with suprapubic cathetter, COPD, hx of asthma and kidney stones [facility] because [facility]rapubic catheter was leaking. Patient mental status limits ability to take history as patient is at best oriented x 1. Most information from ED was collected from patient's brother who was no longer at bedside. Patient upon questioning did not complain of any symptoms. Unable to attain review of systems due to same reasoning. Urology was consulted (Dr. Maria) who replaced suprapubic catheter, ok with discharging pt back to [facility]. Pt was also discharged on PO antibiotics for 7 day course. Pt in stable condition, instructed to resume home medications. Discharge Exam - Head Exam Head Exam: NORMAL INSPECTION, NORMOCEPHALIC - Eye Exam Eye Exam: EOMI, Normal appearance, PERRL - ENT Exam ENT Exam: Mucous Membranes Moist, Normal Oropharynx - Respiratory Exam Respiratory Exam: Clear to PA & Lateral, NORMAL BREATHING PATTERN, UNREMARKABLE - Cardiovascular Exam Cardiovascular Exam: REGULAR RHYTHM, +S1, +S2 - GI/Abdominal Exam GI & Abdominal Exam: Normal Bowel Sounds, Soft, Unremarkable - Neurological Exam Neurological exam: Alert Additional comments: Oriented x1 - Skin Skin Exam: Dry, Intact, Normal Color, Warm Discharge Plan - Discharge Medications Prescriptions: Ciprofloxacin [Cipro] 500 mg PO BID #7 tab - Follow Up Plan Condition: FAIR Disposition: HOME/ ROUTINE Instructions: Preventing Falls in the Older Adult, How to Care for Your Suprapubic Urinary Catheter, Renal Failure Diet (DC) Additional Instructions: 1. Please make sure to take your new antibiotics as prescribed 2. Should your symptoms recur or worsen please return to the ED <Ana Harmon - Last Filed: 03/15/18 19:01> Provider - Provider Date of Admission: 03/13/18 20:31 Attending physician: Nikhil Sen MD Hospital Course - Lab Results Lab Results: Most Recent Lab Values WBC 8.4 10^3/ul (4.5-11.0) 03/14/18 07:30 RBC 4.25 10^6/uL (3.5-6.1) 03/14/18 07:30 Hgb 11.9 g/dL (14.0-18.0) L 03/14/18 07:30 Hct 36.7 % (42.0-52.0) L 03/14/18 07:30 MCV 86.4 fl (80.0-105.0) 03/14/18 07:30 MCH 28.0 pg (25.0-35.0) 03/14/18 07:30 MCHC 32.4 g/dl (31.0-37.0) 03/14/18 07:30 RDW 15.1 % (11.5-14.5) H 03/14/18 07:30 Plt Count 142 10^3/uL (120.0-450.0) 03/14/18 07:30 MPV 10.9 fl (7.0-11.0) 03/14/18 07:30 Gran % 64.9 % (50.0-68.0) 03/14/18 07:30 Lymph % (Auto) 24.3 % (22.0-35.0) 03/14/18 07:30 Tucker % (Auto) 8.6 % (1.0-6.0) H 03/14/18 07:30 Eos % (Auto) 2.0 % (1.5-5.0) 03/14/18 07:30 Baso % (Auto) 0.2 % (0.0-3.0) 03/14/18 07:30 Gran # 5.46 (1.4-6.5) 03/14/18 07:30 Lymph # (Auto) 2.1 (1.2-3.4) 03/14/18 07:30 Tucker # (Auto) 0.7 (0.1-0.6) H 03/14/18 07:30 Eos # (Auto) 0.2 (0.0-0.7) 03/14/18 07:30 Baso # (Auto) 0.02 K/mm3 (0.0-2.0) 03/14/18 07:30 Sodium 143 mmol/L (132-148) 03/14/18 07:30 Potassium 4.2 mmol/L (3.6-5.0) 03/14/18 07:30 Chloride 109 mmol/L (98-107) H 03/14/18 07:30 Carbon Dioxide 24 mmol/L (21-33) 03/14/18 07:30 Anion Gap 15 (10-20) 03/14/18 07:30 BUN 38 mg/dL (7-21) H 03/14/18 07:30 Creatinine 1.5 mg/dl (0.8-1.5) 03/14/18 07:30 Est GFR ( Amer) 55 03/14/18 07:30 Est GFR (Non-Af Amer) 46 03/14/18 07:30 Random Glucose 97 mg/dL (70-110) 03/14/18 07:30 Calcium 9.3 mg/dL (8.4-10.5) 03/14/18 07:30 Total Bilirubin 0.5 mg/dL (0.2-1.3) 03/14/18 07:30 AST 16 U/L (17-59) L D 03/14/18 07:30 ALT 21 U/L (7-56) 03/14/18 07:30 Alkaline Phosphatase 72 U/L (38-126) 03/14/18 07:30 Total Protein 6.9 g/dL (5.8-8.3) 03/14/18 07:30 Albumin 3.7 g/dL (3.0-4.8) 03/14/18 07:30 Globulin 3.2 gm/dL 03/14/18 07:30 Albumin/Globulin Ratio 1.2 (1.1-1.8) 03/14/18 07:30 Urine Color yellow (YELLOW) 03/13/18 19:14 Urine Appearance Cloudy (CLEAR) 03/13/18 19:14 Urine pH 8.5 (4.7-8.0) 03/13/18 19:14 Ur Specific Bend 1.015 (1.005-1.035) 03/13/18 19:14 Urine Protein 100 mg/dL (<30 mg/dL) H 03/13/18 19:14 Urine Glucose (UA) Negative mg/dL (NEGATIVE) 03/13/18 19:14 Urine Ketones Negative mg/dL (NEGATIVE) 03/13/18 19:14 Urine Blood Large (NEGATIVE) H 03/13/18 19:14 Urine Nitrate Positive (NEGATIVE) H 03/13/18 19:14 Urine Bilirubin Negative (NEGATIVE) 03/13/18 19:14 Urine Urobilinogen 0.2 E.U./dL (<1 E.U./dL) 03/13/18 19:14 Ur Leukocyte Esterase Large Lina/uL (NEGATIVE) H 03/13/18 19:14 Urine RBC Tntc /hpf (0-2) 03/13/18 19:14 Urine WBC 10 - 15 /hpf (0-6) 03/13/18 19:14 Ur Epithelial Cells Many /hpf (0-5) 03/13/18 19:14 Amorphous Sediment Moderate 03/13/18 19:14 Urine Bacteria Small (NEG) 03/13/18 19:14 Urine Other Mucus 03/13/18 19:14 Attending/Attestation - Attestation I have personally seen and examined this patient.: Yes I have fully participated in the care of the patient.: Yes I have reviewed all pertinent clinical information, including history, physical exam and plan: Yes
== END 2018-03-14 15:38 ==
LOC: ED 17:46 → ERH 20:31 → 5RNO 22:22
PROVIDERS: ADMIT Hospitalist; ATTEND Hospitalist
DX: T83.030A Leakage of cystostomy catheter, initial encounter (principal); N17.9 Acute kidney failure, unspecified; J44.9 Chronic obstructive pulmonary disease, unspecified; N39.0 Urinary tract infection, site not specified; G20 Parkinson's disease; I11.0 Hypertensive heart disease with heart failure; I50.9 Heart failure, unspecified; F03.90 Unspecified dementia, unspecified severity, without behavioral disturbance, psychotic disturbance, mood disturbance, and anxiety; H35.30 Unspecified macular degeneration; Z86.73 Personal history of transient ischemic attack (TIA), and cerebral infarction without residual deficits; Z95.0 Presence of cardiac pacemaker; Y83.3 Surgical operation with formation of external stoma as the cause of abnormal reaction of the patient, or of later complication, without mention of misadventure at the time of the procedure
CPT/HCPCS: 36415; 80048; 80053; 81001; 85025; 87040; 87086; 87181; 94640; 94760; 96361; 96365; 99285; G0378; J0696; J7030

== ENCOUNTER 2018-04-22 11:54 | Emergency (ER) | payer MEDICARE, BC ==
[2018-04-22 11:57] VITALS: BMI 20.7
[2018-04-22 12:09] VITALS: RESP 18; TEMP 98.4
--- NOTE | 2018-04-22 12:37 | ED PDOC ---
Arrival/HPI - General Chief Complaint: Male Genitourinary Time Seen by Provider: 04/22/18 12:33 Historian: Assisted - History of Present Illness Narrative History of Present Illness (Text): 04/22/18 12:20 77 yo male with PMH of Parkinson's, dementia, HTN, CVA, hx of recurrent UTIs with suprapubic catheter, COPD, hx of asthma and kidney stones presents from [facility] because of suprapubic catheter leakage today. Patient's mental status limits ability to take history as patient is at best oriented x 1. At bedside, patient does not verbalize any complaints. HPI and ROS limited secondary to patient's mental status. Time/Duration: Prior to Arrival Symptom Onset: Gradual Symptom Course: Unchanged Activities at Onset: Light Context: Other (custodial) Past Medical History - Provider Review Nursing Documentation Reviewed: Yes - Infectious Disease Hx of Infectious Diseases: None - Tetanus Immunization Tetanus Immunization: Unknown - Cardiac Hx Congestive Heart Failure: Yes Hx Hypertension: Yes Hx Pacemaker: Yes - Pulmonary Hx Chronic Obstructive Pulmonary Disease (COPD): Yes - Neurological HX Cerebrovascular Accident: Yes (TIA) Hx Dementia: Yes Hx Parkinson's Disease: Yes - HEENT Hx HEENT Disorder: Yes (uses glasses) Hx Macular Degeneration: Yes - Renal Hx Kidney Stones: Yes Hx Renal Failure: Yes Other/Comment: Urinary retention - Endocrine/Metabolic Hx Endocrine Disorders: No - Hematological/Oncological Hx Blood Disorders: Yes - Integumentary Hx Dermatological Disorder: Yes Hx Psoriasis: Yes Other/Comment: lle healing scabs, bottom of both feet red with dry skin, thick long toenails and fingernails, left elbow dry patches of skin , perineal area rashes and reddened noted, sacral area has 2cm by 1.5cm pressure ulcer covered with yellow slough, redness noted around the area, buttocks slightly reddened, mid chest scar - Musculoskeletal/Rheumatological Hx Musculoskeletal Disorders: Yes Hx Falls: Yes - Gastrointestinal Hx Gall Bladder Disease: Yes (gallstones) HX Swallowing Problems: Yes - Genitourinary/Gynecological Hx Genitourinary Disorders: Yes Hx Incontinence: Yes Hx Urinary Tract Infection: Yes Other/Comment: suprapubic catheter - Psychiatric Hx Anxiety: Yes Hx Depression: Yes Hx Emotional Abuse: No Hx Physical Abuse: No Hx Substance Use: No - Surgical History Hx Cardiac Catheterization: Yes Hx Cholecystectomy: Yes (04/16/14) Hx Open Heart Surgery: Yes - Anesthesia Hx Anesthesia: Yes Hx Anesthesia Reactions: Yes Hx Malignant Hyperthermia: No - Suicidal Assessment Feels Threatened In Home Enviroment: No Family/Social History - Physician Review Nursing Documentation Reviewed: Yes Family/Social History: No Known Family HX Smoking Status: Never Smoked Hx Alcohol Use: No Hx Substance Use: No Allergies/Home Meds Allergies/Adverse Reactions: Allergies pineapple Allergy (Unknown, Verified 03/13/18 18:00) ITCHING Home Medications: Home Meds Medication Instructions Recorded Confirmed RX: Albuterol/Ipratropium [Duoneb 3 ml PO Q6 PRN 11/18/17 01/26/18 3 mg/0.5 mg (3 ml) UD] RX: hydrALAZINE [Apresoline] 10 mg PO Q8H 11/18/17 01/26/18 RX: amLODIPine [Norvasc] 5 mg PO DAILY 12/06/17 01/26/18 RX: ALPRAZolam [Xanax] 0.25 mg PO Q6H PRN 12/24/17 01/26/18 RX: Acetaminophen [Pain Reliever] 650 mg PO Q6H PRN 12/24/17 01/26/18 Review of Systems - Review of Systems Systems not reviewed;Unavailable: Dementia Genitourinary Male: Other (Suprapubic catheter leakage) Physical Exam - Physical Exam Narrative Physical Exam (Text): 04/22/18 12:20 Gen: VS reviewed, alert, well developed, well nourished, nontoxic, mild distress ENT: normal pharynx, dry mucous membranes Eye: EOMI, PERRL Neck: no JVD, supple, no adenopathy CV: regular rate, regular rhythm, no rubs,no murmur, no gallops, S1, S2, pulses equal and strong Pulm: no distress, clear to auscultation, no wheeze, no rhonchi, breath sounds equal, no rales Abd: soft, nontender, no guarding, no rebound, no rigidity, normal bowel sounds. Suprapubic catheter noted with mild purulent discharge. Ext: no edema Skin: good color, no rash, no cyanosis Psych: Does not verbalize any complaints Neuro: CN2-12 intact grossly, motor intact, sensation intact Vital Signs Reviewed: Yes Vital Signs Temp Pulse Resp BP Pulse Ox 04/22/18 11:58 98.4 F 59 L 18 151/73 H 96 Temperature: Afebrile Blood Pressure: Normal Pulse: Regular Respiratory Rate: Normal Appearance: Positive for: Well-Appearing, Non-Toxic, Comfortable Pain Distress: None Mental Status: Positive for: other (Does not verbalize at bedside) Medical Decision Making ED Course and Treatment: 04/22/18 12:20 Impression: 77 year old male presents to the Emergency Department for evaluation of suprapubic catheter leakage. Plan: -- Catheter replacement -- Reassess and disposition Prior Visits: Notes and results from previous visits were reviewed. Progress Notes: - Scribe Statement The provider has reviewed the documentation as recorded by the Scribe Marilyn Bales. All medical record entries made by the Scribe were at my direction and personally dictated by me. I have reviewed the chart and agree that the record accurately reflects my personal performance of the history, physical exam, medical decision making, and the department course for this patient. I have also personally directed, reviewed, and agree with the discharge instructions and disposition. Disposition/Present on Arrival - Present on Arrival Any Indicators Present on Arrival: No History of DVT/PE: No History of Uncontrolled Diabetes: No Urinary Catheter: No History of Decub. Ulcer: No History Surgical Site Infection Following: None - Disposition Have Diagnosis and Disposition been Completed?: Yes Diagnosis: UTI (urinary tract infection) Disposition: HOME/ ROUTINE Disposition Time: 18:54 Patient Problems: Current Active Problems Problem Status Onset UTI (urinary tract infection) Acute Condition: STABLE Discharge Instructions (ExitCare): Urinary Tract Infections in Adults Prescriptions: Ciprofloxacin [Cipro] 500 mg PO BID 10 Days #20 tab Referrals: Blaise Langston MD [Primary Care Provider] - Follow up with primary Forms: [employer] (Guatemalan)
[2018-04-22 14:29] LABS: PH,URINE 7.5 (4.7-8.0); URINE BILIRUBIN NEGATIVE (NEGATIVE); URINE BLOOD LARGE (NEGATIVE); URINE GLUCOSE (UA) NEGATIVE (NEGATIVE); URINE LEUKOCYTE ESTERASE LARGE Leu/uL (NEGATIVE); URINE PROTEIN 100 mg/dL (<30 mg/dL); URINE UROBILINOGEN 0.2 E.U./dL (<1 E.U./dL)
[2018-04-22 14:32] LABS: URINE APPEARANCE TURBID (CLEAR); URINE COLOR LIGHT YELLOW (YELLOW)
[2018-04-22 14:39] LABS: URINE BACTERIA MANY (NEG); URINE RBC TNTC /hpf (0-2); URINE WBC TNTC /hpf (0-6)
[2018-04-22] MEDS ORDERED: Sodium Chloride 0.9% 1,000 ML IV STA (16:16)
[2018-04-22] MEDS ORDERED: Ciprofloxacin 400mg/200ml D5W 400 MG/200 ML BAG IVPB STA (16:16)
[2018-04-22 17:04] LABS: BASO # 0.02 K/mm3 (0.0-2.0); BASO % 0.2 % (0.0-3.0); EOS # 0.3 (0.0-0.7); GRAN # 8.93 (1.4-6.5); HEMOGLOBIN 14.2 g/dL (14.0-18.0); LYMPH # 1.9 (1.2-3.4); LYMPH % 15.4 % (22.0-35.0); MEAN CELL VOLUME 87.5 fl (80.0-105.0); MEAN CORPUSCULAR HEMOGLOBIN 29.6 pg (25.0-35.0); MEAN CORPUSCULAR HGB CONC 33.9 g/dl (31.0-37.0); MEAN PLATELET VOLUME 11.8 fl (7.0-11.0); MONO # 1.3 (0.1-0.6); MONO % 10.4 % (1.0-6.0); RBC 4.79 10^6/uL (3.5-6.1); RED CELL DISTRIBUTION WIDTH 14.4 % (11.5-14.5); WHITE BLOOD COUNT 12.4 10^3/ul (4.5-11.0)
[2018-04-22 17:10] LABS: CALCIUM 9.8 mg/dL (8.4-10.5)
[2018-04-22 22:23] VITALS: BP 134/75; PULSE 60; O2SAT 96
== END 2018-04-22 22:45 ==
LOC: ED 11:54
DX: N39.0 Urinary tract infection, site not specified (principal); F03.90 Unspecified dementia, unspecified severity, without behavioral disturbance, psychotic disturbance, mood disturbance, and anxiety; G20 Parkinson's disease; I50.9 Heart failure, unspecified; I10 Essential (primary) hypertension; J44.9 Chronic obstructive pulmonary disease, unspecified; Z86.73 Personal history of transient ischemic attack (TIA), and cerebral infarction without residual deficits
CPT/HCPCS: 80048; 81001; 85025; 87086; 96374; 99285; J0744; J7030

== ENCOUNTER 2018-06-02 12:22 | Emergency (ER) | payer MEDICARE, BC ==
--- NOTE | 2018-06-02 15:02 | ED PDOC ---
Arrival/HPI - General Chief Complaint: Male Genitourinary Time Seen by Provider: 06/02/18 12:24 Historian: [facility], Other (Friend) - History of Present Illness Narrative History of Present Illness (Text): 06/02/18 13:25 77 yo male with PMH of Parkinson's, dementia, HTN, CVA, hx of recurrent UTIs with suprapubic catheter, COPD, hx of asthma and kidney stones presents to the Emergency department from [facility] for evaluation of suprapubic catheter leaking since prior to arrival. Patient's mental status limits ability to take history as patient is at best oriented x 1. Most information from ED was collected from patient's friend, who informs visiting patient daily. As per friend, patient has been compliant with diet and is at baseline for mental status. Patient denies any medical complaints. HPI and ROS limited secondary to patient's mental status. Time/Duration: Prior to Arrival Symptom Onset: Gradual Symptom Course: Unchanged Activities at Onset: Light Context: Other ([facility]) Past Medical History - Provider Review Nursing Documentation Reviewed: Yes - Infectious Disease Hx of Infectious Diseases: None - Tetanus Immunization Tetanus Immunization: Unknown - Cardiac Hx Congestive Heart Failure: Yes Hx Hypertension: Yes Hx Pacemaker: Yes - Pulmonary Hx Chronic Obstructive Pulmonary Disease (COPD): Yes - Neurological HX Cerebrovascular Accident: Yes (TIA) Hx Dementia: Yes Hx Parkinson's Disease: Yes - HEENT Hx HEENT Disorder: Yes (uses glasses) Hx Macular Degeneration: Yes - Renal Hx Kidney Stones: Yes Hx Renal Failure: Yes Other/Comment: Urinary retention - Endocrine/Metabolic Hx Endocrine Disorders: No - Hematological/Oncological Hx Blood Disorders: Yes - Integumentary Hx Dermatological Disorder: Yes Hx Psoriasis: Yes Other/Comment: lle healing scabs, bottom of both feet red with dry skin, thick long toenails and fingernails, left elbow dry patches of skin , perineal area rashes and reddened noted, sacral area has 2cm by 1.5cm pressure ulcer covered with yellow slough, redness noted around the area, buttocks slightly reddened, mid chest scar - Musculoskeletal/Rheumatological Hx Musculoskeletal Disorders: Yes Hx Falls: Yes - Gastrointestinal Hx Gall Bladder Disease: Yes (gallstones) HX Swallowing Problems: Yes - Genitourinary/Gynecological Hx Genitourinary Disorders: Yes Hx Incontinence: Yes Hx Urinary Tract Infection: Yes Other/Comment: suprapubic catheter - Psychiatric Hx Anxiety: Yes Hx Depression: Yes Hx Emotional Abuse: No Hx Physical Abuse: No Hx Substance Use: No - Surgical History Hx Cardiac Catheterization: Yes Hx Cholecystectomy: Yes (04/16/14) Hx Open Heart Surgery: Yes - Anesthesia Hx Anesthesia: Yes Hx Anesthesia Reactions: Yes Hx Malignant Hyperthermia: No - Suicidal Assessment Feels Threatened In Home Enviroment: No Family/Social History - Physician Review Nursing Documentation Reviewed: Yes Family/Social History: Unknown Family HX Smoking Status: Never Smoked Hx Alcohol Use: No Hx Substance Use: No Allergies/Home Meds Allergies/Adverse Reactions: Allergies pineapple Allergy (Unknown, Verified 03/13/18 18:00) ITCHING Home Medications: Home Meds Medication Instructions Recorded Confirmed Albuterol/Ipratropium [Duoneb 3 3 ml PO Q6 PRN 11/18/17 01/26/18 mg/0.5 mg (3 ml) UD] hydrALAZINE [Apresoline] 10 mg PO Q8H 11/18/17 01/26/18 amLODIPine [Norvasc] 5 mg PO DAILY 12/06/17 01/26/18 ALPRAZolam [Xanax] 0.25 mg PO Q6H PRN 12/24/17 01/26/18 Acetaminophen [Pain Reliever] 650 mg PO Q6H PRN 12/24/17 01/26/18 Review of Systems - Review of Systems Systems not reviewed;Unavailable: Other (Mental status oriented to person only) Genitourinary Male: Other (suprapubic catheter leaking) Physical Exam Vital Signs Reviewed: Yes Vital Signs Temp Pulse Resp BP Pulse Ox 06/02/18 14:22 78 18 132/74 100 06/02/18 12:36 98.1 F 85 18 134/86 100 Temperature: Afebrile Blood Pressure: Normal Pulse: Regular Respiratory Rate: Normal Appearance: Positive for: Well-Appearing, Non-Toxic, Comfortable Pain Distress: None Mental Status: Positive for: other (Alert and oriented to self) - Systems Exam Head: Present: Atraumatic, Normocephalic Pupils: Present: PERRL Extroacular Muscles: Present: EOMI Conjunctiva: Present: Normal Neck: Present: Normal Range of Motion Respiratory/Chest: Present: Clear to Auscultation, Good Air Exchange. No: Respiratory Distress, Accessory Muscle Use Cardiovascular: Present: Regular Rate and Rhythm, Normal S1, S2. No: Murmurs Abdomen: No: Tenderness, Distention, Peritoneal Signs Genitourinary Male: Present: Other (Suprapubic catheter leaking) Back: Present: Normal Inspection Upper Extremity: Present: Normal Inspection. No: Cyanosis, Edema Lower Extremity: Present: Normal Inspection. No: Edema Neurological: Present: GCS=15, CN II-XII Intact, Speech Normal Skin: Present: Warm, Dry, Normal Color. No: Rashes Psychiatric: Present: Alert, Normal Insight, Normal Concentration Medical Decision Making ED Course and Treatment: 06/02/18 13:25 Impression: 77 year old male presents to the Emergency department for evaluation of suprapubic catheter leakage. Plan: -- Urinalysis -- Urine Culture -- Suprapubic catheter replacement -- Reassess and disposition Prior Visits: Notes and results from previous visits were reviewed. Progress Notes: Suprapubic catheter was replaced with a new 18 mauritian catheter by PA with Dr. Katherine Contreras at bedside assisting, catheter is draining well of yellow urine. Urinalysis sent. Dr. Contreras agrees with plan and likely disposition. Urinalysis : +UTI, urine cx sent and pending. Patient given bactrim PO, based on his last urine cx which grew proteus sensitive to bactrim. On re-evaluation, patient is without fever, with no change in mental status. Patient is now cleared for discharge back to the PA. - PA / WORKERS COMPENSATION DEFENSE ATTORNEY / Resident Statement MD/ has reviewed & agrees with the documentation as recorded. - Scribe Statement The provider has reviewed the documentation as recorded by the Scribe Marilyn Bales. All medical record entries made by the Raffi were at my direction and personally dictated by me. I have reviewed the chart and agree that the record accurately reflects my personal performance of the history, physical exam, medical decision making, and the department course for this patient. I have also personally directed, reviewed, and agree with the discharge instructions and disposition. Disposition/Present on Arrival - Present on Arrival Any Indicators Present on Arrival: Yes History of DVT/PE: No History of Uncontrolled Diabetes: No Urinary Catheter: Yes (suprapubic) History of Decub. Ulcer: No History Surgical Site Infection Following: None - Disposition Have Diagnosis and Disposition been Completed?: Yes Diagnosis: UTI (urinary tract infection), Suprapubic catheter dysfunction Disposition: HOME/ ROUTINE Disposition Time: 19:00 Patient Plan: Discharge Patient Problems: Current Active Problems Problem Status Onset Suprapubic catheter dysfunction Acute UTI (urinary tract infection) Acute Condition: STABLE Discharge Instructions (ExitCare): Urinary Tract Infections in Adults Prescriptions: Sulfamethoxazole/Trimethoprim [Bactrim DS 800 mg-160 mg] 1 tab PO BID #14 tab Referrals: Ted Jacob MD [Primary Care Provider] - Follow up with primary Forms: [employer] (Sudanese)
[2018-06-02 18:36] LABS: PH,URINE 7.5 (4.7-8.0); URINE BILIRUBIN NEGATIVE (NEGATIVE); URINE BLOOD LARGE (NEGATIVE); URINE GLUCOSE (UA) NEGATIVE (NEGATIVE); URINE LEUKOCYTE ESTERASE LARGE Leu/uL (NEGATIVE); URINE PROTEIN 100 mg/dL (<30 mg/dL); URINE UROBILINOGEN 0.2 E.U./dL (<1 E.U./dL)
[2018-06-02 18:38] LABS: URINE APPEARANCE CLOUDY (CLEAR); URINE COLOR LIGHT YELLOW (YELLOW)
[2018-06-02 18:47] LABS: URINE RBC TNTC /hpf (0-2); URINE WBC TNTC /hpf (0-6)
[2018-06-02 18:48] LABS: URINE AMORPHOUS SEDIMENT FEW; URINE BACTERIA MANY (NEG)
[2018-06-02] MEDS ORDERED: Tmp-Smz 800 mg-160 mg DS Tab PO STA (18:56)
[2018-06-03 00:10] VITALS: BMI 21.4
[2018-06-03 00:11] VITALS: BP 140/69; PULSE 70; RESP 18; TEMP 98.1; O2SAT 95
== END 2018-06-02 20:41 | disposition home or self-care (01) ==
LOC: ED 12:22
DX: T83.098A Other mechanical complication of other urinary catheter, initial encounter (principal); Y84.9 Medical procedure, unspecified as the cause of abnormal reaction of the patient, or of later complication, without mention of misadventure at the time of the procedure; Y92.89 Other specified places as the place of occurrence of the external cause; N39.0 Urinary tract infection, site not specified

== ENCOUNTER 2018-07-03 01:51 | Emergency (ER) | payer MEDICARE, BC ==
[2018-07-03 01:51] VITALS: BMI 20.7
[2018-07-03 02:08] VITALS: RESP 18; TEMP 99.1
--- NOTE | 2018-07-03 02:30 | ED PDOC ---
Arrival/HPI - General Chief Complaint: Abnormal Skin Integrity Time Seen by Provider: 07/03/18 01:56 Historian: Patient - History of Present Illness Narrative History of Present Illness (Text): 07/03/18 02:27 77 year old male, whose past medical history includes Parkinson's, dementia, hypertension, CVA, hx of recurrent UTIs with suprapubic catheter, COPD, hx of asthma and kidney stones presents to the Emergency department from [facility] for evaluation of injury to the right 4th digit. Patient sustained a laceration to the right 4th digit. Patient denies any other injuries or complaints. The patient denies any fever, chills, chest pain, shortness of breath, abdominal pain, nausea, vomiting, diarrhea, urinary symptoms, back pain, neck pain, headache, dizziness, or any other complaints. PMD: Dr. Jacob Symptom Onset: Sudden Symptom Course: Unchanged Activities at Onset: Light Context: Home ([facility]) Past Medical History - Provider Review Nursing Documentation Reviewed: Yes - Infectious Disease Hx of Infectious Diseases: None - Tetanus Immunization Tetanus Immunization: Unknown - Cardiac Hx Congestive Heart Failure: Yes Hx Hypertension: Yes Hx Pacemaker: Yes - Pulmonary Hx Chronic Obstructive Pulmonary Disease (COPD): Yes - Neurological HX Cerebrovascular Accident: Yes (TIA) Hx Dementia: Yes Hx Parkinson's Disease: Yes - HEENT Hx HEENT Disorder: Yes (uses glasses) Hx Macular Degeneration: Yes - Renal Hx Kidney Stones: Yes Hx Renal Failure: Yes Other/Comment: Urinary retention - Endocrine/Metabolic Hx Endocrine Disorders: No - Hematological/Oncological Hx Blood Disorders: Yes - Integumentary Hx Dermatological Disorder: Yes Hx Psoriasis: Yes Other/Comment: lle healing scabs, bottom of both feet red with dry skin, thick long toenails and fingernails, left elbow dry patches of skin , perineal area rashes and reddened noted, sacral area has 2cm by 1.5cm pressure ulcer covered with yellow slough, redness noted around the area, buttocks slightly reddened, mid chest scar - Musculoskeletal/Rheumatological Hx Musculoskeletal Disorders: Yes Hx Falls: Yes - Gastrointestinal Hx Gall Bladder Disease: Yes (gallstones) HX Swallowing Problems: Yes - Genitourinary/Gynecological Hx Genitourinary Disorders: Yes Hx Incontinence: Yes Hx Urinary Tract Infection: Yes Other/Comment: suprapubic catheter - Psychiatric Hx Anxiety: Yes Hx Depression: Yes Hx Emotional Abuse: No Hx Physical Abuse: No Hx Substance Use: No - Surgical History Hx Cardiac Catheterization: Yes Hx Cholecystectomy: Yes (04/16/14) Hx Open Heart Surgery: Yes - Anesthesia Hx Anesthesia: Yes Hx Anesthesia Reactions: Yes Hx Malignant Hyperthermia: No - Suicidal Assessment Feels Threatened In Home Enviroment: No Family/Social History - Physician Review Nursing Documentation Reviewed: Yes Family/Social History: No Known Family HX Smoking Status: Never Smoked Hx Alcohol Use: No Hx Substance Use: No Allergies/Home Meds Allergies/Adverse Reactions: Allergies pineapple Allergy (Unknown, Verified 03/13/18 18:00) ITCHING Home Medications: Home Meds Medication Instructions Recorded Confirmed Albuterol/Ipratropium [Duoneb 3 3 ml PO Q6 PRN 11/18/17 01/26/18 mg/0.5 mg (3 ml) UD] hydrALAZINE [Apresoline] 10 mg PO Q8H 11/18/17 01/26/18 amLODIPine [Norvasc] 5 mg PO DAILY 12/06/17 01/26/18 ALPRAZolam [Xanax] 0.25 mg PO Q6H PRN 12/24/17 01/26/18 Acetaminophen [Pain Reliever] 650 mg PO Q6H PRN 12/24/17 01/26/18 Review of Systems - Physician Review All systems were reviewed & negative as marked: Yes - Review of Systems Constitutional: absent: Fevers, Other (Chills) Respiratory: absent: SOB Cardiovascular: absent: Chest Pain Gastrointestinal: absent: Abdominal Pain, Diarrhea, Nausea, Vomiting Genitourinary Male: absent: Dysuria, Frequency, Hematuria Musculoskeletal: absent: Back Pain, Neck Pain Skin: Other (laceration to the right 4th digit ) Neurological: absent: Headache, Dizziness Physical Exam Vital Signs Reviewed: Yes Vital Signs Temp Pulse Resp BP Pulse Ox 07/03/18 02:07 99.1 F 63 18 146/82 97 Temperature: Afebrile Blood Pressure: Normal Pulse: Regular Respiratory Rate: Normal Appearance: Positive for: Well-Appearing, Non-Toxic, Comfortable Pain Distress: None Mental Status: Positive for: Alert and Oriented X 3 - Systems Exam Head: Present: Atraumatic, Normocephalic Pupils: Present: PERRL Extroacular Muscles: Present: EOMI Conjunctiva: Present: Normal Mouth: Present: Moist Mucous Membranes Neck: Present: Normal Range of Motion Respiratory/Chest: Present: Clear to Auscultation, Good Air Exchange. No: Respiratory Distress, Accessory Muscle Use Cardiovascular: Present: Regular Rate and Rhythm, Normal S1, S2. No: Murmurs Abdomen: No: Tenderness, Distention, Peritoneal Signs Back: Present: Normal Inspection Upper Extremity: Present: Other (Laceration to the proximal phalanges on the right 4th digit). No: Cyanosis, Edema Lower Extremity: Present: Normal Inspection. No: Edema Neurological: Present: GCS=15, CN II-XII Intact, Speech Normal Skin: Present: Warm, Dry, Normal Color. No: Rashes Psychiatric: Present: Alert, Oriented x 3, Normal Insight, Normal Concentration Medical Decision Making ED Course and Treatment: 07/03/18 02:33 Impression: 77 year old male presents for evaluation of right 4th digit laceration. Plan: -- Right hand 4th digit x-ray -- Reassess and disposition Prior Visits: Notes and results from previous visits were reviewed. Progress Notes: 07/03/18 03:20 PROCEDURE: LACERATION REPAIR Performed by the emergency provider Location: Proximal Phalangeal of the right 4th digit Length: 3.0 cm Description: {"clean wound edges","no foreign bodies"} Distal CMS: Normal. No deficits. Neurovascularly intact. Anesthesia: Lidocaine 1% Preparation: The wound was cleaned with NS and Betadyne. The area was prepped and draped in the usual sterile fashion. Exploration: The wound was explored and *no foreign bodies were found. Procedure: The wound was closed with 5.0 nylon. There was good approximation. In total, 6 were used. Post-Procedure: Good closure and hemostasis. The patient tolerated the procedure well and there were no complications. CSM remains intact. Post procedure dressing applied. 07/03/18 03:44 Right hand 4th digit x-ray Impression: As read by me, no fracture. 07/03/18 03:45 On reevaluation the patient is in no acute distress. I have discussed the results and plan with the patient, who expresses understanding. Patient given the opportunity to ask question, all questions were answered and there is agreement with the plan to discharge. Patient is stable for discharge. Patient was instructed to follow up with physician/clinic in 1-2 days or return if symptoms persist/worsen or new concerning symptoms arise. - RAD Interpretation Radiology Orders: 07/03/18 02:06 HAND RIGHT 4TH DIGIT (FINGER) [RAD] Stat Waste Collector: ED Physician - Scribe Statement The provider has reviewed the documentation as recorded by the Raffi Oliva Provider Scribe Attestation: All medical record entries made by the Scribe were at my direction and perso emily dictated by me. I have reviewed the chart and agree that the record accurately reflects my personal performance of the history, physical exam, medical decision making, and the department course for this patient. I have also personally directed, reviewed, and agree with the discharge instructions and disposition. Disposition/Present on Arrival - Present on Arrival Any Indicators Present on Arrival: No History of DVT/PE: No History of Uncontrolled Diabetes: No Urinary Catheter: No History of Decub. Ulcer: No History Surgical Site Infection Following: None - Disposition Have Diagnosis and Disposition been Completed?: Yes Diagnosis: Laceration of hand, right Disposition: TRANSF TO SNF Disposition Time: 04:45 Condition: IMPROVED Discharge Instructions (ExitCare): Wound Care (DC), Laceration Repair With Stitches (DC) Additional Instructions: suture removal in 7 days Prescriptions: Cephalexin [Keflex] 500 mg PO BID #14 capsule Forms: [employer] (British)
[2018-07-03] MEDS ORDERED: Lidocaine PF 2% (5 ml) Inj (For Cardiac Arrhy) ONE (02:55)
[2018-07-03] MEDS ORDERED: TDAP Vaccine 0.5 mL Syr IM ONE (03:28)
[2018-07-03] MEDS ORDERED: Bacitracin 500 Units/gm Oint Foilpak UD ONE (04:15)
[2018-07-03 04:59] VITALS: BP 140/85; PULSE 65; O2SAT 100
--- NOTE | 2018-07-03 10:33 | RAD ---
PROCEDURE: Right Hand Radiographs. HISTORY: injury COMPARISON: None. FINDINGS: BONES: There is a minimally displaced fracture at the base of the 5th proximal phalanx. There is diffuse soft tissue swelling of the 4th digit. Minimally displaced fracture of the 4th distal phalanx. Age uncertain. JOINTS: Normal. No osteoarthritic changes. SOFT TISSUES: Calcification in the 4th digit adjacent to the PIP joint OTHER FINDINGS: None. IMPRESSION: There is a minimally displaced fracture at the base of the 5th proximal phalanx. There is diffuse soft tissue swelling of the 4th digit. Minimally displaced fracture of the 4th distal phalanx. Age uncertain.
== END 2018-07-03 04:45 ==
LOC: ED 01:51
DX: S61.214A Laceration without foreign body of right ring finger without damage to nail, initial encounter (principal); X58.XXXA Exposure to other specified factors, initial encounter; Y92.129 Unspecified place in nursing home as the place of occurrence of the external cause; Z23 Encounter for immunization

== ENCOUNTER 2018-07-11 16:20 | Emergency (ER) | payer MEDICARE, BC ==
[2018-07-11 16:21] VITALS: BMI 20.7
[2018-07-11 16:33] VITALS: TEMP 98.2
--- NOTE | 2018-07-11 17:32 | ED PDOC ---
Arrival/HPI - General Chief Complaint: Suture/Staple Removal Time Seen by Provider: 07/11/18 16:23 Historian: [facility] - History of Present Illness Narrative History of Present Illness (Text): 07/11/18 17:46 77-year-old male presents today from intermediate for suture removal of the right fourth finger. Per intermediate chart the patient sustained a laceration to the right fourth finger 7 days ago and they were unable to remove the sutures in the intermediate today. no recent trauma. Past Medical History - Provider Review Nursing Documentation Reviewed: Yes - Infectious Disease Hx of Infectious Diseases: None - Cardiac Hx Congestive Heart Failure: Yes Hx Hypertension: Yes Hx Pacemaker: Yes - Pulmonary Hx Chronic Obstructive Pulmonary Disease (COPD): Yes - Neurological HX Cerebrovascular Accident: Yes (TIA) Hx Dementia: Yes Hx Parkinson's Disease: Yes - HEENT Hx HEENT Disorder: Yes (uses glasses) Hx Macular Degeneration: Yes - Renal Hx Kidney Stones: Yes Hx Renal Failure: Yes Other/Comment: Urinary retention - Endocrine/Metabolic Hx Endocrine Disorders: No - Hematological/Oncological Hx Blood Disorders: Yes - Integumentary Hx Dermatological Disorder: Yes Hx Psoriasis: Yes Other/Comment: lle healing scabs, bottom of both feet red with dry skin, thick long toenails and fingernails, left elbow dry patches of skin , perineal area rashes and reddened noted, sacral area has 2cm by 1.5cm pressure ulcer covered with yellow slough, redness noted around the area, buttocks slightly reddened, mid chest scar - Musculoskeletal/Rheumatological Hx Musculoskeletal Disorders: Yes Hx Falls: Yes - Gastrointestinal Hx Gall Bladder Disease: Yes (gallstones) HX Swallowing Problems: Yes - Genitourinary/Gynecological Hx Genitourinary Disorders: Yes Hx Incontinence: Yes Hx Urinary Tract Infection: Yes Other/Comment: suprapubic catheter - Psychiatric Hx Anxiety: Yes Hx Depression: Yes Hx Emotional Abuse: No Hx Physical Abuse: No Hx Substance Use: No - Surgical History Hx Cardiac Catheterization: Yes Hx Cholecystectomy: Yes (04/16/14) Hx Open Heart Surgery: Yes - Anesthesia Hx Anesthesia: Yes Hx Anesthesia Reactions: Yes Hx Malignant Hyperthermia: No - Suicidal Assessment Feels Threatened In Home Enviroment: No Family/Social History - Physician Review Nursing Documentation Reviewed: Yes Family/Social History: Unknown Family HX Smoking Status: Never Smoked Hx Alcohol Use: No Hx Substance Use: No Allergies/Home Meds Allergies/Adverse Reactions: Allergies pineapple Allergy (Unknown, Verified 07/11/18 16:27) ITCHING Home Medications: Home Meds Medication Instructions Recorded Confirmed Albuterol/Ipratropium [Duoneb 3 3 ml PO Q6 PRN 11/18/17 07/11/18 mg/0.5 mg (3 ml) UD] hydrALAZINE [Apresoline] 10 mg PO Q8H 11/18/17 07/11/18 amLODIPine [Norvasc] 5 mg PO DAILY 12/06/17 07/11/18 ALPRAZolam [Xanax] 0.25 mg PO Q6H PRN 12/24/17 07/11/18 Acetaminophen [Pain Reliever] 650 mg PO Q6H PRN 12/24/17 07/11/18 Review of Systems - Review of Systems Systems not reviewed;Unavailable: Dementia Skin: Laceration Physical Exam Vital Signs Reviewed: Yes Vital Signs Temp Pulse Resp BP Pulse Ox 07/11/18 16:21 98.2 F 64 18 152/79 H 98 Temperature: Afebrile Blood Pressure: Hypertensive Pulse: Regular Respiratory Rate: Normal Appearance: Positive for: Well-Appearing, Non-Toxic, Comfortable Pain Distress: None Mental Status: Positive for: Alert and Oriented X 3 - Systems Exam Head: Present: Atraumatic Mouth: Present: Moist Mucous Membranes Respiratory/Chest: Present: Clear to Auscultation Cardiovascular: Present: Regular Rate and Rhythm Upper Extremity: Present: Normal ROM, NORMAL PULSES, Swelling, Neurovascularly Intact, Capillary Refill < 2s, Other (right 4th finger; there is a large horizontal laceration across the proximal phalanx without erythema, [address] no purulent discharge. full rom of finger. swelling noted to the proximal phalanx. ). No: Tenderness, Erythema Neurological: Present: GCS=15, Speech Normal Skin: Present: Warm, Dry, Normal Color Psychiatric: Present: Alert, Oriented x 3 Medical Decision Making ED Course and Treatment: 07/11/18 17:57 Patient is nontoxic well-appearing in no distress. Vital signs are stable. suture removal: 7 sutures removed Wound healing well without signs of infection pt to be discharged back to intermediate. keep wound clean and dry. f/u with hand specialist and return if symptoms worsen persist or if new symptoms develop Impression: Wound check, suture removal Keep the wound clean and dry Follow up with the hand specialist within the next 2 days. Follow up with primary care physician within the next 2 days Return immediately if symptoms worsen persist or if new symptoms develop; high fevers, pain, redness, swelling, purulent discharge. Disposition/Present on Arrival - Present on Arrival Any Indicators Present on Arrival: No History of DVT/PE: No History of Uncontrolled Diabetes: No Urinary Catheter: No History of Decub. Ulcer: No History Surgical Site Infection Following: None - Disposition Have Diagnosis and Disposition been Completed?: Yes Diagnosis: Visit for suture removal Disposition: [facility] Disposition Time: 17:28 Patient Plan: Discharge Patient Problems: Current Active Problems Problem Status Onset Visit for suture removal Acute Condition: GOOD Discharge Instructions (ExitCare): Stitches Removal Additional Instructions: Keep the wound clean and dry Follow up with the hand specialist within the next 2 days. Follow up with primary care physician within the next 2 days Return immediately if symptoms worsen persist or if new symptoms develop; high fevers, pain, redness, swelling, purulent discharge. Referrals: Blaise Langston MD [Primary Care Provider] - Follow up with primary Joo,Graciela Leon MD [Staff Provider] - Follow up with primary Forms: [employer] ([place])
[2018-07-11 20:24] VITALS: BP 137/70; PULSE 70; RESP 17; O2SAT 99
== END 2018-07-11 20:23 ==
LOC: ED 16:20
DX: S61.214D Laceration without foreign body of right ring finger without damage to nail, subsequent encounter (principal); G20 Parkinson's disease; I50.9 Heart failure, unspecified; I10 Essential (primary) hypertension

== ENCOUNTER 2018-11-10 12:22 | Inpatient (IN) | payer MEDICARE, BC ==
[2018-11-10 12:27] VITALS: BMI 22.0
--- NOTE | 2018-11-10 12:44 | ED PDOC ---
Arrival/HPI - General Historian: Other (friend) - History of Present Illness Narrative History of Present Illness (Text): 11/10/18 12:42 Patient is a 78yo M with PMH Parkinson's, dementia, hypertension, CVA, recurrent UTIs with suprapubic catheter, COPD, asthma and kidney stones presenting to ED with leakage from suprapubic catheter. Friend at bedside provides history, as patient is unable to answer questions at this time. Patient has history of leakage from suprapubic cath in the past, with last replacement in 03/01. ROS unattainable at this time. <Joann Brandt - Last Filed: 11/10/18 14:27> <Odilon Messer - Last Filed: 11/10/18 18:00> - General Chief Complaint: Male Genitourinary Time Seen by Provider: 11/10/18 12:28 Past Medical History - Infectious Disease Hx of Infectious Diseases: None - Tetanus Immunization Tetanus Immunization: Unknown - Cardiac Hx Congestive Heart Failure: Yes Hx Hypertension: Yes Hx Pacemaker: Yes - Pulmonary Hx Chronic Obstructive Pulmonary Disease (COPD): Yes - Neurological HX Cerebrovascular Accident: Yes (TIA) Hx Dementia: Yes Hx Parkinson's Disease: Yes - HEENT Hx HEENT Disorder: Yes (uses glasses) Hx Macular Degeneration: Yes - Renal Hx Kidney Stones: Yes Hx Renal Failure: Yes Other/Comment: Urinary retention - Endocrine/Metabolic Hx Endocrine Disorders: No - Hematological/Oncological Hx Blood Disorders: Yes - Integumentary Hx Dermatological Disorder: Yes Hx Psoriasis: Yes Other/Comment: lle healing scabs, bottom of both feet red with dry skin, thick long toenails and fingernails, left elbow dry patches of skin , perineal area rashes and reddened noted, sacral area has 2cm by 1.5cm pressure ulcer covered with yellow slough, redness noted around the area, buttocks slightly reddened, mid chest scar - Musculoskeletal/Rheumatological Hx Musculoskeletal Disorders: Yes Hx Falls: Yes - Gastrointestinal Hx Gall Bladder Disease: Yes (gallstones) HX Swallowing Problems: Yes - Genitourinary/Gynecological Hx Genitourinary Disorders: Yes Hx Incontinence: Yes Hx Urinary Tract Infection: Yes Other/Comment: suprapubic catheter - Psychiatric Hx Anxiety: Yes Hx Depression: Yes Hx Emotional Abuse: No Hx Physical Abuse: No Hx Substance Use: No - Surgical History Hx Cardiac Catheterization: Yes Hx Cholecystectomy: Yes (04/16/14) Hx Open Heart Surgery: Yes - Anesthesia Hx Anesthesia: Yes Hx Anesthesia Reactions: Yes Hx Malignant Hyperthermia: No - Suicidal Assessment Feels Threatened In Home Enviroment: No <Joann Brandt - Last Filed: 11/10/18 14:27> Family/Social History Family/Social History: No Known Family HX Smoking Status: Never Smoked Hx Alcohol Use: No Hx Substance Use: No <Joann Brandt - Last Filed: 11/10/18 14:27> Allergies/Home Meds <Joann Brandt - Last Filed: 11/10/18 14:27> <Odilon Messer - Last Filed: 11/10/18 18:00> Allergies/Adverse Reactions: Allergies pineapple Allergy (Unknown, Verified 11/10/18 16:27) ITCHING Home Medications: Home Meds Medication Instructions Recorded Confirmed Albuterol/Ipratropium [Duoneb 3 3 ml PO Q6 PRN 11/18/17 07/11/18 mg/0.5 mg (3 ml) UD] hydrALAZINE [Apresoline] 10 mg PO Q8H 11/18/17 07/11/18 amLODIPine [Norvasc] 5 mg PO DAILY 12/06/17 07/11/18 ALPRAZolam [Xanax] 0.25 mg PO Q6H PRN 12/24/17 07/11/18 Acetaminophen [Pain Reliever] 650 mg PO Q6H PRN 12/24/17 07/11/18 Review of Systems - Review of Systems Systems not reviewed;Unavailable: Dementia <Joann Brandt - Last Filed: 11/10/18 14:27> Physical Exam Vital Signs Temp Pulse Resp BP Pulse Ox 11/10/18 12:34 98.1 F 81 16 155/89 H 98 Temperature: Afebrile Blood Pressure: Hypertensive Pulse: Regular Respiratory Rate: Normal Appearance: Positive for: Other (chronically ill) Pain Distress: None Mental Status: No: Alert and Oriented X 3 - Systems Exam Head: Present: Atraumatic, Normocephalic Pupils: Present: PERRL Extroacular Muscles: Present: EOMI Conjunctiva: Present: Normal Mouth: Present: Dry Neck: No: Normal Range of Motion Respiratory/Chest: Present: Clear to Auscultation, Good Air Exchange. No: Respiratory Distress, Accessory Muscle Use Cardiovascular: Present: Regular Rate and Rhythm, Normal S1, S2. No: Murmurs Abdomen: Present: Normal Bowel Sounds, Other (suprapubic tenderness). No: Tenderness, Distention, Peritoneal Signs Genitourinary Male: Present: Other (suprapubic catheter in place with purulent drainage. minimal surrounding erythema. ) Upper Extremity: Present: Normal Inspection, Neurovascularly Intact. No: Cyanosis, Edema, Normal ROM Lower Extremity: Present: Normal Inspection. No: Edema, Normal ROM Neurological: No: Speech Normal, Motor Func Grossly Intact, Memory Normal Skin: Present: Dry, Rashes, Normal Color. No: Warm Psychiatric: Present: Alert. No: Oriented x 3, Normal Insight, Normal Concentration <Joann Brandt - Last Filed: 11/10/18 14:27> Vital Signs Temp Pulse Resp BP Pulse Ox 11/10/18 16:50 59 L 18 143/61 99 11/10/18 15:21 98.3 F 71 18 148/65 98 11/10/18 13:50 75 18 152/74 H 98 11/10/18 12:34 98.1 F 81 16 155/89 H 98 <Odilon Messer - Last Filed: 11/10/18 18:00> Medical Decision Making ED Course and Treatment: 11/10/18 12:52 Suprapubic catheter infection - Dr. Katherine Contreras called, recommending admission and will evaluate - f/u labs - f/u UA, UCx - IV gentamicin as pt was sensitive upon last Cx 11/10/18 14:08 - leukocytosis on labs - Dr. Patterson called, accepts admission <Joann Brandt - Last Filed: 11/10/18 14:27> ED Course and Treatment: 11/10/18 17:58 pt seen with resident. agree with findings. s/p purulent discharge surrounding suprapubic catheter. h/o of uti, sensitve to gent. empiric antibiotics intiated. - Lab Interpretations Lab Results: PT 14.1 SECONDS (9.4-12.5) H 11/10/18 13:33 INR 1.25 11/10/18 13:33 APTT 35.9 Seconds (26.9-38.3) 11/10/18 13:33 Total Bilirubin 0.7 mg/dL (0.2-1.3) 11/10/18 13:33 AST 20 U/L (17-59) 11/10/18 13:33 ALT < 6 U/L (7-56) L 11/10/18 13:33 Alkaline Phosphatase 91 U/L (38-126) 11/10/18 13:33 Total Protein 7.8 g/dL (5.8-8.3) 11/10/18 13:33 Albumin 4.3 g/dL (3.0-4.8) 11/10/18 13:33 Globulin 3.5 gm/dL 11/10/18 13:33 Albumin/Globulin Ratio 1.2 (1.1-1.8) 11/10/18 13:33 Urine Color Dark yellow (YELLOW) 11/10/18 16:51 Urine Appearance Cloudy (CLEAR) 11/10/18 16:51 Urine pH >=9.0 (4.7-8.0) 11/10/18 16:51 Ur Specific Torrey <= 1.005 (1.005-1.035) 11/10/18 16:51 Urine Protein 100 mg/dL (<30 mg/dL) H 11/10/18 16:51 Urine Glucose (UA) Negative mg/dL (NEGATIVE) 11/10/18 16:51 Urine Ketones Negative mg/dL (NEGATIVE) 11/10/18 16:51 Urine Blood Negative (NEGATIVE) 11/10/18 16:51 Urine Nitrate Negative (NEGATIVE) 11/10/18 16:51 Urine Bilirubin Negative (NEGATIVE) 11/10/18 16:51 Urine Urobilinogen 0.2 E.U./dL (<1 E.U./dL) 11/10/18 16:51 Ur Leukocyte Esterase Large Lina/uL (NEGATIVE) H 11/10/18 16:51 Urine RBC None /hpf (0-2) 11/10/18 16:51 Urine WBC 2 - 5 /hpf (0-6) 11/10/18 16:51 Ur Epithelial Cells None /hpf (0-5) 11/10/18 16:51 Triple Phos Crystals Many /hpf (NONE) 11/10/18 16:51 Urine Bacteria Large /hpf (NONE) 11/10/18 16:51 - Medication Orders Current Medication Orders: Albuterol/Ipratropium (Duoneb 3 Mg/0.5 Mg (3 Ml) Ud) 3 ml IH Q6 PRN PRN Reason: Shortness of Breath Amlodipine Besylate (Norvasc) 5 mg PO DAILY YARON Carbidopa/Levodopa (Sinemet) 1 tab PO TID YARON Hydralazine HCl (Apresoline) 10 mg PO Q8H YARON Polysaccharide Iron Complex (Ferrex-150) 150 mg PO DAILY YARON Discontinued Medications Gentamicin Sulfate 100 mg/ (Sodium Chloride) 102.5 mls @ 100 mls/hr IVPB Q24H YARON; Protocol Last Admin: 11/10/18 14:15 Dose: Not Given Non-Admin Reason: canceled Gentamicin Sulfate 100 mg/ (Sodium Chloride) 102.5 mls @ 100 mls/hr IVPB STAT STA; Protocol Stop: 11/10/18 14:57 Last Admin: 11/10/18 14:15 Dose: 100 mls/hr eMAR Start Stop Document 11/10/18 14:15 MR (Rec: 11/10/18 14:15 MR [id number]) Intravenous Solution Start Date 11/10/18 Start Time 14:15 End Date 11/10/18 End time 15:15 Total Infusion Time 60 <Odilon Messer - Last Filed: 11/10/18 18:00> Disposition/Present on Arrival - Present on Arrival Any Indicators Present on Arrival: Yes History of DVT/PE: No History of Uncontrolled Diabetes: No Urinary Catheter: Yes History of Decub. Ulcer: No History Surgical Site Infection Following: None - Disposition Have Diagnosis and Disposition been Completed?: Yes Disposition Time: 14:28 <Joann Brandt - Last Filed: 11/10/18 14:27> <Odilon Messer - Last Filed: 11/10/18 18:00> - Disposition Diagnosis: Suprapubic catheter dysfunction, UTI (urinary tract infection), Parkinson disease Disposition: HOSPITALIZED Condition: STABLE
[2018-11-10 13:51] LABS: BASO # 0.03 K/mm3 (0.0-2.0); BASO % 0.2 % (0.0-3.0); EOS # 0.3 (0.0-0.7); EOS % 1.7 % (1.5-5.0); HEMOGLOBIN 14.1 g/dL (14.0-18.0); LYMPH # 1.8 (1.2-3.4); MEAN CELL VOLUME 87.7 fl (80.0-105.0); MEAN CORPUSCULAR HEMOGLOBIN 29.4 pg (25.0-35.0); MEAN CORPUSCULAR HGB CONC 33.5 g/dl (31.0-37.0); MEAN PLATELET VOLUME 11.8 fl (7.0-11.0); MONO # 1.6 (0.1-0.6); MONO % 10.4 % (1.0-6.0); RBC 4.8 10^6/uL (3.5-6.1); RED CELL DISTRIBUTION WIDTH 13.8 % (11.5-14.5); WHITE BLOOD COUNT 15.1 10^3/uL (4.5-11.0)
[2018-11-10 14:00] LABS: ALB/GLOB RATIO 1.2 (1.1-1.8); ALBUMIN 4.3 g/dL (3.0-4.8); AST/SGOT 20 U/L (17-59); BLOOD UREA NITROGEN 43 mg/dL (7-21); CALCIUM 9.7 mg/dL (8.4-10.5); GFR NON-AFRICAN AMERICAN 46; INR 1.25; PARTIAL THROMBOPLASTIN TIME 35.9 Seconds (26.9-38.3); PROTHROMBIN TIME 14.1 SECONDS (9.4-12.5)
[2018-11-10 14:03] LABS: ALT/SGPT < 6 U/L (7-56)
[2018-11-10 17:14] LABS: PH,URINE >=9.0 (4.7-8.0); URINE APPEARANCE CLOUDY (CLEAR); URINE BILIRUBIN NEGATIVE (NEGATIVE); URINE BLOOD NEGATIVE (NEGATIVE); URINE COLOR DARK YELLOW (YELLOW); URINE GLUCOSE (UA) NEGATIVE (NEGATIVE); URINE LEUKOCYTE ESTERASE LARGE Leu/uL (NEGATIVE); URINE PROTEIN 100 mg/dL (<30 mg/dL); URINE UROBILINOGEN 0.2 E.U./dL (<1 E.U./dL)
[2018-11-10 17:23] LABS: URINE TRIPLE PHOSPHATE CRYSTAL MANY /hpf
[2018-11-10 17:24] LABS: URINE BACTERIA LARGE /hpf
[2018-11-10] MEDS ORDERED: Albuterol-Ipratrop 3 mg / 0.5 (3 ml) UD IH PRN (17:28)
[2018-11-10] MEDS ORDERED: Pneumococcal 23-Valent Vaccine IM ONE (23:42)
--- NOTE | 2018-11-11 04:50 | HP ---
DATE OF EXAM: 11/10/2018 HISTORY OF PRESENT ILLNESS: A 78-year-old white male with history of dementia came from long-term with history of obstructive uropathy with suprapubic catheter, history of COPD, coronary disease status post open heart, status post open heart, status post and Parkinson's disease. Patient was brought in from the long-term to the hospital with an elevated white count, pyuria, bacteruria, and purulent discharge around the suprapubic catheter. Patient was evaluated and admitted to the hospital with worsening dementia and change in mental status, elevated BUN and creatinine of 43 and 1.5, elevated white count of 15,100 with left shift, blood pressure 129/81, temperature 98.3. Patient is a poor historian. He has severe dementia. He is unable to answer questions. There is no further history available. REVIEW OF SYSTEMS: Unremarkable because of inability of patient to cooperative with questioning. PHYSICAL EXAMINATION: GENERAL: A well developed, thin white male in no apparent distress. HEENT: Essentially within normal limits. HEART: Regular sinus rhythm. No S3 or murmurs. CHEST: Clear to auscultation and percussion. ABDOMEN: Soft and flat. Bowel sounds are normoactive. No masses are palpable. There is a suprapubic catheter with purulent drainage in the ostomy. There is some purulent drainage and some erythema. EXTREMITIES: Without cyanosis, clubbing, edema. NEUROLOGIC: Patient has mild tremor on examination. IMPRESSION AND PLAN: Urosepsis, possible catheter infections and catheter wound infection, dementia, Parkinson's disease, coronary disease, and chronic obstructive pulmonary disease. Ted Jacob MD
[2018-11-11] MEDS: Iron Complex Polysacch 150mg Cap PO SCH (09:22)
--- NOTE | 2018-11-11 09:36 | PN ---
DATE: 11/11/2018 SUBJECTIVE: A 78-year-old white male admitted [facility] the [facility] with history of CAD, COPD, Parkinson's disease, dementia, urinary obstruction with suprapubic catheter. The patient was admitted to the hospital with urinary tract infection with infected site of the suprapubic catheter, low-grade fever, elevated white count 15,100. The patient is on IV antibiotics, seen by consultation by Dr. Contreras, for possible change in suprapubic catheter and evaluation by Infectious Disease for infection of the tract . The patient is awake, alert, but disoriented and dementia. Ted Jacob MD
--- NOTE | 2018-11-11 10:58 | CP.PCM.APN ---
Subjective - Date & Time of Evaluation Date of Evaluation: 11/11/18 Time of Evaluation: 10:15 - Subjective Subjective: Pt seen and examined at bedside. In no acute distress. Objective - Vital Signs/Intake and Output Vital Signs (last 24 hours): Temp Pulse Resp BP Pulse Ox 98 F 59 L 17 130/74 96 11/11/18 06:00 11/11/18 06:00 11/11/18 06:00 11/11/18 09:22 11/11/18 06:00 Intake and Output: 11/11/18 11/11/18 06:59 18:59 Intake Total 360 260 Balance 360 260 - Medications Medications: Current Medications Albuterol/Ipratropium (Duoneb 3 Mg/0.5 Mg (3 Ml) Ud) 3 ml IH Q6 PRN PRN Reason: Shortness of Breath Amlodipine Besylate (Norvasc) 5 mg PO DAILY [facility] Last Admin: 11/11/18 09:22 Dose: 5 mg Carbidopa/Levodopa (Sinemet) 1 tab PO TID [facility] Last Admin: 11/11/18 09:22 Dose: 1 tab Hydralazine HCl (Apresoline) 10 mg PO Q8H [facility]ARON Last Admin: 11/11/18 09:22 Dose: 10 mg Meropenem (Merrem Iv 1 Gm Premix) 1 gm in 50 mls @ 100 mls/hr IVPB Q8 YARON; Protocol Stop: 11/20/18 14:01 Polysaccharide Iron Complex (Ferrex-150) 150 mg PO DAILY [facility] Last Admin: 11/11/18 09:22 Dose: 150 mg - Labs Labs: 11/10/18 13:33 11/10/18 13:33 PT 14.1 SECONDS (9.4-12.5) H 11/10/18 13:33 INR 1.25 11/10/18 13:33 APTT 35.9 Seconds (26.9-38.3) 11/10/18 13:33 - Exam Additional comments: + suprapubic cath leaking urine Assessment and Plan - Assessment and Plan (Free Text) Assessment: Pt is a 78 y.o. male w/ pmhx of Parkinson's, dementia, hypertension, CVA, recurrent UTIs with suprapubic catheter, COPD, asthma and kidney stones who presented to ED with leakage from suprapubic catheter. Laboratory Results - last 24 hr 11/10/18 11/10/18 11/10/18 13:33 13:33 13:33 WBC 15.1 H RBC 4.80 Hgb 14.1 Hct 42.1 MCV 87.7 MCH 29.4 MCHC 33.5 RDW 13.8 Plt Count 171 MPV 11.8 H Neut % (Auto) 75.7 H Lymph % (Auto) 12.0 L [place] % (Auto) 10.4 H Eos % (Auto) 1.7 Baso % (Auto) 0.2 Lymph # (Auto) 1.8 [place] # (Auto) 1.6 H Eos # (Auto) 0.3 Baso # (Auto) 0.03 Absolute Neuts (auto) 11.48 H PT 14.1 H INR 1.25 APTT 35.9 Sodium 142 Potassium 4.4 Chloride 107 Carbon Dioxide 26 Anion Gap 13 BUN 43 H Creatinine 1.5 Est GFR ( Amer) 55 Est GFR (Non-Af Amer) 46 Random Glucose 112 H Calcium 9.7 Total Bilirubin 0.7 AST 20 ALT < 6 L Alkaline Phosphatase 91 Total Protein 7.8 Albumin 4.3 Globulin 3.5 Albumin/Globulin Ratio 1.2 Urine Color Urine Appearance Urine pH Ur Specific [place] Urine Protein Urine Glucose (UA) Urine Ketones Urine Blood Urine Nitrate Urine Bilirubin Urine Urobilinogen Ur Leukocyte Esterase Urine RBC Urine WBC Ur Epithelial Cells Triple Phos Crystals Urine Bacteria 11/10/18 16:51 WBC RBC Hgb Hct MCV MCH MCHC RDW Plt Count MPV Neut % (Auto) Lymph % (Auto) [place] % (Auto) Eos % (Auto) Baso % (Auto) Lymph # (Auto) [place] # (Auto) Eos # (Auto) Baso # (Auto) Absolute Neuts (auto) PT INR APTT Sodium Potassium Chloride Carbon Dioxide Anion Gap BUN Creatinine Est GFR ( Amer) Est GFR (Non-Af Amer) Random Glucose Calcium Total Bilirubin AST ALT Alkaline Phosphatase Total Protein Albumin Globulin Albumin/Globulin Ratio Urine Color Dark yellow Urine Appearance Cloudy Urine pH >=9.0 Ur Specific [place] <= 1.005 Urine Protein 100 H Urine Glucose (UA) Negative Urine Ketones Negative Urine Blood Negative Urine Nitrate Negative Urine Bilirubin Negative Urine Urobilinogen 0.2 Ur Leukocyte Esterase Large H Urine RBC None Urine WBC 2 - 5 Ur Epithelial Cells None Triple Phos Crystals Many Urine Bacteria Large Plan: Merrem IV per ID recs Pending UCx/Bcx results ID and Uro on consult Meds per mar Will continue to follow
[2018-11-11] MEDS: Meropenem IV 1 gm in NS 1 GM/50 ML BAG IVPB SCH ×2 (17:31→21:26)
--- NOTE | 2018-11-11 21:32 | PCM.URO ---
Urology Progress Note - Objective Lab Studies: Reviewed (will change catheter tomorrow) Intake & Output: Intake & Output 11/11/18 11/11/18 11/12/18 06:59 18:59 06:59 Intake Total 360 500 Balance 360 500 Weight 145 lb Intake: Oral 360 500 Other: Voiding Method Incontinent # Voids Urine, Voided 0 # Bowel Movements 2 Vital Signs: Vital Signs - 24 hr 11/10/18 11/10/18 11/11/18 23:07 23:15 01:30 Temperature 97.4 F L Pulse Rate 63 58 L Pulse Rate [ 71 Apical] Respiratory 18 18 Rate Blood Pressure 125/72 121/62 O2 Sat by Pulse 96 Oximetry 11/11/18 11/11/18 11/11/18 06:00 09:22 13:54 Temperature 98 F 98 F Pulse Rate 59 L 63 Pulse Rate [ Apical] Respiratory 17 16 Rate Blood Pressure 132/76 130/74 100/76 O2 Sat by Pulse 96 96 Oximetry 11/11/18 17:32 Temperature Pulse Rate Pulse Rate [ Apical] Respiratory Rate Blood Pressure 124/74 O2 Sat by Pulse Oximetry
--- NOTE | 2018-11-12 04:15 | CON ---
DATE: 11/11/2018 CHIEF COMPLAINT: Change of mental status. HISTORY OF PRESENT ILLNESS: A 78-year-old male detention patient with dementia, coronary artery disease, chronic obstructive lung disease, history of E. coli bacteremia, history of E. coli urinary tract infections and recurrent urinary tract infections, suprapubic catheter with peripheral vascular disease, hypertension, asthma, kidney disease, anxiety, obstructive uropathy, history of Parkinson's disease, and cerebrovascular accident, who was admitted with change in mental status, continues to deteriorate. Infectious Disease consultation was requested. The patient is a poor historian and he is unable to communicate well at this time. There has been no fevers reported. No chest pain. There is mild shortness of breath reported. REVIEW OF SYSTEMS: A 12-point review of systems is performed. PAST MEDICAL HISTORY: As stated for dementia, Parkinson's, E. coli bacteremia, E. coli urinary tract infection, recurrent urinary tract infections, chronic suprapubic catheter, peripheral vascular disease, hypertension, asthma, kidney disease, obstructive uropathy, and cerebrovascular accident. PAST SURGICAL HISTORY: Significant for a suprapubic catheter. ALLERGIES: THE PATIENT HAS PINEAPPLE ALLERGY. MEDICATIONS: Noted. PHYSICAL EXAMINATION: GENERAL: The patient is in bed with a temperature of 98, blood pressure is 100/60, respiratory rate of 18, heart rate of 63. Examination of HEENT is unremarkable. NECK: Supple. LUNGS: Have decreased breath sounds. HEART: Normal S1, S2. ABDOMEN: Soft, nontender. Examination of extremities is noted. LABORATORY EXAMINATION: Reveals a white count of 15,000. Coagulation is noted. Chemistries reveal a creatinine of 1.5. Urinalysis is noted, 2 3 wbc's, large bacteria. Blood cultures are no growth. The patient had history and physical examination noted. ASSESSMENT AND PLAN: A 78-year-old male with: 1. Suprapubic catheter dysfunction with urinary tract infection and leukocytosis. We will check on the blood cultures, urine cultures, wound cultures and start the patient on meropenem. We will make further recommendations. Tunde Buitrago MD
[2018-11-12] MEDS: Meropenem IV 1 gm in NS 1 GM/50 ML BAG IVPB SCH (05:56)
[2018-11-12 08:17] VITALS: RESP 19
[2018-11-12 09:30] LABS: BASO # 0.02 K/mm3 (0.0-2.0); BASO % 0.2 % (0.0-3.0); EOS # 0.3 (0.0-0.7); EOS % 2.6 % (1.5-5.0); HEMOGLOBIN 13.5 g/dL (14.0-18.0); LYMPH # 1.8 (1.2-3.4); MEAN CELL VOLUME 87.7 fl (80.0-105.0); MEAN CORPUSCULAR HEMOGLOBIN 28.7 pg (25.0-35.0); MEAN CORPUSCULAR HGB CONC 32.8 g/dl (31.0-37.0); MEAN PLATELET VOLUME 11.8 fl (7.0-11.0); MONO # 0.8 (0.1-0.6); MONO % 8.7 % (1.0-6.0); RBC 4.7 10^6/uL (3.5-6.1); WHITE BLOOD COUNT 9.6 10^3/uL (4.5-11.0)
[2018-11-12 09:38] LABS: ALB/GLOB RATIO 1.2 (1.1-1.8); CALCIUM 9.4 mg/dL (8.4-10.5)
[2018-11-12] MEDS: Iron Complex Polysacch 150mg Cap PO SCH (10:02)
--- NOTE | 2018-11-12 12:07 | PN ---
DATE: 11/12/2018 SUBJECTIVE: A 78-year-old white male admitted to the hospital with infection of the suprapubic catheter. The patient is afebrile. White count is stable, we are repeating his white count. The patient was seen in consultation by Dr. Contreras, the urologist. The patient most likely will have a change of his suprapubic catheter today pending outcome of the cultures. The [facility] once the catheter is changed. Ted Jacob MD
--- NOTE | 2018-11-12 12:45 | CP.PCM.PCO ---
Additional Comments - Additional Comments Additional Comments: Ucx result relayed to Dr. Buitrago, recommends 5-7 days of Merrem. D/W Dr. Contreras, will change suprapubic cath today. D/W Dr. Jacob, pt can go back [facility] if [facility] can accommodate the antibiotic. CM made aware.
[2018-11-12 14:41] VITALS: PULSE 117; TEMP 97.7; O2SAT 92
[2018-11-12 18:25] VITALS: BP 120/76
--- NOTE | 2018-11-12 18:29 | PCM.URO ---
Urology Progress Note - Objective Lab Studies: Reviewed (all notes dictated new spt next appt 12/09 in my office) Lab Results Last 24 Hours: Laboratory Results - last 24 hr 11/12/18 11/12/18 09:15 09:15 WBC 9.6 D RBC 4.70 Hgb 13.5 L Hct 41.2 L MCV 87.7 MCH 28.7 MCHC 32.8 RDW 14.0 Plt Count 140 MPV 11.8 H Neut % (Auto) 69.5 H Lymph % (Auto) 19.0 L [place] % (Auto) 8.7 H Eos % (Auto) 2.6 Baso % (Auto) 0.2 Lymph # (Auto) 1.8 [place] # (Auto) 0.8 H Eos # (Auto) 0.3 Baso # (Auto) 0.02 Absolute Neuts (auto) 6.68 H Sodium 142 Potassium 4.0 Chloride 107 Carbon Dioxide 25 Anion Gap 14 BUN 45 H Creatinine 1.5 Est GFR ( Amer) 55 Est GFR (Non-Af Amer) 46 Random Glucose 105 Calcium 9.4 Total Bilirubin 0.8 AST 19 ALT 6 L Alkaline Phosphatase 90 Total Protein 7.3 Albumin 4.0 Globulin 3.4 Albumin/Globulin Ratio 1.2 Intake & Output: Intake & Output 11/11/18 11/12/18 11/12/18 18:59 06:59 18:59 Intake Total 500 300 Output Total 100 Balance 500 200 Intake: Oral 500 300 Output: Urine 100 Urine, Voided 100 Other: # Bowel Movements 1 Vital Signs: Vital Signs - 24 hr 11/11/18 11/12/18 11/12/18 22:39 02:28 06:00 Temperature 98.1 F 98.1 F Pulse Rate 67 59 L 71 Respiratory 20 19 Rate Blood Pressure 171/95 H 126/69 156/79 H O2 Sat by Pulse 96 96 Oximetry 11/12/18 11/12/18 11/12/18 10:02 14:00 18:24 Temperature 97.7 F Pulse Rate 117 H Respiratory 19 Rate Blood Pressure 154/80 H 107/69 120/76 O2 Sat by Pulse 92 L Oximetry
[2018-11-12] MEDS ORDERED: Meropenem IV 1 gm in NS 1 GM/50 ML BAG IVPB SCH (22:00)
--- NOTE | 2018-11-13 03:36 | PN ---
DATE: 11/12/2018 SUBJECTIVE: The patient was seen earlier this morning in 567, bed 2. He is in poor condition, weak. PHYSICAL EXAMINATION: VITAL SIGNS: Temperature of 97, blood pressure is 120/70, respiratory rate 19, and heart rate of 117. HEENT: Unremarkable. NECK: Supple. LUNGS: Have decreased breath sounds. HEART: Normal S1 and S2. ABDOMEN: Soft. LABORATORY EXAMINATION: Reveals a white count is down to 9.2, hemoglobin of 13. Creatinine is 1.5. Urinalysis has 2-3 wbc's, many triple phosphate crystals. Microbiology reveals urine culture is Providencia stuartii and sensitive to Merrem. Review of orders reveals the patient to be on meropenem. ASSESSMENT AND PLAN: This is a 78-year-old male with suprapubic catheter dysfunction, urinary tract infection, leukocytosis. Currently on meropenem with Providencia in urine culture. We will follow with you. Tunde Buitrago MD
--- NOTE | 2018-11-13 13:56 | DS ---
HISTORY OF PRESENT ILLNESS: The patient was admitted with infected suprapubic catheter at the site and also urinary tract infection. The patient was seen Dr. Contreras. The suprapubic catheter was changed. The patient was treated with IV antibiotics Dr. Buitrago. The patient was placed on IV antibiotics. He will be discharged back to [facility] to complete his course of antibiotics and to be followed as an outpatient. The patient also has history of Parkinson's disease, CAD, CVA in the past, and dementia. FINAL DISCHARGE DIAGNOSES: The patient with the infected suprapubic catheter, history of Parkinson's, history of coronary artery disease, history of chronic obstructive pulmonary disease, and history of cerebrovascular accident in the past and dementia. Ted Jacob MD
== END 2018-11-12 22:08 | DRG 699 ==
LOC: ED 12:22 → ERH 14:01 → 5RNO 17:39
PROVIDERS: ADMIT Internal Medicine; ATTEND Internal Medicine
PROC: 05HY33Z Insertion of Infusion Device into Upper Vein, Percutaneous Approach (ICD-10-PCS; principal; 2018-11-12)
DX: T83.090A Other mechanical complication of cystostomy catheter, initial encounter (principal); N39.0 Urinary tract infection, site not specified; L89.309 Pressure ulcer of unspecified buttock, unspecified stage; L89.159 Pressure ulcer of sacral region, unspecified stage; L89.029 Pressure ulcer of left elbow, unspecified stage; Z79.899 Other long term (current) drug therapy; G20 Parkinson's disease; F03.90 Unspecified dementia, unspecified severity, without behavioral disturbance, psychotic disturbance, mood disturbance, and anxiety; J44.9 Chronic obstructive pulmonary disease, unspecified; F02.80 Dementia in other diseases classified elsewhere, unspecified severity, without behavioral disturbance, psychotic disturbance, mood disturbance, and anxiety; H35.30 Unspecified macular degeneration; I11.0 Hypertensive heart disease with heart failure; I25.10 Atherosclerotic heart disease of native coronary artery without angina pectoris; I50.9 Heart failure, unspecified; I73.9 Peripheral vascular disease, unspecified; Y73.8 Miscellaneous gastroenterology and urology devices associated with adverse incidents, not elsewhere classified; Z86.73 Personal history of transient ischemic attack (TIA), and cerebral infarction without residual deficits; Z87.440 Personal history of urinary (tract) infections; Z87.442 Personal history of urinary calculi; Z90.49 Acquired absence of other specified parts of digestive tract; Z93.59 Other cystostomy status; Z95.0 Presence of cardiac pacemaker; Z91.018 Allergy to other foods